=== PATIENT | male | born 1955 | race Caucasian/White ===

== ENCOUNTER 2018-03-06 12:41 | Emergency (ER) | payer BC ==
[2018-03-06 14:19] LABS: Hematocrit 36 % (42-52); Hemoglobin 11.9 g/dl (14.0-18.0); Mean Corpuscular HGB Conc 34 g/dl (31-36); Mean Corpuscular Hemoglobin 29 pg (27-31); Mean Corpuscular Volume 87 fL (80-94); Mean Platelet Volume 7.4 um3 (7.4-10.4); Platelet Count 190 10^3/ul (150-450); Red Blood Count 4.07 10^6/ul (4.00-5.40); Red Cell Distribution Width 13 % (10.5-15); White Blood Count 7.1 10^3/ul (3.5-10.8)
[2018-03-06 14:40] LABS: EGFR Non-African American 88.9 (>60)
[2018-03-06 14:53] LABS: ABS Basophils 0.1 10^3/ul (0-0.2); ABS Eosinophils 0.1 10^3/ul (0-0.6); ABS Monocytes 0.3 10^3/ul (0-0.8); ABS Neutrophils 5.6 10^3/ul (1.5-7.7); ABS Nucleated RBC 0 10^3/ul; Nucleated Red Blood Cells % 0.2
[2018-03-06 14:56] LABS: Monocytes % 6 % (0-7)
[2018-03-06 16:38] VITALS: BP 133/83
--- NOTE | 2018-03-08 15:05 | ED ---
Josafat Silva Tiffany, scribed for Miquel Goldberg MD on 03/06/18 at 1302 . Complex/Multi-Sys Presentation - HPI Summary HPI Summary: 63 year old M presenting to [facility] complains of increasing weakness for the past 3 weeks. Symptoms aggravated by nothing. Symptoms alleviated by nothing. Patient c/o decreased appetite, recent weight loss, fatigue per . Additionally reports right him pain. Denies shortness of breath. states that [facility] and left-sided abd pain with dx abdominal aneurysm, masses on left axilla, nodules in lungs. Biopsy scheduled for March 27. - History Of Current Complaint Chief Complaint: EDWeakness Time Seen by Provider: 03/06/18 12:48 Hx Obtained From: Patient, Family/[employer] - Onset/Duration: Lasting Weeks - 3, Still Present Aggravating Factor(s): Nothing Alleviating Factor(s): Nothing Associated Signs And Symptoms: Positive: Other - decreased appetite, recent weight loss, fatigue, right him pain; NEGATIVE: shortness of breath. - Allergies/Home Medications Allergies/Adverse Reactions: Allergies Allergy/AdvReac Type Severity Reaction Status Date / Time amoxicillin AdvReac GI Upset Verified 03/06/18 12:45 Home Medications: Home Medications Atorvastatin* [Lipitor*] 40 mg PO DAILY 03/06/18 [History Confirmed 03/06/18] Diclofenac 1% GEL (NF) [Voltaren 1% GEL (NF)] 1 applic TOPICAL BID PRN 03/06/18 [History Confirmed 03/06/18] Gabapentin CAP(*) [Neurontin 100 mg CAP(*)] 100 mg PO TID 03/06/18 [History Confirmed 03/06/18] Methocarbamol TAB* [Robaxin 500 MG TAB*] 500 mg PO QID PRN 03/06/18 [History Confirmed 03/06/18] Metoprolol Succinate XL TAB* [Toprol XL TAB*] 25 mg PO DAILY 03/06/18 [History Confirmed 03/06/18] Multivit-Mins/Iron/Folic/Lycop [Centrum Ultra Mens] 1 tab PO DAILY 03/06/18 [ History Confirmed 03/06/18] [place]-3 Fatty Acids (Nf) [Fish Oil (NF)] 1,000 mg PO DAILY 03/06/18 [History Confirmed 03/06/18] Omeprazole CAP* [Prilosec CAP* 20 MG] 20 mg PO DAILY 03/06/18 [History Confirmed 03/06/18] traMADol TAB* [Ultram*] 50 mg PO TID PRN 03/06/18 [History Confirmed 03/06/18] PMH/Surg Hx/FS Hx/Imm Hx Previously Healthy: No Endocrine/Hematology History: Denies: Hx Diabetes Respiratory History: Denies: Hx Asthma, Hx Chronic Obstructive Pulmonary Disease (COPD) Sensory History: Denies: Hx Deafness, Hx Hearing Aid EENT History: Denies: Hx Deafness, Hx Hearing Aid - Surgical History Surgery Procedure, Year, and Place: none reported Infectious Disease History: No Infectious Disease History: Denies: Traveled Outside the [place] in Last 30 Days - Family History Known Family History: Positive: Other - cancer - Social History Lives: With Family Hx Substance Use: No Substance Use Type: Reports: None Review of Systems Positive: Fatigue, Other - recent weight loss Negative: Shortness Of Breath Positive: Other - decreased appetite Positive: Other - right hip pain Neurological: Other - weakness All Other Systems Reviewed And Are Negative: Yes Physical Exam - Summary Physical Exam Summary: Appearance: The patient is well-nourished in no acute distress and in no acute pain. Skin: The skin is warm and dry and skin color reflects adequate perfusion. There is a mass on the left axilla that is mildly erythematous. HEENT: The head is normocephalic and atraumatic. The pupils are equal and reactive. The conjunctivae are clear and without drainage. Nares are patent and without drainage. Mouth reveals moist mucous membranes and the throat is without erythema and exudate. The external ears are intact. The ear canals are patent and without drainage. The tympanic membranes are intact. Neck: The neck is supple with full range of motion and non-tender. There are no carotid bruits. There is no neck vein distension. Respiratory: Chest is non-tender. Lungs are clear to auscultation and breath sounds are symmetrical and equal. Cardiovascular: Heart is regular rate and rhythm. There is no murmur or rub auscultated. There is no peripheral edema and pulses are symmetrical and equal. Abdomen: The abdomen is soft and non-tender. There are normal bowel sounds heard in all four quadrants and there is no organomegaly palpated. Musculoskeletal: There is no back tenderness noted. Extremities are non-tender with full range of motion. There is good capillary refill. There is no peripheral edema or calf tenderness elicited. Neurological: Patient is alert and oriented to person, place and time. The patient has symmetrical motor strength in all four extremities. Cranial nerves are grossly intact. Deep tendon reflexes are symmetrical and equal in all four extremities. Psychiatric: The patient has an appropriate affect and does not exhibit any anxiety or depression. Triage Information Reviewed: Yes Vital Signs On Initial Exam: Initial Vitals Temp Pulse Resp BP Pulse Ox 97.7 F 94 16 123/69 99 03/06/18 12:41 03/06/18 12:41 03/06/18 12:41 03/06/18 12:41 03/06/18 12:41 Vital Signs Reviewed: Yes Diagnostics - Vital Signs Vital Signs Temp Pulse Resp BP Pulse Ox 03/06/18 12:41 97.7 F 94 16 123/69 99 - Laboratory Lab Results: Lab Results 03/06/18 03/06/18 Range/Units 14:05 14:05 WBC 7.1 (3.5-10.8) 10^3/ul RBC 4.07 (4.00-5.40) 10^6/ul Hgb 11.9 L (14.0-18.0) g/dl Hct 36 L (42-52) % MCV 87 (80-94) fL MCH 29 (27-31) pg MCHC 34 (31-36) g/dl RDW 13 (10.5-15) % Plt Count 190 (150-450) 10^3/ul MPV 7.4 (7.4-10.4) um3 Neut % (Auto) Not Reportable Lymph % (Auto) Not Reportable Bureau % (Auto) Not Reportable Eos % (Auto) Not Reportable Baso % (Auto) Not Reportable Absolute Neuts (auto) 5.6 (1.5-7.7) 10^3/ul Absolute Lymphs (auto) 1.0 (1.0-4.8) 10^3/ul Absolute Monos (auto) 0.3 (0-0.8) 10^3/ul Absolute Eos (auto) 0.1 (0-0.6) 10^3/ul Absolute Basos (auto) 0.1 (0-0.2) 10^3/ul Absolute Nucleated RBC 0 10^3/ul Immature Gran % 5 (0-9) % Neutrophils % 76 (38-83) % Band Neutrophils % 1 (0-8) % Lymphocytes % 12 L (25-47) % Monocytes % 6 (0-7) % Eosinophils % 0 (0-6) % Basophils % 1 (0-2) % Metamyelocytes % 1 (0-2) % Myelocytes % 3 H (0-1) % Nucleated RBC % 0.2 Abs Neuts (Manual) 5.4 (1.5-7.7) 10^3/ul Abs Lymphs (Manual) 0.9 L (1.0-4.8) 10^3/ul Abs Monocytes (Manual) 0.4 (0-0.8) 10^3/ul Absolute Eos (Manual) 0 (0-0.6) 10^3/ul Abs Basophils (Manual) 0.1 (0-0.2) 10^3/ul Normal RBC Morphology Normal (Normal) Sodium 132 L (135-145) mmol/L Potassium 4.3 (3.5-5.0) mmol/L Chloride 93 L (101-111) mmol/L Carbon Dioxide 30 (22-32) mmol/L Anion Gap 9 (2-11) mmol/L BUN 15 (6-24) mg/dL Creatinine 0.87 (0.67-1.17) mg/dL Est GFR ( Amer) 107.6 (>60) Est GFR (Non-Af Amer) 88.9 (>60) BUN/Creatinine Ratio 17.2 (8-20) Glucose 101 H (70-100) mg/dL Calcium 9.9 (8.6-10.3) mg/dL Total Bilirubin 0.60 (0.2-1.0) mg/dL AST 83 H (13-39) U/L ALT 33 (7-52) U/L Alkaline Phosphatase 84 (34-104) U/L Lactate Dehydrogenase 805 H (140-271) U/L C-Reactive Protein 174.91 H (<8.01) mg/L Total Protein 5.2 L (6.4-8.9) g/dL Albumin 2.7 L (3.2-5.2) g/dL Globulin 2.5 (2-4) g/dL Albumin/Globulin Ratio 1.1 (1-3) Result Diagrams: 03/06/18 14:05 03/06/18 14:05 Lab Statement: Any lab studies that have been ordered have been reviewed, and results considered in the medical decision making process. Re-Evaluation - Re-Evaluation First Eval Re-Evaluation Time: 16:02 Comment: patient is agreeable to discharge, will head straight to Dr. Panchal's office Complex Multi-Symp Course/Dx Course Of Treatment: Mr. Tarango presented to the emergency department with his with a concern for increasing weakness over the past several weeks. About a week ago they went to the [facility] after his weakness increased to the point where was interfering with a camping trip. He was found to have a mass in his left axilla and nodules on his long and scheduled for a biopsy in late March. His vitals were stable here and his labs within normal limits aside from an elevated LDH. Dr. Panchal was contacted and requested that we discharge the patient to go to Dr. Panchal's office for follow-up and to arrange further testing with greater exigency. - Diagnoses Provider Diagnoses: Weakness - Physician Notifications Discussed Care Of Patient With: Moy Panchal Time Discussed With Above Provider: 15:55 Instructed by Provider To: Other - Dr. Panchal, oncology, agrees to see patient in his office as soon as patient is discharged from ED. Discharge - Sign-Out/Discharge Documenting (check all that apply): Discharge/Admit/Transfer - Discharge - Discharge Plan Condition: Fair Disposition: HOME Patient Education Materials: Weakness (ED) Referrals: Maurice Sheth MD [Medical Doctor] - Moy Panchal MD [Medical Doctor] - 03/06/18 Additional Instructions: Head to Dr. Panchal's office now for follow-up appointment. Return to the Emergency Department for new or worsening symptoms. - Billing Disposition and Condition Condition: FAIR Disposition: Home The documentation as recorded by the Josafat montejo Tiffany accurately reflects the service I personally performed and the decisions made by me, Miquel Goldberg MD.
== END 2018-03-06 16:43 | disposition home or self-care (01) ==
LOC: ED 12:41
DX: R53.1 Weakness (principal); M54.2 Cervicalgia; F17.210 Nicotine dependence, cigarettes, uncomplicated
CPT/HCPCS: 36415; 80053; 83615; 85025; 86140; 99282

== ENCOUNTER 2018-03-15 10:50 | Inpatient (IN) | payer BC ==
[2018-03-15] MEDS ORDERED: HYDROmorphone INJ* 0.5 MG/0.5 ML SYRINGE IV SLOW PU PRN (11:58)
[2018-03-15] MEDS ORDERED: traMADol TAB* 50 MG PO PRN (11:58)
[2018-03-15] MEDS ORDERED: Zoledronic Acid* 4 MG in NS 0.9% 100 ML* 95 ML IVPB ONE (11:58)
[2018-03-15] MEDS: NS 0.9% 1000 ML* 1,000 ML IV SCH ×2 (12:45→22:24)
[2018-03-15] MEDS: traMADol TAB* 50 MG PO PRN (13:25)
[2018-03-15 13:56] LABS: INR 1.06 (0.77-1.02)
[2018-03-15 14:08] LABS: Urine Appearance Cloudy; Urine Blood 1+ (Negative); Urine Color Yellow; Urine Ketones Trace (Negative); Urine Protein Negative (Negative); Urine Red Blood Cell 2+(6-10/hpf) (Absent); Urine Specific Gravity 1.016 (1.010-1.030); Urine Urobilinogen Negative (Negative); Urine White Blood Cell 1+(6-10/hpf) (Absent)
[2018-03-15] MEDS ORDERED: Midazolam* 1 MG/ML 5 ML VIAL (5 MG) ONE (15:37)
[2018-03-15] MEDS ORDERED: Naloxone* 0.4 MG/ML 1 ML VIAL IV PRN (16:36)
[2018-03-15 16:51] LABS: Body Fluid Source Cerebral Spinal
[2018-03-15] MEDS: Metoprolol Succinate XL TAB* 25 MG PO SCH (22:20)
[2018-03-16] MEDS: NS 0.9% 1000 ML* 1,000 ML IV SCH ×3 (05:03→22:14)
[2018-03-16] MEDS: Omeprazole CAP* 20 MG PO SCH (05:55)
[2018-03-16 06:09] LABS: Hematocrit 34 % (42-52); Hemoglobin 11.3 g/dl (14.0-18.0); Mean Corpuscular HGB Conc 33 g/dl (31-36); Mean Corpuscular Hemoglobin 29 pg (27-31); Mean Corpuscular Volume 86 fL (80-94); Platelet Count 157 10^3/ul (150-450); Red Blood Count 3.95 10^6/ul (4.00-5.40); Red Cell Distribution Width 14 % (10.5-15); White Blood Count 8.3 10^3/ul (3.5-10.8)
[2018-03-16 06:25] LABS: EGFR Non-African American 103.9 (>60)
[2018-03-16 06:40] LABS: ABS Basophils 0 10^3/ul (0-0.2); ABS Neutrophils 6.5 10^3/ul (1.5-7.7); ABS Neutrophils 7.1 10^3/ul (1.5-7.7); Monocytes % 3 % (0-7)
[2018-03-16] MEDS ORDERED: Furosemide IV* 10 MG/ML VIAL (40 MG) IV ONE (07:34)
[2018-03-16] MEDS: traMADol TAB* 50 MG PO PRN ×3 (08:03→22:09)
[2018-03-16] MEDS: Allopurinol TAB* 300 MG PO SCH ×2 (08:04→21:55)
--- NOTE | 2018-03-16 08:24 | PN ---
Progress Note - Progress Note Date of Service: 03/16/18 SOAP: Subjective: feels miserable today. back and right hip pain significant. does not want to move to let me examen him fully. Objective: Vital Signs Temp Pulse Resp BP Pulse Ox 98.3 F 106 20 169/89 98 03/16/18 03:24 03/16/18 07:51 03/16/18 08:03 03/16/18 07:51 03/16/18 07:51 lying on side in distress from pain perr eomi op moist CTA bl s1 s2 nl soft nontender, could not camille HSM on sideways exam shotty MUKUND on limited exam A+O x 3, grossly nonfocal neurological exam Laboratory Results - last 24 hr 03/15/18 03/15/18 03/15/18 12:02 13:13 13:50 WBC RBC Hgb Hct MCV MCH MCHC RDW Plt Count MPV Neut % (Auto) Lymph % (Auto) [place] % (Auto) Eos % (Auto) Baso % (Auto) Absolute Neuts (auto) Absolute Lymphs (auto) Absolute Monos (auto) Absolute Eos (auto) Absolute Basos (auto) Absolute Nucleated RBC Immature Gran % Neutrophils % Band Neutrophils % Lymphocytes % Reactive Lymphs % Monocytes % Eosinophils % Basophils % Metamyelocytes % Myelocytes % Nucleated RBC % Abs Neuts (Manual) Abs Lymphs (Manual) Abs Monocytes (Manual) Absolute Eos (Manual) Abs Basophils (Manual) Nucleated RBCs/100 WBC Normal RBC Morphology Polychromasia INR (Anticoag Therapy) 1.06 H APTT 26.2 Sodium Potassium Chloride Carbon Dioxide Anion Gap BUN Creatinine Est GFR ( Amer) Est GFR (Non-Af Amer) BUN/Creatinine Ratio Glucose Calcium Total Bilirubin AST ALT Alkaline Phosphatase Total Protein Albumin Globulin Albumin/Globulin Ratio Urine Color Yellow Urine Appearance Cloudy Urine pH 5.0 Ur Specific [place] 1.016 Urine Protein Negative Urine Ketones Trace A Urine Blood 1+ A Urine Nitrate Negative Urine Bilirubin Negative Urine Urobilinogen Negative Ur Leukocyte Esterase Negative Urine WBC (Auto) 1+(6-10/hpf) A Urine RBC (Auto) 2+(6-10/hpf) A Urine Bacteria Absent Urine Glucose Negative Fluid Source Cerebral spinal Fluid Volume 4 Fluid Color Colorless Fluid Appearance Clear Fluid WBC 0 Fluid RBC 0 Fluid Tot Cell Count 0 Fluid Neutrophils Not Reportable CSF Cell Count Tube # 4 CSF Glucose CSF Total Protein 07/11/18 07/12/18 07/12/18 16:30 05:29 05:29 WBC 8.3 RBC 3.95 L Hgb 11.3 L Hct 34 L MCV 86 MCH 29 MCHC 33 RDW 14 Plt Count 157 MPV 8.0 Neut % (Auto) Not Reportable Lymph % (Auto) Not Reportable [place] % (Auto) Not Reportable Eos % (Auto) Not Reportable Baso % (Auto) Not Reportable Absolute Neuts (auto) 7.1 Absolute Lymphs (auto) Not Reportable Absolute Monos (auto) Not Reportable Absolute Eos (auto) Not Reportable Absolute Basos (auto) Not Reportable Absolute Nucleated RBC Not Reportable Immature Gran % 6 Neutrophils % 78 Band Neutrophils % 3 Lymphocytes % 12 L Reactive Lymphs % 1 Monocytes % 3 Eosinophils % 0 Basophils % 0 Metamyelocytes % 1 Myelocytes % 2 H Nucleated RBC % Not Reportable Abs Neuts (Manual) 6.5 Abs Lymphs (Manual) 1.0 Abs Monocytes (Manual) 0.2 Absolute Eos (Manual) 0 Abs Basophils (Manual) 0 Nucleated RBCs/100 WBC 0 Normal RBC Morphology Not Reportable Polychromasia 1+ INR (Anticoag Therapy) APTT Sodium 135 Potassium 3.7 Chloride 101 Carbon Dioxide 25 Anion Gap 9 BUN 22 Creatinine 0.76 Est GFR ( Amer) 125.8 Est GFR (Non-Af Amer) 103.9 BUN/Creatinine Ratio 28.9 H Glucose 103 H Calcium 11.7 H Total Bilirubin 0.70 AST 84 H ALT 27 Alkaline Phosphatase 94 Total Protein 4.3 L Albumin 2.3 L Globulin 2.0 Albumin/Globulin Ratio 1.2 Urine Color Urine Appearance Urine pH Ur Specific [place] Urine Protein Urine Ketones Urine Blood Urine Nitrate Urine Bilirubin Urine Urobilinogen Ur Leukocyte Esterase Urine WBC (Auto) Urine RBC (Auto) Urine Bacteria Urine Glucose Fluid Source Fluid Volume Fluid Color Fluid Appearance Fluid WBC Fluid RBC Fluid Tot Cell Count Fluid Neutrophils CSF Cell Count Tube # CSF Glucose 63 CSF Total Protein 26 Allopurinol (Zyloprim Tab*) 300 mg PO BID [facility]ADUMO Last Admin: 03/16/18 08:04 Dose: 300 mg Hydromorphone HCl (Dilaudid Inj*) 0.5 mg IV SLOW PU Q4H PRN PRN Reason: PAIN Sodium Chloride (Ns 0.9% 1000 Ml*) 1,000 mls @ 150 mls/hr IV PER RATE FADUMO Last Admin: 03/16/18 05:03 Dose: 150 mls/hr Dexamethasone Sodium Phosphate (40 mg/ Sodium Chloride) 60 mls @ 208 mls/hr IVPB Q24H [facility] Stop: 03/20/18 15:59 Melatonin (Melatonin) 6 mg PO BEDTIME PRN PRN Reason: SLEEP Metoprolol Succinate (Toprol Xl Tab*) 25 mg PO 1600 [facility] Last Admin: 03/15/18 22:20 Dose: 25 mg Omeprazole (Prilosec Cap*) 20 mg PO DAILY@0600 [facility] Last Admin: 03/16/18 05:55 Dose: 20 mg Tramadol HCl (Ultram*) 50 mg PO QID PRN PRN Reason: PAIN Last Admin: 03/16/18 08:03 Dose: 50 mg Assessment: 63 yo M w newly diagnosed DLBCL, at least stage 3, though likely IV, admitted with failure to thrive, hypercalcemia and intractable pain. He will require inpatient chemotherapy. We are still awaiting FISH to clarify if double hit/ triple hit to identify appropriate therapy (R-CHOP vs. Cari-EPOCH). Plan: Hypercalcemia: had zometa yesterday, may take another 24 hrs to see improvement -add lasix IV to fluids today DLBCL: start allopurinol for tumor lysis prophylaxis -staging CTs today -port at 9 am -will start high dose dex this afternoon x 4 doses -plan to start chemotherapy on Tuesday -cont dilaudid and tramadol for pain control -start lovenox dvt prophylaxis after port placement (this evening) full code
[2018-03-16] MEDS ORDERED: ceFAZolin 1 GM in Dextrose (*) 1 GM/50 ML BAG IVPB ONE (09:00)
[2018-03-16] MEDS ORDERED: fentaNYL* 50 MCG/ML 5 ML VIAL (250 MCG VIAL) ONE (09:44)
[2018-03-16] MEDS ORDERED: Midazolam* 1 MG/ML 2 ML VIAL (2 MG) ONE (09:44)
[2018-03-16] MEDS ORDERED: Iohexol 300* (CONTRAST) 10 ML SDV IV ONE ×2 (12:39→13:13)
--- NOTE | 2018-03-16 14:23 | RAD ---
INDICATION: New diagnosis of lymphoma. COMPARISON: No relevant prior exams available on the [facility] PACS for comparison. TECHNIQUE: Multidetector CT images were obtained from the lung apices to the ischial tuberosities with alternate milliliters Omnipaque 300 IV contrast. Oral contrast administered. CHEST REPORT: Small bilateral dependent pleural effusions with associated compressive atelectasis. Multiple bilateral focal pulmonary lesions. Dominant 2.6 cm subpleural lesion at the RIGHT lower lobe posterior basal segment. Dominant lesion at the LEFT lung measures 1.0 cm maximum dimension at the anteromedial basal segment of the LEFT lower lobe. Incompletely visualized LEFT supraclavicular lymphadenopathy with dominant 1.3 cm short axis node. Bilateral axillary lymphadenopathy with coalescent ness mass at the LEFT axilla measuring up to 9.6 cm AP by 0.5 cm transverse. Upper normal 0.9 cm short axis subcarinal lymph node. Negative for lymphadenopathy or pericardial effusion. Mild atherosclerotic plaque at the thoracic aorta. Subtle lytic lesion at the anterolateral aspect of the RIGHT first rib with associated surrounding soft tissue mass measuring up to 2.8 cm transverse by 7.8 cm AP. No additional focal osseous lesions of the thorax visualized. CHEST IMPRESSION: #. Bilateral pleural effusions. #. Multiple bilateral intraparenchymal lesions. #. Thoracic lymphadenopathy with dominant coalescent ness mass at the LEFT axilla. #. Lytic lesion with associated soft tissue mass at the RIGHT first rib. ABDOMEN PELVIS REPORT: Unremarkable liver and gallbladder. Negative for biliary dilatation. Fullness and blunting at the uncinate process of the pancreas with suggestion of a 1.8 x 2.1 x 2.2 cm mass. Negative for pancreatic duct dilatation. Mildly enlarged 14.7 cm cephalocaudal liver with innumerable focal hypodense lesions. No CT abnormality of the upper GI, small bowel, appendix, or colon. Negative for significant ascites. Negative for free air or hernias. Normal adrenal glands. Symmetric nephrograms and pyelograms. Negative for suspicious focal renal cortical lesions. Thickening of the LEFT renal pelvis and proximal ureter suspicious for taking with lymphoma tumor. Negative for resulting hydronephrosis. Negative for ureteral dilatation. Unremarkable urinary bladder. Symmetric seminal vesicles. Unremarkable CT appearance of the prostate. Bilateral external iliac and inguinal lymphadenopathy. Dominant RIGHT external iliac lymph node measures 1.9 cm short axis. Dominant RIGHT common femoral artery lymph node measures 2.1 cm short axis. Negative for suspicious osseous lesions of the lumbar sacral spine, pelvis, or visualized proximal femurs. ABDOMEN PELVIS IMPRESSION: #. Probable 2.2 cm maximum dimension mass at the uncinate process of the pancreas. The differential includes involvement by lymphoma versus a primary pancreatic neoplasm. Negative for associated pancreatic duct dilatation. #. Splenomegaly and innumerable focal splenic lesions. #. Suggestion of tumor caking around the LEFT renal pelvis and proximal ureter without resulting hydronephrosis. #. Bilateral external iliac and inguinal lymphadenopathy.
[2018-03-16] MEDS: Metoprolol Succinate XL TAB* 25 MG PO SCH (16:18)
[2018-03-16] MEDS: Dexamethasone IV* 40 MG in NS 0.9% 50 ML* 50 ML IVPB SCH (16:19)
--- NOTE | 2018-03-16 18:18 | RAD ---
CPT II Codes: G9500 Procedure performed: Mediport placement with sonographic and fluoroscopic guidance. Date of service: March 16, 2018 Indication for procedure: Lymphoma Comparison: None Contrast: None Fluoroscopy Time: 28 seconds Anesthesia: Conscious sedation with IV Fentanyl and Versed as well as local 1% lidocaine injected locally overlying the venotomy site, periclavicular area and upper chest. Conscious sedation time: Timeout: 1040 hours Case end: 1110 hours Total conscious sedation time: 30 minutes Additional medications: Ancef 1 gram IV. Procedure Narration and Imaging Findings: The risks and benefit of the procedure were discussed with the patient and informed consent was obtained. The patient received Ancef 1 g immediately before the procedure for antibiotic prophylaxis. The patient was placed in the supine position in the fluoroscopy suite and the neck and upper chest was prepped and draped according to standard sterile protocol. A formal time out was performed by Dr. Murray in the presence of the IR staff and all agreed on the patient, procedure and laterality. The skin overlying the right jugular vein and upper chest was anesthetized with 1% lidocaine. Real time ultrasound imaging shows the internal jugular vein is patent and determined to be adequate for catheter placement. Utilizing real time ultrasound visualization the internal jugular vein was accessed with an 18 gauge needle. An image was recorded and saved confirming appropriate intraluminal position of the needle tip. Blood return further confirmed position. Through the needle and under fluoroscopic control a 0.035" guidewire was advanced down the IVC confirming appropriate venous access. An image of the wire in the IVC was recorded. Over the wire a peel away sheath was gently advanced into the IVC under fluoroscopic guidance. Attention was now directed to creation of the subcutaneous mediport pocket. An incision below the clavicle was made and using blunt instrument dissection, a subcutaneous port was created. From the superior edge of the incision a tunneling device was used to advance the catheter from the pocket to the venotomy. The port end of the catheter was clamped to prevent air aspiration into the catheter. The catheter was pulled through and advanced into the peel away sheath under fluoroscopic guidance. The sheath was peeled away and the catheter tip was pulled back so that it terminated at the cavoatrial junction. The catheter was cut to a length of 24 cm, attached to the mediport and secured with the pericatheter cuff. The port was accessed with a Dunn needle and blood was aspirated from the port and then flushed with sterile saline with minimal effort. The port was then flushed with approximately 3mL of 100 units/mL of heparin. The pocket was flushed with sterile saline prior to inserting the mediport into the pocket. A fluoroscopic image was saved demonstrating appropriate position of all parts of the mediport before closure of the incision. The pocket was closed with interrupted absorbable suture then dressed with Steri strips and sterile gauze. The venotomy site was dressed with Steri strips, sterile gauze and Tegaderm. The patient tolerated the procedure well and left the angiography suite in stable condition. SUMMARY OF PROCEDURE, IMAGING FINDINGS AND INTERVENTIONS PERFORMED: 1. Diagnostic studies performed: * Visualization of the upper central venous system during catheter and wire advancement. 2. Interpretation of diagnostic studies performed: * Sonographic imaging of the jugular vein showed the vein to be adequately patent, compressible and with normal venous color flow signal. * Venotomy was accessed with live sonographic guidance. An image of the needle tip in the lumen of the vein was recorded. 3. Surgical interventions performed: * Placement of a right internal jugular vein 8 [place] Bard Clear JULIO PowerPort with ultrasound and fluoroscopic guidance. 4. Interpretation of interventions performed: * Final fluoroscopic image demonstrates the Mediport to be appropriately positioned below the clavicle with the catheter tip terminating at the cavoatrial junction. PLAN: 1. External bandages can be removed 24 hours from the time of port insertion. 2. The overlying Steri strips should be allowed to slough off over the course of 1 week. 3. Port can be accessed immediately. 4. Please submit request for mediport removal to Interventional Radiology when the mediport is no longer necessary.
[2018-03-16] MEDS: Enoxaparin(*) 40 MG/0.4 ML SYR SUBCUT SCH ×2 (21:55→21:58)
[2018-03-17] MEDS: NS 0.9% 1000 ML* 1,000 ML IV SCH ×2 (04:48→19:25)
[2018-03-17 06:02] LABS: Hematocrit 33 % (42-52); Hemoglobin 11.5 g/dl (14.0-18.0); Mean Corpuscular HGB Conc 35 g/dl (31-36); Mean Corpuscular Hemoglobin 30 pg (27-31); Mean Corpuscular Volume 86 fL (80-94); Mean Platelet Volume 8.1 um3 (7.4-10.4); Platelet Count 140 10^3/ul (150-450); Red Blood Count 3.86 10^6/ul (4.00-5.40); Red Cell Distribution Width 15 % (10.5-15); White Blood Count 8.6 10^3/ul (3.5-10.8)
[2018-03-17 06:18] LABS: EGFR Non-African American 110.6 (>60)
[2018-03-17 06:22] LABS: ABS Basophils 0 10^3/ul (0-0.2); ABS Eosinophils 0 10^3/ul (0-0.6); ABS Lymphocytes 0.5 10^3/ul (1.0-4.8); ABS Monocytes 0.2 10^3/ul (0-0.8); ABS Neutrophils 7.9 10^3/ul (1.5-7.7); ABS Nucleated RBC 0 10^3/ul
[2018-03-17 06:25] LABS: ABS Basophils 0 10^3/ul (0-0.2); ABS Neutrophils 6.5 10^3/ul (1.5-7.7); Monocytes % 0 % (0-7)
[2018-03-17] MEDS: Omeprazole CAP* 20 MG PO SCH (06:31)
[2018-03-17] MEDS: traMADol TAB* 50 MG PO PRN ×3 (06:35→20:53)
[2018-03-17] MEDS: Allopurinol TAB* 300 MG PO SCH ×2 (10:13→20:53)
[2018-03-17] MEDS: Enoxaparin(*) 40 MG/0.4 ML SYR SUBCUT SCH (10:13)
[2018-03-17] MEDS ORDERED: Lidocaine 2.5%/Prilocain 2.5%* 5 GM TUBE TOPICAL ONE (12:52)
[2018-03-17] MEDS: Dexamethasone IV* 40 MG in NS 0.9% 50 ML* 50 ML IVPB SCH (16:53)
[2018-03-17] MEDS: Metoprolol Succinate XL TAB* 25 MG PO SCH (16:54)
[2018-03-17] MEDS: Melatonin 3 MG TAB PO PRN (20:53)
--- NOTE | 2018-03-17 22:01 | PN ---
Progress Note - Progress Note Date of Service: 03/17/18 SOAP: Subjective: [Patient reports improved pain and appetite is starting to return. His energy is slightly better and he would like to start walking. Denies n/v/d. Reviewed staging scans, CSF cytology and bone marrow results with patient and his .] Objective: [ Laboratory Results - last 24 hr 03/17/18 03/17/18 05:22 05:22 WBC 8.6 RBC 3.86 L Hgb 11.5 L Hct 33 L MCV 86 MCH 30 MCHC 35 RDW 15 Plt Count 140 L MPV 8.1 Neut % (Auto) Not Reportable Lymph % (Auto) Not Reportable [place] % (Auto) Not Reportable Eos % (Auto) Not Reportable Baso % (Auto) Not Reportable Absolute Neuts (auto) 7.9 H Absolute Lymphs (auto) 0.5 L Absolute Monos (auto) 0.2 Absolute Eos (auto) 0 Absolute Basos (auto) 0 Absolute Nucleated RBC 0 Immature Gran % 16 H Neutrophils % 75 Band Neutrophils % 12 H Lymphocytes % 9 L Monocytes % 0 Eosinophils % 0 Basophils % 0 Metamyelocytes % 2 Myelocytes % 2 H Nucleated RBC % Not Reportable Abs Neuts (Manual) 6.5 Abs Lymphs (Manual) 0.8 L Abs Monocytes (Manual) 0 Absolute Eos (Manual) 0 Abs Basophils (Manual) 0 Normal RBC Morphology Normal Sodium 139 Potassium 3.8 Chloride 104 Carbon Dioxide 27 Anion Gap 8 BUN 27 H Creatinine 0.72 Est GFR ( Amer) 133.8 Est GFR (Non-Af Amer) 110.6 BUN/Creatinine Ratio 37.5 H Glucose 140 H Calcium 10.3 Total Bilirubin 0.60 AST 97 H ALT 29 Alkaline Phosphatase 103 Total Protein 4.4 L Albumin 2.3 L Globulin 2.1 Albumin/Globulin Ratio 1.1 Allopurinol (Zyloprim Tab*) 300 mg PO BID [facility] Last Admin: 03/17/18 20:53 Dose: 300 mg Enoxaparin Sodium (Lovenox(*)) 40 mg SUBCUT 0900 [facility] Last Admin: 03/17/18 10:13 Dose: 40 mg Heparin Sodium (Porcine) (Heparin Flush Port (Ivad)) 5 ml FLUSH DAILY [facility]; Protocol Hydromorphone HCl (Dilaudid Inj*) 0.5 mg IV SLOW PU Q4H PRN PRN Reason: PAIN Sodium Chloride (Ns 0.9% 1000 Ml*) 1,000 mls @ 150 mls/hr IV PER RATE [facility] Last Admin: 03/17/18 19:25 Dose: 150 mls/hr Dexamethasone Sodium Phosphate (40 mg/ Sodium Chloride) 60 mls @ 208 mls/hr IVPB Q24H [facility] Stop: 03/20/18 15:59 Last Admin: 03/17/18 16:53 Dose: 208 mls/hr Melatonin (Melatonin) 6 mg PO BEDTIME PRN PRN Reason: SLEEP Last Admin: 03/17/18 20:53 Dose: 6 mg Metoprolol Succinate (Toprol Xl Tab*) 25 mg PO 1600 [facility] Last Admin: 03/17/18 16:54 Dose: 25 mg Omeprazole (Prilosec Cap*) 20 mg PO DAILY@0600 [facility] Last Admin: 03/17/18 06:31 Dose: 20 mg Tramadol HCl (Ultram*) 50 mg PO QID PRN PRN Reason: PAIN Last Admin: 03/17/18 20:53 Dose: 50 mg Vital Signs: Temp Pulse Resp BP Pulse Ox 98.1 F 102 18 140/76 96 03/17/18 19:24 03/17/18 19:24 03/17/18 20:53 03/17/18 19:24 03/17/18 19:24 Exam: Gen: Fatigued, accompanied by his HEENT: MMM CV: RRR, no m/r/g Resp: lungs CTA, no w/c/r Abd: soft, nonTTP Ext: no edema Assessment: 63 yo M w newly diagnosed DLBCL, stage IV with bone marrow involvement, admitted with failure to thrive, hypercalcemia and intractable pain. He will require inpatient chemotherapy, plan to start daEPOCH-R on Tuesday. 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 Difficult to assess whether this a second malignancy or manifestation of his lymphoma. Plan: 1. DLBCL: - cont allopurinol for tumor lysis prophylaxis - diffuse LAD with bone marrow infiltration - CSF cytology neg for malignancy - port placed - cont dose dexamethasone x 4 doses -plan to start EPOCH-R on Tuesday -cont dilaudid and tramadol for pain control, although pain has improved since starting dexamethasone 2. Pancreatic mass - plan to check CA 19-9 - do not want to delay initiating tx for his DLBCL due to significant symptoms - assuming CA 19-9 is negative will plan to follow mass once lymphoma treatment has been initiated 3. Hypercalcemia: - improved - cont IV fluids at this time - no associated renal insufficiency Lovenox 40 mg SQ full code
[2018-03-18] MEDS: NS 0.9% 1000 ML* 1,000 ML IV SCH ×5 (01:49→22:54)
[2018-03-18] MEDS: traMADol TAB* 50 MG PO PRN ×3 (03:44→19:54)
[2018-03-18] MEDS: Omeprazole CAP* 20 MG PO SCH (06:20)
[2018-03-18] MEDS: Allopurinol TAB* 300 MG PO SCH ×2 (08:08→19:54)
[2018-03-18] MEDS: Enoxaparin(*) 40 MG/0.4 ML SYR SUBCUT SCH (08:10)
[2018-03-18] MEDS ORDERED: Lidocaine 2.5%/Prilocain 2.5%* 5 GM TUBE TOPICAL ONE (12:35)
[2018-03-18] MEDS: Metoprolol Succinate XL TAB* 25 MG PO SCH (15:54)
[2018-03-18] MEDS: Dexamethasone IV* 40 MG in NS 0.9% 50 ML* 50 ML IVPB SCH (15:54)
[2018-03-18] MEDS: Al Hydrox/Mg Hydrox/Simet LIQ* 30 ML UDC PO PRN (16:42)
[2018-03-18] MEDS: Melatonin 3 MG TAB PO PRN (19:54)
[2018-03-19] MEDS: traMADol TAB* 50 MG PO PRN ×3 (04:07→16:25)
[2018-03-19] MEDS: Enoxaparin(*) 40 MG/0.4 ML SYR SUBCUT SCH (08:42)
[2018-03-19] MEDS: Allopurinol TAB* 300 MG PO SCH ×2 (08:42→20:12)
[2018-03-19] MEDS: Al Hydrox/Mg Hydrox/Simet LIQ* 30 ML UDC PO PRN ×3 (09:31→18:04)
[2018-03-19] MEDS: NS 0.9% 1000 ML* 1,000 ML IV SCH (12:41)
[2018-03-19 12:42] LABS: Hematocrit 32 % (42-52); Hemoglobin 10.7 g/dl (14.0-18.0); Mean Corpuscular HGB Conc 33 g/dl (31-36); Mean Corpuscular Hemoglobin 29 pg (27-31); Mean Corpuscular Volume 86 fL (80-94); Mean Platelet Volume 7.9 um3 (7.4-10.4); Platelet Count 155 10^3/ul (150-450); Red Blood Count 3.73 10^6/ul (4.00-5.40); Red Cell Distribution Width 14 % (10.5-15); White Blood Count 9.4 10^3/ul (3.5-10.8)
[2018-03-19 13:00] LABS: Uric Acid 2.2 mg/dL (4.4-7.6)
[2018-03-19 13:34] LABS: ABS Basophils 0 10^3/ul (0-0.2); ABS Eosinophils 0 10^3/ul (0-0.6); ABS Lymphocytes 0.7 10^3/ul (1.0-4.8); ABS Monocytes 0.3 10^3/ul (0-0.8); ABS Neutrophils 8.4 10^3/ul (1.5-7.7); ABS Nucleated RBC 0.1 10^3/ul; Eosinophil % 0 % (0-6); Lymphocyte % 7.4 % (25-47); Nucleated Red Blood Cells % 0.7
[2018-03-19] MEDS: Metoprolol Succinate XL TAB* 25 MG PO SCH (16:25)
[2018-03-19] MEDS: Dexamethasone IV* 40 MG in NS 0.9% 50 ML* 50 ML IVPB SCH (16:27)
[2018-03-19] MEDS: Melatonin 3 MG TAB PO PRN (20:13)
[2018-03-20] MEDS: traMADol TAB* 50 MG PO PRN ×3 (04:26→20:33)
[2018-03-20] MEDS: Al Hydrox/Mg Hydrox/Simet LIQ* 30 ML UDC PO PRN (08:28)
[2018-03-20] MEDS: Allopurinol TAB* 300 MG PO SCH ×2 (08:29→20:14)
[2018-03-20] MEDS: Enoxaparin(*) 40 MG/0.4 ML SYR SUBCUT SCH (08:29)
[2018-03-20] MEDS ORDERED: Pantoprazole IV* 40 MG IV SCH (09:00)
[2018-03-20] MEDS ORDERED: PROCHLORPERAZINE INJ 5 MG/ML 2 ML VIAL IV PRN (09:35)
[2018-03-20] MEDS ORDERED: Acetaminophen TAB* 325 MG PO ONE (10:00)
[2018-03-20] MEDS ORDERED: diPHENhydraMINE IV* 50 MG/ML 1 ml VIAL (BENADRYL) SLOW PUSH ONE (10:00)
[2018-03-20] MEDS ORDERED: Omeprazole CAP* 20 MG PO SCH (10:00)
[2018-03-20] MEDS ORDERED: Palonosetron* 0.25 MG in PREMIX* 0 ML IVPB ONE ×2 (10:15→15:45)
[2018-03-20] MEDS ORDERED: Fosaprepitant IV* 150 MG in NS 0.9% 250 ML* 145 ML IVPB ONE ×2 (10:30→15:30)
[2018-03-20] MEDS: predniSONE TAB* 50 MG PO SCH ×2 (10:54→20:14)
[2018-03-20] MEDS: predniSONE TAB* 20 MG PO SCH ×2 (10:54→20:14)
[2018-03-20] MEDS ORDERED: Polyethylene Glycol 3350* 17 GM PACKET PO PRN (10:54)
--- NOTE | 2018-03-20 10:54 | PN ---
Progress Note - Progress Note Date of Service: 03/20/18 SOAP: Subjective: []Feeling well overall. Has had some fluid retention and wt. up to 190lbs since admission. 2 BMs today. Still has a lot of reflux discomfort and PO omeprazole hasn't helped much. , Faith, at bedside and involved in teaching and plan of care. Medications: Al Hydrox/Mg Hydrox/Simethicone (Maalox Plus*) 30 ml PO Q6H PRN PRN Reason: INDIGESTION Last Admin: 03/20/18 08:28 Dose: 30 ml Allopurinol (Zyloprim Tab*) 300 mg PO BID [facility] Last Admin: 03/20/18 08:29 Dose: 300 mg Enoxaparin Sodium (Lovenox(*)) 40 mg SUBCUT 0900 [facility] Last Admin: 03/20/18 08:29 Dose: 40 mg Heparin Sodium (Porcine) (Heparin Flush Port (Ivad)) 5 ml FLUSH DAILY [facility]; Protocol Last Admin: 03/20/18 09:09 Dose: 5 ml Hydromorphone HCl (Dilaudid Inj*) 0.5 mg IV SLOW PU Q4H PRN PRN Reason: PAIN Fosaprepitant 150 mg/ Sodium (Chloride) 150 mls @ 300 mls/hr IVPB ONCE ONE Stop: 03/20/18 10:59 Rituximab 500 mg/ Rituximab (250 mg/ Sodium Chloride) 375 mls @ 0 mls/hr IVPB ONCE ONE Stop: 03/20/18 11:01 Melatonin (Melatonin) 6 mg PO BEDTIME PRN PRN Reason: SLEEP Last Admin: 03/19/18 20:13 Dose: 6 mg Metoprolol Succinate (Toprol Xl Tab*) 25 mg PO 1600 [facility] Last Admin: 03/19/18 16:25 Dose: 25 mg Omeprazole (Prilosec Cap*) 20 mg PO 0600 [facility] Prednisone (Deltasone Tab*) 20 mg PO BID [facility] Stop: 03/24/18 21:01 Prednisone (Deltasone Tab*) 100 mg PO BID [facility] Stop: 03/24/18 21:01 Prochlorperazine Edisylate (Compazine Inj*) 10 mg IV Q6H PRN PRN Reason: NAUSEA/VOMITING Tramadol HCl (Ultram*) 50 mg PO QID PRN PRN Reason: PAIN Last Admin: 03/20/18 04:26 Dose: 50 mg Objective: [] Vital Signs Temp Pulse Resp BP Pulse Ox 97.5 F 100 17 124/72 98 03/20/18 07:40 03/20/18 07:40 03/20/18 07:40 03/20/18 07:40 03/20/18 07:40 A&Ox3, EOMI, PERRLA HRR, S1S2 LS clear bilat. +BS, abd. soft and non-tender +1 peripheral edema Laboratory Results - last 24 hr 03/19/18 03/19/18 12:30 12:30 WBC 9.4 RBC 3.73 L Hgb 10.7 L Hct 32 L MCV 86 MCH 29 MCHC 33 RDW 14 Plt Count 155 MPV 7.9 Neut % (Auto) 88.9 H Lymph % (Auto) 7.4 L [place] % (Auto) 3.5 Eos % (Auto) 0 Baso % (Auto) 0.2 Absolute Neuts (auto) 8.4 H Absolute Lymphs (auto) 0.7 L Absolute Monos (auto) 0.3 Absolute Eos (auto) 0 Absolute Basos (auto) 0 Absolute Nucleated RBC 0.1 Nucleated RBC % 0.7 Sodium 140 Potassium 3.4 L Chloride 109 Carbon Dioxide 20 L Anion Gap 11 BUN 28 H Creatinine 0.63 L Est GFR ( Amer) 156.1 Est GFR (Non-Af Amer) 129.0 BUN/Creatinine Ratio 44.4 H Glucose 106 H Uric Acid 2.2 L Calcium 8.7 Total Bilirubin 0.60 AST 68 H ALT 29 Alkaline Phosphatase 69 Total Protein 4.1 L Albumin 2.3 L Globulin 1.8 L Albumin/Globulin Ratio 1.3 Assessment: []63 yo male with aggressive, high risk, diffuse large b-cell lymphoma starting therapy with Dose Adjusted R-EPOCH today. Plan: []1. Cycle 1 Day 1 today: daEPOCH-R - Rituximab 375 mg/m2 IV D1, Etoposide 50 mg/m2/day IV D1-4, Doxorubicin 10 mg m2day IV D1-4, Vincristine 0.4 mg/m2/day IV D1-4, Cyclophosphamide 750 mg/m2 IV D5, Prednisone 60mg/m2 PO BID D1-5 - expected side effects and risks reviewed at length, pt. and agreeable to plan of care - Neupogen 300 mcg subq D6-15 2. CBC, CMP daily 3. Add IV PPI during therapy d/t significant GERD, high dose steroids, and minimal effect from PO most recently
[2018-03-20] MEDS ORDERED: NS 0.9% IVPB ONE (11:00)
[2018-03-20] MEDS ORDERED: RITUXIMAB IVPB ONE (11:00)
[2018-03-20] MEDS ORDERED: Meperidine Carpuject* 75 MG/ML CARPUJECT SYRINGE IV PRN (12:48)
[2018-03-20 14:17] LABS: Hematocrit 25 % (42-52); Hemoglobin 8.4 g/dl (14.0-18.0); Mean Corpuscular HGB Conc 34 g/dl (31-36); Mean Corpuscular Hemoglobin 29 pg (27-31); Mean Corpuscular Volume 86 fL (80-94); Mean Platelet Volume 8.3 um3 (7.4-10.4); Platelet Count 127 10^3/ul (150-450); Red Blood Count 2.93 10^6/ul (4.00-5.40); Red Cell Distribution Width 15 % (10.5-15); White Blood Count 9.4 10^3/ul (3.5-10.8)
[2018-03-20 14:38] LABS: EGFR Non-African American 136.5 (>60)
[2018-03-20 15:47] LABS: ABS Basophils 0 10^3/ul (0-0.2); ABS Eosinophils 0 10^3/ul (0-0.6); ABS Lymphocytes 0.7 10^3/ul (1.0-4.8); ABS Monocytes 0.2 10^3/ul (0-0.8); ABS Neutrophils 8.5 10^3/ul (1.5-7.7); ABS Nucleated RBC 0.2 10^3/ul; Eosinophil % 0 % (0-6); Lymphocyte % 7.1 % (25-47); Nucleated Red Blood Cells % 1.6
[2018-03-20] MEDS: Metoprolol Succinate XL TAB* 25 MG PO SCH (17:20)
[2018-03-20] MEDS: VINCRISTINE IVPB SCH (17:49)
[2018-03-20] MEDS: ETOPOSIDE IVPB SCH (17:49)
[2018-03-20] MEDS: NS 0.9% IVPB SCH (17:49)
[2018-03-20] MEDS: DOXORUBICIN IVPB SCH (17:49)
[2018-03-20] MEDS: Melatonin 3 MG TAB PO PRN (20:33)
[2018-03-21] MEDS: Enoxaparin(*) 40 MG/0.4 ML SYR SUBCUT SCH (08:28)
[2018-03-21] MEDS: Pantoprazole IV* 40 MG IV SCH (08:29)
[2018-03-21] MEDS: traMADol TAB* 50 MG PO PRN ×2 (08:30→17:05)
[2018-03-21] MEDS: predniSONE TAB* 20 MG PO SCH ×2 (08:33→20:54)
[2018-03-21] MEDS: predniSONE TAB* 50 MG PO SCH ×2 (08:33→20:55)
[2018-03-21] MEDS: Allopurinol TAB* 300 MG PO SCH ×2 (08:33→20:54)
--- NOTE | 2018-03-21 11:29 | PN ---
Progress Note - Progress Note Date of Service: 03/21/18 SOAP: Subjective: []Feeling well overall. Tired, but was able to walk around unit with PT and did stairs. Denies overt SOB. No nausea. Eating well. Somethings taste weird. No irritation to mouth however. No BM today, but had loose stool yesterday Medications: Al Hydrox/Mg Hydrox/Simethicone (Maalox Plus*) 30 ml PO Q6H PRN PRN Reason: INDIGESTION Last Admin: 03/20/18 08:28 Dose: 30 ml Allopurinol (Zyloprim Tab*) 300 mg PO BID [facility] Last Admin: 03/21/18 08:33 Dose: 300 mg Enoxaparin Sodium (Lovenox(*)) 40 mg SUBCUT 0900 [facility] Last Admin: 03/21/18 08:28 Dose: 40 mg Heparin Sodium (Porcine) (Heparin Flush Port (Ivad)) 5 ml FLUSH DAILY [facility]; Protocol Last Admin: 03/21/18 08:59 Dose: Not Given Hydromorphone HCl (Dilaudid Inj*) 0.5 mg IV SLOW PU Q4H PRN PRN Reason: PAIN Doxorubicin HCl 20 mg/Etoposide 100 mg/ Vincristine Sulfate 0.8 mg/ Sodium Chloride 515.8 mls @ 21.492 mls/hr IVPB DAILY@1630 [facility] Stop: 03/24/18 16:29 Last Admin: 03/20/18 17:49 Dose: 21.492 mls/hr Cyclophosphamide 1,000 mg/Cyclophosphamide 500 mg/Sodium Chloride 575 mls @ 575 mls/hr IVPB ONCE ONE Stop: 03/24/18 16:59 Palonosetron 0.25 mg/ IV (Solution) 5 mls @ 150 mls/hr IVPB ONCE ONE Stop: 03/23/18 15:01 Melatonin (Melatonin) 6 mg PO BEDTIME PRN PRN Reason: SLEEP Last Admin: 03/20/18 20:33 Dose: 6 mg Meperidine HCl (Demerol Carpuject*) 25 mg IV ONCE PRN PRN Reason: rigors Stop: 03/21/18 12:47 Metoprolol Succinate (Toprol Xl Tab*) 25 mg PO 1600 [facility] Last Admin: 03/20/18 17:20 Dose: 25 mg Pantoprazole Sodium (Protonix Iv*) 40 mg IV DAILY [facility] Last Admin: 03/21/18 08:29 Dose: 40 mg Polyethylene Glycol/Electrolytes (Miralax*) 17 gm PO DAILY PRN PRN Reason: CONSTIPATION Prednisone (Deltasone Tab*) 20 mg PO BID [facility] Stop: 03/24/18 21:01 Last Admin: 03/21/18 08:33 Dose: 20 mg Prednisone (Deltasone Tab*) 100 mg PO BID [facility] Stop: 03/24/18 21:01 Last Admin: 03/21/18 08:33 Dose: 100 mg Prochlorperazine Edisylate (Compazine Inj*) 10 mg IV Q6H PRN PRN Reason: NAUSEA/VOMITING Tramadol HCl (Ultram*) 50 mg PO QID PRN PRN Reason: PAIN Last Admin: 03/21/18 08:30 Dose: 50 mg Objective: [] Vital Signs Temp Pulse Resp BP Pulse Ox 98.0 F 72 18 128/65 95 03/21/18 07:19 03/21/18 07:19 03/21/18 08:30 03/21/18 07:19 03/21/18 08:00 A&Ox3, EOMI, neuro grossly non-focal HRR, S1S2 LS clear bilat., resp. even and non-labored +BS, abd. soft and non-tender Laboratory Results - last 24 hr 03/20/18 03/20/18 03/20/18 09:45 14:00 14:00 WBC 9.4 RBC 2.93 L Hgb 8.4 L Hct 25 L MCV 86 MCH 29 MCHC 34 RDW 15 Plt Count 127 L MPV 8.3 Neut % (Auto) 90.5 H Lymph % (Auto) 7.1 L [place] % (Auto) 2.2 Eos % (Auto) 0 Baso % (Auto) 0.2 Absolute Neuts (auto) 8.5 H Absolute Lymphs (auto) 0.7 L Absolute Monos (auto) 0.2 Absolute Eos (auto) 0 Absolute Basos (auto) 0 Absolute Nucleated RBC 0.2 Nucleated RBC % 1.6 Sodium 139 Potassium 4.0 Chloride 108 Carbon Dioxide 22 Anion Gap 9 BUN 31 H Creatinine 0.60 L Est GFR ( Amer) 165.2 Est GFR (Non-Af Amer) 136.5 BUN/Creatinine Ratio 51.7 H Glucose 93 Calcium 8.2 L Total Bilirubin 0.50 AST 93 H ALT 49 Alkaline Phosphatase 69 Total Protein 3.9 L Albumin 2.2 L Globulin 1.7 L Albumin/Globulin Ratio 1.3 Hepatitis A IgM Ab Nonreactive Hep Bs Antigen Nonreactive Hep B Core IgM Ab Nonreactive Hepatitis C Antibody Nonreactive Assessment: []63 yo male with aggressive, high risk, diffuse large b-cell lymphoma being treated with Dose Adjusted R-EPOCH Cycle 1, day 2 today appearing to tolerate well thus far. Plan: []Continue chemo as planned [facility] Eating Hints Before, During, and After Cancer Treatment provided to pt. and
[2018-03-21 12:26] LABS: Hematocrit 25 % (42-52); Hemoglobin 8.5 g/dl (14.0-18.0); Mean Corpuscular HGB Conc 34 g/dl (31-36); Mean Corpuscular Hemoglobin 29 pg (27-31); Mean Corpuscular Volume 86 fL (80-94); Mean Platelet Volume 8.9 um3 (7.4-10.4); Platelet Count 137 10^3/ul (150-450); Red Blood Count 2.92 10^6/ul (4.00-5.40); Red Cell Distribution Width 14 % (10.5-15); White Blood Count 8.8 10^3/ul (3.5-10.8)
[2018-03-21 12:46] LABS: EGFR Non-African American 133.9 (>60)
[2018-03-21 13:27] LABS: ABS Basophils 0 10^3/ul (0-0.2); ABS Eosinophils 0 10^3/ul (0-0.6); ABS Lymphocytes 0.6 10^3/ul (1.0-4.8); ABS Monocytes 0.1 10^3/ul (0-0.8); ABS Neutrophils 8.1 10^3/ul (1.5-7.7); ABS Nucleated RBC 0.1 10^3/ul; Eosinophil % 0 % (0-6); Lymphocyte % 6.7 % (25-47); Nucleated Red Blood Cells % 0.8
[2018-03-21 13:30] LABS: ABS Basophils 0 10^3/ul (0-0.2); ABS Neutrophils 7.7 10^3/ul (1.5-7.7); Monocytes % 1 % (0-7)
[2018-03-21] MEDS: Metoprolol Succinate XL TAB* 25 MG PO SCH (16:58)
[2018-03-21] MEDS: VINCRISTINE IVPB SCH (16:59)
[2018-03-21] MEDS: ETOPOSIDE IVPB SCH (16:59)
[2018-03-21] MEDS: DOXORUBICIN IVPB SCH (16:59)
[2018-03-21] MEDS: NS 0.9% IVPB SCH (16:59)
[2018-03-21] MEDS ORDERED: Senna TAB PO PRN (18:14)
[2018-03-21] MEDS: Melatonin 3 MG TAB PO PRN (20:55)
[2018-03-22 05:56] LABS: Hematocrit 21 % (42-52); Hemoglobin 7.4 g/dl (14.0-18.0); Mean Corpuscular HGB Conc 35 g/dl (31-36); Mean Corpuscular Hemoglobin 30 pg (27-31); Mean Corpuscular Volume 87 fL (80-94); Mean Platelet Volume 8.4 um3 (7.4-10.4); Platelet Count 129 10^3/ul (150-450); Red Blood Count 2.47 10^6/ul (4.00-5.40); Red Cell Distribution Width 15 % (10.5-15); White Blood Count 6.9 10^3/ul (3.5-10.8)
[2018-03-22 06:19] LABS: EGFR Non-African American 144.8 (>60)
[2018-03-22 06:27] LABS: ABS Basophils 0 10^3/ul (0-0.2); ABS Eosinophils 0 10^3/ul (0-0.6); ABS Lymphocytes 0.4 10^3/ul (1.0-4.8); ABS Monocytes 0.1 10^3/ul (0-0.8); ABS Neutrophils 6.3 10^3/ul (1.5-7.7); ABS Nucleated RBC 0 10^3/ul; Eosinophil % 0 % (0-6); Lymphocyte % 6.1 % (25-47); Nucleated Red Blood Cells % 0.5
[2018-03-22] MEDS: Enoxaparin(*) 40 MG/0.4 ML SYR SUBCUT SCH (08:57)
[2018-03-22] MEDS: predniSONE TAB* 50 MG PO SCH ×2 (08:58→20:53)
[2018-03-22] MEDS: predniSONE TAB* 20 MG PO SCH ×2 (08:59→20:53)
[2018-03-22] MEDS: Allopurinol TAB* 300 MG PO SCH ×2 (09:02→20:53)
[2018-03-22] MEDS: Pantoprazole IV* 40 MG IV SCH (09:25)
--- NOTE | 2018-03-22 09:57 | PN ---
Progress Note - Progress Note Date of Service: 03/22/18 SOAP: Subjective: []Feeling OK. Weak and wonders how much weaker he will feel. Finds it hard to be sitting around. No nausea, eating OK. Still weird flavors to foods and drinks. Up ambulating with PT. No concerns from nursing noted on AM rounds. Medications: Al Hydrox/Mg Hydrox/Simethicone (Maalox Plus*) 30 ml PO Q6H PRN PRN Reason: INDIGESTION Last Admin: 03/20/18 08:28 Dose: 30 ml Allopurinol (Zyloprim Tab*) 300 mg PO BID [facility] Last Admin: 03/22/18 09:02 Dose: 300 mg Enoxaparin Sodium (Lovenox(*)) 40 mg SUBCUT 0900 [facility] Last Admin: 03/22/18 08:57 Dose: 40 mg Heparin Sodium (Porcine) (Heparin Flush Port (Ivad)) 5 ml FLUSH DAILY [facility]; Protocol Last Admin: 03/22/18 09:12 Dose: Not Given Hydromorphone HCl (Dilaudid Inj*) 0.5 mg IV SLOW PU Q4H PRN PRN Reason: PAIN Doxorubicin HCl 20 mg/Etoposide 100 mg/ Vincristine Sulfate 0.8 mg/ Sodium Chloride 515.8 mls @ 21.492 mls/hr IVPB DAILY@1630 [facility] Stop: 03/24/18 16:29 Last Admin: 03/21/18 16:59 Dose: 28 mls/hr Cyclophosphamide 1,000 mg/Cyclophosphamide 500 mg/Sodium Chloride 575 mls @ 575 mls/hr IVPB ONCE ONE Stop: 03/24/18 16:59 Palonosetron 0.25 mg/ IV (Solution) 5 mls @ 150 mls/hr IVPB ONCE ONE Stop: 03/23/18 15:01 Melatonin (Melatonin) 6 mg PO BEDTIME PRN PRN Reason: SLEEP Last Admin: 03/21/18 20:55 Dose: 6 mg Metoprolol Succinate (Toprol Xl Tab*) 25 mg PO 1600 [facility] Last Admin: 03/21/18 16:58 Dose: 25 mg Pantoprazole Sodium (Protonix Iv*) 40 mg IV DAILY [facility] Last Admin: 03/22/18 09:25 Dose: 40 mg Prednisone (Deltasone Tab*) 20 mg PO BID [facility] Stop: 03/24/18 21:01 Last Admin: 03/22/18 08:59 Dose: 20 mg Prednisone (Deltasone Tab*) 100 mg PO BID [facility] Stop: 03/24/18 21:01 Last Admin: 03/22/18 08:58 Dose: 100 mg Prochlorperazine Edisylate (Compazine Inj*) 10 mg IV Q6H PRN PRN Reason: NAUSEA/VOMITING Senna (Senokot Tab*) 2 tab PO DAILY PRN PRN Reason: CONSTIPATION Last Admin: 03/21/18 20:55 Dose: 2 tab Tramadol HCl (Ultram*) 50 mg PO QID PRN PRN Reason: PAIN Last Admin: 03/21/18 17:05 Dose: 50 mg Objective: [] Vital Signs Temp Pulse Resp BP Pulse Ox 97.7 F 81 16 124/71 97 03/22/18 07:30 03/22/18 07:30 03/22/18 07:30 03/22/18 07:30 03/22/18 07:30 A&Ox3, EOMI, PERRLA, neuro grossly non-focal Oral mucosa moist without ulcerations or thrush HRR, S1S2 LS clear bilat. with even and on-labored resp. +BS, abd. soft and slightly tender to RUQ +PP=bilat., +2 edema Laboratory Results - last 24 hr 03/21/18 03/21/18 03/22/18 12:10 12:10 05:35 WBC 8.8 6.9 RBC 2.92 L 2.47 L Hgb 8.5 L 7.4 L Hct 25 L 21 L MCV 86 87 MCH 29 30 MCHC 34 35 RDW 14 15 Plt Count 137 L 129 L MPV 8.9 8.4 Neut % (Auto) 91.5 H 92.1 H Lymph % (Auto) 6.7 L 6.1 L [place] % (Auto) 1.6 1.6 Eos % (Auto) 0 0 Baso % (Auto) 0.2 0.2 Absolute Neuts (auto) 8.1 H 6.3 Absolute Lymphs (auto) 0.6 L 0.4 L Absolute Monos (auto) 0.1 0.1 Absolute Eos (auto) 0 0 Absolute Basos (auto) 0 0 Absolute Nucleated RBC 0.1 0 Immature Gran % 8 Neutrophils % 87 H Band Neutrophils % 7 Lymphocytes % 4 L Monocytes % 1 Eosinophils % 0 Basophils % 0 Myelocytes % 1 Nucleated RBC % 0.8 0.5 Abs Neuts (Manual) 7.7 Abs Lymphs (Manual) 0.4 L Abs Monocytes (Manual) 0.1 Absolute Eos (Manual) 0 Abs Basophils (Manual) 0 Normal RBC Morphology Normal Sodium 139 Potassium 3.8 Chloride 106 Carbon Dioxide 22 Anion Gap 11 BUN 30 H Creatinine 0.61 L Est GFR ( Amer) 162.1 Est GFR (Non-Af Amer) 133.9 BUN/Creatinine Ratio 49.2 H Glucose 129 H Calcium 8.3 L Total Bilirubin 0.50 AST 77 H ALT 42 Alkaline Phosphatase 59 Total Protein 4.1 L Albumin 2.4 L Globulin 1.7 L Albumin/Globulin Ratio 1.4 03/22/18 05:35 WBC RBC Hgb Hct MCV MCH MCHC RDW Plt Count MPV Neut % (Auto) Lymph % (Auto) [place] % (Auto) Eos % (Auto) Baso % (Auto) Absolute Neuts (auto) Absolute Lymphs (auto) Absolute Monos (auto) Absolute Eos (auto) Absolute Basos (auto) Absolute Nucleated RBC Immature Gran % Neutrophils % Band Neutrophils % Lymphocytes % Monocytes % Eosinophils % Basophils % Myelocytes % Nucleated RBC % Abs Neuts (Manual) Abs Lymphs (Manual) Abs Monocytes (Manual) Absolute Eos (Manual) Abs Basophils (Manual) Normal RBC Morphology Sodium 138 Potassium 3.9 Chloride 108 Carbon Dioxide 24 Anion Gap 6 BUN 29 H Creatinine 0.57 L Est GFR ( Amer) 175.3 Est GFR (Non-Af Amer) 144.8 BUN/Creatinine Ratio 50.9 H Glucose 112 H Calcium 7.8 L Total Bilirubin 0.40 AST 58 H ALT 37 Alkaline Phosphatase 65 Total Protein 3.7 L Albumin 2.1 L Globulin 1.6 L Albumin/Globulin Ratio 1.3 Assessment: []63 yo male with aggressive, high risk, diffuse large b-cell lymphoma on Cycle 1 Dose Adjusted R-EPOCH, day 3. He is more anemic, however I would like to delay transfusion until discharge if possible in order to provide the most benefit once home. Plan: []- Continue chemo, no change today - check stool occult blood x3 - cont. daily labs - cont. low impact excercise, ie: walking
[2018-03-22] MEDS: ETOPOSIDE IVPB SCH (15:41)
[2018-03-22] MEDS: VINCRISTINE IVPB SCH (15:41)
[2018-03-22] MEDS: DOXORUBICIN IVPB SCH (15:41)
[2018-03-22] MEDS: NS 0.9% IVPB SCH (15:41)
[2018-03-22] MEDS: Metoprolol Succinate XL TAB* 25 MG PO SCH (16:52)
[2018-03-22] MEDS ORDERED: Zolpidem TAB* 10 MG PO SCH (21:00)
[2018-03-23 06:00] LABS: ABS Basophils 0 10^3/ul (0-0.2); ABS Eosinophils 0 10^3/ul (0-0.6); ABS Lymphocytes 0.3 10^3/ul (1.0-4.8); ABS Monocytes 0.1 10^3/ul (0-0.8); ABS Neutrophils 5.4 10^3/ul (1.5-7.7); ABS Nucleated RBC 0 10^3/ul; Eosinophil % 0 % (0-6); Hematocrit 22 % (42-52); Hemoglobin 7.1 g/dl (14.0-18.0); Lymphocyte % 4.9 % (25-47); Mean Corpuscular HGB Conc 33 g/dl (31-36); Mean Corpuscular Hemoglobin 29 pg (27-31); Mean Corpuscular Volume 86 fL (80-94); Mean Platelet Volume 8.1 um3 (7.4-10.4); Nucleated Red Blood Cells % 0.1; Platelet Count 152 10^3/ul (150-450); Red Blood Count 2.49 10^6/ul (4.00-5.40); Red Cell Distribution Width 14 % (10.5-15); White Blood Count 5.7 10^3/ul (3.5-10.8)
[2018-03-23 06:13] LABS: EGFR Non-African American 157.5 (>60)
[2018-03-23] MEDS: Al Hydrox/Mg Hydrox/Simet LIQ* 30 ML UDC PO PRN ×3 (07:31→20:14)
[2018-03-23] MEDS: Pantoprazole IV* 40 MG IV SCH ×2 (09:09→20:49)
[2018-03-23] MEDS: predniSONE TAB* 20 MG PO SCH ×2 (10:07→20:49)
[2018-03-23] MEDS: Allopurinol TAB* 300 MG PO SCH ×2 (10:07→20:49)
[2018-03-23] MEDS: predniSONE TAB* 50 MG PO SCH ×2 (10:07→20:49)
[2018-03-23] MEDS: Enoxaparin(*) 40 MG/0.4 ML SYR SUBCUT SCH (10:09)
--- NOTE | 2018-03-23 10:22 | PN ---
Progress Note - Progress Note Date of Service: 03/23/18 SOAP: Subjective: [63 yo male with new diagnosis of DLBCL admitted for supportive care and started first cycle of R-EPOCH. He reports feeling quite weak and he is having multiple "foggy" moments this am. He received ambien last night for insomnia. He has been having a burning sensation in his stomach with any oral intake. Started on IV protonix and reports that is feeling better with breakfast this am. No vomiting or diarrhea. 2 soft stools yesterday. He is quite fatigued and feels mildly light headed with ambulation this am.] Objective: [ Vital Signs Temp Pulse Resp BP Pulse Ox 97.9 F 74 16 151/77 96 03/23/18 07:26 03/23/18 07:26 03/23/18 08:00 03/23/18 07:26 03/23/18 07:26 Al Hydrox/Mg Hydrox/Simethicone (Maalox Plus*) 30 ml PO Q6H PRN PRN Reason: INDIGESTION Last Admin: 03/23/18 07:31 Dose: 30 ml Allopurinol (Zyloprim Tab*) 300 mg PO BID [facility] Last Admin: 03/23/18 10:07 Dose: 300 mg Enoxaparin Sodium (Lovenox(*)) 40 mg SUBCUT 0900 [facility] Last Admin: 03/23/18 10:09 Dose: 40 mg Heparin Sodium (Porcine) (Heparin Flush Port (Ivad)) 5 ml FLUSH DAILY [facility]; Protocol Last Admin: 03/23/18 07:11 Dose: Not Given Doxorubicin HCl 20 mg/Etoposide 100 mg/ Vincristine Sulfate 0.8 mg/ Sodium Chloride 515.8 mls @ 21.492 mls/hr IVPB DAILY@1630 [facility] Stop: 03/24/18 16:29 Last Admin: 03/22/18 15:41 Dose: 21.492 mls/hr Cyclophosphamide 1,000 mg/Cyclophosphamide 500 mg/Sodium Chloride 575 mls @ 575 mls/hr IVPB ONCE ONE Stop: 03/24/18 16:59 Palonosetron 0.25 mg/ IV (Solution) 5 mls @ 150 mls/hr IVPB ONCE ONE Stop: 03/23/18 15:01 Melatonin (Melatonin) 6 mg PO BEDTIME PRN PRN Reason: SLEEP Last Admin: 03/21/18 20:55 Dose: 6 mg Metoprolol Succinate (Toprol Xl Tab*) 25 mg PO 1600 [facility] Last Admin: 03/22/18 16:52 Dose: 25 mg Pantoprazole Sodium (Protonix Iv*) 40 mg IV DAILY [facility] Last Admin: 03/23/18 09:09 Dose: 40 mg Prednisone (Deltasone Tab*) 20 mg PO BID [facility] Stop: 03/24/18 21:01 Last Admin: 03/23/18 10:07 Dose: 20 mg Prednisone (Deltasone Tab*) 100 mg PO BID [facility] Stop: 03/24/18 21:01 Last Admin: 03/23/18 10:07 Dose: 100 mg Prochlorperazine Edisylate (Compazine Inj*) 10 mg IV Q6H PRN PRN Reason: NAUSEA/VOMITING Senna (Senokot Tab*) 2 tab PO DAILY PRN PRN Reason: CONSTIPATION Last Admin: 03/21/18 20:55 Dose: 2 tab Zolpidem Tartrate (Ambien Tab*) 5 mg PO BEDTIME [facility] Laboratory Results - last 24 hr 03/23/18 03/23/18 05:30 05:30 WBC 5.7 RBC 2.49 L Hgb 7.1 L Hct 22 L MCV 86 MCH 29 MCHC 33 RDW 14 Plt Count 152 MPV 8.1 Neut % (Auto) 93.6 H Lymph % (Auto) 4.9 L [place] % (Auto) 1.3 Eos % (Auto) 0 Baso % (Auto) 0.2 Absolute Neuts (auto) 5.4 Absolute Lymphs (auto) 0.3 L Absolute Monos (auto) 0.1 Absolute Eos (auto) 0 Absolute Basos (auto) 0 Absolute Nucleated RBC 0 Nucleated RBC % 0.1 Sodium 138 Potassium 3.7 Chloride 107 Carbon Dioxide 24 Anion Gap 7 BUN 26 H Creatinine 0.53 L Est GFR ( Amer) 190.6 Est GFR (Non-Af Amer) 157.5 BUN/Creatinine Ratio 49.1 H Glucose 108 H Calcium 8.1 L Total Bilirubin 0.60 AST 60 H ALT 45 Alkaline Phosphatase 67 Total Protein 3.9 L Albumin 2.1 L Globulin 1.8 L Albumin/Globulin Ratio 1.2 Gen: 63 yo male who appears fatigued HEENT: MMM Resp: CTA, no w/c/r CV: RRR, no m/r/g Abd: soft, nonTTP Heme: large, firm LN under L axilla, ~5cm Ext: trace peripheral edema Skin: pale, no rashes Psych: alert and oriented, appears slow neurologically] Assessment: [63 yo male with new dx aggressive DLBCL with bone marrow and likely pancreatic involvement now receiving C1 R-EPOCH. Seems very slow neurologically today, may be due Ambien last night and/or related to anemia.] Plan: [1. DLBCL - C1D4 R-EPOCH - complete infusion tomorrow - neupogen starting D6, received injection training 2. Anemia - likely due to treatment/marrow involvement of lymphoma - stool testing for occult blood pending - appears quite symptomatic this am - transfuse 1U PRBCs today, may need an additional unit tomorrow 3. Gastritis - cont IV PPI, transition back to po at dc - can add carafate if still symptomatic 4. Hypercalcemia - resolved 5. DVT prophylaxis - Lovenox SQ 6. Code - FULL Dispo: dc home tomorrow afternoon after finishing chemo infusion, start Neupogen Tuesday]
[2018-03-23] MEDS ORDERED: Palonosetron* 0.25 MG in PREMIX* 0 ML IVPB ONE (15:00)
[2018-03-23] MEDS: NS 0.9% IVPB SCH (15:43)
[2018-03-23] MEDS: ETOPOSIDE IVPB SCH (15:43)
[2018-03-23] MEDS: DOXORUBICIN IVPB SCH (15:43)
[2018-03-23] MEDS: VINCRISTINE IVPB SCH (15:43)
[2018-03-23] MEDS: Metoprolol Succinate XL TAB* 25 MG PO SCH (16:36)
[2018-03-23] MEDS ORDERED: Al Hydrox/Mg Hydrox/Simet LIQ* 30 ML UDC PO ONE (19:50)
[2018-03-23] MEDS: Zolpidem TAB* 5 MG PO SCH (20:49)
[2018-03-24 05:51] LABS: ABS Basophils 0 10^3/ul (0-0.2); ABS Eosinophils 0 10^3/ul (0-0.6); ABS Lymphocytes 0.3 10^3/ul (1.0-4.8); ABS Monocytes 0.1 10^3/ul (0-0.8); ABS Nucleated RBC 0 10^3/ul; Eosinophil % 0 % (0-6); Hematocrit 24 % (42-52); Hemoglobin 8.1 g/dl (14.0-18.0); Lymphocyte % 5.7 % (25-47); Mean Corpuscular HGB Conc 34 g/dl (31-36); Mean Corpuscular Hemoglobin 29 pg (27-31); Mean Corpuscular Volume 86 fL (80-94); Mean Platelet Volume 7.7 um3 (7.4-10.4); Nucleated Red Blood Cells % 0; Platelet Count 146 10^3/ul (150-450); Red Blood Count 2.79 10^6/ul (4.00-5.40); Red Cell Distribution Width 15 % (10.5-15); White Blood Count 5.4 10^3/ul (3.5-10.8)
[2018-03-24] MEDS: Al Hydrox/Mg Hydrox/Simet LIQ* 30 ML UDC PO PRN (07:22)
[2018-03-24] MEDS: Pantoprazole IV* 40 MG IV SCH (08:58)
[2018-03-24] MEDS: Allopurinol TAB* 300 MG PO SCH (09:04)
[2018-03-24] MEDS: predniSONE TAB* 20 MG PO SCH (09:39)
[2018-03-24] MEDS: predniSONE TAB* 50 MG PO SCH (09:39)
--- NOTE | 2018-03-24 10:14 | PN ---
Progress Note - Progress Note Date of Service: 03/24/18 SOAP: Subjective: []Overall doing well. Much better after transfusion. Able to walk around, breathing better. He is eating well. Has stomach pain, pain after eating. Has been chronic but worse since on steroids. Has been having BM, wattery, dark. No nausea. Bone pain has resolved. Urination is fine. Acetaminophen (Tylenol Tab*) 650 mg PO Q4H PRN PRN Reason: FEVER/PAIN Al Hydrox/Mg Hydrox/Simethicone (Maalox Plus*) 30 ml PO Q6H PRN PRN Reason: INDIGESTION Last Admin: 03/24/18 07:22 Dose: 30 ml Enoxaparin Sodium (Lovenox(*)) 40 mg SUBCUT 0900 [facility] Last Admin: 03/23/18 10:09 Dose: 40 mg Heparin Sodium (Porcine) (Heparin Flush Port (Ivad)) 5 ml FLUSH DAILY [facility]; Protocol Last Admin: 03/24/18 07:16 Dose: Not Given Doxorubicin HCl 20 mg/Etoposide 100 mg/ Vincristine Sulfate 0.8 mg/ Sodium Chloride 515.8 mls @ 21.492 mls/hr IVPB DAILY@1630 [facility] Stop: 03/24/18 16:29 Last Admin: 03/23/18 15:43 Dose: 21.492 mls/hr Cyclophosphamide 1,000 mg/Cyclophosphamide 500 mg/Sodium Chloride 575 mls @ 575 mls/hr IVPB ONCE ONE Stop: 03/24/18 16:59 Melatonin (Melatonin) 6 mg PO BEDTIME PRN PRN Reason: SLEEP Last Admin: 03/21/18 20:55 Dose: 6 mg Metoprolol Succinate (Toprol Xl Tab*) 25 mg PO 1600 [facility] Last Admin: 03/23/18 16:36 Dose: 25 mg Pantoprazole Sodium (Protonix Iv*) 40 mg IV BID [facility] Last Admin: 03/24/18 08:58 Dose: 40 mg Prochlorperazine Edisylate (Compazine Inj*) 10 mg IV Q6H PRN PRN Reason: NAUSEA/VOMITING Zolpidem Tartrate (Ambien Tab*) 5 mg PO BEDTIME [facility] Last Admin: 03/23/18 20:49 Dose: 5 mg Objective: [] Vital Signs Temp Pulse Resp BP Pulse Ox 98.1 F 67 16 141/76 98 03/24/18 07:22 03/24/18 07:22 03/24/18 08:00 03/24/18 07:22 03/24/18 07:22 Gen: well appearing HEENT: MMM Resp: CTA, no w/c/r CV: RRR, no m/r/g Abd: soft, nonTTP [place] axilla is improved. Ext: trace peripheral edema, improved. Psych: alert and oriented, appears slow neurologically] Assessment: [63 yo male with new dx aggressive DLBCL with bone marrow and likely pancreatic involvement now receiving C1 R-EPOCH. Doing well and at baseline mental status. Plan: [1. DLBCL - C1D4\5 R-EPOCH - complete infusion today - neupogen starting D6, received injection training 2. Anemia/GIB - Hold prednisone today, can give rest of regimen. - Case discussed with GI, EGD today. - transfuse 1U PRBCs today - Hold until Sat am and check CBC before discharge - cont IV PPI, transition back to po at dc - can add carafate if still symptomatic 4. Hypercalcemia - resolved 5. DVT prophylaxis - Lovenox SQ 6. Code - FULL 7. Could not sleep, will increase Ambien to 10 mg Dispo: dc home tomorrow am and Neupogen
[2018-03-24] MEDS: Enoxaparin(*) 40 MG/0.4 ML SYR SUBCUT SCH (10:46)
[2018-03-24] MEDS ORDERED: CYCLOPHOSPHAMIDE IVPB ONE (16:00)
[2018-03-24] MEDS ORDERED: NS 0.9% IVPB ONE (16:00)
[2018-03-24] MEDS ORDERED: fentaNYL* 50 MCG/ML 2 ML VIAL (100 MCG VIAL) ONE (16:45)
[2018-03-24] MEDS ORDERED: Midazolam* 1 MG/ML 10 ML VIAL (10 MG) ONE (16:45)
[2018-03-24] MEDS: Metoprolol Succinate XL TAB* 25 MG PO SCH (17:57)
[2018-03-24] MEDS ORDERED: Pantoprazole IV* 40 MG IV ONE (19:00)
[2018-03-24] MEDS: Pantoprazole IV* 80 MG in NS 0.9% 250 ML* 250 ML IVPB SCH (19:40)
[2018-03-24] MEDS: Zolpidem TAB* 5 MG PO SCH (19:44)
[2018-03-25] MEDS: Pantoprazole IV* 80 MG in NS 0.9% 250 ML* 250 ML IVPB SCH ×2 (05:44→16:57)
[2018-03-25 07:02] LABS: ABS Basophils 0 10^3/ul (0-0.2); ABS Eosinophils 0.1 10^3/ul (0-0.6); ABS Monocytes 0 10^3/ul (0-0.8); ABS Neutrophils 3.5 10^3/ul (1.5-7.7); ABS Nucleated RBC 0 10^3/ul; Eosinophil % 2.3 % (0-6); Hematocrit 23 % (42-52); Hemoglobin 8.2 g/dl (14.0-18.0); Lymphocyte % 21.1 % (25-47); Mean Corpuscular HGB Conc 35 g/dl (31-36); Mean Corpuscular Hemoglobin 29 pg (27-31); Mean Corpuscular Volume 83 fL (80-94); Mean Platelet Volume 7.8 um3 (7.4-10.4); Nucleated Red Blood Cells % 0; Platelet Count 114 10^3/ul (150-450); Red Blood Count 2.79 10^6/ul (4.00-5.40); Red Cell Distribution Width 15 % (10.5-15); White Blood Count 4.6 10^3/ul (3.5-10.8)
[2018-03-25 07:10] LABS: EGFR Non-African American 154.2 (>60)
[2018-03-25] MEDS: Al Hydrox/Mg Hydrox/Simet LIQ* 30 ML UDC PO PRN (07:26)
--- NOTE | 2018-03-25 07:55 | PN ---
Progress Note - Progress Note Date of Service: 03/25/18 SOAP: Subjective: []Did fine overnight. Had trouble sleeping. No pain. Otherwise ok. Was able to sit up and not dizzy. No pain. Breathing is fine. No Fevers. Objective: [] Vital Signs Temp Pulse Resp BP Pulse Ox 98.4 F 80 16 127/64 100 03/25/18 03:55 03/25/18 06:44 03/25/18 06:44 03/25/18 06:44 03/25/18 06:44 Gen: well appearing HEENT: MMM Resp: CTA, no w/c/r CV: RRR, no m/r/g Abd: soft, nonTTP Leeft axilla is improved. Ext: trace peripheral edema, improved. Psych: alert and oriented, appears slow neurologically] EGD. Discussed with Dr. Senior. He has diffuse ulceration of gastric mucosa, 30 + ulcers, oozing but not clear active bleed. 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 Complicated by GIB and EGD with diffuse gastric ulcers. 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 Plan: [1. DLBCL - C1D6 R-EPOCH - neupogen starting today, will take own. 2. Anemia/GIB - Tx Hgb <8.0. - Clear liquids - PPI drip 4. Poor nutrition. Will start TPN today and run until eating well. Clear liquid diet through weekend, advance on Tuesday if improved. Will follow lytes and glucose level. 5. DVT prophylaxis - Lovenox SQ 6. Code - FULL 7. Could not sleep, will increase Ambien to 10 mg
[2018-03-25] MEDS: Enoxaparin(*) 40 MG/0.4 ML SYR SUBCUT SCH (09:35)
--- NOTE | 2018-03-25 10:20 | PN ---
Progress Note - Progress Note Date of Service: 03/25/18 - Gastroenterology Note: Patient seen and examined. No new overnight issues. Complaining of abdominal pain. On clear liquids and tolerating without emesis. Vital Signs: Temp Pulse Resp BP Pulse Ox 98.4 F 80 16 127/64 100 03/25/18 03:55 03/25/18 06:44 03/25/18 08:00 03/25/18 06:44 03/25/18 08:00 Physical examination: General: NAD. AAOx3. Abdomen: Soft, non-tender, non-distended. Laboratory Last Values WBC 4.6 10^3/ul (3.5-10.8) 03/25/18 06:00 RBC 2.79 10^6/ul (4.00-5.40) L 03/25/18 06:00 Hgb 8.2 g/dl (14.0-18.0) L 03/25/18 06:00 Hct 23 % (42-52) L 03/25/18 06:00 MCV 83 fL (80-94) 03/25/18 06:00 MCH 29 pg (27-31) 03/25/18 06:00 MCHC 35 g/dl (31-36) 03/25/18 06:00 RDW 15 % (10.5-15) 03/25/18 06:00 Plt Count 114 10^3/ul (150-450) L 03/25/18 06:00 MPV 7.8 um3 (7.4-10.4) 03/25/18 06:00 Neut % (Auto) 76.1 % (38-83) 03/25/18 06:00 Lymph % (Auto) 21.1 % (25-47) L 03/25/18 06:00 [place] % (Auto) 0.4 % (0-7) 03/25/18 06:00 Eos % (Auto) 2.3 % (0-6) 03/25/18 06:00 Baso % (Auto) 0.1 % (0-2) 03/25/18 06:00 Absolute Neuts (auto) 3.5 10^3/ul (1.5-7.7) 03/25/18 06:00 Absolute Lymphs (auto) 1.0 10^3/ul (1.0-4.8) 03/25/18 06:00 Absolute Monos (auto) 0 10^3/ul (0-0.8) 03/25/18 06:00 Absolute Eos (auto) 0.1 10^3/ul (0-0.6) 03/25/18 06:00 Absolute Basos (auto) 0 10^3/ul (0-0.2) 03/25/18 06:00 Absolute Nucleated RBC 0 10^3/ul 03/25/18 06:00 Immature Gran % 8 % (0-9) 03/21/18 12:10 Neutrophils % 87 % (38-83) H 03/21/18 12:10 Band Neutrophils % 7 % (0-8) 03/21/18 12:10 Lymphocytes % 4 % (25-47) L 03/21/18 12:10 Reactive Lymphs % 1 % (0-6) 03/16/18 05:29 Monocytes % 1 % (0-7) 03/21/18 12:10 Eosinophils % 0 % (0-6) 03/21/18 12:10 Basophils % 0 % (0-2) 03/21/18 12:10 Metamyelocytes % 2 % (0-2) 03/17/18 05:22 Myelocytes % 1 % (0-1) 03/21/18 12:10 Nucleated RBC % 0 03/25/18 06:00 Abs Neuts (Manual) 7.7 10^3/ul (1.5-7.7) 03/21/18 12:10 Abs Lymphs (Manual) 0.4 10^3/ul (1.0-4.8) L 03/21/18 12:10 Abs Monocytes (Manual) 0.1 10^3/ul (0-0.8) 03/21/18 12:10 Absolute Eos (Manual) 0 10^3/ul (0-0.6) 03/21/18 12:10 Abs Basophils (Manual) 0 10^3/ul (0-0.2) 03/21/18 12:10 Nucleated RBCs/100 WBC 0 (0-0) 03/16/18 05:29 Normal RBC Morphology Normal (Normal) 03/21/18 12:10 Polychromasia 1+ 03/16/18 05:29 INR (Anticoag Therapy) 1.06 (0.77-1.02) H 03/15/18 13:13 APTT 26.2 seconds (26.0-36.3) 03/15/18 13:13 Sodium 138 mmol/L (135-145) 03/25/18 06:00 Potassium 3.5 mmol/L (3.5-5.0) 03/25/18 06:00 Chloride 107 mmol/L (101-111) 03/25/18 06:00 Carbon Dioxide 27 mmol/L (22-32) 03/25/18 06:00 Anion Gap 4 mmol/L (2-11) 03/25/18 06:00 BUN 23 mg/dL (6-24) 03/25/18 06:00 Creatinine 0.54 mg/dL (0.67-1.17) L 03/25/18 06:00 Est GFR ( Amer) 186.5 (>60) 03/25/18 06:00 Est GFR (Non-Af Amer) 154.2 (>60) 03/25/18 06:00 BUN/Creatinine Ratio 42.6 (8-20) H 03/25/18 06:00 Glucose 88 mg/dL (70-100) 03/25/18 06:00 Uric Acid 2.2 mg/dL (4.4-7.6) L 03/19/18 12:30 Calcium 7.3 mg/dL (8.6-10.3) L 03/25/18 06:00 Total Bilirubin 0.70 mg/dL (0.2-1.0) 03/25/18 06:00 AST 43 U/L (13-39) H 03/25/18 06:00 ALT 51 U/L (7-52) 03/25/18 06:00 Alkaline Phosphatase 71 U/L (34-104) 03/25/18 06:00 Total Protein 3.4 g/dL (6.4-8.9) L 03/25/18 06:00 Albumin 2.0 g/dL (3.2-5.2) L 03/25/18 06:00 Globulin 1.4 g/dL (2-4) L 03/25/18 06:00 Albumin/Globulin Ratio 1.4 (1-3) 03/25/18 06:00 CA 19-9 Antigen 6 U/mL (<35) 03/17/18 05:22 Urine Color Yellow 03/15/18 13:50 Urine Appearance Cloudy 03/15/18 13:50 Urine pH 5.0 (5-9) 03/15/18 13:50 Ur Specific [place] 1.016 (1.010-1.030) 03/15/18 13:50 Urine Protein Negative (Negative) 03/15/18 13:50 Urine Ketones Trace (Negative) A 03/15/18 13:50 Urine Blood 1+ (Negative) A 03/15/18 13:50 Urine Nitrate Negative (Negative) 03/15/18 13:50 Urine Bilirubin Negative (Negative) 03/15/18 13:50 Urine Urobilinogen Negative (Negative) 03/15/18 13:50 Ur Leukocyte Esterase Negative (Negative) 03/15/18 13:50 Urine WBC (Auto) 1+(6-10/hpf) (Absent) A 03/15/18 13:50 Urine RBC (Auto) 2+(6-10/hpf) (Absent) A 03/15/18 13:50 Urine Bacteria Absent (Absent) 03/15/18 13:50 Urine Glucose Negative (Negative) 03/15/18 13:50 Fluid Source Cerebral spinal 03/15/18 12:02 Fluid Volume 4 mL 03/15/18 12:02 Fluid Color Colorless 03/15/18 12:02 Fluid Appearance Clear 03/15/18 12:02 Fluid WBC 0 /mcL 03/15/18 12:02 Fluid RBC 0 /mcL 03/15/18 12:02 Fluid Tot Cell Count 0 03/15/18 12:02 Fluid Neutrophils Not Reportable 03/15/18 12:02 Fluid Cell Count Rvw By 03/15/18 12:02 CSF Cell Count Tube # 4 03/15/18 12:02 CSF Glucose 63 mg/dL (40-70) 03/15/18 16:30 CSF Total Protein 26 mg/dL (15-45) 03/15/18 16:30 Hepatitis A IgM Ab Nonreactive (Nonreactive) 03/20/18 09:45 Hep Bs Antigen Nonreactive (Nonreactive) 03/20/18 09:45 Hep B Core IgM Ab Nonreactive (Nonreactive) 03/20/18 09:45 Hepatitis C Antibody Nonreactive (Nonreactive) 07/16/18 09:45 Blood Type O Positive 03/23/18 10:27 Antibody Screen Negative 03/23/18 10:27 Crossmatch See Detail 03/23/18 10:27 A/P 63 yo male with aggressive DCBCL with bone marrow and now possible pancreatic involvement p/w anemia and epigastric pain. EGD yesterday showed diffuse gastric ulcers. 1. Anemia ~s/p prbcs. ~stable hgb at 8.2. ~EGD yesterday with diffuse gastric ulcers secondary to lymphoma and/or chemotherapy. ~Heme/Onc following. ~Currently on pantoprazole gtt due to severity of ulcers. ~Upon discharge patient should go home on PPI BID. Carafate BID can be initiated if abdominal pain persists. Please call with any further issues or concerns. Farrah Zepeda D.O.
--- NOTE | 2018-03-25 12:46 | PRO ---
DATE: 03/24/18 - ROOM #401 REFERRING PHYSICIANS: Maurice Sheth, Moy Panchal.* PROCEDURE: Upper gastrointestinal endoscopy through distal duodenum INDICATION: This 63-year-old man undergoing chemotherapy for large cell lymphoma was noted to have a fall in hemoglobin and a rise of BUN. He has a long history of dyspeptic pain, but has had very little evaluation for that. He was admitted to the hospital 9 days ago and has a port. He was transfused 1 unit of blood today and feels stronger. ENDOSCOPIST: Dr. Senior. MEDICATIONS: Midazolam 7.5, fentanyl 50. FINDINGS: He is a slightly pale, tired-appearing, middle-aged man, in no overt distress. He is positioned on his side. He appeared quite calm. EGD: Larynx - symmetric, limited views. Esophagus - easily entered, the mucosa is normal in the upper, mid, and lower esophagus with superficial, but slightly scarred chronic-appearing erosion at 2 o'clock orientation. There was Moulton's change. Stomach - moderately full of old blood and clots and lots of bloody secretions. These are attached to multiple ulcers, which ranged in size from 4 to 5 cm down to 4 to 5 mm. There are probably 3 dozen such lesions scattered around the stomach, especially in the fundus and high body, but also involving the cardia and low body. There is no acute or arterial hemorrhage. There are a number of areas that appeared to have oozed recently as there is some fresh blood in the stomach, but no active bleeding is seen. The appearance is quite remarkable with probably 30% of the surface area of the fundus and body ulcerated. The gastric antrum has a couple of small ulcers distally appearing fairly typical for a chronic peptic patient. Pylorus appears normal. Duodenum - the bulb and second through fourth portions appear entirely normal. There appeared to be no area that would benefit from biopsy and not be high risk and no target for acute bleeding and the procedure was terminated. IMPRESSION: 1. Minimal EG junction esophagitis at 40 cm. 2. Multiple gastric ulcers - includes 4 to 5 wide cm deep lesions with adherent clots and all sizes down to 4 mm. The extent of ulceration suggests that there was lymphoma in the wall that has melted away leaving deficits. A Protonix drip is written for and TPN would appear to be appropriate. [id number]/[facility] #: [id number] [facility]
[2018-03-25] MEDS: FILGRASTIM 300 MCG/0.5 ML SUBCUT SCH (15:38)
[2018-03-25] MEDS: Metoprolol Succinate XL TAB* 25 MG PO SCH (16:29)
[2018-03-25] MEDS ORDERED: TPN* 24 HR with Dextrose 50% Water* 500 ML, Amino Acid Infusion 10%* 850 ML, Sterile Wa... CENTR SCH ×23 (17:00)
[2018-03-25] MEDS: Zolpidem TAB* 5 MG PO SCH (21:11)
[2018-03-25] MEDS: Senna TAB PO PRN (22:59)
[2018-03-26] MEDS: Pantoprazole IV* 80 MG in NS 0.9% 250 ML* 250 ML IVPB SCH ×3 (02:26→23:43)
[2018-03-26 07:40] LABS: Hematocrit 22 % (42-52); Hemoglobin 7.7 g/dl (14.0-18.0); Mean Corpuscular HGB Conc 34 g/dl (31-36); Mean Corpuscular Hemoglobin 29 pg (27-31); Mean Corpuscular Volume 84 fL (80-94); Red Blood Count 2.66 10^6/ul (4.00-5.40); Red Cell Distribution Width 15 % (10.5-15); White Blood Count 5.7 10^3/ul (3.5-10.8)
[2018-03-26 08:00] LABS: EGFR Non-African American 172.5 (>60)
[2018-03-26] MEDS: Enoxaparin(*) 40 MG/0.4 ML SYR SUBCUT SCH (08:17)
[2018-03-26] MEDS: Al Hydrox/Mg Hydrox/Simet LIQ* 30 ML UDC PO PRN (08:17)
[2018-03-26 08:18] LABS: ABS Basophils 0 10^3/ul (0-0.2); ABS Eosinophils 0 10^3/ul (0-0.6); ABS Lymphocytes 0.7 10^3/ul (1.0-4.8); ABS Monocytes 0 10^3/ul (0-0.8); ABS Neutrophils 4.9 10^3/ul (1.5-7.7); ABS Nucleated RBC 0 10^3/ul; Eosinophil % 0.7 % (0-6); Lymphocyte % 12.3 % (25-47); Mean Platelet Volume 7.5 um3 (7.4-10.4); Nucleated Red Blood Cells % 0; Platelet Count 78 10^3/ul (150-450)
[2018-03-26] MEDS: FILGRASTIM 300 MCG/0.5 ML SUBCUT SCH ×2 (11:38→16:13)
[2018-03-26] MEDS: Metoprolol Succinate XL TAB* 25 MG PO SCH (16:13)
[2018-03-26] MEDS ORDERED: TPN* 24 HR with Dextrose 50% Water* 500 ML, Amino Acid Infusion 10%* 850 ML, Sterile Wa... CENTR SCH ×11 (17:00)
--- NOTE | 2018-03-26 19:15 | PN ---
Subjective Date of Service: 03/26/18 Interval History: Feels stronger, was able to walk around the unit. Phos low to 1.5, increased TPN Hgb to 7.7. Per heme onc request to keep above 8, 1 u prbc ordered. can't describe his BM from last night. no abdominal pain. PKT to 78, annoyed by the q4 hour glucose checks overnight. Objective Active Medications: Acetaminophen (Tylenol Tab*) 650 mg PO Q4H PRN PRN Reason: FEVER/PAIN Al Hydrox/Mg Hydrox/Simethicone (Maalox Plus*) 30 ml PO Q6H PRN PRN Reason: INDIGESTION Last Admin: 03/26/18 08:17 Dose: 30 ml Enoxaparin Sodium (Lovenox(*)) 40 mg SUBCUT 0900 FADUMO Last Admin: 03/26/18 08:17 Dose: 40 mg Filgrastim (Neupogen (Nf)) 0 mcg SUBCUT 1600 FADUMO Stop: 04/03/18 16:01 Last Admin: 03/26/18 16:13 Dose: 300 mcg Heparin Sodium (Porcine) (Heparin Flush Port (Ivad)) 5 ml FLUSH DAILY [facility]; Protocol Last Admin: 03/26/18 07:16 Dose: Not Given Pantoprazole Sodium 80 mg/ (Sodium Chloride) 250 mls @ 25 mls/hr IVPB Q10H FADUMO ; Protocol Last Admin: 03/26/18 12:43 Dose: 25 mls/hr Dextrose 500 ml/ Amino Acids 850 ml/ Sterile Water 150 ml/Fat Emulsion Intravenous 250 ml/ Sodium Chloride 100 meq/Potassium Chloride 50 meq/Potassium Phosphate 25 mmole/Magnesium Sulfate 10 meq/Multivitamins 10 ml/ Trace Metals 1 ml/ Nutrition ( Parenteral) 1,821.7963 mls @ 75.769 mls/hr CENTR 1700 FADUMO Melatonin (Melatonin) 6 mg PO BEDTIME PRN PRN Reason: SLEEP Last Admin: 03/21/18 20:55 Dose: 6 mg Metoprolol Succinate (Toprol Xl Tab*) 25 mg PO 1600 FADUMO Last Admin: 03/26/18 16:13 Dose: 25 mg Prochlorperazine Edisylate (Compazine Inj*) 10 mg IV Q6H PRN PRN Reason: NAUSEA/VOMITING Senna (Senokot Tab*) 2 tab PO ONCE PRN PRN Reason: CONSTIPATION Last Admin: 03/25/18 22:59 Dose: 2 tab Zolpidem Tartrate (Ambien Tab*) 5 mg PO BEDTIME FADUMO Last Admin: 03/25/18 21:11 Dose: 5 mg Vital Signs - 8 hr 03/26/18 03/26/18 03/26/18 11:41 15:38 16:00 Temperature 98.1 F 98.0 F Pulse Rate 80 74 Respiratory 16 20 Rate Blood Pressure 128/66 133/69 (mmHg) O2 Sat by Pulse 98 100 100 Oximetry 03/26/18 03/26/18 16:42 17:06 Temperature 98.4 F 98.7 F Pulse Rate 67 65 Respiratory 18 17 Rate Blood Pressure 125/63 126/69 (mmHg) O2 Sat by Pulse 99 100 Oximetry Oxygen Devices in Use Now: None Appearance: NAD Eyes: No Scleral Icterus, PERRLA Ears/Nose/Mouth/Throat: NL Teeth, Lips, Gums, Mucous Membranes Moist Neck: NL Appearance and Movements; NL JVP Respiratory: Symmetrical Chest Expansion and Respiratory Effort, Clear to Auscultation Cardiovascular: NL Sounds; No Murmurs; No JVD Abdominal: NL Sounds; No Tenderness; No Distention, No Hepatosplenomegaly Extremities: No Edema, No Clubbing, Cyanosis Skin: No Rash or Ulcers, No Nodules or Sclerosis Neurological: Alert and Oriented x 3, NL Sensation, NL Muscle Strength and Tone Nutrition: Taking PO's Result Diagrams: 03/26/18 07:25 03/26/18 07:25 Additional Lab and Data: Laboratory Results - last 24 hr 03/25/18 03/26/18 03/26/18 23:01 04:06 07:25 WBC 5.7 RBC 2.66 L Hgb 7.7 L Hct 22 L MCV 84 MCH 29 MCHC 34 RDW 15 Plt Count 78 L MPV 7.5 Neut % (Auto) 86.6 H Lymph % (Auto) 12.3 L Walker % (Auto) 0.2 Eos % (Auto) 0.7 Baso % (Auto) 0.2 Absolute Neuts (auto) 4.9 Absolute Lymphs (auto) 0.7 L Absolute Monos (auto) 0 Absolute Eos (auto) 0 Absolute Basos (auto) 0 Absolute Nucleated RBC 0 Nucleated RBC % 0 Sodium Potassium Chloride Carbon Dioxide Anion Gap BUN Creatinine Est GFR ( Amer) Est GFR (Non-Af Amer) BUN/Creatinine Ratio Glucose POC Glucose (mg/dL) 137 H 140 H Calcium Phosphorus Magnesium Total Bilirubin AST ALT Alkaline Phosphatase Total Protein Albumin Globulin Albumin/Globulin Ratio Blood Type Antibody Screen Crossmatch 03/26/18 03/26/18 03/26/18 07:25 07:25 08:18 WBC RBC Hgb Hct MCV MCH MCHC RDW Plt Count MPV Neut % (Auto) Lymph % (Auto) Walker % (Auto) Eos % (Auto) Baso % (Auto) Absolute Neuts (auto) Absolute Lymphs (auto) Absolute Monos (auto) Absolute Eos (auto) Absolute Basos (auto) Absolute Nucleated RBC Nucleated RBC % Sodium 137 Potassium 3.5 Chloride 107 Carbon Dioxide 25 Anion Gap 5 BUN 19 Creatinine 0.49 L Est GFR ( Amer) 208.7 Est GFR (Non-Af Amer) 172.5 BUN/Creatinine Ratio 38.8 H Glucose 103 H POC Glucose (mg/dL) 141 H Calcium 7.0 L Phosphorus 1.5 L Magnesium 2.0 Total Bilirubin 0.50 AST 31 ALT 41 Alkaline Phosphatase 78 Total Protein 3.4 L Albumin 2.0 L Globulin 1.4 L Albumin/Globulin Ratio 1.4 Blood Type O Positive Antibody Screen Negative Crossmatch See Detail 03/26/18 03/26/18 12:09 18:40 WBC RBC Hgb Hct MCV MCH MCHC RDW Plt Count MPV Neut % (Auto) Lymph % (Auto) Walker % (Auto) Eos % (Auto) Baso % (Auto) Absolute Neuts (auto) Absolute Lymphs (auto) Absolute Monos (auto) Absolute Eos (auto) Absolute Basos (auto) Absolute Nucleated RBC Nucleated RBC % Sodium Potassium Chloride Carbon Dioxide Anion Gap BUN Creatinine Est GFR ( Amer) Est GFR (Non-Af Amer) BUN/Creatinine Ratio Glucose POC Glucose (mg/dL) 135 H 115 H Calcium Phosphorus Magnesium Total Bilirubin AST ALT Alkaline Phosphatase Total Protein Albumin Globulin Albumin/Globulin Ratio Blood Type Antibody Screen Crossmatch Microbiology and Other Data: Microbiology 03/23/18 20:34 Stool Stool Occult Blood (JUAQUIN) - Final 03/15/18 13:50 Urine Urine Culture - Final No Growth (<1,000 CFU/mL) Assess/Plan/Problems-Billing Assessment: 63 yo male with new DLBCL on C1 R-EPOCH p/w FTT, anemia found severe gastritis #FTT TPN reodered. increased Phos blood glucose has been stable, lengthened POC testing to q6 and not in middle of night. #DLBCL - on neupogen now. - pancreatic envolvment suspected now. #severe gastritis on EGD in setting of - continue protonix gtt. eventually BID dosing CLD, ADAT #thrombocytopenia - monitor CBC daily. on lovenox for DVT ppx. #anemia transfused for goal Hgb >8 per oncology service stool guiac service: oncology CODE: FUll
[2018-03-26] MEDS: Zolpidem TAB* 5 MG PO SCH (23:20)
--- NOTE | 2018-03-27 03:50 | CONS ---
GASTROENTEROLOGY CONSULT: DATE: 03/24/18 CONSULTING PHYSICIANS: Maurice Soto REASON FOR CONSULTATION: Abdominal aching and a fall in hemoglobin over 6 days from 11.5 to 7.1 with a slight rise in BUN from the low 20s to the high 20s. HISTORY OF PRESENT ILLNESS: This 63-year-old man a few months ago began having weakness. He eventually presented and was found to be hypercalcemic, anemic, and an elevated LDH, and a CT scan showing a lots of bulky disease. A biopsy showed lymphoma and he has had a port placed and four days ago began having chemotherapy, which involved high-dose corticosteroids, doxorubicin, etoposide, vincristine, and subsequent plan for cyclophosphamide, which is still undecided regarding giving. He has received rituximab. He has been eating small amounts mostly cereal. He notes that when pills are ingested, he has a lot of abdominal aching. He says these feelings are similar to what he has had over the years attributed to a sensitive stomach, which he traces back to being told he had H. pylori 20 or 25 years ago. He has not had any vomiting or overt melena though stool occult blood yesterday was positive. His hemoglobin went down to 7.1 and he was transfused and we were contacted. PAST MEDICAL HISTORY: 1. Chronic peptic disease - he says he was told he had H. pylori, maybe 25 years ago by a doctor in [place]. This was before he had met his current . He says that was treated, but all he will say as he was given a single pill to take for couple of weeks. Ever since then, he has had a sensitive stomach having trouble with spicy foods and being unable to take NSAIDs. He has never had an upper endoscopy. He has never had any prescription stomach medicines and denies taking antacids or any OTC agents. 2. Infrarenal abdominal aneurysm - 4 cm discovered with this admission. 3. Large cell lymphoma. 4. Chronic GERD. 5. Hypertension. OUTPATIENT MEDICATIONS: Omeprazole 20 mg; metoprolol 25; diclofenac gel; tramadol p.r.n. FAMILY HISTORY: He is unaware the cause of the of his parents. SOCIAL HISTORY: He drives for [employer], [employer]. He has had a very little medical care over the years getting DOT related physicals and often times just leaving his medical evaluation based on that. He has not seen his primary doctor he believes in three years. Quit smoking in 2002 after 30 years. He has not had any alcohol since 1992. REVIEW OF SYSTEMS: No history of seizures, migraines, syncope, palpitations, TN , hemoptysis, TB, hepatitis, liver problems or abdominal surgery. PHYSICAL EXAM: He is a quiet man, appearing somewhat pale in no overt distress , afebrile. Pulse 70 and regular. Blood pressure 145/80. HEENT exam shows no icterus. His lungs are clear. His heart sounds are regular. His abdomen is rounded, full, and tender to deep palpation diffusely. There is no overt palpable mass. Rectal is deferred. Extremities show 1+ edema and they are somewhat glassy. DIAGNOSTIC STUDIES/LAB DATA: Today, hemoglobin 8.1, MCV 86, platelets 146, white count 5.4. Sodium 137, potassium 3.7, BUN 24, creatinine 0.52, albumin 2.1, ALT 62, alkaline phosphatase 60. Prior labs included LDH 805, ferritin 3472, iron saturation 21%, and hepatitis surface antigen and hepatitis C antibody negative. IMPRESSION: This 63-year-old man with many years of what sounds like gastroesophageal reflux disease and possibly ulcer disease / chronic gastritis including carriage of Helicobacter, has been having increasing pain. He has a large cell lymphoma that is widely disseminated. Just in last week, he has received high dose corticosteroids and chemo. Exacerbation of his underlying condition is anticipated. There is a possibility of an opportunistic infection or lymphoma involving the wall of the gut. Now before his counts to become precipitously low, it would be a good time to find out the condition of his mucosa. Upper endoscopy is planned. [id number]/[facility] #: [id number] [facility]
[2018-03-27 07:49] LABS: Hematocrit 24 % (42-52); Hemoglobin 8.4 g/dl (14.0-18.0); Mean Corpuscular HGB Conc 35 g/dl (31-36); Mean Corpuscular Hemoglobin 29 pg (27-31); Mean Corpuscular Volume 84 fL (80-94); Mean Platelet Volume 7.9 um3 (7.4-10.4); Platelet Count 41 10^3/ul (150-450); Red Cell Distribution Width 15 % (10.5-15); White Blood Count 1.5 10^3/ul (3.5-10.8)
[2018-03-27 08:11] LABS: ABS Basophils 0 10^3/ul (0-0.2); ABS Eosinophils 0 10^3/ul (0-0.6); ABS Lymphocytes 0.5 10^3/ul (1.0-4.8); ABS Monocytes 0 10^3/ul (0-0.8); ABS Nucleated RBC 0 10^3/ul; Eosinophil % 0.9 % (0-6); Nucleated Red Blood Cells % 0.1
--- NOTE | 2018-03-27 09:30 | PN ---
Progress Note - Progress Note Date of Service: 03/27/18 SOAP: Subjective: []Overall doing ok. Still pain with clear liquids but better. Difficulty sleeping. Mattress is not comfortable. No fevers. Pain controlled. He feels he is depressed and agrees. Acetaminophen (Tylenol Tab*) 650 mg PO Q4H PRN PRN Reason: FEVER/PAIN Al Hydrox/Mg Hydrox/Simethicone (Maalox Plus*) 30 ml PO Q6H PRN PRN Reason: INDIGESTION Last Admin: 03/26/18 08:17 Dose: 30 ml Filgrastim (Neupogen (Nf)) 0 mcg SUBCUT 1600 FADUMO Stop: 04/03/18 16:01 Last Admin: 03/26/18 16:13 Dose: 300 mcg Heparin Sodium (Porcine) (Heparin Flush Port (Ivad)) 5 ml FLUSH DAILY [facility]; Protocol Last Admin: 03/26/18 07:16 Dose: Not Given Pantoprazole Sodium 80 mg/ (Sodium Chloride) 250 mls @ 25 mls/hr IVPB Q10H [facility] ; Protocol Last Admin: 03/26/18 23:43 Dose: 25 mls/hr Dextrose 500 ml/ Amino Acids 850 ml/ Sterile Water 150 ml/Fat Emulsion Intravenous 250 ml/ Sodium Chloride 100 meq/Potassium Chloride 50 meq/Potassium Phosphate 25 mmole/Magnesium Sulfate 10 meq/Multivitamins 10 ml/ Trace Metals 1 ml/ Nutrition ( Parenteral) 1,821.7963 mls @ 75.769 mls/hr CENTR 1700 [facility] Last Admin: 03/26/18 20:19 Dose: 75.769 mls/hr Metoprolol Succinate (Toprol Xl Tab*) 25 mg PO 1600 FADUMO Last Admin: 03/26/18 16:13 Dose: 25 mg Potassium Phos/Sodium Phos (Neutra Phos 250 Mg Wilber*) 250 mg PO QID [facility] Prochlorperazine Edisylate (Compazine Inj*) 10 mg IV Q6H PRN PRN Reason: NAUSEA/VOMITING Senna (Senokot Tab*) 2 tab PO ONCE PRN PRN Reason: CONSTIPATION Last Admin: 03/25/18 22:59 Dose: 2 tab Zolpidem Tartrate (Ambien Tab*) 10 mg PO BEDTIME [facility] Objective: [] Vital Signs Temp Pulse Resp BP Pulse Ox 98.5 F 69 16 135/77 100 03/27/18 07:17 03/27/18 07:17 03/27/18 07:17 03/27/18 07:17 03/27/18 07:17 Gen: well appearing HEENT: MMM Resp: CTA, no w/c/r CV: RRR, no m/r/g Abd: soft, distended, +BS NT Leeft axilla is improved from exam on Tuesday. 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 Complicated by GIB and EGD with diffuse gastric ulcers. 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 He is now on TPN but and with dropping blood counts from chemotherapy, Hgb decreased as well from continued bleeding. Plan: [1. DLBCL - C1D8 R-EPOCH - neupogen - Tx Plts < 20,000 given continued bleeding. 2. Anemia/GIB - Tx Hgb <8.0. - Clear liquids - PPI drip 4. Poor nutrition/FEN - Increase TPN to Base B - Neutrophos 250 qid - Full labs tomorrow 5. DVT prophylaxis - Lovenox SQ held for Pltx < 50,000 6. Code - FULL 7. Could not sleep, will increase Ambien to 10 mg and stop melantonin 8. Depression. Discussed SSRI with patient and . Will start Celexa 20 mg po daily 9. Discussed terminal superintendent plan for chemotherapy and need to stay in hospital for time being, likely another 7 days. time with patient and chart 50 min
[2018-03-27] MEDS: Enoxaparin(*) 40 MG/0.4 ML SYR SUBCUT SCH (10:16)
[2018-03-27] MEDS: Pantoprazole IV* 80 MG in NS 0.9% 250 ML* 250 ML IVPB SCH ×2 (10:46→21:10)
[2018-03-27] MEDS: Potassium & Sodium Phos 250MG* = 1 PACKET PO SCH ×3 (12:12→23:35)
[2018-03-27] MEDS: Citalopram TAB* 20 MG PO SCH (12:12)
[2018-03-27] MEDS: Al Hydrox/Mg Hydrox/Simet LIQ* 30 ML UDC PO PRN (12:30)
[2018-03-27] MEDS ORDERED: Potassium & Sodium Phos 250MG* = 1 PACKET PO SCH (14:00)
[2018-03-27] MEDS: Metoprolol Succinate XL TAB* 25 MG PO SCH (16:37)
[2018-03-27] MEDS: FILGRASTIM 300 MCG/0.5 ML SUBCUT SCH (16:37)
[2018-03-27] MEDS ORDERED: TPN* 24 HR with Sodium Chloride Conc 23.4%* 100 MEQ, Potassium Chloride TPN 50 MEQ, Pot... CENT\\PICC SCH ×11 (17:00)
[2018-03-27] MEDS ORDERED: HYDROmorphone INJ* 0.5 MG/0.5 ML SYRINGE IV SLOW PU PRN (17:10)
[2018-03-27] MEDS: Sucralfate TAB* 1 GM PO SCH ×2 (17:48→20:08)
[2018-03-27] MEDS: traMADol TAB* 50 MG PO PRN (18:35)
[2018-03-27] MEDS: Zolpidem TAB* 10 MG PO SCH (23:35)
[2018-03-28 07:19] LABS: Hematocrit 23 % (42-52); Hemoglobin 7.9 g/dl (14.0-18.0); Mean Corpuscular HGB Conc 34 g/dl (31-36); Mean Corpuscular Hemoglobin 29 pg (27-31); Mean Corpuscular Volume 84 fL (80-94); Mean Platelet Volume 7.7 um3 (7.4-10.4); Platelet Count 28 10^3/ul (150-450); Red Blood Count 2.75 10^6/ul (4.00-5.40); Red Cell Distribution Width 15 % (10.5-15); White Blood Count 0.4 10^3/ul (3.5-10.8)
[2018-03-28 07:49] LABS: EGFR Non-African American 231.3 (>60)
[2018-03-28] MEDS: Pantoprazole IV* 80 MG in NS 0.9% 250 ML* 250 ML IVPB SCH ×2 (08:20→22:38)
[2018-03-28] MEDS: Citalopram TAB* 20 MG PO SCH (08:20)
[2018-03-28] MEDS: Potassium & Sodium Phos 250MG* = 1 PACKET PO SCH ×4 (08:20→21:24)
[2018-03-28] MEDS: traMADol TAB* 50 MG PO PRN ×3 (08:25→21:25)
[2018-03-28] MEDS: Sucralfate TAB* 1 GM PO SCH (08:41)
[2018-03-28] MEDS: Sucralfate SUSP 1 GM/10 ml 10 ML UDC PO SCH ×3 (09:28→21:23)
[2018-03-28] MEDS: Acetaminophen TAB* 325 MG PO PRN (13:01)
[2018-03-28] MEDS ORDERED: Sucralfate TAB* 1 GM PO SCH (16:30)
[2018-03-28] MEDS ORDERED: TPN* 24 HR with Sodium Chloride Conc 23.4%* 100 MEQ, Potassium Chloride TPN 50 MEQ, Pot... CENT\\PICC SCH ×11 (17:00)
[2018-03-28] MEDS: Metoprolol Succinate XL TAB* 25 MG PO SCH (17:15)
[2018-03-28] MEDS: FILGRASTIM 300 MCG/0.5 ML SUBCUT SCH (17:39)
[2018-03-28] MEDS: Al Hydrox/Mg Hydrox/Simet LIQ* 30 ML UDC PO PRN (21:23)
[2018-03-28] MEDS: Zolpidem TAB* 10 MG PO SCH (22:41)
[2018-03-29] MEDS: Sucralfate SUSP 1 GM/10 ml 10 ML UDC PO SCH ×4 (06:30→20:51)
[2018-03-29 07:07] LABS: EGFR Non-African American 238.5 (>60)
[2018-03-29 07:09] LABS: Hematocrit 23 % (42-52); Hemoglobin 7.9 g/dl (14.0-18.0); Mean Corpuscular HGB Conc 34 g/dl (31-36); Mean Corpuscular Hemoglobin 29 pg (27-31); Mean Corpuscular Volume 84 fL (80-94); Mean Platelet Volume 8.3 um3 (7.4-10.4); Platelet Count 16 10^3/ul (150-450); Red Blood Count 2.74 10^6/ul (4.00-5.40); Red Cell Distribution Width 15 % (10.5-15); White Blood Count 0.3 10^3/ul (3.5-10.8)
[2018-03-29 08:13] LABS: ABS Basophils 0 10^3/ul (0-0.2); ABS Neutrophils 0 10^3/ul (1.5-7.7); Monocytes % 2 % (0-7)
--- NOTE | 2018-03-29 08:41 | PN ---
Progress Note - Progress Note Date of Service: 03/29/18 SOAP: Subjective: erroneous temp of 103.3 this am. axillary temp but patient felt cool so oral temp taken and normal. currently feels "terrible" when prompted to expand states "it just hurts to swallow". no nausea, no vomiting, relatively mild hip pain at bone marrow bx site, no other pain. no dysuria. no cough. Objective: Vital Signs Temp Pulse Resp BP Pulse Ox 99.1 F 86 18 138/73 100 03/29/18 06:00 03/29/18 05:53 03/29/18 05:53 03/29/18 05:53 03/29/18 05:53 perr eomi op moist post OP erythematous without ulceration CTA bl s1 s2 nl soft nt +bs 1+ LE edema nonfocal neurological exam Laboratory Results - last 24 hr 03/26/18 03/27/18 03/28/18 07:25 07:30 12:27 WBC RBC Hgb Hct MCV MCH MCHC RDW Plt Count MPV Neut % (Auto) Lymph % (Auto) [place] % (Auto) Eos % (Auto) Baso % (Auto) Absolute Neuts (auto) Absolute Lymphs (auto) Absolute Monos (auto) Absolute Eos (auto) Absolute Basos (auto) Absolute Nucleated RBC Neutrophils % Lymphocytes % Monocytes % Eosinophils % Basophils % Nucleated RBC % Abs Neuts (Manual) Abs Lymphs (Manual) Abs Monocytes (Manual) Absolute Eos (Manual) Abs Basophils (Manual) Normal RBC Morphology Hypochromasia Hem Pathologist Commnt Sodium Potassium Chloride Carbon Dioxide Anion Gap BUN Creatinine Est GFR ( Amer) Est GFR (Non-Af Amer) BUN/Creatinine Ratio Glucose POC Glucose (mg/dL) 147 H Calcium Phosphorus Magnesium Total Bilirubin AST ALT Alkaline Phosphatase Total Protein Albumin Globulin Albumin/Globulin Ratio 03/28/18 03/29/18 03/29/18 18:50 00:58 06:35 WBC 0.3 L RBC 2.74 L Hgb 7.9 L Hct 23 L MCV 84 MCH 29 MCHC 34 RDW 15 Plt Count 16 L MPV 8.3 Neut % (Auto) Not Reportable Lymph % (Auto) Not Reportable [place] % (Auto) Not Reportable Eos % (Auto) Not Reportable Baso % (Auto) Not Reportable Absolute Neuts (auto) 0 L Absolute Lymphs (auto) Not Reportable Absolute Monos (auto) Not Reportable Absolute Eos (auto) Not Reportable Absolute Basos (auto) Not Reportable Absolute Nucleated RBC Not Reportable Neutrophils % 3 L Lymphocytes % 94 H Monocytes % 2 Eosinophils % 1 Basophils % 0 Nucleated RBC % Not Reportable Abs Neuts (Manual) 0 L Abs Lymphs (Manual) 0.3 L Abs Monocytes (Manual) 0 Absolute Eos (Manual) 0 Abs Basophils (Manual) 0 Normal RBC Morphology Not Reportable Hypochromasia 1+ Hem Pathologist Commnt Sodium Potassium Chloride Carbon Dioxide Anion Gap BUN Creatinine Est GFR ( Amer) Est GFR (Non-Af Amer) BUN/Creatinine Ratio Glucose POC Glucose (mg/dL) 102 H 123 H Calcium Phosphorus Magnesium Total Bilirubin AST ALT Alkaline Phosphatase Total Protein Albumin Globulin Albumin/Globulin Ratio 03/29/18 03/29/18 06:35 07:01 WBC RBC Hgb Hct MCV MCH MCHC RDW Plt Count MPV Neut % (Auto) Lymph % (Auto) [place] % (Auto) Eos % (Auto) Baso % (Auto) Absolute Neuts (auto) Absolute Lymphs (auto) Absolute Monos (auto) Absolute Eos (auto) Absolute Basos (auto) Absolute Nucleated RBC Neutrophils % Lymphocytes % Monocytes % Eosinophils % Basophils % Nucleated RBC % Abs Neuts (Manual) Abs Lymphs (Manual) Abs Monocytes (Manual) Absolute Eos (Manual) Abs Basophils (Manual) Normal RBC Morphology Hypochromasia Hem Pathologist Commnt Sodium 131 L Potassium 4.3 Chloride 105 Carbon Dioxide 24 Anion Gap 2 BUN 14 Creatinine 0.37 L Est GFR ( Amer) 288.6 Est GFR (Non-Af Amer) 238.5 BUN/Creatinine Ratio 37.8 H Glucose 94 POC Glucose (mg/dL) 134 H Calcium 6.9 L Phosphorus 1.5 L Magnesium 1.9 Total Bilirubin 1.10 H AST 52 H ALT 93 H Alkaline Phosphatase 102 Total Protein 3.6 L Albumin 2.1 L Globulin 1.5 L Albumin/Globulin Ratio 1.4 Acetaminophen (Tylenol Tab*) 650 mg PO Q4H PRN PRN Reason: FEVER/PAIN Last Admin: 03/28/18 13:01 Dose: 650 mg Al Hydrox/Mg Hydrox/Simethicone (Maalox Plus*) 30 ml PO Q6H PRN PRN Reason: INDIGESTION Last Admin: 03/28/18 21:23 Dose: 30 ml Citalopram Hydrobromide (Celexa Tab*) 20 mg PO DAILY [facility] Last Admin: 03/28/18 08:20 Dose: 20 mg Filgrastim (Neupogen (Nf)) 0 mcg SUBCUT 1600 [facility] Stop: 04/03/18 16:01 Last Admin: 03/28/18 17:39 Dose: 300 mcg Heparin Sodium (Porcine) (Heparin Flush Port ([place])) 5 ml FLUSH DAILY [facility]; Protocol Last Admin: 03/28/18 08:41 Dose: Not Given Hydromorphone HCl (Dilaudid Inj*) 0.5 mg IV SLOW PU Q4H PRN PRN Reason: PAIN Pantoprazole Sodium 80 mg/ (Sodium Chloride) 250 mls @ 25 mls/hr IVPB Q10H [facility] ; Protocol Last Admin: 03/28/18 22:38 Dose: 25 mls/hr Sodium Chloride 100 meq/Potassium Chloride 50 meq/Potassium Phosphate 25 mmole/ Magnesium Sulfate 10 meq/Multivitamins 10 ml/ Trace Metals 1 ml/ Dextrose 1,000 ml / Amino Acids 850 ml/ Sterile Water 150 ml/ Fat Emulsion Intravenous 250 ml/ Nutrition (Parenteral) 2,321.7963 mls @ 96.742 mls/hr CENT\\PICC 1700 [facility]; Protocol Last Admin: 03/28/18 17:50 Dose: 96.742 mls/hr Metoprolol Succinate (Toprol Xl Tab*) 25 mg PO 1600 [facility] Last Admin: 03/28/18 17:15 Dose: 25 mg Potassium Phos/Sodium Phos (Neutra Phos 250 Mg Wilber*) 250 mg PO QID [facility] Last Admin: 03/28/18 21:24 Dose: 250 mg Prochlorperazine Edisylate (Compazine Inj*) 10 mg IV Q6H PRN PRN Reason: NAUSEA/VOMITING Senna (Senokot Tab*) 2 tab PO ONCE PRN PRN Reason: CONSTIPATION Last Admin: 03/25/18 22:59 Dose: 2 tab Sucralfate (Sucralfate Susp) 1 gm PO 0600,1000,1400,2000 [facility] Last Admin: 03/29/18 06:30 Dose: 1 gm Tramadol HCl (Ultram*) 50 mg PO Q6H PRN PRN Reason: PAIN Last Admin: 03/28/18 21:25 Dose: 50 mg Zolpidem Tartrate (Ambien Tab*) 10 mg PO BEDTIME [facility] Last Admin: 03/28/18 22:41 Dose: 10 mg Assessment: 63 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 Plan: Severe protein calorie malnutrition: from cancer and GI bleed/poor PO intake -cont TPN -d/w pharmacy increasing phos neutropenia: increase neupogen to 480 mcg daily anemia: stable, no evidence of ongoing bleed GIB: cont PPI drip will d/w GI when to change to BID IV cont TPN full code no DVT prophylaxis with recent GIB
[2018-03-29] MEDS: Potassium & Sodium Phos 250MG* = 1 PACKET PO SCH ×4 (08:58→20:51)
[2018-03-29] MEDS: traMADol TAB* 50 MG PO PRN ×2 (08:58→18:25)
[2018-03-29] MEDS: Citalopram TAB* 20 MG PO SCH (08:58)
[2018-03-29] MEDS: Pantoprazole IV* 80 MG in NS 0.9% 250 ML* 250 ML IVPB SCH ×2 (09:10→18:34)
[2018-03-29] MEDS: FILGRASTIM-SNDZ* 480 MCG/0.8 ML SYRINGE SUBCUT SCH (10:27)
[2018-03-29] MEDS ORDERED: Cefepime 2 GM in Dextrose(*) 2 GM/50 ML BAG IV SCH (14:00)
[2018-03-29] MEDS ORDERED: TPN CENT\\PICC SCH ×11 (17:00)
[2018-03-29] MEDS ORDERED: POTASSIUM CHLORIDE TPN CENT\\PICC SCH ×11 (17:00)
[2018-03-29] MEDS ORDERED: SODIUM CHLORIDE CENT\\PICC SCH ×11 (17:00)
[2018-03-29] MEDS ORDERED: [UNRECOGNIZED DRUG - OTHER] CENT\\PICC SCH ×11 (17:00)
[2018-03-29] MEDS: Metoprolol Succinate XL TAB* 25 MG PO SCH (18:17)
[2018-03-29] MEDS: Magic M W2 Ben/Maal/Nyst/Lido* 240 ML MOUTHWASH (alt formulation) SWISH SWAL SCH ×2 (18:34→20:52)
[2018-03-29] MEDS: Acetaminophen TAB* 325 MG PO PRN (20:50)
[2018-03-29] MEDS: Zolpidem TAB* 10 MG PO SCH (20:51)
[2018-03-29 23:12] LABS: Mean Platelet Volume 7.4 um3 (7.4-10.4); Platelet Count 31 10^3/ul (150-450)
[2018-03-30] MEDS: Pantoprazole IV* 80 MG in NS 0.9% 250 ML* 250 ML IVPB SCH ×3 (06:02→20:57)
[2018-03-30] MEDS: Sucralfate SUSP 1 GM/10 ml 10 ML UDC PO SCH ×4 (06:19→20:57)
[2018-03-30] MEDS: traMADol TAB* 50 MG PO PRN (06:25)
[2018-03-30 06:40] LABS: Hematocrit 19 % (42-52); Hemoglobin 6.5 g/dl (14.0-18.0); Mean Corpuscular HGB Conc 35 g/dl (31-36); Mean Corpuscular Hemoglobin 29 pg (27-31); Mean Corpuscular Volume 84 fL (80-94); Mean Platelet Volume 7.7 um3 (7.4-10.4); Platelet Count 25 10^3/ul (150-450); Red Blood Count 2.26 10^6/ul (4.00-5.40); Red Cell Distribution Width 15 % (10.5-15); White Blood Count 0.4 10^3/ul (3.5-10.8)
[2018-03-30 07:43] LABS: EGFR Non-African American 238.5 (>60)
[2018-03-30 08:17] LABS: ABS Basophils 0 10^3/ul (0-0.2); ABS Eosinophils 0 10^3/ul (0-0.6); ABS Lymphocytes 0.3 10^3/ul (1.0-4.8); ABS Monocytes 0 10^3/ul (0-0.8); ABS Neutrophils 0 10^3/ul (1.5-7.7); ABS Nucleated RBC 0 10^3/ul; Eosinophil % 0.9 % (0-6); Lymphocyte % 89.3 % (25-47); Nucleated Red Blood Cells % 1.2
[2018-03-30 09:24] LABS: Hematocrit 19 % (42-52); Hemoglobin 6.4 g/dl (14.0-18.0)
--- NOTE | 2018-03-30 09:42 | PN ---
Progress Note - Progress Note Date of Service: 03/30/18 SOAP: Subjective: feels terrible this am. throat very sore. dilaudid helps but hesitant to use it and get "hooked". one black stool last night. Hb lower today on repeat. very fatigued. Objective: Vital Signs Temp Pulse Resp BP Pulse Ox 99.4 F 88 16 144/67 98 03/30/18 07:52 03/30/18 07:52 03/30/18 07:52 03/30/18 07:52 03/30/18 07:52 perr eomi op dense mucositis on posterior OP CTA bl s1 s2 nl soft nt +bs 1+LE edema A+O x 3, nonfocal neurological exam Laboratory Results - last 24 hr 03/29/18 03/29/18 03/29/18 12:30 13:40 18:28 WBC RBC Hgb Hct MCV MCH MCHC RDW Plt Count MPV Neut % (Auto) Lymph % (Auto) [place] % (Auto) Eos % (Auto) Baso % (Auto) Absolute Neuts (auto) Absolute Lymphs (auto) Absolute Monos (auto) Absolute Eos (auto) Absolute Basos (auto) Absolute Nucleated RBC Nucleated RBC % Sodium Potassium Chloride Carbon Dioxide Anion Gap BUN Creatinine Est GFR ( Amer) Est GFR (Non-Af Amer) BUN/Creatinine Ratio Glucose POC Glucose (mg/dL) 137 H 125 H Calcium Phosphorus Magnesium Total Bilirubin AST ALT Alkaline Phosphatase Total Protein Albumin Globulin Albumin/Globulin Ratio Prealbumin Triglycerides Cholesterol Crossmatch See Detail 03/29/18 03/30/18 03/30/18 22:50 00:23 06:13 WBC RBC Hgb Hct MCV MCH MCHC RDW Plt Count 31 L D MPV 7.4 Neut % (Auto) Lymph % (Auto) [place] % (Auto) Eos % (Auto) Baso % (Auto) Absolute Neuts (auto) Absolute Lymphs (auto) Absolute Monos (auto) Absolute Eos (auto) Absolute Basos (auto) Absolute Nucleated RBC Nucleated RBC % Sodium Potassium Chloride Carbon Dioxide Anion Gap BUN Creatinine Est GFR ( Amer) Est GFR (Non-Af Amer) BUN/Creatinine Ratio Glucose POC Glucose (mg/dL) 124 H 124 H Calcium Phosphorus Magnesium Total Bilirubin AST ALT Alkaline Phosphatase Total Protein Albumin Globulin Albumin/Globulin Ratio Prealbumin Triglycerides Cholesterol Crossmatch 03/30/18 03/30/18 03/30/18 06:15 06:15 09:00 WBC 0.4 L RBC 2.26 L Hgb 6.5 L 6.4 L* Hct 19 L 19 L MCV 84 MCH 29 MCHC 35 RDW 15 Plt Count 25 L MPV 7.7 Neut % (Auto) 4.0 L Lymph % (Auto) 89.3 H [place] % (Auto) 5.8 Eos % (Auto) 0.9 Baso % (Auto) 0 Absolute Neuts (auto) 0 L Absolute Lymphs (auto) 0.3 L Absolute Monos (auto) 0 Absolute Eos (auto) 0 Absolute Basos (auto) 0 Absolute Nucleated RBC 0 Nucleated RBC % 1.2 Sodium 130 L Potassium 4.1 Chloride 103 Carbon Dioxide 25 Anion Gap 2 BUN 13 Creatinine 0.37 L Est GFR ( Amer) 288.6 Est GFR (Non-Af Amer) 238.5 BUN/Creatinine Ratio 35.1 H Glucose 103 H POC Glucose (mg/dL) Calcium 6.6 L Phosphorus 1.7 L Magnesium 1.8 L Total Bilirubin 1.50 H AST 39 ALT 90 H Alkaline Phosphatase 112 H Total Protein 3.4 L Albumin 2.1 L Globulin 1.3 L Albumin/Globulin Ratio 1.6 Prealbumin 16 L Triglycerides 80 Cholesterol 111 Crossmatch Assessment: 63 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 He appears to be actively bleeding again. I did discuss with Dr. Batista and there is no additional intervention possible at this time. We will need to manage symptomatically. Plan: Severe protein calorie malnutrition: from cancer and GI bleed/poor PO intake -cont TPN -stop oral k phos (too painful), added to TPN neutropenia: neupogen 480 mcg daily hyperbilirubinemia: discussed with GI, likely from TPN will monitor for now GIB: cont PPI drip transfuse today and repeat hemoglobin after q4 hr hb after transfusion if more rapid bleeding or vital sign instability will transfer to ICU mucositis: cont magic mouthwash and IV dilaudid no oral dex given ulcers full code no DVT prophylaxis with recent GIB
[2018-03-30] MEDS: Magic M W2 Ben/Maal/Nyst/Lido* 240 ML MOUTHWASH (alt formulation) SWISH SWAL SCH ×4 (09:56→20:57)
[2018-03-30] MEDS: HYDROmorphone INJ* 0.5 MG/0.5 ML SYRINGE IV SLOW PU PRN ×4 (10:09→20:58)
[2018-03-30] MEDS: FILGRASTIM-SNDZ* 480 MCG/0.8 ML SYRINGE SUBCUT SCH (10:16)
[2018-03-30] MEDS: Citalopram TAB* 20 MG PO SCH (10:21)
[2018-03-30] MEDS: Potassium & Sodium Phos 250MG* = 1 PACKET PO SCH (11:42)
[2018-03-30] MEDS: Metoprolol Succinate XL TAB* 25 MG PO SCH (16:16)
[2018-03-30] MEDS ORDERED: TPN CENT\\PICC SCH ×11 (17:00)
[2018-03-30] MEDS ORDERED: POTASSIUM CHLORIDE TPN CENT\\PICC SCH ×11 (17:00)
[2018-03-30] MEDS ORDERED: SODIUM CHLORIDE CENT\\PICC SCH ×11 (17:00)
[2018-03-30] MEDS ORDERED: [UNRECOGNIZED DRUG - OTHER] CENT\\PICC SCH ×11 (17:00)
[2018-03-30] MEDS: Zolpidem TAB* 10 MG PO SCH (20:57)
[2018-03-31] MEDS: HYDROmorphone INJ* 0.5 MG/0.5 ML SYRINGE IV SLOW PU PRN ×5 (02:52→19:06)
[2018-03-31] MEDS: Sucralfate SUSP 1 GM/10 ml 10 ML UDC PO SCH ×4 (06:19→20:58)
[2018-03-31] MEDS: Magic M W2 Ben/Maal/Nyst/Lido* 240 ML MOUTHWASH (alt formulation) SWISH SWAL SCH ×5 (06:20→20:58)
[2018-03-31] MEDS: Pantoprazole IV* 80 MG in NS 0.9% 250 ML* 250 ML IVPB SCH ×2 (06:30→17:28)
[2018-03-31 06:36] LABS: ABS Neutrophils 0.2 10^3/ul (1.5-7.7); Hematocrit 21 % (42-52); Hemoglobin 7.2 g/dl (14.0-18.0); Mean Corpuscular HGB Conc 35 g/dl (31-36); Mean Corpuscular Hemoglobin 29 pg (27-31); Mean Corpuscular Volume 84 fL (80-94); Mean Platelet Volume 9.3 um3 (7.4-10.4); Platelet Count 22 10^3/ul (150-450); Red Blood Count 2.44 10^6/ul (4.00-5.40); Red Cell Distribution Width 15 % (10.5-15); White Blood Count 0.6 10^3/ul (3.5-10.8)
[2018-03-31 06:53] LABS: EGFR Non-African American 224.4 (>60)
[2018-03-31 07:10] LABS: ABS Basophils 0 10^3/ul (0-0.2); ABS Neutrophils 0 10^3/ul (1.5-7.7); Monocytes % 10 % (0-7)
--- NOTE | 2018-03-31 09:56 | PN ---
Progress Note - Progress Note Date of Service: 03/31/18 SOAP: Subjective: []feels better today. mouth is a little better but still no eating. is using Dilaudid and it helps. has not been getting up, no PT yet. No fevers. No BM today or yesterday. Acetaminophen (Tylenol Tab*) 650 mg PO Q4H PRN PRN Reason: FEVER/PAIN Last Admin: 03/29/18 20:50 Dose: 650 mg Al Hydrox/Mg Hydrox/Simethicone (Maalox Plus*) 30 ml PO Q6H PRN PRN Reason: INDIGESTION Last Admin: 03/28/18 21:23 Dose: 30 ml Citalopram Hydrobromide (Celexa Tab*) 20 mg PO DAILY [facility] Last Admin: 03/30/18 10:21 Dose: 20 mg Filgrastim-Sndz (Zarxio*) 480 mcg SUBCUT DAILY [facility] Last Admin: 03/30/18 10:16 Dose: 480 mcg Hydromorphone HCl (Dilaudid Inj*) 0.5 mg IV SLOW PU Q2H PRN PRN Reason: PAIN Last Admin: 03/31/18 06:20 Dose: 0.5 mg Pantoprazole Sodium 80 mg/ (Sodium Chloride) 250 mls @ 25 mls/hr IVPB Q10H [facility] ; Protocol Last Admin: 03/31/18 06:30 Dose: 25 mls/hr Sodium Chloride 125 meq/Potassium Chloride 25 meq/Potassium Phosphate 50 mmole/ Magnesium Sulfate 10 meq/Multivitamins 10 ml/ Trace Metals 1 ml/ Dextrose 1,000 ml / Amino Acids 850 ml/ Sterile Water 150 ml/ Fat Emulsion Intravenous 250 ml/ Nutrition (Parenteral) 2,323.8797 mls @ 96.828 mls/hr CENT\PICC 1700 [facility]; Protocol Stop: 03/31/18 16:59 Last Admin: 03/30/18 16:15 Dose: 96.828 mls/hr Metoprolol Succinate (Toprol Xl Tab*) 25 mg PO 1600 [facility] Last Admin: 03/30/18 16:16 Dose: 25 mg Multi-Ingredient Mouthwash/Gargle (Magic M W2 Todd/Maal/Nyst/Lido*) 5 ml SWISH SWAL [id number] AWAKE [facility] Last Admin: 03/31/18 06:20 Dose: 5 ml Prochlorperazine Edisylate (Compazine Inj*) 10 mg IV Q6H PRN PRN Reason: NAUSEA/VOMITING Senna (Senokot Tab*) 2 tab PO ONCE PRN PRN Reason: CONSTIPATION Last Admin: 03/25/18 22:59 Dose: 2 tab Sucralfate (Sucralfate Susp) 1 gm PO 0600,1000,1400,2000 [facility] Last Admin: 03/31/18 06:19 Dose: 1 gm Tramadol HCl (Ultram*) 50 mg PO Q6H PRN PRN Reason: PAIN Last Admin: 03/30/18 06:25 Dose: 50 mg Zolpidem Tartrate (Ambien Tab*) 10 mg PO BEDTIME [facility] Last Admin: 03/30/18 20:57 Dose: 10 mg Objective: [] Vital Signs Temp Pulse Resp BP Pulse Ox 97.8 F 76 16 134/63 97 03/31/18 03:44 03/31/18 03:44 03/31/18 06:20 03/31/18 03:44 03/31/18 03:44 Gen: well appearing HEENT: erythema and ulceration posterior oral pharynx Resp: CTA, no w/c/r CV: RRR, no m/r/g Abd: soft, distended, +BS NT Leeft axilla is improved Ext: trace peripheral edema, symetric Psych: alert and oriented] Assessment: [63 yo male with 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 Complicated by GIB and EGD with diffuse gastric ulcers. 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 He is now on TPN but and with pancytopenia and mouth soars. Blood counts trending up today. Plan: [1. DLBCL, c-myc negative - C1D11 R-EPOCH - neupogen - Tx Plts < 20,000 given continued bleeding. - Future cycles will be R-CHOP with IT MTX 2. Anemia/GIB - Tx Hgb <8.0. 1 U PRBC today - Clear liquids - PPI drip 4. Poor nutrition/FEN - TPN Base B - k-phos 50 to 60 mmol - Na to 150 from 125 - Ca low but cannot give in bag with Phos, check Kilo 5. DVT prophylaxis -- on hold until plts up . 6. Code - FULL 7. Mouth soars improving, agreed to use Dilaudid 8. Depression. On Celexa 20 mg po daily. Hold tomorrow if Na does not improve 9. PT today.
[2018-03-31] MEDS: Citalopram TAB* 20 MG PO SCH (10:27)
[2018-03-31] MEDS: FILGRASTIM-SNDZ* 480 MCG/0.8 ML SYRINGE SUBCUT SCH (10:30)
[2018-03-31] MEDS: Metoprolol Succinate XL TAB* 25 MG PO SCH (17:32)
[2018-03-31] MEDS: [UNRECOGNIZED DRUG - OTHER] CENT\\PICC SCH ×11 (17:41)
[2018-03-31] MEDS: SODIUM CHLORIDE CENT\\PICC SCH ×11 (17:41)
[2018-03-31] MEDS: TPN CENT\\PICC SCH ×11 (17:41)
[2018-03-31] MEDS: POTASSIUM CHLORIDE TPN CENT\\PICC SCH ×11 (17:41)
[2018-03-31] MEDS: traMADol TAB* 50 MG PO PRN (17:43)
[2018-03-31] MEDS: Zolpidem TAB* 10 MG PO SCH (20:58)
[2018-04-01] MEDS: Pantoprazole IV* 80 MG in NS 0.9% 250 ML* 250 ML IVPB SCH ×3 (03:33→14:31)
[2018-04-01] MEDS: HYDROmorphone INJ* 0.5 MG/0.5 ML SYRINGE IV SLOW PU PRN (03:57)
[2018-04-01] MEDS: Magic M W2 Ben/Maal/Nyst/Lido* 240 ML MOUTHWASH (alt formulation) SWISH SWAL SCH ×5 (04:01→21:08)
[2018-04-01] MEDS: Sucralfate SUSP 1 GM/10 ml 10 ML UDC PO SCH ×4 (05:42→19:58)
[2018-04-01 05:53] LABS: Hematocrit 23 % (42-52); Hemoglobin 7.8 g/dl (14.0-18.0); Mean Corpuscular HGB Conc 34 g/dl (31-36); Mean Corpuscular Hemoglobin 30 pg (27-31); Mean Corpuscular Volume 86 fL (80-94); Mean Platelet Volume 8.2 um3 (7.4-10.4); Platelet Count 22 10^3/ul (150-450); Red Blood Count 2.63 10^6/ul (4.00-5.40); Red Cell Distribution Width 15 % (10.5-15); White Blood Count 1.4 10^3/ul (3.5-10.8)
[2018-04-01 05:54] LABS: ABS Basophils 0 10^3/ul (0-0.2); ABS Eosinophils 0 10^3/ul (0-0.6); ABS Lymphocytes 0.3 10^3/ul (1.0-4.8); ABS Monocytes 0.1 10^3/ul (0-0.8); ABS Nucleated RBC 0 10^3/ul
[2018-04-01 06:07] LABS: EGFR Non-African American 224.4 (>60)
[2018-04-01 06:34] LABS: ABS Basophils 0 10^3/ul (0-0.2); ABS Neutrophils 0.4 10^3/ul (1.5-7.7); Monocytes % 5 % (0-7)
[2018-04-01 07:19] LABS: EGFR Non-African American 211.9 (>60)
[2018-04-01] MEDS: Citalopram TAB* 20 MG PO SCH (07:56)
[2018-04-01] MEDS: FILGRASTIM-SNDZ* 480 MCG/0.8 ML SYRINGE SUBCUT SCH (08:00)
--- NOTE | 2018-04-01 08:56 | PN ---
Progress Note - Progress Note Date of Service: 04/01/18 SOAP: Subjective: actually smiling at me today! looks better than he has since admission, and feeling better too. becoming easier to swallow. Objective: Vital Signs Temp Pulse Resp BP Pulse Ox 98.5 F 65 16 114/46 94 04/01/18 07:22 04/01/18 07:22 04/01/18 07:22 04/01/18 07:22 04/01/18 07:22 perr eomi op--clearly less mucositis, still erythematous CTA bl s1 s2 nl soft nt +bs 1+ LE edema nonfocal neurological exam clear port Laboratory Results - last 24 hr 03/30/18 03/31/18 03/31/18 09:00 10:24 12:16 WBC RBC Hgb Hct MCV MCH MCHC RDW Plt Count MPV Neut % (Auto) Lymph % (Auto) [place] % (Auto) Eos % (Auto) Baso % (Auto) Absolute Neuts (auto) Absolute Lymphs (auto) Absolute Monos (auto) Absolute Eos (auto) Absolute Basos (auto) Absolute Nucleated RBC Immature Gran % Neutrophils % Band Neutrophils % Lymphocytes % Reactive Lymphs % Monocytes % Eosinophils % Basophils % Metamyelocytes % Promyelocytes % Nucleated RBC % Abs Neuts (Manual) Abs Lymphs (Manual) Abs Monocytes (Manual) Absolute Eos (Manual) Abs Basophils (Manual) Nucleated RBCs/100 WBC Normal RBC Morphology Polychromasia Sodium Potassium Chloride Carbon Dioxide Anion Gap BUN Creatinine Est GFR ( Amer) Est GFR (Non-Af Amer) BUN/Creatinine Ratio Glucose POC Glucose (mg/dL) 98 Calcium Ionized Calcium 4.16 L Phosphorus Magnesium Total Bilirubin AST ALT Alkaline Phosphatase Total Protein Albumin Globulin Albumin/Globulin Ratio Prealbumin Triglycerides Cholesterol Blood Type O Positive Antibody Screen Negative Crossmatch See Detail 04/01/18 04/01/18 04/01/18 05:45 05:45 06:24 WBC 1.4 L RBC 2.63 L Hgb 7.8 L Hct 23 L MCV 86 MCH 30 MCHC 34 RDW 15 Plt Count 22 L MPV 8.2 Neut % (Auto) Not Reportable Lymph % (Auto) Not Reportable [place] % (Auto) Not Reportable Eos % (Auto) Not Reportable Baso % (Auto) Not Reportable Absolute Neuts (auto) 1.0 L Absolute Lymphs (auto) 0.3 L Absolute Monos (auto) 0.1 Absolute Eos (auto) 0 Absolute Basos (auto) 0 Absolute Nucleated RBC 0 Immature Gran % 12 H Neutrophils % 28 L Band Neutrophils % 9 H Lymphocytes % 45 Reactive Lymphs % 5 Monocytes % 5 Eosinophils % 5 Basophils % 0 Metamyelocytes % 1 Promyelocytes % 2 Nucleated RBC % Not Reportable Abs Neuts (Manual) 0.4 L Abs Lymphs (Manual) 0.6 L Abs Monocytes (Manual) 0.1 Absolute Eos (Manual) 0.1 Abs Basophils (Manual) 0 Nucleated RBCs/100 WBC 7 H Normal RBC Morphology Not Reportable Polychromasia 1+ Sodium 129 L Potassium 4.3 Chloride 101 Carbon Dioxide 24 Anion Gap 4 BUN 11 Creatinine 0.39 L Est GFR ( Amer) 271.6 Est GFR (Non-Af Amer) 224.4 BUN/Creatinine Ratio 28.2 H Glucose 103 H POC Glucose (mg/dL) 124 H Calcium 6.9 L Ionized Calcium Phosphorus 1.9 L Magnesium 1.9 Total Bilirubin 1.90 H AST 16 ALT 46 Alkaline Phosphatase 111 H Total Protein 3.8 L Albumin 2.1 L Globulin 1.7 L Albumin/Globulin Ratio 1.2 Prealbumin Triglycerides Cholesterol Blood Type Antibody Screen Crossmatch 04/01/18 06:52 WBC RBC Hgb Hct MCV MCH MCHC RDW Plt Count MPV Neut % (Auto) Lymph % (Auto) [place] % (Auto) Eos % (Auto) Baso % (Auto) Absolute Neuts (auto) Absolute Lymphs (auto) Absolute Monos (auto) Absolute Eos (auto) Absolute Basos (auto) Absolute Nucleated RBC Immature Gran % Neutrophils % Band Neutrophils % Lymphocytes % Reactive Lymphs % Monocytes % Eosinophils % Basophils % Metamyelocytes % Promyelocytes % Nucleated RBC % Abs Neuts (Manual) Abs Lymphs (Manual) Abs Monocytes (Manual) Absolute Eos (Manual) Abs Basophils (Manual) Nucleated RBCs/100 WBC Normal RBC Morphology Polychromasia Sodium 129 L Potassium 4.2 Chloride 102 Carbon Dioxide 24 Anion Gap 3 BUN 11 Creatinine 0.41 L Est GFR ( Amer) 256.3 Est GFR (Non-Af Amer) 211.9 BUN/Creatinine Ratio 26.8 H Glucose 102 H POC Glucose (mg/dL) Calcium 6.9 L Ionized Calcium Phosphorus 1.8 L Magnesium 1.9 Total Bilirubin 1.90 H AST 16 ALT 46 Alkaline Phosphatase 115 H Total Protein 3.8 L Albumin 2.1 L Globulin 1.7 L Albumin/Globulin Ratio 1.2 Prealbumin 11 L Triglycerides 91 Cholesterol 111 Blood Type Antibody Screen Crossmatch Acetaminophen (Tylenol Tab*) 650 mg PO Q4H PRN PRN Reason: FEVER/PAIN Last Admin: 03/29/18 20:50 Dose: 650 mg Al Hydrox/Mg Hydrox/Simethicone (Maalox Plus*) 30 ml PO Q6H PRN PRN Reason: INDIGESTION Last Admin: 03/28/18 21:23 Dose: 30 ml Calcium Carbonate (Tums*) 500 mg PO TID [facility] Citalopram Hydrobromide (Celexa Tab*) 20 mg PO DAILY [facility] Last Admin: 04/01/18 07:56 Dose: 20 mg Filgrastim-Sndz (Zarxio*) 480 mcg SUBCUT DAILY [facility] Last Admin: 04/01/18 08:00 Dose: 480 mcg Hydromorphone HCl (Dilaudid Inj*) 0.5 mg IV SLOW PU Q2H PRN PRN Reason: PAIN Last Admin: 04/01/18 03:57 Dose: 0.5 mg Sodium Chloride 150 meq/Potassium Chloride 25 meq/Potassium Phosphate 60 mmole/ Magnesium Sulfate 10 meq/Multivitamins 10 ml/ Trace Metals 1 ml/ Dextrose 1,000 ml / Amino Acids 850 ml/ Sterile Water 150 ml/ Fat Emulsion Intravenous 250 ml/ Nutrition (Parenteral) 2,333.463 mls @ 97.2 mls/hr CENT\PICC 1700 [facility]; Protocol Stop: 04/04/18 16:59 Last Admin: 03/31/18 17:41 Dose: 97.2 mls/hr Pantoprazole Sodium 80 mg/ (Sodium Chloride) 250 mls @ 25 mls/hr IVPB Q10H [facility] ; Protocol Last Admin: 04/01/18 03:58 Dose: 25 mls/hr Metoprolol Succinate (Toprol Xl Tab*) 25 mg PO 1600 [facility] Last Admin: 03/31/18 17:32 Dose: 25 mg Multi-Ingredient Mouthwash/Gargle (Magic M W2 Todd/Maal/Nyst/Lido*) 5 ml SWISH SWAL [id number] AWAKE [facility] Last Admin: 04/01/18 08:02 Dose: 5 ml Prochlorperazine Edisylate (Compazine Inj*) 10 mg IV Q6H PRN PRN Reason: NAUSEA/VOMITING Senna (Senokot Tab*) 2 tab PO ONCE PRN PRN Reason: CONSTIPATION Last Admin: 03/25/18 22:59 Dose: 2 tab Sucralfate (Sucralfate Susp) 1 gm PO 0600,1000,1400,2000 [facility] Last Admin: 04/01/18 05:42 Dose: 1 gm Tramadol HCl (Ultram*) 50 mg PO Q6H PRN PRN Reason: PAIN Last Admin: 03/31/18 17:43 Dose: 50 mg Zolpidem Tartrate (Ambien Tab*) 10 mg PO BEDTIME [facility] Last Admin: 03/31/18 20:58 Dose: 10 mg Assessment: 63 yo M w DLBCL sp inpatient da R-EPOCH day 12 with expected pancytopenia, 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 He is finally clinically improving with improved cell counts and improving mucositis! Hopefully his stomach will heal along with this and we can advance his diet with goal of home next week Plan: Severe protein calorie malnutrition: from cancer and GI bleed/poor PO intake -cont TPN Hyponatremia: improving with addition of more Na in TPN hold off on stopping celexa today continue to monitor Hypocalcemia: mild, corrects to 8.4, will see if he can chew/swallow tums neutropenia: neupogen 480 mcg daily until ANC >3000 hyperbilirubinemia: discussed with GI, likely from TPN and improving GIB: cont PPI drip transfuse Hb <8 (today) mucositis: cont magic mouthwash and IV dilaudid no oral dex given ulcers full code no DVT prophylaxis with recent GIB
[2018-04-01] MEDS: Calcium Carbonate CHEW TAB* 500 MG (TUMS) PO SCH ×3 (10:29→19:55)
[2018-04-01] MEDS: traMADol TAB* 50 MG PO PRN (10:36)
[2018-04-01] MEDS: Metoprolol Succinate XL TAB* 25 MG PO SCH (16:32)
[2018-04-01] MEDS: TPN CENT\\PICC SCH ×11 (16:46)
[2018-04-01] MEDS: SODIUM CHLORIDE CENT\\PICC SCH ×11 (16:46)
[2018-04-01] MEDS: [UNRECOGNIZED DRUG - OTHER] CENT\\PICC SCH ×11 (16:46)
[2018-04-01] MEDS: POTASSIUM CHLORIDE TPN CENT\\PICC SCH ×11 (16:46)
[2018-04-01] MEDS: Zolpidem TAB* 10 MG PO SCH (19:58)
[2018-04-02] MEDS: traMADol TAB* 50 MG PO PRN ×2 (00:16→09:09)
[2018-04-02] MEDS: Pantoprazole IV* 80 MG in NS 0.9% 250 ML* 250 ML IVPB SCH ×3 (00:17→23:05)
[2018-04-02] MEDS: Magic M W2 Ben/Maal/Nyst/Lido* 240 ML MOUTHWASH (alt formulation) SWISH SWAL SCH ×5 (05:55→23:13)
[2018-04-02] MEDS: Sucralfate SUSP 1 GM/10 ml 10 ML UDC PO SCH ×4 (05:55→20:22)
[2018-04-02 07:26] LABS: Hematocrit 26 % (42-52); Hemoglobin 9.1 g/dl (14.0-18.0); Mean Corpuscular HGB Conc 35 g/dl (31-36); Mean Corpuscular Hemoglobin 30 pg (27-31); Mean Corpuscular Volume 86 fL (80-94); Mean Platelet Volume 9.5 um3 (7.4-10.4); Platelet Count 34 10^3/ul (150-450); Red Blood Count 3.04 10^6/ul (4.00-5.40); Red Cell Distribution Width 16 % (10.5-15); White Blood Count 6.4 10^3/ul (3.5-10.8)
[2018-04-02 07:38] LABS: EGFR Non-African American 164.7 (>60)
[2018-04-02 08:09] LABS: ABS Basophils 0 10^3/ul (0-0.2); ABS Neutrophils 4.2 10^3/ul (1.5-7.7); ABS Neutrophils 5.8 10^3/ul (1.5-7.7); Monocytes % 6 % (0-7)
--- NOTE | 2018-04-02 08:11 | PN ---
Progress Note - Progress Note Date of Service: 04/02/18 SOAP: Subjective: Feeling better every day. one BM yesterday light brown. swallowing getting easier, really wants to try to eat something. did not sleep well Objective: Vital Signs Temp Pulse Resp BP Pulse Ox 98.9 F 74 16 141/67 97 04/02/18 02:41 04/02/18 02:41 04/02/18 06:07 04/02/18 02:41 04/02/18 02:41 perr eomi op less mucositis, less erythematous cta bl s1 s2 nl soft nt +Bs trace LE edema left axillary adenopathy less matted, smaller A+O x3, nonfocal neurological exam Laboratory Results - last 24 hr 03/30/18 04/01/18 04/01/18 09:00 12:43 18:23 WBC RBC Hgb Hct MCV MCH MCHC RDW Plt Count MPV Neut % (Auto) Lymph % (Auto) [place] % (Auto) Eos % (Auto) Baso % (Auto) Absolute Neuts (auto) Absolute Lymphs (auto) Absolute Monos (auto) Absolute Eos (auto) Absolute Basos (auto) Absolute Nucleated RBC Immature Gran % Neutrophils % Band Neutrophils % Lymphocytes % Reactive Lymphs % Monocytes % Eosinophils % Basophils % Metamyelocytes % Myelocytes % Nucleated RBC % Abs Neuts (Manual) Abs Lymphs (Manual) Abs Monocytes (Manual) Absolute Eos (Manual) Abs Basophils (Manual) Nucleated RBCs/100 WBC Normal RBC Morphology Polychromasia Hypochromasia Anisocytosis Sodium Potassium Chloride Carbon Dioxide Anion Gap BUN Creatinine Est GFR ( Amer) Est GFR (Non-Af Amer) BUN/Creatinine Ratio Glucose POC Glucose (mg/dL) 102 H 89 Calcium Phosphorus Magnesium Total Bilirubin AST ALT Alkaline Phosphatase Total Protein Albumin Globulin Albumin/Globulin Ratio Blood Type O Positive Antibody Screen Negative Crossmatch See Detail 04/02/18 04/02/18 04/02/18 05:47 07:10 07:10 WBC 6.4 RBC 3.04 L Hgb 9.1 L Hct 26 L MCV 86 MCH 30 MCHC 35 RDW 16 H Plt Count 34 L D MPV 9.5 Neut % (Auto) Not Reportable Lymph % (Auto) Not Reportable [place] % (Auto) Not Reportable Eos % (Auto) Not Reportable Baso % (Auto) Not Reportable Absolute Neuts (auto) 5.8 Absolute Lymphs (auto) Not Reportable Absolute Monos (auto) Not Reportable Absolute Eos (auto) Not Reportable Absolute Basos (auto) Not Reportable Absolute Nucleated RBC Not Reportable Immature Gran % 14 H Neutrophils % 65 Band Neutrophils % 8 Lymphocytes % 12 L Reactive Lymphs % 3 Monocytes % 6 Eosinophils % 0 Basophils % 0 Metamyelocytes % 2 Myelocytes % 4 H Nucleated RBC % Not Reportable Abs Neuts (Manual) 4.2 Abs Lymphs (Manual) 0.8 L Abs Monocytes (Manual) 0.4 Absolute Eos (Manual) 0 Abs Basophils (Manual) 0 Nucleated RBCs/100 WBC 8 H Normal RBC Morphology Not Reportable Polychromasia 1+ Hypochromasia 1+ Anisocytosis 1+ Sodium 134 L Potassium 4.3 Chloride 105 Carbon Dioxide 24 Anion Gap 5 BUN 10 Creatinine 0.51 L Est GFR ( Amer) 199.3 Est GFR (Non-Af Amer) 164.7 BUN/Creatinine Ratio 19.6 Glucose 129 H POC Glucose (mg/dL) 99 Calcium 7.5 L Phosphorus 2.9 Magnesium 1.9 Total Bilirubin 1.60 H AST 21 ALT 47 Alkaline Phosphatase 167 H Total Protein 4.2 L Albumin 2.4 L Globulin 1.8 L Albumin/Globulin Ratio 1.3 Blood Type Antibody Screen Crossmatch Acetaminophen (Tylenol Tab*) 650 mg PO Q4H PRN PRN Reason: FEVER/PAIN Last Admin: 03/29/18 20:50 Dose: 650 mg Al Hydrox/Mg Hydrox/Simethicone (Maalox Plus*) 30 ml PO Q6H PRN PRN Reason: INDIGESTION Last Admin: 03/28/18 21:23 Dose: 30 ml Calcium Carbonate (Tums*) 500 mg PO TID [facility] Last Admin: 04/01/18 19:55 Dose: 500 mg Citalopram Hydrobromide (Celexa Tab*) 20 mg PO DAILY [facility] Last Admin: 04/01/18 07:56 Dose: 20 mg Filgrastim-Sndz (Zarxio*) 480 mcg SUBCUT DAILY [facility] Last Admin: 04/01/18 08:00 Dose: 480 mcg Hydromorphone HCl (Dilaudid Inj*) 0.5 mg IV SLOW PU Q2H PRN PRN Reason: PAIN Last Admin: 04/01/18 03:57 Dose: 0.5 mg Sodium Chloride 150 meq/Potassium Chloride 25 meq/Potassium Phosphate 60 mmole/ Magnesium Sulfate 10 meq/Multivitamins 10 ml/ Trace Metals 1 ml/ Dextrose 1,000 ml / Amino Acids 850 ml/ Sterile Water 150 ml/ Fat Emulsion Intravenous 250 ml/ Nutrition (Parenteral) 2,333.463 mls @ 97.2 mls/hr CENT\PICC 1700 FADUMO; Protocol Stop: 04/04/18 16:59 Last Admin: 04/01/18 16:46 Dose: 97.2 mls/hr Pantoprazole Sodium 80 mg/ (Sodium Chloride) 250 mls @ 25 mls/hr IVPB Q10H [facility] ; Protocol Last Admin: 04/02/18 00:17 Dose: 25 mls/hr Lorazepam (Ativan Tab(*)) 0.5 mg PO BEDTIME FADUMO Metoprolol Succinate (Toprol Xl Tab*) 25 mg PO 1600 [facility] Last Admin: 04/01/18 16:32 Dose: 25 mg Multi-Ingredient Mouthwash/Gargle (Magic M W2 Todd/Maal/Nyst/Lido*) 5 ml SWISH SWAL [id number] AWAKE [facility] Last Admin: 04/02/18 05:55 Dose: 5 ml Prochlorperazine Edisylate (Compazine Inj*) 10 mg IV Q6H PRN PRN Reason: NAUSEA/VOMITING Senna (Senokot Tab*) 2 tab PO ONCE PRN PRN Reason: CONSTIPATION Last Admin: 03/25/18 22:59 Dose: 2 tab Sucralfate (Sucralfate Susp) 1 gm PO 0600,1000,1400,2000 [facility] Last Admin: 04/02/18 05:55 Dose: 1 gm Tramadol HCl (Ultram*) 50 mg PO Q6H PRN PRN Reason: PAIN Last Admin: 04/02/18 00:16 Dose: 50 mg Zolpidem Tartrate (Ambien Tab*) 10 mg PO BEDTIME [facility] Last Admin: 04/01/18 19:58 Dose: 10 mg Assessment: 63 yo M w DLBCL sp inpatient da R-EPOCH day 12 with expected pancytopenia, 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 He is clinically markedly better, with light brown stools, stable hb, improving mucositis, and resolved neutropenia. We will try to advance his diet today and if he tolerates it stop his TPN tomorrow with goal of home in the next couple of days. Plan: Severe protein calorie malnutrition: from cancer and GI bleed/poor PO intake -cont TPN Hyponatremia: improving with addition of more Na in TPN Hypocalcemia: corrected with addition of tums, which we can likely stop on discharge neutropenia: resolved, if ANC >3 today will stop GIB: cont PPI drip if stable tomorrow will change to BID PPI mucositis: cont magic mouthwash and IV dilaudid no oral dex given ulcers full code no DVT prophylaxis with recent GIB
[2018-04-02] MEDS: Citalopram TAB* 20 MG PO SCH (09:08)
[2018-04-02] MEDS: Calcium Carbonate CHEW TAB* 500 MG (TUMS) PO SCH ×3 (09:08→20:22)
[2018-04-02] MEDS: POTASSIUM CHLORIDE TPN CENT\\PICC SCH ×11 (17:24)
[2018-04-02] MEDS: TPN CENT\\PICC SCH ×11 (17:24)
[2018-04-02] MEDS: SODIUM CHLORIDE CENT\\PICC SCH ×11 (17:24)
[2018-04-02] MEDS: [UNRECOGNIZED DRUG - OTHER] CENT\\PICC SCH ×11 (17:24)
[2018-04-02] MEDS: Metoprolol Succinate XL TAB* 25 MG PO SCH (18:26)
[2018-04-02] MEDS: Senna TAB PO PRN (18:27)
[2018-04-02] MEDS ORDERED: LORazepam TAB(*) 0.5 MG PO SCH (20:00)
[2018-04-02] MEDS: Zolpidem TAB* 10 MG PO SCH (20:23)
[2018-04-03] MEDS: Sucralfate SUSP 1 GM/10 ml 10 ML UDC PO SCH ×2 (05:51→08:58)
[2018-04-03] MEDS: Magic M W2 Ben/Maal/Nyst/Lido* 240 ML MOUTHWASH (alt formulation) SWISH SWAL SCH ×2 (05:52→08:58)
[2018-04-03] MEDS: Calcium Carbonate CHEW TAB* 500 MG (TUMS) PO SCH (07:53)
[2018-04-03] MEDS: Citalopram TAB* 20 MG PO SCH (07:53)
[2018-04-03] MEDS: Pantoprazole IV* 80 MG in NS 0.9% 250 ML* 250 ML IVPB SCH (09:13)
[2018-04-03 09:43] LABS: EGFR Non-African American 176.6 (>60)
[2018-04-03 10:13] LABS: Hematocrit 25 % (42-52); Hemoglobin 8.6 g/dl (14.0-18.0); Mean Corpuscular HGB Conc 34 g/dl (31-36); Mean Corpuscular Hemoglobin 30 pg (27-31); Mean Corpuscular Volume 88 fL (80-94); Mean Platelet Volume 8.7 um3 (7.4-10.4); Platelet Count 46 10^3/ul (150-450); Red Blood Count 2.88 10^6/ul (4.00-5.40); Red Cell Distribution Width 16 % (10.5-15); White Blood Count 8.5 10^3/ul (3.5-10.8)
[2018-04-03 10:50] LABS: Monocytes % 4 % (0-7)
[2018-04-03 10:53] LABS: ABS Basophils 0 10^3/ul (0-0.2); ABS Neutrophils 7.9 10^3/ul (1.5-7.7)
[2018-04-03 12:15] VITALS: BP 145/73
--- NOTE | 2018-04-04 00:31 | DS ---
CC: Dr. Sheth; Dr. Senior; Dr. Zepeda * DISCHARGE SUMMARY: DATE OF ADMISSION: 03/15/18 DATE OF DISCHARGE: 04/03/18 PRIMARY CARE PROVIDER: Maurice Sheth MD. PRIMARY ONCOLOGIST AND ATTENDING PHYSICIAN: Moy Panchal MD.* (DICTATED BY VALERIY CARRION) CONSULTING SENIOR TAX SPECIALIST: Jan Senior MD. DISCHARGING PROVIDER: VALERIY Carrion. PRIMARY DISCHARGE DIAGNOSES: 1. 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 2. Hypercalcemia - resolved. 3. GI bleed secondary to multiple gastric ulcers likely due to leukemic infiltration. 4. Severe protein-calorie malnutrition requiring TPN due to inability to tolerate oral intake due to GI bleed and multiple gastric ulcers. 5. Neutropenia - resolved secondary to R-EPOCH chemotherapy. 6. Mucositis - improving. DISCHARGE MEDICATIONS: 1. Melatonin 5 mg p.o. at bedtime. 2. Metoprolol succinate 25 mg p.o. daily. 3. Citalopram 20 mg p.o. daily. 4. Magic mouthwash 5 mL swish and swallow prior to meals as needed for mouth pain. 5. Protonix 40 mg p.o. twice daily. 6. Sucralfate 1 g p.o. with meals and before bedtime. 7. Tramadol 50 mg p.o. q. 6 hours as needed for pain. 8. Ambien 5 to 10 mg p.o. at bedtime as needed for insomnia. MEDICATION CHANGES: 1. Start Celexa. 2. Start Magic mouthwash. 3. Start Protonix to replace omeprazole. 4. Start sucralfate. 5. Increase tramadol. 6. Start Ambien. HOSPITAL IMAGIN. CT chest, abdomen, and pelvis. On chest shows bilateral pleural effusions with multiple bilateral intraparenchymal lesions with thoracic lymphadenopathy and dominant coalescent ness mass in the left axilla also lytic lesions associated with the soft tissue mass of the right first rib. Abdomen and pelvis shows the probable 2.2 cm mass at the pancreas as well as splenomegaly and multiple focal splenic lesions suggestion of tumor caking around the left renal pelvis and proximal ureter without resulting hydronephrosis as well as bilateral external iliac and inguinal lymphadenopathy. 2. Pathology - CSF was negative for malignant cells. HOSPITAL COURSE: This is a 63-year-old gentleman with recent diagnosis of diffuse large B-cell lymphoma with relative rapid clinical deterioration requiring hospitalization. The patient had some mild progressive altered mental status with associated hypercalcemia with progressive inability to tolerate anything by mouth. He was subsequently hospitalized for supportive care and initiation of chemotherapy. The patient was initially hydrated and received Zometa for treatment of his hypercalcemia, which improved. He was then started on high dose steroid with improvement in his diffuse pain. FISH studies from initial excisional biopsy was pending at the time of admission and his mutation status was unknown, but certainly appear to be an aggressive type disease based on his clinical presentation. He did have a bone marrow biopsy prior to admission, which demonstrated bone marrow involvement and staging scans demonstrated lymphadenopathy diffusely with lytic lesion of the rib, large ness involvement in the left axilla as well as inguinal and external iliac lymphadenopathy and extensive caking around the left renal pelvis and proximal ureter without evidence of hydronephrosis. Also noted on imaging with a 2.2 cm pancreatic mass initially unsure if this represented additional primary malignancy versus pancreatic involvement of the lymphoma. CA 19- 9 was negative and assumed to be sales promotion representative of his lymphoma. The patient was in empirically started on R- EPOCH therapy while FISH studies were pending. The patient became extremely weak and progressively anemic following treatment. Stool was positive for occult blood. He required a total of 6 units of packed red blood cells and underwent upper endoscopy with Dr. Senior. Upper endoscopy revealed multiple wide-based ulcerations of the stomach without active bleeding at the time of endoscopy and the patient was subsequently started on Protonix drip and TPN. The patient became neutropenic following EPOCH therapy, no evidence of subsequent infection and was supported with Neupogen that was discontinued on when his ANC was 4200. The patient required 1 unit of platelet on when his platelet reached 16,000 with evidence of continued bleeding of the GI source. The patient was continued on TPN for several days eventually advanced to liquid diet and tolerating some soft food at the time of discharge. Still has some minimal abdominal discomfort with oral intake, but significant improvement over prior and no evidence of additional bleeding. Hemoglobin was 8.6 g/dL at the time of discharge. DISPOSITION AND FOLLOWUP PLAN: The patient is being discharged to home, working with his . Additional growth factor support is not necessary at the time of discharge. He will continue on oral twice daily PPI therapy and will require repeat endoscopy prior to additional chemotherapy. This has been scheduled with Dr. Farrah Zepeda for 04/13/18 with a 9 o'clock check-in at the hospital. The patient will follow up with Dr. Panchal on 04/06/18 at 10:40 a.m. The patient in addition to b.i.d. PPI therapy, will continue on Carafate and remain on soft foods. Further cycles of treatment will be with R-CHOP therapy, timing of next cycle of chemotherapy will depend on his clinical course following this hospitalization. VALERIY CARRION [id number]/[facility] #: [id number] [facility]
== END 2018-04-03 12:25 | disposition home or self-care (01) | DRG 691 ==
LOC: MED 12:33 → UNDODISIN 04-02 11:05
PROVIDERS: ADMIT Internal Medicine Hematology & Oncology; ATTEND Internal Medicine Hematology & Oncology
PROC: 30233N1 Transfusion of Nonautologous Red Blood Cells into Peripheral Vein, Percutaneous Approach (ICD-10-PCS; principal; 2018-03-16)
PROC: 30233R1 Transfusion of Nonautologous Platelets into Peripheral Vein, Percutaneous Approach (ICD-10-PCS; 2018-03-16)
PROC: 0JH60WZ Insertion of Totally Implantable Vascular Access Device into Chest Subcutaneous Tissue and Fascia, Open Approach (ICD-10-PCS; 2018-03-16)
PROC: 02HV33Z Insertion of Infusion Device into Superior Vena Cava, Percutaneous Approach (ICD-10-PCS; 2018-03-16)
PROC: B548ZZA Ultrasonography of Superior Vena Cava, Guidance (ICD-10-PCS; 2018-03-16)
PROC: B518ZZA Fluoroscopy of Superior Vena Cava, Guidance (ICD-10-PCS; 2018-03-16)
PROC: 3E0336Z Introduction of Nutritional Substance into Peripheral Vein, Percutaneous Approach (ICD-10-PCS; 2018-03-20)
PROC: 3E04305 Introduction of Other Antineoplastic into Central Vein, Percutaneous Approach (ICD-10-PCS; 2018-03-20)
PROC: 3E0430M Introduction of Antineoplastic, Monoclonal Antibody, into Central Vein, Percutaneous Approach (ICD-10-PCS; 2018-03-20)
PROC: 0DJ08ZZ Inspection of Upper Intestinal Tract, Via Natural or Artificial Opening Endoscopic (ICD-10-PCS; 2018-03-24)
DX: C83.33 Diffuse large B-cell lymphoma, intra-abdominal lymph nodes (principal); K25.4 Chronic or unspecified gastric ulcer with hemorrhage; E43 Unspecified severe protein-calorie malnutrition; J90 Pleural effusion, not elsewhere classified; E87.1 Hypo-osmolality and hyponatremia; D61.818 Other pancytopenia; E83.52 Hypercalcemia; I10 Essential (primary) hypertension; K21.9 Gastro-esophageal reflux disease without esophagitis; I71.4 Abdominal aortic aneurysm, without rupture; E78.5 Hyperlipidemia, unspecified; K20.9 Esophagitis, unspecified; K12.30 Oral mucositis (ulcerative), unspecified; R16.1 Splenomegaly, not elsewhere classified; F32.9 Major depressive disorder, single episode, unspecified; G47.00 Insomnia, unspecified; E80.6 Other disorders of bilirubin metabolism; E83.51 Hypocalcemia; D64.81 Anemia due to antineoplastic chemotherapy; Z88.1 Allergy status to other antibiotic agents; Z68.26 Body mass index [BMI] 26.0-26.9, adult; Z87.891 Personal history of nicotine dependence; Z72.89 Other problems related to lifestyle; Z92.21 Personal history of antineoplastic chemotherapy; Z88.0 Allergy status to penicillin; R62.7 Adult failure to thrive; R91.8 Other nonspecific abnormal finding of lung field; R42 Dizziness and giddiness; J02.9 Acute pharyngitis, unspecified
CPT/HCPCS: 0521F; 1036F; 1125F; 36415; 36561; 38221; 62270; 71260; 74177; 76937; 77001; 80048; 80053; 80074; 80076; 81003; 81015; 82272; 82330; 82465; 82945; 83735; 84100; 84134; 84157; 84478; 84550; 85014; 85018; 85025; 85027; 85049; 85060; 85097; 85610; 85730; 86301; 86850; 86900; 86901; 86922; 87086; 88112; 88305; 88311; 88341; 88342; 89051; 93306; 99156; 99157; 99215; 99222; 99231; 99232; 99233; 99239; A9270-GY; C1788; C8929; G8427; J0690; J1100; J1170; J1200; J1453; J1642; J1650; J1940; J2250; J2469; J3010; J3480; J3489; J7512; J9000; J9070; J9181; J9310; J9370; P9035; P9040; Q5101; Q9967

== ENCOUNTER 2018-04-11 16:27 | Observation (INO) | payer BC ==
[2018-04-11 17:34] LABS: Hematocrit 20 % (42-52); Hemoglobin 6.8 g/dl (14.0-18.0); Mean Corpuscular HGB Conc 34 g/dl (31-36); Mean Corpuscular Hemoglobin 29 pg (27-31); Mean Corpuscular Volume 86 fL (80-94); Mean Platelet Volume 6.7 um3 (7.4-10.4); Platelet Count 328 10^3/ul (150-450); Red Blood Count 2.34 10^6/ul (4.00-5.40); Red Cell Distribution Width 17 % (10.5-15); White Blood Count 6.3 10^3/ul (3.5-10.8)
[2018-04-11 17:42] LABS: INR 1.18 (0.77-1.02)
[2018-04-11 17:57] LABS: ABS Basophils 0 10^3/ul (0-0.2); ABS Eosinophils 0.3 10^3/ul (0-0.6); ABS Lymphocytes 0.3 10^3/ul (1.0-4.8); ABS Monocytes 0.5 10^3/ul (0-0.8); ABS Neutrophils 5.3 10^3/ul (1.5-7.7)
[2018-04-11 18:00] LABS: ABS Basophils 0.1 10^3/ul (0-0.2); ABS Neutrophils 4.7 10^3/ul (1.5-7.7); Monocytes % 4 % (0-7)
--- NOTE | 2018-04-11 18:12 | RAD ---
INDICATION: Lymphoma. Shortness of breath. COMPARISON: March 16, 2018 CT. TECHNIQUE: Dual energy PA and routine lateral views of the chest were obtained. REPORT: Tip of RIGHT chest port at level of RIGHT atrium. Small LEFT dependent pleural effusion. Coarse interstitial markings. Based on correlation with the recent CT exam subtle pulmonary parenchymal nodules are noted at the lung bases without significant interval change. Negative for pneumothorax. Negative for cardiomegaly. Unremarkable central pulmonary vasculature and mediastinal contours.. IMPRESSION: #. Small dependent LEFT pleural effusion without significant interval change. Resolution of previous small RIGHT pleural effusion. #. Based on correlation with the recent CT exam subtle pulmonary parenchymal nodules are noted at the lung bases without significant interval change.
--- NOTE | 2018-04-11 18:22 | ED ---
Shortness of Breath - HPI Summary HPI Summary: Patient with history of lymphoma receiving chemotherapy treatment complains of SOB and epigastric pressure 10 days. Sent by oncology to the ED for further evaluation. History of ulcers with transfusions. Patient to make admission for ulcers and chemotherapy treatment. Denies fever, cough, sore throat, N/V/D , change in urinary BM. Denies prior cardiac or pulmonary pulmonary history. Medical history is non-Hodgkin's lymphoma, ulcers, pneumonia, AAA. No anti-coag , denies immobility, recent surgery, hemoptysis, unilateral leg pain. 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 Onset/Duration: Gradual Onset Timing: Constant Current Severity: Moderate Dyspnea At: Rest Alleviating Factors: Nothing Associated Signs & Symptoms: Negative - Risk Factors Pulmonary Embolism: Malignancy Cardiac: Negative - Allergy/Home Medications Allergies/Adverse Reactions: Allergies Allergy/AdvReac Type Severity Reaction Status Date / Time amoxicillin AdvReac GI Upset Verified 03/15/18 10:03 PMH/Surg Hx/FS Hx/Imm Hx Endocrine/Hematology History: Denies: Hx Anticoagulant Therapy, Hx Diabetes Cardiovascular History: Reports: Hx Hypertension Denies: Hx Cardiac Arrest Respiratory History: Reports: Hx Pneumonia GI History: Reports: Hx Gastroesophageal Reflux Disease History: Denies: Hx Dialysis, Hx Renal Disease Sensory History: Reports: Hx Contacts or Glasses Denies: Hx Hearing Aid Opthamlomology History: Reports: Hx Contacts or Glasses Neurological History: Reports: Hx Headaches Psychiatric History: Reports: Hx Depression - recently ill - Cancer History Cancer Type, Location and Year: lymphoma, diagnosed 3 days ago - Surgical History Surgery Procedure, Year, and Place: [facility] Infectious Disease History: No Infectious Disease History: Denies: Traveled Outside the [place] in Last 30 Days - Social History Alcohol Use: None Substance Use Type: Reports: None Smoking Status (MU): Former Smoker Type: Cigarettes Review of Systems Constitutional: Negative Eyes: Negative ENT: Negative Positive: Chest Pain Positive: Shortness Of Breath Positive: Abdominal Pain Genitourinary: Negative Musculoskeletal: Negative Skin: Negative Neurological: Negative Psychological: Normal All Other Systems Reviewed And Are Negative: Yes Physical Exam - Summary Physical Exam Summary: Patient appears very pale. No work of breathing. No abdominal pain with palpation. Chest nontender to palpation. Triage Information Reviewed: Yes Vital Signs On Initial Exam: Initial Vitals Temp Pulse Resp BP Pulse Ox 98.6 F 101 18 101/58 98 04/11/18 16:32 04/11/18 16:32 04/11/18 16:32 04/11/18 16:32 04/11/18 16:32 Vital Signs Reviewed: Yes Appearance: Positive: Well-Appearing Skin: Positive: Warm, Pale Head/Face: Positive: Normal Head/Face Inspection Eyes: Positive: Normal ENT: Positive: Normal ENT inspection Neck: Positive: Supple Respiratory/Lung Sounds: Positive: Clear to Auscultation Cardiovascular: Positive: Normal Abdomen Description: Positive: Nontender Musculoskeletal: Positive: Normal Neurological: Positive: Normal Psychiatric: Positive: Normal AVPU Assessment: Alert - [place] Coma Scale Best Eye Response: 4 - Spontaneous Best Motor Response: 6 - Obeys Commands Best Verbal Response: 5 - Oriented Coma Scale Total: 15 Diagnostics - Vital Signs Vital Signs Temp Pulse Resp BP Pulse Ox 04/11/18 16:32 98.6 F 101 18 101/58 98 - Laboratory Lab Results: Lab Results 04/11/18 04/11/18 04/11/18 Range/Units 17:25 17:25 17:25 WBC 6.3 (3.5-10.8) 10^3/ul RBC 2.34 L (4.00-5.40) 10^6/ul Hgb 6.8 L (14.0-18.0) g/dl Hct 20 L (42-52) % MCV 86 (80-94) fL MCH 29 (27-31) pg MCHC 34 (31-36) g/dl RDW 17 H (10.5-15) % Plt Count 328 (150-450) 10^3/ul MPV 6.7 L (7.4-10.4) um3 Neut % (Auto) Not Reportable Lymph % (Auto) Not Reportable [place] % (Auto) Not Reportable Eos % (Auto) Not Reportable Baso % (Auto) Not Reportable Absolute Neuts (auto) 5.3 (1.5-7.7) 10^3/ul Absolute Lymphs (auto) 0.3 L (1.0-4.8) 10^3/ul Absolute Monos (auto) 0.5 (0-0.8) 10^3/ul Absolute Eos (auto) 0.3 (0-0.6) 10^3/ul Absolute Basos (auto) 0 (0-0.2) 10^3/ul Absolute Nucleated RBC Not Reportable Immature Gran % 4 (0-9) % Neutrophils % 75 (38-83) % Band Neutrophils % 3 (0-8) % Lymphocytes % 9 L (25-47) % Monocytes % 4 (0-7) % Eosinophils % 7 H (0-6) % Basophils % 1 (0-2) % Metamyelocytes % 1 (0-2) % Nucleated RBC % Not Reportable Abs Neuts (Manual) 4.7 (1.5-7.7) 10^3/ul Abs Lymphs (Manual) 0.6 L (1.0-4.8) 10^3/ul Abs Monocytes (Manual) 0.3 (0-0.8) 10^3/ul Absolute Eos (Manual) 0.4 (0-0.6) 10^3/ul Abs Basophils (Manual) 0.1 (0-0.2) 10^3/ul Nucleated RBCs/100 WBC 0 (0-0) Normal RBC Morphology Not Reportable Hypochromasia 3+ INR (Anticoag Therapy) 1.18 H (0.77-1.02) D-Dimer, Quantitative > 1050 H (Less Than 230) ng/mL Sodium 135 (135-145) mmol/L Potassium 3.3 L (3.5-5.0) mmol/L Chloride 103 (101-111) mmol/L Carbon Dioxide 24 (22-32) mmol/L Anion Gap 8 (2-11) mmol/L BUN 11 (6-24) mg/dL Creatinine 0.63 L (0.67-1.17) mg/dL Est GFR ( Amer) 156.1 (>60) Est GFR (Non-Af Amer) 129.0 (>60) BUN/Creatinine Ratio 17.5 (8-20) Glucose 104 H (70-100) mg/dL Lactic Acid (0.5-2.0) mmol/L Calcium 8.1 L (8.6-10.3) mg/dL Total Bilirubin 0.80 (0.2-1.0) mg/dL AST 94 H (13-39) U/L ALT 108 H (7-52) U/L Alkaline Phosphatase 594 H (34-104) U/L Troponin I 0.03 (<0.04) ng/mL C-Reactive Protein 116.74 H (<8.01) mg/L Total Protein 4.8 L (6.4-8.9) g/dL Albumin 2.5 L (3.2-5.2) g/dL Globulin 2.3 (2-4) g/dL Albumin/Globulin Ratio 1.1 (1-3) 04/11/18 Range/Units 17:25 WBC (3.5-10.8) 10^3/ul RBC (4.00-5.40) 10^6/ul Hgb (14.0-18.0) g/dl Hct (42-52) % MCV (80-94) fL MCH (27-31) pg MCHC (31-36) g/dl RDW (10.5-15) % Plt Count (150-450) 10^3/ul MPV (7.4-10.4) um3 Neut % (Auto) Lymph % (Auto) [place] % (Auto) Eos % (Auto) Baso % (Auto) Absolute Neuts (auto) (1.5-7.7) 10^3/ul Absolute Lymphs (auto) (1.0-4.8) 10^3/ul Absolute Monos (auto) (0-0.8) 10^3/ul Absolute Eos (auto) (0-0.6) 10^3/ul Absolute Basos (auto) (0-0.2) 10^3/ul Absolute Nucleated RBC Immature Gran % (0-9) % Neutrophils % (38-83) % Band Neutrophils % (0-8) % Lymphocytes % (25-47) % Monocytes % (0-7) % Eosinophils % (0-6) % Basophils % (0-2) % Metamyelocytes % (0-2) % Nucleated RBC % Abs Neuts (Manual) (1.5-7.7) 10^3/ul Abs Lymphs (Manual) (1.0-4.8) 10^3/ul Abs Monocytes (Manual) (0-0.8) 10^3/ul Absolute Eos (Manual) (0-0.6) 10^3/ul Abs Basophils (Manual) (0-0.2) 10^3/ul Nucleated RBCs/100 WBC (0-0) Normal RBC Morphology Hypochromasia INR (Anticoag Therapy) (0.77-1.02) D-Dimer, Quantitative (Less Than 230) ng/mL Sodium (135-145) mmol/L Potassium (3.5-5.0) mmol/L Chloride (101-111) mmol/L Carbon Dioxide (22-32) mmol/L Anion Gap (2-11) mmol/L BUN (6-24) mg/dL Creatinine (0.67-1.17) mg/dL Est GFR ( Amer) (>60) Est GFR (Non-Af Amer) (>60) BUN/Creatinine Ratio (8-20) Glucose (70-100) mg/dL Lactic Acid 1.0 (0.5-2.0) mmol/L Calcium (8.6-10.3) mg/dL Total Bilirubin (0.2-1.0) mg/dL AST (13-39) U/L ALT (7-52) U/L Alkaline Phosphatase (34-104) U/L Troponin I (<0.04) ng/mL C-Reactive Protein (<8.01) mg/L Total Protein (6.4-8.9) g/dL Albumin (3.2-5.2) g/dL Globulin (2-4) g/dL Albumin/Globulin Ratio (1-3) Result Diagrams: 04/11/18 17:25 04/11/18 19:50 Lab Statement: Any lab studies that have been ordered have been reviewed, and results considered in the medical decision making process. - Radiology cxr Xray Interpretation: No Acute Changes Radiology Interpretation Completed By: Radiologist - EKG 1 Cardiac Rate: NL EKG Rhythm: Sinus Rhythm ST Segment: Non-Specific Ectopy: None EKG Interpretation: nml Course/Dx - Course Course Of Treatment: Patient with history of lymphoma receiving chemotherapy treatment complains of SOB and epigastric pressure 10 days. Sent by oncology to the ED for further evaluation. History of ulcers with transfusions. Patient to make admission for ulcers and chemotherapy treatment. Denies fever, cough, sore throat, N/V/D, change in urinary BM. Denies prior cardiac or pulmonary pulmonary history. Medical history is non-Hodgkin's lymphoma, ulcers , pneumonia, AAA. No anti-coag, denies immobility, recent surgery, hemoptysis, unilateral leg pain. Physical exam:Patient appears very pale. No work of breathing. No abdominal pain with palpation. Chest nontender to palpation. D- dimer 1050. Lymphoma being treated with chemotherapy. Per well's criteria patient is score of 1.0, low risk. No prior history of PE or DVT, hemoptysis, immobilization or surgery. Anemia is most likely diagnosis for shortness of breath with hemoglobin of 6.8. No unilateral leg pain. Vital signs within normal limits other than one reading of heart rate of 101. 2 units red blood cells ordered for transfusion. Admitted per Dr Panchal ONC - Diagnoses Provider Diagnoses: Anemia requiring transfusions Discharge - Sign-Out/Discharge Documenting (check all that apply): Patient Departure - Discharge Plan Condition: Fair Disposition: ADMITTED TO [facility] - Billing Disposition and Condition Condition: FAIR Disposition: Admitted to [facility]
[2018-04-11 18:50] LABS: Corrected Retic Count 1.3 % (0.5-1.5); Hematocrit for Retic CNT 20 % (42-52); Immature Retic Fraction 0.53; RBC Retic Count 2.31 10^6/ul (4.6-6.2)
[2018-04-11] MEDS ORDERED: Ondansetron INJ* 2 MG/ML VIAL IV PRN (19:32)
[2018-04-11] MEDS ORDERED: Acetaminophen TAB* 325 MG PO PRN (19:32)
[2018-04-11] MEDS ORDERED: oxyCODONE/Acetamin 5/325 MG* TAB PO PRN (19:32)
[2018-04-11] MEDS ORDERED: Magic M W2 Ben/Maal/Nyst/Lido* 240 ML MOUTHWASH (alt formulation) SWISH SWAL PRN (19:38)
[2018-04-11] MEDS ORDERED: NS 0.9% 1000 ML* 1,000 ML IV SCH (19:45)
[2018-04-11] MEDS ORDERED: Enoxaparin(*) 40 MG/0.4 ML SYR SUBCUT SCH (20:00)
[2018-04-11 20:45] LABS: EGFR Non-African American 157.5 (>60)
--- NOTE | 2018-04-11 20:53 | HP ---
HISTORY AND PHYSICAL: DATE OF ADMISSION: 04/11/18 IDENTIFICATION: A 63-year-old male with diffuse large B-cell lymphoma, status post cycle 1 of chemotherapy with dose-escalated EPOCH. Extensive marrow infiltration of lymphoma. HISTORY OF PRESENT ILLNESS: He was discharged from the hospital approximately 2 weeks ago after cycle 1 of chemotherapy. He is due for cycle 2 starting next week. Last seen in clinic approximately 4 to 5 days ago and he had been doing well. Continued to be anemic, which we think is from iron deficiency and a GI bleed as well as bone marrow recovery after tumor infiltration. Yesterday, he was talking a lot and started to develop a cough. Today, the talk continued and he started to get more short of breath. He felt he was anemic. He has had some palpitations, no dizziness. He has been eating reasonably well. Bowel movements have been regular except today with some diarrhea. He has had no black stools. No hematemesis. When he coughed up, there was just clear foam. No fevers or chills. Came to the emergency room and was found to have a hemoglobin of 6.8 down from 8.5 on 04/06/18, platelets 328, white count 6.3, and absolute neutrophils 5300. He has a retic count of 2.9, but adjusted 1.3. Iron studies show saturation of 8% and the ferritin is pending. He did have a D -dimer that was elevated, but not unexpected given his malignancy. PAST MEDICAL HISTORY: 1. Diffuse large B-cell lymphoma, diagnosed March 2018. Status post cycle 1 of chemotherapy and cycle 2 pending next week. He is BCL-2 positive, but c-MYC negative. The cycle 1 was done with dose-escalated EPOCH. Cycle 2 can be done with R-CHOP. 2. GI bleed. He had diffuse tumor infiltration of gastric mucosa. GI bleed during last admission. Improved after chemotherapy and on Protonix. Continues on daily Protonix. 3. Abdominal aortic aneurysm. 4. Chronic back pain. 5. GERD. 6. Hypertension. PAST SURGICAL HISTORY: He has a port placement. FAMILY HISTORY: No significant family history of malignancy. SOCIAL HISTORY: Lives with his in [place], who is his primary support. No smoking, no drinking. REVIEW OF SYSTEMS: As discussed in HPI. Otherwise, a 14-point review is negative. PHYSICAL EXAMINATION VITAL SIGNS: Temperature 98.6, BP 101/58, heart rate 101, respiratory rate is 18, oxygen saturation 98%. HEENT: Conjunctivae pale. Mucosa moist. No lesions. NECK: No cervical or supraclavicular lymphadenopathy. LUNGS: Clear to auscultation. HEART: He is slightly tachycardic, but regular rhythm. S1, S2. No murmurs, rubs, or gallops. ABDOMEN: Nontender, nondistended. No epigastric tenderness. No hepatosplenomegaly. NODES: No peripheral lymphadenopathy. EXTREMITIES: Warm to the touch, trace edema, and pale. NEUROLOGIC: Alert and oriented x3 and grossly nonfocal. Full exam otherwise deferred. LABORATORY DATA: As noted in HPI. In addition, he has a potassium of 3.3, sodium of 135, creatinine 0.63, and magnesium is pending. He has an alkaline phosphatase still elevated at 594; AST 94; ALT 108, total bilirubin 0.8. Albumin 2.5, which is improved. B12 over 1450. ASSESSMENT AND PLAN: A 63-year-old male after chemotherapy with advanced diffuse large B-cell lymphoma and diffuse marrow infiltration. I suspect anemia is secondary to chemotherapy effect, marrow infiltration of tumor leading to slow recovery, iron-deficiency anemia from gastrointestinal bleed. 1. We will transfuse 2 units of packed red blood cells overnight. 2. Check in the morning and if stable can be discharged home. 3. We will continue all of his home medications except the tramadol will be held and I gave him oxycodone p.r.n. for pain. 4. DVT prophylaxis with Lovenox 40 subcu daily, no evidence of active bleeding. 5. We will treat with IV iron as an outpatient with his next chemotherapy. 6. He is scheduled for an EGD on . We will plan on discharging him tomorrow and having the test done as an outpatient to confirm healing of his known gastric ulcers. [id number]/[facility] #: [id number] [facility]
[2018-04-11] MEDS ORDERED: Zolpidem TAB* 5 MG PO SCH (21:00)
[2018-04-11] MEDS: Omeprazole CAP* 20 MG PO SCH (23:39)
[2018-04-11] MEDS: Sucralfate SUSP 1 GM/10 ml 10 ML UDC PO SCH (23:41)
[2018-04-12 06:40] LABS: Hematocrit 24 % (42-52); Hemoglobin 8.6 g/dl (14.0-18.0); Mean Corpuscular HGB Conc 36 g/dl (31-36); Mean Corpuscular Hemoglobin 30 pg (27-31); Mean Corpuscular Volume 85 fL (80-94); Mean Platelet Volume 6.8 um3 (7.4-10.4); Platelet Count 306 10^3/ul (150-450); Red Blood Count 2.85 10^6/ul (4.00-5.40); Red Cell Distribution Width 16 % (10.5-15); White Blood Count 6.9 10^3/ul (3.5-10.8)
[2018-04-12 07:20] LABS: ABS Basophils 0.1 10^3/ul (0-0.2); ABS Eosinophils 0.2 10^3/ul (0-0.6); ABS Lymphocytes 0.3 10^3/ul (1.0-4.8); ABS Monocytes 0.5 10^3/ul (0-0.8); ABS Neutrophils 5.8 10^3/ul (1.5-7.7)
[2018-04-12] MEDS: Sucralfate SUSP 1 GM/10 ml 10 ML UDC PO SCH ×2 (08:30→11:47)
[2018-04-12] MEDS: Metoprolol Succinate XL TAB* 25 MG PO SCH ×2 (08:30→08:32)
[2018-04-12] MEDS: Omeprazole CAP* 20 MG PO SCH (08:30)
[2018-04-12] MEDS ORDERED: Citalopram TAB* 20 MG PO SCH (09:00)
[2018-04-12] MEDS ORDERED: Magnesium Sulfate IV* 3 GM in NS 0.9% 100 ML* 100 ML IVPB ONE (10:00)
[2018-04-12 11:44] VITALS: BP 136/70
--- NOTE | 2018-04-12 22:51 | DS ---
DISCHARGE SUMMARY: DATE OF ADMISSION: 04/11/18 DATE OF DISCHARGE: 04/12/18 PRIMARY ONCOLOGIST/ATTENDING PHYSICIAN: Dr. Moy Panchal.* (DICTATED BY VALERIY CARRION) DISCHARGING PROVIDER: VALERIY Carrion. PRIMARY DISCHARGE DIAGNOSES: 1. Anemia - likely multifactorial due to bone marrow suppression related to chemotherapy and recent GI bleed with slow recovery, status post transfusion of 2 units of packed red blood cells with hemoglobin of 8.6 at the time of discharge. 2. Diffuse large B cell lymphoma - extensive stage, status post cycle 1 of dose escalated EPOCH with plans for subsequent cycles of R-CHOP with intrathecal methotrexate. 3. Recent GI bleed with plans for repeat upper endoscopy, 04/13/18, as an outpatient. DISCHARGE MEDICATIONS: 1. Melatonin 5 mg p.o. at bedtime. 2. Metoprolol succinate 25 mg p.o. daily. 3. Celexa 20 mg p.o. daily. 4. Magic Mouthwash 5 mL swish and spit 3 times daily as needed. 5. Protonix 40 mg p.o. twice daily. 6. Sucralfate 1 g p.o. a.c. and h.s. 7. Tramadol 50 mg p.o. q.6 hours as needed for pain. 8. Ambien 5 to 10 mg p.o. at bedtime as needed for insomnia. Medications changes: None. HOSPITAL IMAGING: Chest x-ray shows a small dependent left pleural effusion present previously with some improvement in small right-sided pleural effusion, stable pulmonary nodules without significant change, no acute findings. HOSPITAL COURSE: This is a 63-year-old gentleman with advanced diffuse large B - cell lymphoma, who received his first cycle of chemotherapy as an inpatient shortly after diagnosis with dose escalated EPOCH complicated by GI bleed with multiple gastric ulcers noted on upper endoscopy. He presented to the emergency department yesterday with complaints of increasing weakness and shortness of breath. Hemoglobin was 6.8, and in the emergency department, measured at 8.5 on 04/06/18. The patient was subsequently admitted and then transfused 2 units of packed red blood cells with appropriate improvements of hemoglobin to 8.6 at the day of discharge and near resolution of his initial symptoms. Also of note, the patient has developed recent sore throat and a mild cough. Chest x-ray showed no acute infiltrate. He is not neutropenic or have a leukocytosis. He did have fever with a maximum temperature of 100.2 degrees Fahrenheit. Posterior pharynx appeared benign. The lung exam otherwise benign. The symptoms likely due to an acute viral illness and antibiotics were not empirically started. As mentioned above, the patient's first cycle of chemotherapy was complicated by GI bleed with multiple erosions noted on upper endoscopy in the stomach. This was likely related to leukemic invasion and complicated by high dose steroids. He has an outpatient upper endoscopy scheduled for tomorrow, which he is encouraged to keep to ensure appropriate healing of these ulcerations prior to cycle 2, which is scheduled for 04/17/18. At the time of discharge, as mentioned above, his hemoglobin has improved to 8.6 g/dL. His complaints of weakness and shortness of breath have resolved. He has a mild sore throat, but this appears to be benign. No empiric antibiotics started. DISPOSITION AND FOLLOWUP PLAN: The patient is being discharged to home with plans for outpatient endoscopy tomorrow. He will then follow up in oncology clinic on 04/14/18 for lab work with anticipated cycle-2 of chemotherapy, , which will be R-CHOP with intrathecal methotrexate. VALERIY CARRION [id number]/[facility] #: [id number] MTDD
== END 2018-04-12 13:00 | disposition home or self-care (01) ==
LOC: ED 16:27 → MED 20:19
PROVIDERS: ADMIT Internal Medicine Hematology & Oncology; ATTEND Internal Medicine Hematology & Oncology
DX: D64.9 Anemia, unspecified (principal); C83.30 Diffuse large B-cell lymphoma, unspecified site; K92.2 Gastrointestinal hemorrhage, unspecified
CPT/HCPCS: 36415; 36430; 71046; 80048; 80053; 82270; 82728; 83540; 83550; 83605; 83735; 83880; 84484; 85025; 85045; 85379; 85610; 86140; 86850; 86900; 86901; 86922; 87040; 93005; 96374; 99217; 99220; 99285; A9270-GY; G0378; J1642; J1650; J3475; P9040

== ENCOUNTER 2018-04-13 16:25 | Inpatient (IN) | payer BC ==
[2018-04-13] MEDS ORDERED: oxyCODONE/Acetamin 5/325 MG* TAB PO PRN (16:56)
[2018-04-13] MEDS ORDERED: Magic M W2 Ben/Maal/Nyst/Lido* 240 ML MOUTHWASH (alt formulation) SWISH SWAL PRN (17:04)
[2018-04-13] MEDS: Enoxaparin(*) 40 MG/0.4 ML SYR SUBCUT SCH (19:36)
[2018-04-13] MEDS: Omeprazole CAP* 20 MG PO SCH (20:22)
[2018-04-13] MEDS: Zolpidem TAB* 10 MG PO PRN (20:22)
[2018-04-13] MEDS: Sucralfate SUSP 1 GM/10 ml 10 ML UDC PO SCH (20:22)
[2018-04-13] MEDS: Acetaminophen TAB* 325 MG PO PRN (23:40)
[2018-04-14] MEDS ORDERED: Zosyn 3.375 gm X 1 dose, then dose per Pharmacy IVPB ONE ×2 (00:30)
[2018-04-14] MEDS ORDERED: Zosyn per Pharmacy* NOTE FOLLOW UP PRN (01:41)
[2018-04-14] MEDS: ZOSYN 3.375 GM Q8H per EXTENDED INFUSION IVPB SCH ×6 (05:28→23:40)
[2018-04-14 05:55] LABS: Hematocrit 23 % (42-52); Hemoglobin 7.9 g/dl (14.0-18.0); Mean Corpuscular HGB Conc 34 g/dl (31-36); Mean Corpuscular Hemoglobin 30 pg (27-31); Mean Corpuscular Volume 86 fL (80-94); Mean Platelet Volume 6.7 um3 (7.4-10.4); Platelet Count 337 10^3/ul (150-450); Red Blood Count 2.67 10^6/ul (4.00-5.40); Red Cell Distribution Width 16 % (10.5-15); White Blood Count 6.3 10^3/ul (3.5-10.8)
[2018-04-14 06:11] LABS: EGFR Non-African American 168.5 (>60)
[2018-04-14 06:34] LABS: ABS Basophils 0.1 10^3/ul (0-0.2); ABS Eosinophils 0.2 10^3/ul (0-0.6); ABS Lymphocytes 0.3 10^3/ul (1.0-4.8); ABS Monocytes 0.5 10^3/ul (0-0.8); ABS Neutrophils 5.3 10^3/ul (1.5-7.7); ABS Nucleated RBC 0 10^3/ul; Eosinophil % 3.4 % (0-6); Lymphocyte % 4.6 % (25-47); Nucleated Red Blood Cells % 0.1
[2018-04-14] MEDS: Citalopram TAB* 20 MG PO SCH (07:17)
[2018-04-14] MEDS: Sucralfate SUSP 1 GM/10 ml 10 ML UDC PO SCH ×5 (07:17→20:59)
[2018-04-14] MEDS: Omeprazole CAP* 20 MG PO SCH ×2 (07:17→20:59)
[2018-04-14] MEDS: Acetaminophen TAB* 325 MG PO PRN (07:21)
--- NOTE | 2018-04-14 09:43 | PN ---
Progress Note - Progress Note Date of Service: 04/14/18 SOAP: Subjective: [Febrile overnight and this am with Tmax 103F, new blood cultures drawn and Zosyn started. This am, he reports feeling fatigued but his cough has improved. He is now able to have a conversation without a coughing fit. No dyspnea at rest.] Objective: [ Laboratory Results - last 24 hr 04/14/18 04/14/18 05:30 05:30 WBC 6.3 RBC 2.67 L Hgb 7.9 L Hct 23 L MCV 86 MCH 30 MCHC 34 RDW 16 H Plt Count 337 MPV 6.7 L Neut % (Auto) 83.1 H Lymph % (Auto) 4.6 L Defiance % (Auto) 7.7 H Eos % (Auto) 3.4 Baso % (Auto) 1.2 Absolute Neuts (auto) 5.3 Absolute Lymphs (auto) 0.3 L Absolute Monos (auto) 0.5 Absolute Eos (auto) 0.2 Absolute Basos (auto) 0.1 Absolute Nucleated RBC 0 Nucleated RBC % 0.1 Sodium 136 Potassium 3.3 L Chloride 105 Carbon Dioxide 25 Anion Gap 6 BUN 10 Creatinine 0.50 L Est GFR ( Amer) 203.9 Est GFR (Non-Af Amer) 168.5 BUN/Creatinine Ratio 20.0 Glucose 103 H Calcium 7.7 L Total Bilirubin 0.90 AST 27 ALT 50 Alkaline Phosphatase 318 H Total Protein 4.4 L Albumin 2.3 L Globulin 2.1 Albumin/Globulin Ratio 1.1 Vital Signs Temp Pulse Resp BP Pulse Ox 101.0 F 108 18 147/81 92 04/14/18 07:30 04/14/18 07:14 04/14/18 07:26 04/14/18 07:14 04/14/18 07:14 Acetaminophen (Tylenol Tab*) 650 mg PO Q4H PRN PRN Reason: FEVER/PAIN Last Admin: 04/14/18 07:21 Dose: 650 mg Citalopram Hydrobromide (Celexa Tab*) 20 mg PO DAILY [facility] Last Admin: 04/14/18 07:17 Dose: 20 mg Enoxaparin Sodium (Lovenox(*)) 40 mg SUBCUT Q24H [facility] Last Admin: 04/13/18 19:36 Dose: 40 mg Heparin Sodium (Porcine) (Heparin Flush Port (Ivad)) 5 ml FLUSH DAILY [facility]; Protocol Last Admin: 04/14/18 09:25 Dose: 5 ml Piperacillin Sod/Tazobactam (Sod 3.375 gm/ Sodium Chloride) 100 mls @ 25 mls/ hr IVPB Q8H [facility] Last Admin: 04/14/18 05:28 Dose: 25 mls/hr Multi-Ingredient Mouthwash/Gargle (Magic M W2 Todd/Maal/Nyst/Lido*) 5 ml SWISH SWAL [id number] AWAKE PRN PRN Reason: mouth pain/mucositis Last Admin: 04/13/18 19:37 Dose: 5 ml Omeprazole (Prilosec Cap*) 20 mg PO BID [facility] Last Admin: 04/14/18 07:17 Dose: 20 mg Oxycodone/Acetaminophen (Percocet 5/325 Tab*) 1 tab PO Q4H PRN PRN Reason: Pain Pharmacy Consult (Zosyn Per Pharmacy*) 1 note FOLLOW UP . PRN PRN Reason: PER PROTOCOL Sucralfate (Sucralfate Susp) 1 gm PO ACHS [facility] Last Admin: 04/14/18 07:17 Dose: 1 gm Zolpidem Tartrate (Ambien Tab*) 10 mg PO BEDTIME PRN PRN Reason: INSOMNIA Last Admin: 04/13/18 20:22 Dose: 10 mg Exam: Gen: Fatigued appearing 63 yo male in NAD HEENT: MMM CV: RRR Resp: very faint crackles in L posterior lung delacruz Abd: soft, nonTTP Ext: no edema] Assessment: [63 yo male with recent diagnosis of DLBCL with bone marrow and gastric infiltration s/p C1 R-EPOCH complicated by GI bleed who was readmitted earlier this week with symptomatic anemia and now again with intractable cough and hypoxia with an extensive infiltrative process noted on CT.] Plan: [1. PNA - quick onset with diffuse infiltrates on CT, concerning for PCP given his lymphoma and recent treatment with high dose steroids - requested consultation from ID and pulmonology - he would likely benefit from bronchoscopy for diagnostic BAL - empirically started on Zosyn after he developed fever overnight with blood and sputum cultures pending - PCP PCR on sputum, low sensitivity and would still benefit from BAL if negative - no empiric steroids started due to recent GI bleed and extensive gastric ulcerations 2. Recent GI bleed - repeat upper endoscopy completed yesterday - gastric ulcers are healing, no evidence of recent bleeding 3. DLBCL - s/p C1 of R-EPOCH with initial plans for R-CHOP 04/17 - holding therapy at this time 4. Hypokalemia - check Mg - replete Dispo: continues to require inpatient care, timing of dc is not clear at this time
--- NOTE | 2018-04-14 12:46 | PN ---
Progress Note - Progress Note Date of Service: 04/14/18 - Pulmonary note Note: Pt seen and examined at bedside this am at request of oncology Please refer to detailed consultation report that was dictated earlier today. Briefly, pt was recently dx with DLBCL, admitted for evaluation of hypoxia, coughing spells after EGD which was scheduled for f/u of recently dx bleeding peptic ulcers Pt became hypoxic and was admitted for further evaluation CTA was negative for PE however was suggestive of diffuse alveolar opacities predominantly on right side which were not seen on prior CT chest from month ago Differentials being considered included infectious versus neoplastic Pt scheduled for bronchoscopy and transbronchial biopsy today Procedure was discussed in detail with pt Associated risks including risk of pneumothorax was thoroughly explained Pt agreeable to procedure c/w O2 supplementation and antibiotics
--- NOTE | 2018-04-14 13:02 | CONS ---
PULMONARY CONSULTATION REPORT: DATE OF CONSULT: 04/14/18 CONSULTATION REQUESTED BY: Dr. Panchal/Karan Sue NP. REASON FOR CONSULT: Evaluation of hypoxemia, abnormal CT chest. HISTORY OF PRESENT ILLNESS: The patient is a 63-year-old male with history of diffuse large B-cell lymphoma, recently diagnosed, has been aggressive also with GI bleed secondary to diffuse lymphocytic infiltration into the gastric mucosa resulting in ulceration, has been on chemotherapy, admitted 03/15/18 for hypercalcemia, readmitted for 03/20/18 for GI bleed. The patient had followup endoscopy scheduled yesterday, was noted to have persistent hypoxemia post upper endoscopy. The patient has been having cough and sore throat recently, which he admitted to be a viral process. Chest x-ray did not reveal any acute infiltrate at that time. He was hospitalized earlier this week for mild cough, fatigue, weakness, was noted to have hemoglobin of 6.5, received 2 units PRBC with significant improvement in symptoms. He also had that sore throat and scratchiness in the throat at that time. Following the endoscopy yesterday, he had multiple coughing fits and subsequently became hypoxemic. He received nebulizer treatment, oxygen was weaned off to 2 L, however, remained hypoxemic into high 80s while transitioning to room air. The patient was subsequently admitted for evaluation of hypoxemia. The patient underwent CTA for evaluation of possible pulmonary embolism. I have personally reviewed CTA and prior CT chest from recent admission. The patient noted to have diffuse airspace opacities predominantly in the right upper lobe, which was definitely much more extensive compared to prior infiltrates. The patient had moderate-sized effusions on prior CT, which have decreased now with small pleural effusions. The patient also with right lower lobe airspace opacities. The patient with lytic abnormality in the right first rib. The patient also with left supraclavicular adenopathy and left axillary mass. No evidence of pulmonary embolism was seen. The patient also with evidence of splenic lesions. The patient had fever spikes last night with T-max of 101.7. The patient received Tylenol with low-grade fevers this morning. He did not have elevated white count. He does still have anemia with hemoglobin at 7.9. His platelet count is normal. His potassium is slightly on the lower end. Calcium is slightly decreased. His alkaline phosphatase was increased. The patient was admitted for management of possible pneumonia. He was initiated on broad spectrum antibiotics. He is currently on Zosyn and has received vancomycin. He is on GERD therapy. He is currently stable on 2 L O2 supplementation. He is on anticoagulation with Lovenox for DVT prophylaxis. The patient reports shortness of breath and coughing spells. He is able to talk full sentences without much cough in between. Denies chest pain, palpitation, dizziness. PAST MEDICAL HISTORY: 1. Diffuse large B-cell lymphoma, stage IV. Initially presented with fatigue in early 2018, was diagnosed after FNA biopsy on 03/09/18. Bone marrow biopsy showed diffuse involvement by lymphoma, had an admission for hypercalcemia on , was started on chemotherapy on 03/20/18, complicated by GI bleed, underwent an upper endoscopy, found to have diffuse lymphocytic infiltration and ulceration. 2. AAA. 3. Back pain. 4. GERD. 5. Hypertension. PAST SURGICAL HISTORY: Unremarkable. MEDICATIONS: 1. Ambien 10 mg at bedtime. 2. Carafate 1 g t.i.d. 3. Celexa 20 mg daily. 4. Magic mouthwash. 5. Neupogen 350 injection daily. 6. Protonix 40 mg b.i.d. 7. Senna 1 tablet p.r.n. 8. Tramadol 50 mg 4 times a day p.r.n. ALLERGIES: AMOXICILLIN. FAMILY HISTORY: No cancers in the family. SOCIAL HISTORY: , lives with at home. He works in [employer]. No alcohol abuse. Quit smoking in 2002 after 30-pack year smoking history. No drug abuse. REVIEW OF SYSTEMS: Positive for fatigue and generalized weakness. Denies blurry vision, diplopia. Report sore throat and scratchiness in the throat. Presented with cough, shortness of breath. Gastric ulcers recently diagnosed. No hematuria or other urinary complaints, has chronic back pain, stable. Has history of insomnia, on Ambien. PHYSICAL EXAM: The patient is in bed, in no apparent distress. Vital Signs: Temperature 99, pulse 108 beats per minute, respiratory rate 18 per minute, O2 sat 92-94% on 2 L, blood pressure 147/81. HEENT: Pupils equal and reactive to light. Mucous membranes moist. Lungs: Good air entry bilaterally. Crackles at right base. Abdomen: Soft, nontender, nondistended. Bowel sounds present. Extremities: No edema. Skin: No rash. DIAGNOSTIC STUDIES/LAB DATA: WBC 6.3, hemoglobin 7.9, hematocrit 23, platelet count 337. Sodium 136, potassium 3.3, chloride 105, bicarb 25, BUN 10, creatinine 0.5, glucose 103, calcium 7.7. LFTs within normal limits, alk phos 318. LDH 219. Negative Legionella, Strep pneumo antigens, sputum cultures negative to date. CT of the chest as described above in HPI. IMPRESSION AND RECOMMENDATION: 63-year-old male with aggressive form of diffuse large B-cell lymphoma with GI involvement and bone marrow involvement, admitted after upper endoscopy with hypoxemia and coughing spells. CT chest showing diffuse interstitial and alveolar infiltration. Differentials include community-acquired pneumonia given immunosuppressive status and recent healthcare exposure, healthcare-associated pneumonia also possibility, given aggressive form of lymphoma, also suspect lymphangitic spread in lungs. Given normal LDH, PCP is less likely and he has not been on chemotherapy for long enough to have PCP pneumonia develop. The patient is stable on 2 L O2 supplementation. Will schedule the patient for bronchoscopy and transbronchial biopsy for further evaluation. Will also obtain BAL. Procedure was discussed in detail with the patient. Associated risks and benefits were thoroughly explained. Risk of pneumothorax was explained in detail. The patient agreeable to undergoing the procedure. He had breakfast this morning, will be n.p.o., will ensure 6 hours of NPO status prior to procedure. Thank you for allowing me to participate in the care of your patient. Will follow up with you. Above recommendations were discussed in detail with Dr. Panchal and Karan Sue , EVELINE. [id number]/[facility] #: [id number] HILARY
[2018-04-14] MEDS ORDERED: Dexamethasone IV* 4 MG/ML 1 ML (4 MG) IV SLOW PU ONE (14:41)
[2018-04-14] MEDS ORDERED: Buffered Lidocaine 0.9% SYRIN* 5 ML/SYR SYRINGE INTRADERM ONE (14:41)
[2018-04-14] MEDS ORDERED: Ondansetron INJ* 2 MG/ML VIAL ONE (14:41)
[2018-04-14] MEDS ORDERED: Azithromycin IV(*) 500 MG in NS 0.9% 250 ML* 250 ML IVPB SCH (15:00)
[2018-04-14] MEDS: Enoxaparin(*) 40 MG/0.4 ML SYR SUBCUT SCH (17:19)
--- NOTE | 2018-04-14 17:48 | CONS ---
CONSULTATION REPORT: DATE OF CONSULT: 04/14/2018. REQUESTING PROVIDER: VALERIY Mixon CONSULTING SERVICE: Infectious Disease. REASON FOR CONSULTATION: Acute hypoxemic respiratory failure and diffuse bilateral infiltrates on chest CT. IMPRESSION: 1. Diffuse bilateral pulmonary infiltrates in the setting of Rituxan and chemotherapy for large cell lymphoma. He has cough productive of clear sputum, no hemoptysis. Infectious differential is broad and include viral organisms like human metapneumovirus, less likely adenovirus without the conjunctivitis, herpes viruses such as CMV are stronger consideration with Rituxan therapy; fungal organisms like Pneumocystis, less likely Cryptococcus given the radiographic pattern and doubt he has invasive pulmonary aspergillosis; bacterial infections such as atypical organisms are strong consideration as well. Mycobacterial organisms seem unlikely. 2. Diffuse large B-cell lymphoma treated with chemotherapy, which has included Rituxan. 3. Gastric ulcers and a recent GI bleed. 4. Aortic abdominal aneurysm. RECOMMENDATIONS: 1. We will continue the Zosyn that would cover aspiration as well as pneumococcus and Haemophilus, the usual bacteria causes community-acquired pneumonia. I will add a human metapneumovirus nasal swab, CMV, PCR in the blood. He is going to have a bronchoscopy today. We will add azithromycin 500 mg IV daily for atypical coverage. 2. If he does have positive Pneumocystis, then treat with course of Bactrim and prednisone. HISTORY OF PRESENT ILLNESS: This is a 63-year-old male with lymphoma undergoing chemotherapy, which has included Rituxan. He has had 3 to 4 days of coughing fits with clear sputum, no vomiting, a little bit of chest tightness. He has had some shortness of breath and required supplemental oxygen here. He had an upper endoscopy yesterday and was found to be persistently hypoxemic, so he is admitted by Oncology Service. He had a fever of 39.5 degrees overnight. He does not know if he is having fevers at home, but was not having chills, sweats, or feeling overly warm. His noticed it started probably yesterday. She thinks he coughs and chokes a little when he eats; he says he does not. When he came to the hospital yesterday, his white count was 6, ALT was 50, and LDH was sent and pending. I added on a CRP and procalcitonin, which are pending. Has not had sick contacts, has not had recent respiratory illness or been around people who have had it that he knows of. PAST MEDICAL HISTORY: 1. Diffuse large B-cell lymphoma treated with chemotherapy. 2. Depression. 3. Gastric ulceration with upper GI bleed. 4. Aortic abdominal aneurysm. 5. Back pain. 6. Gastroesophageal reflux disease. 7. Hypertension. MEDICATIONS: 1. Tylenol. 2. Celexa. 3. Enoxaparin. 4. Omeprazole. 5. Oxycodone as needed. 6. Zosyn 3.375 g every 8 hours. 7. Sucralfate. 8. Ambien. SOCIAL HISTORY: He lives in [place] with his . No sick contacts. He has a indoor cat at home. He does not involve with the rosalina litter. No injection drugs. No travel. FAMILY HISTORY: No recurrent infections or tuberculosis. REVIEW OF SYSTEMS: All negative except as noted above in the history of present illness to the 14-point review. PHYSICAL EXAMINATION: Vital Signs: Temperature 37, heart rate 90, respiratory rate 19, blood pressure 119/69, oxygen saturation 94% on 2 L. In general, he is awake, not in distress. He is dyspneic. HEENT: There is no thrush. Oropharynx is without lesions. There is no conjunctival hemorrhage. Neck: Neck is supple without mass. Heart: Regular rate and rhythm without murmurs, rubs, or gallops. Lungs: Coarse breath sounds bilaterally without wheeze or rale. Abdomen: Soft, nontender, nondistended. There are bowel sounds present. Skin: There is no rash or splinter hemorrhage. Musculoskeletal: No spine tenderness to palpation. LABORATORY DATA: Creatinine 0.5, alk phos 318. White blood cell count 6, hemoglobin 8, platelets 337. Please see impressions and recommendations as outlined above. Thanks for asking to me see Mr. Tarango in consultation. I will be away next week, but will return on 04/24/18. [id number]/[facility] #: [id number] HILARY
--- NOTE | 2018-04-14 19:05 | PN ---
Progress Note - Progress Note Date of Service: 04/14/18 - Post procedure note Note: Pt had bronchoscopy at 5:30 pm for evaluation of alveolar opacities seen on CT chest, fever, and hypoxic resp failure Pt had procedure under GA. Pt was on 2L O2 prior to procedure with O2 sat around 92-94% Pt had BAL from RUL, transbronchial biopsy from RUL. Pt noted to have copious amounts of thick, leathery, sticky secretions which were suctioned out Pt was extubated, has been requiring high FiO2. He was initiated on high flow at 100%, 40L with saturations around 95% Patient alert, awake, oriented, not in any distress Worsening hypoxia sec to V/Q mismatch, anesthetic agent, BAL administration Post procedure CXR was performed, which didnot show obvious pneumothorax, increased air space opacities noted likely sec to BAL fluid Pt had minimal bleeding post biopsies Will monitor pt closely in ICU tonight Will titrate FiO2 as tolerated c/w antibiotics Will restart soft diet D/w Dr Sorensen
--- NOTE | 2018-04-14 19:29 | RAD ---
Indication: Post transbronchial biopsy. Assess for RIGHT pneumothorax. Comparison: April 13, 2018 CT. Technique: Upright AP 1850 hours Report: Negative for pneumothorax. RIGHT greater than LEFT alveolar consolidation increased over the April 11, 2018 chest radiograph. Small LEFT unilateral pleural effusion. Tip of RIGHT chest port at level of superior vena cava RIGHT atrial junction. Negative for cardiomegaly. Unremarkable central pulmonary vasculature and mediastinal contours. IMPRESSION: #. Negative for RIGHT pneumothorax. #. Worsening of RIGHT greater than LEFT airspace consolidation. #. Persistent small LEFT pleural effusion.
[2018-04-14] MEDS: Benzocaine/Menthol LOZ* 1 LOZENGE MT PRN (21:00)
[2018-04-14] MEDS: Azithromycin IV(*) 500 MG in NS 0.9% 250 ML* 250 ML IVPB SCH (21:00)
[2018-04-14] MEDS: Zolpidem TAB* 10 MG PO PRN (21:36)
--- NOTE | 2018-04-15 04:25 | PRO ---
BRONCHOSCOPY REPORT: DATE OF PROCEDURE: 04/14/18 PROCEDURE PERFORMED: Bronchoscopy with bronchoalveolar lavage and transbronchial biopsy from right upper lobe. 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 POSTPROCEDURAL DIAGNOSIS: Lung infiltrates. ANESTHESIA: General anesthesia. ANESTHESIOLOGIST: Dr. Rees PROCEDURE: Informed consent was obtained from patient after risks and benefits of procedure were thoroughly explained. Patient noted to have significant alveolar opacities on right side. Time out was performed and agreed by attending staff. Patient was intubated with size 8 ETT to facilitate GA. Flexible Olympus bronchoscope was inserted through ETT. ETT positioning was conformed to be 3 cm above level of anish. Thick white secretions were noted in trachea and were suctioned out. No evidence of aspiration was seen. Bronchoscope was then inserted to left bronchial tree which was inspected. Thick , white secretions were noted and were suctioned out. No endobronchial lesions were noted. Bronchoscope was inserted to right bronchial tree. Thick, white, leathery secretions were noted and were suctioned out. No mucus plugs were noted. No endobronchial lesions were noted. BAL was obtained from RLL. Bronchoscope was then withdrawn to RUL and transbronchial biopsies with 6 passes was obtained. Specimen was placed in formalin. Minimal bleeding post biopsies. Bronchoscope was then withdrawn. Patient was extubated. No complications occurred during the procedure. Specimens were sent to lab for microbiological, cytological and pathological testing. Patient has required high flow O2 post procedure and will be monitored in ICU closely. Post procedure chest-x-ray showed increased alveolar opacities in right lung and also in left lung. Patient is on broad spectrum antibiotics. [id number]/[facility] #: [id number] [place]ITALObed
[2018-04-15] MEDS: ZOSYN 3.375 GM Q8H per EXTENDED INFUSION IVPB SCH ×6 (06:06→21:38)
[2018-04-15] MEDS: Citalopram TAB* 20 MG PO SCH (08:22)
[2018-04-15] MEDS: Omeprazole CAP* 20 MG PO SCH ×2 (08:23→20:34)
[2018-04-15] MEDS: Sucralfate SUSP 1 GM/10 ml 10 ML UDC PO SCH ×4 (08:23→21:39)
--- NOTE | 2018-04-15 09:05 | PN ---
Progress Note - Progress Note Date of Service: 04/15/18 SOAP: Subjective: still significant O2 dependence. coughing worsened. back hurts from sitting in bed Objective: Vital Signs Temp Pulse Resp BP Pulse Ox 99.9 F 107 29 142/81 95 04/15/18 08:00 04/15/18 08:00 04/15/18 08:00 04/15/18 08:00 04/15/18 08:00 sitting up in nad perr eomi bronchial breath sounds L>R tachycardic soft nt +bs no le edema A+O x 3, nonfocal neurological exam Laboratory Results - last 24 hr 04/13/18 04/14/18 16:59 05:30 Sodium 136 Potassium 3.3 L Chloride 105 Carbon Dioxide 25 Anion Gap 6 BUN 10 Creatinine 0.50 L Est GFR ( Amer) 203.9 Est GFR (Non-Af Amer) 168.5 BUN/Creatinine Ratio 20.0 Glucose 103 H Calcium 7.7 L Total Bilirubin 0.90 AST 27 ALT 50 Alkaline Phosphatase 318 H C-Reactive Protein 174.55 H Total Protein 4.4 L Albumin 2.3 L Globulin 2.1 Albumin/Globulin Ratio 1.1 Procalcitonin 0.2 Acetaminophen (Tylenol Tab*) 650 mg PO Q4H PRN PRN Reason: FEVER/PAIN Last Admin: 04/14/18 07:21 Dose: 650 mg Citalopram Hydrobromide (Celexa Tab*) 20 mg PO DAILY [facility] Last Admin: 04/15/18 08:22 Dose: 20 mg Enoxaparin Sodium (Lovenox(*)) 40 mg SUBCUT Q24H [facility] Last Admin: 04/14/18 17:19 Dose: Not Given Heparin Sodium (Porcine) (Heparin Flush Port (Ivad)) 5 ml FLUSH DAILY [facility]; Protocol Last Admin: 04/14/18 09:25 Dose: 5 ml Piperacillin Sod/Tazobactam (Sod 3.375 gm/ Sodium Chloride) 100 mls @ 25 mls/ hr IVPB Q8H [facility] Last Admin: 04/15/18 06:06 Dose: 25 mls/hr Azithromycin 500 mg/ Sodium (Chloride) 250 mls @ 250 mls/hr IVPB 1800 [facility] Last Admin: 04/14/18 21:00 Dose: 250 mls/hr Levalbuterol HCl (Xopenex 0.63mg/3ml Neb*) 0.63 mg INH [id number] AWAKE [facility] Multi-Ingredient Mouthwash/Gargle (Magic M W2 Todd/Maal/Nyst/Lido*) 5 ml SWISH SWAL [id number] AWAKE PRN PRN Reason: mouth pain/mucositis Last Admin: 04/13/18 19:37 Dose: 5 ml Omeprazole (Prilosec Cap*) 20 mg PO BID [facility] Last Admin: 04/15/18 08:23 Dose: 20 mg Oxycodone/Acetaminophen (Percocet 5/325 Tab*) 1 tab PO Q4H PRN PRN Reason: Pain Pharmacy Consult (Zosyn Per Pharmacy*) 1 note FOLLOW UP . PRN PRN Reason: PER PROTOCOL Sucralfate (Sucralfate Susp) 1 gm PO ACHS [facility] Last Admin: 04/15/18 08:23 Dose: 1 gm Throat Lozenges (Chloraseptic Ursula*) 1 ursula MT Q6H PRN PRN Reason: SORE THROAT Last Admin: 04/14/18 21:00 Dose: 1 ursula Zolpidem Tartrate (Ambien Tab*) 10 mg PO BEDTIME PRN PRN Reason: INSOMNIA Last Admin: 04/14/18 21:36 Dose: 10 mg Assessment: 63 yo M w DLBCL sp cycle 1 of Cari-EPOCH admitted with respiratory failure and bilateral infiltrates of unclear etiology. sp bronch yesterday to help delineate. DDx includes infectious vs. etoposide-induced pneumonitis (rare case reports found in literature). I have discussed this with Dr. Gore at length. Obviously with his gastric ulcers we would prefer to avoid steroids, however if his respiratory status declines at all I do think it is reasonable and I would put him back on PPI drip if needed. PCP seems less likely given normal LDH however may be reasonable to add bactrim until it is more clear. Plan: -management per critical care -cont abx as above -consider adding bactrim full code
--- NOTE | 2018-04-15 09:32 | RAD ---
INDICATION: Bronchoscopy. Technique: 78.2 seconds of?fluoroscopy?was provided?for the physician proceduralist. REPORT: Spot images document bronchoscopy with the bronchoscope in the RIGHT mainstem bronchus based on correlation with the chest radiograph of the same date. RIGHT chest port noted. IMPRESSION: Procedural control films. CPT II Codes: G9500
[2018-04-15 09:53] LABS: Hematocrit 24 % (42-52); Hemoglobin 8.3 g/dl (14.0-18.0); Mean Corpuscular HGB Conc 34 g/dl (31-36); Mean Corpuscular Hemoglobin 29 pg (27-31); Mean Corpuscular Volume 86 fL (80-94); Mean Platelet Volume 6.9 um3 (7.4-10.4); Platelet Count 413 10^3/ul (150-450); Red Blood Count 2.83 10^6/ul (4.00-5.40); Red Cell Distribution Width 16 % (10.5-15); White Blood Count 9.5 10^3/ul (3.5-10.8)
[2018-04-15] MEDS: Acetaminophen TAB* 325 MG PO PRN ×2 (10:05→20:23)
[2018-04-15 10:12] LABS: EGFR Non-African American 185.5 (>60)
[2018-04-15] MEDS ORDERED: Magnesium Sulfate 2 GM IV* 2 GM/50 ML BAG IV ONE (10:14)
[2018-04-15] MEDS: Levalbuterol 0.63MG/3ML NEB* UNIT OF USE INH SCH ×4 (10:30→19:44)
[2018-04-15 10:35] LABS: ABS Basophils 0 10^3/ul (0-0.2); ABS Eosinophils 0 10^3/ul (0-0.6); ABS Lymphocytes 0.1 10^3/ul (1.0-4.8); ABS Monocytes 0.5 10^3/ul (0-0.8); ABS Neutrophils 8.8 10^3/ul (1.5-7.7); ABS Nucleated RBC 0 10^3/ul; Eosinophil % 0.5 % (0-6); Lymphocyte % 0.9 % (25-47); Nucleated Red Blood Cells % 0.1
--- NOTE | 2018-04-15 10:45 | PN ---
Progress Note - Progress Note Date of Service: 04/15/18 - Pulm f/u note Note: Pt seen and examined at bedside. Pt continues to require high FiO2 post bronchoscopy yesterday. Cough+, coughed streaks of blood. Denies chest pain, palpitations, dizziness. Denies urinary complaints. No rash, blurry vision. Appetite-poor Active Medications Generic Name Dose Route Start Last Admin Trade Name Freq PRN Reason Stop Dose Admin Acetaminophen 650 mg 04/13/18 16:56 04/15/18 10:05 Tylenol Tab* PO 650 mg Q4H PRN Administration FEVER/PAIN Citalopram Hydrobromide 20 mg 04/14/18 09:00 04/15/18 08:22 Celexa Tab* PO 20 mg DAILY [facility] Administration Enoxaparin Sodium 40 mg 04/13/18 17:00 04/14/18 17:19 Lovenox(*) SUBCUT Not Given Q24H [facility] Heparin Sodium (Porcine) 5 ml 04/14/18 09:00 04/14/18 09:25 Heparin Flush Port (Ivad) FLUSH 5 ml DAILY [facility] Administration Protocol Piperacillin Sod/Tazobactam 100 mls @ 25 mls/hr 04/14/18 05:30 04/15/18 06:06 Sod 3.375 gm/ Sodium Chloride IVPB 25 mls/hr Q8H [facility] Administration Azithromycin 500 mg/ Sodium 250 mls @ 250 mls/hr 04/14/18 18:00 04/14/18 21: 00 Chloride IVPB 250 mls/hr 1800 [facility] Administration Levalbuterol HCl 0.63 mg 04/15/18 09:00 Xopenex 0.63mg/3ml Neb* INH [id number] AWAKE [facility] Multi-Ingredient Mouthwash/Gargle 5 ml 04/13/18 17:04 04/13/18 19:37 Magic M W2 Todd/Maal/Nyst/Lido* SWISH SWAL 5 ml [id number] AWAKE PRN Administration mouth pain/mucositis Omeprazole 20 mg 04/13/18 21:00 04/15/18 08:23 Prilosec Cap* PO 20 mg BID [facility] Administration Oxycodone/Acetaminophen 1 tab 04/13/18 16:56 Percocet 5/325 Tab* PO Q4H PRN Pain Pharmacy Consult 1 note 08/10/18 01:41 Zosyn Per Pharmacy* FOLLOW UP . PRN PER PROTOCOL Sucralfate 1 gm 04/13/18 21:00 04/15/18 08:23 Sucralfate Susp PO 1 gm ACHS [facility] Administration Throat Lozenges 1 ursula 04/14/18 20:15 04/14/18 21:00 Chloraseptic Ursula* MT 1 ursula Q6H PRN Administration SORE THROAT Zolpidem Tartrate 10 mg 04/13/18 17:04 04/14/18 21:36 Ambien Tab* PO 10 mg BEDTIME PRN Administration INSOMNIA Vital Signs Temp Pulse Resp BP Pulse Ox 99.9 F 107 29 142/81 95 04/15/18 08:00 04/15/18 08:00 04/15/18 08:00 04/15/18 08:00 04/15/18 08:00 O/E: Pt in NAD, not using accessory muscles of respiration HEENT: PERRLA, No JVD, conjunctival pallor present, no icterus Lungs: Rhonchi +, L>R CVS: S1, S2+, regular, tachycardic Abd: Soft, BS+ Ext: Normal ROM Neuro: Alert, awake, no focal deficits Skin: No rash Laboratory Results - last 24 hr 04/13/18 04/14/18 04/15/18 16:59 05:30 09:45 WBC RBC Hgb Hct MCV MCH MCHC RDW Plt Count MPV Sodium 136 135 Potassium 3.3 L 3.1 L Chloride 105 103 Carbon Dioxide 25 24 Anion Gap 6 8 BUN 10 9 Creatinine 0.50 L 0.46 L Est GFR ( Amer) 203.9 224.5 Est GFR (Non-Af Amer) 168.5 185.5 BUN/Creatinine Ratio 20.0 19.6 Glucose 103 H 115 H Calcium 7.7 L 7.7 L Magnesium 1.7 L Total Bilirubin 0.90 AST 27 ALT 50 Alkaline Phosphatase 318 H C-Reactive Protein 174.55 H Total Protein 4.4 L Albumin 2.3 L Globulin 2.1 Albumin/Globulin Ratio 1.1 Procalcitonin 0.2 04/15/18 09:45 WBC 9.5 RBC 2.83 L Hgb 8.3 L Hct 24 L MCV 86 MCH 29 MCHC 34 RDW 16 H Plt Count 413 MPV 6.9 L Sodium Potassium Chloride Carbon Dioxide Anion Gap BUN Creatinine Est GFR ( Amer) Est GFR (Non-Af Amer) BUN/Creatinine Ratio Glucose Calcium Magnesium Total Bilirubin AST ALT Alkaline Phosphatase C-Reactive Protein Total Protein Albumin Globulin Albumin/Globulin Ratio Procalcitonin CXR 04/14/18: Patchy alveolar opacities b/l, progressed on right side and new on left side, small left effusion I/R: 63 y o m with DLBCL with gastric and bone marrow involvement s/p cycle 1 of Cari-EPOCH a/w hypoxia and cough after outpt EGD for f/u recently dx peptic ulcers, found to have large ulcers with craters with no active bleeding. Pt also noted to have new air space opacities in right lung, had fever spikes, differentials- infectious versus inflammatory(drug induced) versus lymphangetic spread/lymphoma involvement in lungs Infectious differential is also broad- bacterial(community acquired versus health care associated) , viral , fungal (PCP, less likely given short duration of immunosupression and normal LDH, though not completely r/o) Patient underwent bronchoscopy for further evaluation of pulmonary infiltrates, had BAL and TBBX performed He was high risk for procedure however benefit out weighed the risk and bronchoscopy was performed after thorough discussion with pt and family Pt had worsening oxygenation status post procedure with post procedure CXR showing progression of infiltrates and new infiltrates on left side Unclear underlying process He is not receiving chemo currently Discussed with Dr Sorensen, etoposide induced ILD is possibility Hesitant to start steroids at this time given underlying PUD with multiple ulcers and significant GI bleed recently Plan is to watch closely and start steroids along with IV PPI if no clinical improvement Will also add Bactrim at that time while waiting BAL results Pt also with rhonchi suggesting possibility of component of bronchospasm/ reactive airways component, will order bronchodilators Pt with electrolyte abnormalities, repleted potassium and magnesium Calcium low, likely sec to hypoalbuminemia, corrected clacium normal Anemia sec to recent blood loss, stable IV access: Peripheral and port Prognosis guarded Pt and updated at bedside D/w Dr Sorensen
[2018-04-15] MEDS: KCL 20 MEQ/100 ML IVPREMIX* 20 MEQ/100 ML BAG IV SCH ×2 (11:23→13:37)
[2018-04-15] MEDS: Benzocaine/Menthol LOZ* 1 LOZENGE MT PRN (17:36)
[2018-04-15] MEDS: Enoxaparin(*) 40 MG/0.4 ML SYR SUBCUT SCH (17:45)
[2018-04-15] MEDS: Azithromycin IV(*) 500 MG in NS 0.9% 250 ML* 250 ML IVPB SCH (17:45)
[2018-04-15] MEDS: Zolpidem TAB* 10 MG PO PRN (20:34)
[2018-04-15] MEDS: Codeine TAB* 15 MG PO PRN (20:34)
[2018-04-15] MEDS: Budesonide NEB* 0.5 MG/2 ML NEB.SOLN INH SCH (21:13)
[2018-04-16] MEDS: Levalbuterol 1.25MG/0.5ML NEB INH SCH ×5 (01:21→20:10)
[2018-04-16] MEDS: Codeine TAB* 15 MG PO PRN (04:28)
[2018-04-16 04:45] LABS: Hematocrit 24 % (42-52); Hemoglobin 8.3 g/dl (14.0-18.0); Mean Corpuscular HGB Conc 34 g/dl (31-36); Mean Corpuscular Hemoglobin 29 pg (27-31); Mean Corpuscular Volume 86 fL (80-94); Mean Platelet Volume 7.1 um3 (7.4-10.4); Platelet Count 458 10^3/ul (150-450); Red Blood Count 2.84 10^6/ul (4.00-5.40); Red Cell Distribution Width 17 % (10.5-15); White Blood Count 10.6 10^3/ul (3.5-10.8)
[2018-04-16] MEDS ORDERED: Succinylcholine* 20 MG/ML 10 ML VIAL ONE (04:58)
[2018-04-16 05:00] LABS: EGFR Non-African American 185.5 (>60)
[2018-04-16] MEDS ORDERED: Etomidate* 2 MG/ML 20 ML VIAL (40 MG) ONE (05:00)
[2018-04-16] MEDS ORDERED: Propofol* 100 ML ONE (05:10)
--- NOTE | 2018-04-16 05:23 | PN ---
Progress Note - Progress Note Date of Service: 04/16/18 Note: Patient with lymphoma, recent bronchoscopy, and likely pneumonia, experiencing severe coughing, and hypoxia to 66-70% o2 saturations while on Vapotherm. Patient consents verbally to intubation, after some hesitation. aware of situation. Induced w/ 20 etomodate and 100 succinylcholine. Placed 8.0 ET tube with glidescope. RT standing by, will start to ventilate with AC 500 ml, 5 PEEP, RR 14. Sedated w/ propofol. Repeat CXR pending to assess placement.
[2018-04-16] MEDS ORDERED: Midazolam* 1 MG/ML 10 ML VIAL (10 MG) ONE (05:27)
[2018-04-16] MEDS ORDERED: Midazolam* 1 MG/ML 5 ML VIAL (5 MG) SLOW PUSH ONE (05:28)
[2018-04-16] MEDS ORDERED: Pantoprazole IV* 40 MG IV SCH (06:00)
[2018-04-16] MEDS ORDERED: Acetaminophen ADULT LIQ* 650 MG/20.3 ML UDC NG TUBE PRN (06:15)
[2018-04-16] MEDS ORDERED: Acetaminophen ADULT LIQ* 650 MG/20.3 ML UDC ONE (06:32)
[2018-04-16] MEDS: ZOSYN 3.375 GM Q8H per EXTENDED INFUSION IVPB SCH ×6 (06:36→21:07)
[2018-04-16] MEDS: methylPREDNISolone SOD 40 MG* 1 ML VIAL IV SCH ×3 (06:36→21:51)
[2018-04-16] MEDS ORDERED: Norepinephrine 16MCG/ML IVPRE* 4,000 MCG/250 ML BAG IV ONE (06:37)
[2018-04-16] MEDS: NS 0.9% 1000 ML* 2,000 ML IV ONE (06:58)
--- NOTE | 2018-04-16 06:58 | PN ---
Hospitalist Progress Note Date of Service: 04/16/18 HOSPITALIST ADDENDUM Called by RN because patient is hypotensive 70/40s with scant urine output ( 40ml last night). He's a 63yo M with lymphoma, severe sepsis secondary to pneumonia. Will give NS 2 liter bolus and start low dose Levophed in hopes we can stop it soon after fluid resuscitated. Check LA. Dr. Gore to assume care.
[2018-04-16] MEDS ORDERED: Norepinephrine 16MCG/ML IVPRE* 4,000 MCG/250 ML BAG IV SCH (07:00)
[2018-04-16] MEDS ORDERED: fentaNYL* 50 MCG/ML 2 ML VIAL (100 MCG VIAL) ONE (07:05)
--- NOTE | 2018-04-16 07:21 | PN ---
Progress Note - Progress Note Date of Service: 04/16/18 SOAP: Subjective: intubated earlier this am for respiratory distress. currently sedated on the vent on low dose levophed. Objective: Vital Signs Temp Pulse Resp BP Pulse Ox 101.8 F 111 28 77/49 100 04/16/18 06:06 04/16/18 06:06 04/16/18 07:06 04/16/18 06:06 04/16/18 06:06 intubated sedated ET tube in place, white secretions diffuse rhonchi tachy soft +Bs no le edema port clean Laboratory Results - last 24 hr 04/15/18 04/15/18 04/15/18 09:45 09:45 09:45 WBC 9.5 RBC 2.83 L Hgb 8.3 L Hct 24 L MCV 86 MCH 29 MCHC 34 RDW 16 H Plt Count 413 MPV 6.9 L Neut % (Auto) 93.3 H Lymph % (Auto) 0.9 L [place] % (Auto) 5.1 Eos % (Auto) 0.5 Baso % (Auto) 0.2 Absolute Neuts (auto) 8.8 H Absolute Lymphs (auto) 0.1 L Absolute Monos (auto) 0.5 Absolute Eos (auto) 0 Absolute Basos (auto) 0 Absolute Nucleated RBC 0 Nucleated RBC % 0.1 Patient Temperature ABG pH ABG pH (Temp Correct) ABG pCO2 ABG pCO2 (Temp Corrct ABG pO2 ABG pO2 (Temp Correct ABG HCO3 ABG O2 Saturation ABG Base Excess Respiration Rate O2 Delivery Device Ventilator Type Vent Mode FiO2 Inspiratory Time PEEP Pressure Support Pressure Control EPAP IPAP BiPAP Sodium 135 Potassium 3.1 L Chloride 103 Carbon Dioxide 24 Anion Gap 8 BUN 9 Creatinine 0.46 L Est GFR ( Amer) 224.5 Est GFR (Non-Af Amer) 185.5 BUN/Creatinine Ratio 19.6 Glucose 115 H Calcium 7.7 L Magnesium 1.7 L C-Reactive Protein 270.03 H C-React Prot High Sens Not Reportable Procalcitonin 0.8 H 04/16/18 04/16/18 04/16/18 04:33 04:33 06:20 WBC 10.6 RBC 2.84 L Hgb 8.3 L Hct 24 L MCV 86 MCH 29 MCHC 34 RDW 17 H Plt Count 458 H MPV 7.1 L Neut % (Auto) Lymph % (Auto) [place] % (Auto) Eos % (Auto) Baso % (Auto) Absolute Neuts (auto) Absolute Lymphs (auto) Absolute Monos (auto) Absolute Eos (auto) Absolute Basos (auto) Absolute Nucleated RBC Nucleated RBC % Patient Temperature Not Reportable ABG pH 7.40 ABG pH (Temp Correct) Not Reportable ABG pCO2 42 ABG pCO2 (Temp Corrct Not Reportable ABG pO2 109 H ABG pO2 (Temp Correct Not Reportable ABG HCO3 25.8 ABG O2 Saturation 98.8 H ABG Base Excess 1.1 Respiration Rate 14 O2 Delivery Device ventilator Ventilator Type 500 Vent Mode cmv FiO2 100 Inspiratory Time 1.0 PEEP 5 Pressure Support Not Reportable Pressure Control Not Reportable EPAP Not Reportable IPAP Not Reportable BiPAP Not Reportable Sodium 135 Potassium 3.7 Chloride 104 Carbon Dioxide 25 Anion Gap 6 BUN 11 Creatinine 0.46 L Est GFR ( Amer) 224.5 Est GFR (Non-Af Amer) 185.5 BUN/Creatinine Ratio 23.9 H Glucose 119 H Calcium 7.6 L Magnesium 2.1 C-Reactive Protein C-React Prot High Sens Procalcitonin CXR: personally reviewed, bilateral fluffy infiltrates consistent with ARDS, ET tube in place Acetaminophen (Tylenol Adult Liq*) 650 mg NG TUBE Q4H PRN PRN Reason: FEVER/HEADACHE Last Admin: 04/16/18 06:36 Dose: 650 mg Budesonide (Pulmicort Neb*) 0.5 mg INH RT.BID [facility] Last Admin: 04/15/18 21:13 Dose: 0.5 mg Citalopram Hydrobromide (Celexa Tab*) 20 mg PO DAILY [facility] Last Admin: 04/15/18 08:22 Dose: 20 mg Enoxaparin Sodium (Lovenox(*)) 40 mg SUBCUT Q24H [facility] Last Admin: 04/15/18 17:45 Dose: 40 mg Fentanyl Citrate (Fentanyl*) 25 mcg IV SLOW PU Q4H PRN PRN Reason: DISCOMFORT Heparin Sodium (Porcine) (Heparin Flush Port (Ivad)) 5 ml FLUSH DAILY [facility]; Protocol Last Admin: 04/15/18 16:39 Dose: Not Given Piperacillin Sod/Tazobactam (Sod 3.375 gm/ Sodium Chloride) 100 mls @ 25 mls/ hr IVPB Q8H [facility] Last Admin: 04/16/18 06:36 Dose: 25 mls/hr Azithromycin 500 mg/ Sodium (Chloride) 250 mls @ 250 mls/hr IVPB 1800 [facility] Last Admin: 04/15/18 17:45 Dose: 250 mls/hr Propofol (Diprivan*) 100 mls @ 4.596 mls/hr IV .(Initial Rate) [facility]; Protocol Norepinephrine Bitartrate (Levophed 16 Mcg/Ml Premix Bag*) 4,000 mcg in 250 mls @ 18.75 mls/hr IV .INITIAL RATE [facility]; Protocol Last Admin: 04/16/18 06:59 Dose: 18.75 mls/hr Sodium Chloride (Ns 0.9% 1000 Ml*) 2,000 mls @ 1,000 mls/hr IV .PER RATE ONE Stop: 04/16/18 08:50 Last Admin: 04/16/18 06:58 Dose: 1,000 mls/hr Fluconazole/Sodium Chloride (Diflucan 200 Mg Ivpremix(*)) 200 mg in 100 mls @ 100 mls/hr IVPB Q24H [facility] Trimethoprim/Sulfamethoxazole (1 mg/ Dextrose) 500.0625 mls @ 250.031 mls/hr IVPB .enter frequency [facility] Levalbuterol HCl (Xopenex 1.25 Mg/0.5 Ml Neb.Julissa*) 1.25 mg INH [id number] AWAKE [facility] Last Admin: 04/16/18 04:45 Dose: 1.25 mg Methylprednisolone Sodium Succinate (Solu-Medrol 40 Mg) 40 mg IV Q8H [facility] Last Admin: 04/16/18 06:36 Dose: 40 mg Multi-Ingredient Mouthwash/Gargle (Magic M W2 Todd/Maal/Nyst/Lido*) 5 ml SWISH SWAL [id number] AWAKE PRN PRN Reason: mouth pain/mucositis Last Admin: 04/13/18 19:37 Dose: 5 ml Oxycodone/Acetaminophen (Percocet 5/325 Tab*) 1 tab PO Q4H PRN PRN Reason: Pain Pantoprazole Sodium (Protonix Iv*) 40 mg IV BID [facility] Pharmacy Consult (Zosyn Per Pharmacy*) 1 note FOLLOW UP . PRN PRN Reason: PER PROTOCOL Sucralfate (Sucralfate Susp) 1 gm PO ACHS [facility] Last Admin: 04/15/18 21:39 Dose: Not Given Throat Lozenges (Chloraseptic Ursula*) 1 ursula MT Q6H PRN PRN Reason: SORE THROAT Last Admin: 04/15/18 17:36 Dose: 1 ursula Zolpidem Tartrate (Ambien Tab*) 10 mg PO BEDTIME PRN PRN Reason: INSOMNIA Last Admin: 04/15/18 20:34 Dose: 10 mg Assessment: 63 yo M w DLBCL sp cycle 1 of Cari-EPOCH admitted with respiratory failure and bilateral infiltrates of unclear etiology. He continues to deteriorate and now appears to have ARDS. DDx continues to be broad including infectious and inflammatory etiologies (drug induced pneumonitis?). At this point we will broaden his antibiotics to include antifungals and PCP coverage. Plan: -management per critical care -buckley culture (to date negative, respiratory Bx/Cx pending) -zosyn, azithro, bactrim, fluconazole -solumedrol IV q8 hr -IV PPI -low dose levophed as needed
[2018-04-16] MEDS: Propofol* 100 ML IV SCH ×3 (07:42→20:56)
[2018-04-16] MEDS: Budesonide NEB* 0.5 MG/2 ML NEB.SOLN INH SCH ×2 (08:02→20:10)
[2018-04-16] MEDS: Sucralfate SUSP 1 GM/10 ml 10 ML UDC PO SCH ×4 (08:22→21:47)
--- NOTE | 2018-04-16 08:23 | RAD ---
INDICATION: Hypoxia. COMPARISON: Comparison is made with a prior chest x-ray study from April 14, 2018. TECHNIQUE: A portable view of the chest was obtained. FINDINGS: The heart is within normal limits in size. There is a central venous catheter entering on the right side. The catheter tip projects over the right atrium. There is a relatively dense infiltrate present throughout the right lung and an infiltrate present in the left perihilar region and left upper lobe which have progressed from the prior exam. There appear to be trace bilateral pleural effusions. IMPRESSION: BILATERAL INFILTRATES DEMONSTRATING INTERVAL PROGRESSION.
--- NOTE | 2018-04-16 08:26 | RAD ---
INDICATION: Endotracheal tube placement. COMPARISON: Comparison is made with the prior study from approximately 30 minutes earlier. TECHNIQUE: A portable view of the chest was obtained. FINDINGS: The patient is status post intubation. There is an endotracheal tube which projects over the midline. The catheter tip is approximately at the level of the clavicular heads. There is a nasogastric tube which demonstrates normal course. The distal portion of the catheter projects in the left upper quadrant. The catheter tip projects off the film. There is a central venous catheter present on the right side. The catheter tip projects over the right atrium. The heart appears within normal limits in size. There are dense bilateral infiltrates and trace bilateral pleural effusions which appear unchanged. IMPRESSION: 1. STATUS POST INTUBATION AND NASOGASTRIC TUBE PLACEMENT. 2. DENSE BILATERAL INFILTRATES AND TRACE PLEURAL EFFUSIONS, UNCHANGED.
[2018-04-16] MEDS: Fluconazole 200 MG IVPREMIX(*) 200 MG/100 ML BAG IVPB SCH (09:03)
[2018-04-16] MEDS: Citalopram TAB* 20 MG PO SCH (09:14)
[2018-04-16 09:23] LABS: Urine Appearance Cloudy; Urine Blood Negative (Negative); Urine Color Amber; Urine Ketones Trace (Negative); Urine Protein 2+(100 mg/dL) (Negative); Urine Red Blood Cell 2+(6-10/hpf) (Absent); Urine Specific Gravity 1.023 (1.010-1.030); Urine Urobilinogen Negative (Negative); Urine White Blood Cell 2+(11-20/hpf) (Absent)
--- NOTE | 2018-04-16 09:55 | PN ---
Date of Service: 04/16/18 - [facility] note Critical Care Services: Pt seen and examined at bedside. Overnight events noted. Pt was intubated early this am for worsening hypoxic resp failure. He was hypotensive post intubation and is requiring low dose Levophed. Had fever spikes late last night and this am. He also had bouts of cough prior to developing resp distress Meds, labs, vitals reviewed Vital Signs: Temp Pulse Resp BP SpO2 FiO2 99.1 F 99 22 111/64 95 90 04/16/18 09:15 04/16/18 09:15 04/16/18 09:00 04/16/18 09:15 04/16/18 09:15 04/16 08:04 Physical Exam: O/E: Pt is sedated on vent HEENT: PERRLA, no JVD, ETT+ Lungs: Rhonchi + CVS: S1, S2+, regular, slightly tachycardic Abd: Soft, BS+ Ext: No edema, withdraws to pain Neuro: Sedated Skin: No rash Fluid Balance (Past 24 Hours): I= 1331 O= 690 Net 641 Intake & Output 04/14/18 04/15/18 04/16/18 04/17/18 06:59 06:59 06:59 06:59 Intake Total 100 2358 1331 Output Total 0 690 690 350 Balance 100 1668 641 -350 Weight 165 lb 174 lb 9.698 oz 168 lb 13.985 oz Intake: IV Fluids 1878 60 LR 1500 kvo 378 60 IVPB 435 kvo 435 Medicated IV 296 CC - Propofol/Diprivan 40 Mg 50 Potassium 206 Oral 100 480 540 Output: Urine 0 690 650 Weinstein 40 350 Other: Estimated Void Large Medium # Bowel Movements 0 1 Estimated Stool Amount Large # Voids 1 1 Labs: Laboratory Results - last 24 hr 04/15/18 04/15/18 04/15/18 09:45 09:45 09:45 WBC 9.5 RBC 2.83 L Hgb 8.3 L Hct 24 L MCV 86 MCH 29 MCHC 34 RDW 16 H Plt Count 413 MPV 6.9 L Neut % (Auto) 93.3 H Lymph % (Auto) 0.9 L Bulloch % (Auto) 5.1 Eos % (Auto) 0.5 Baso % (Auto) 0.2 Absolute Neuts (auto) 8.8 H Absolute Lymphs (auto) 0.1 L Absolute Monos (auto) 0.5 Absolute Eos (auto) 0 Absolute Basos (auto) 0 Absolute Nucleated RBC 0 Nucleated RBC % 0.1 Patient Temperature ABG pH ABG pH (Temp Correct) ABG pCO2 ABG pCO2 (Temp Corrct ABG pO2 ABG pO2 (Temp Correct ABG HCO3 ABG O2 Saturation ABG Base Excess Respiration Rate O2 Delivery Device Ventilator Type Vent Mode FiO2 Inspiratory Time PEEP Pressure Support Pressure Control EPAP IPAP BiPAP Sodium 135 Potassium 3.1 L Chloride 103 Carbon Dioxide 24 Anion Gap 8 BUN 9 Creatinine 0.46 L Est GFR ( Amer) 224.5 Est GFR (Non-Af Amer) 185.5 BUN/Creatinine Ratio 19.6 Glucose 115 H Lactic Acid Calcium 7.7 L Magnesium 1.7 L C-Reactive Protein 270.03 H C-React Prot High Sens Not Reportable Procalcitonin 0.8 H Urine Color Urine Appearance Urine pH Ur Specific Wilsall Urine Protein Urine Ketones Urine Blood Urine Nitrate Urine Bilirubin Urine Urobilinogen Ur Leukocyte Esterase Urine WBC (Auto) Urine RBC (Auto) Ur Squamous Epith Cells Urine Bacteria Urine Glucose 04/16/18 04/16/18 04/16/18 04:33 04:33 06:20 WBC 10.6 RBC 2.84 L Hgb 8.3 L Hct 24 L MCV 86 MCH 29 MCHC 34 RDW 17 H Plt Count 458 H MPV 7.1 L Neut % (Auto) Lymph % (Auto) Bulloch % (Auto) Eos % (Auto) Baso % (Auto) Absolute Neuts (auto) Absolute Lymphs (auto) Absolute Monos (auto) Absolute Eos (auto) Absolute Basos (auto) Absolute Nucleated RBC Nucleated RBC % Patient Temperature Not Reportable ABG pH 7.40 ABG pH (Temp Correct) Not Reportable ABG pCO2 42 ABG pCO2 (Temp Corrct Not Reportable ABG pO2 109 H ABG pO2 (Temp Correct Not Reportable ABG HCO3 25.8 ABG O2 Saturation 98.8 H ABG Base Excess 1.1 Respiration Rate 14 O2 Delivery Device ventilator Ventilator Type 500 Vent Mode cmv FiO2 100 Inspiratory Time 1.0 PEEP 5 Pressure Support Not Reportable Pressure Control Not Reportable EPAP Not Reportable IPAP Not Reportable BiPAP Not Reportable Sodium 135 Potassium 3.7 Chloride 104 Carbon Dioxide 25 Anion Gap 6 BUN 11 Creatinine 0.46 L Est GFR ( Amer) 224.5 Est GFR (Non-Af Amer) 185.5 BUN/Creatinine Ratio 23.9 H Glucose 119 H Lactic Acid Calcium 7.6 L Magnesium 2.1 C-Reactive Protein C-React Prot High Sens Procalcitonin Urine Color Urine Appearance Urine pH Ur Specific Wils[place] Urine Protein Urine Ketones Urine Blood Urine Nitrate Urine Bilirubin Urine Urobilinogen Ur Leukocyte Esterase Urine WBC (Auto) Urine RBC (Auto) Ur Squamous Epith Cells Urine Bacteria Urine Glucose 04/16/18 04/16/18 07:50 08:28 WBC RBC Hgb Hct MCV MCH MCHC RDW Plt Count MPV Neut % (Auto) Lymph % (Auto) Bulloch % (Auto) Eos % (Auto) Baso % (Auto) Absolute Neuts (auto) Absolute Lymphs (auto) Absolute Monos (auto) Absolute Eos (auto) Absolute Basos (auto) Absolute Nucleated RBC Nucleated RBC % Patient Temperature ABG pH ABG pH (Temp Correct) ABG pCO2 ABG pCO2 (Temp Corrct ABG pO2 ABG pO2 (Temp Correct ABG HCO3 ABG O2 Saturation ABG Base Excess Respiration Rate O2 Delivery Device Ventilator Type Vent Mode FiO2 Inspiratory Time PEEP Pressure Support Pressure Control EPAP IPAP BiPAP Sodium Potassium Chloride Carbon Dioxide Anion Gap BUN Creatinine Est GFR ( Amer) Est GFR (Non-Af Amer) BUN/Creatinine Ratio Glucose Lactic Acid 1.2 Calcium Magnesium C-Reactive Protein C-React Prot High Sens Procalcitonin Urine Color Dina Urine Appearance Cloudy Urine pH 5.0 Ur Specific Wilsall 1.023 Urine Protein 2+(100 mg/dl) A Urine Ketones Trace A Urine Blood Negative Urine Nitrate Negative Urine Bilirubin Negative Urine Urobilinogen Negative Ur Leukocyte Esterase Negative Urine WBC (Auto) 2+(11-20/hpf) A Urine RBC (Auto) 2+(6-10/hpf) A Ur Squamous Epith Cells Present A Urine Bacteria Absent Urine Glucose Negative Studies: CXR: was personally reviewed: ETT, OGT in place. 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 Pt also noted to have new air space opacities in right lung, had fever spikes with differentials- infectious versus inflammatory(drug induced) versus lymphangetic spread/lymphoma involvement in lungs Infectious differential is also broad- bacterial(community acquired versus health care associated) , viral , fungal (PCP, less likely given short duration of immunosupression and normal LDH, though not completely r/o) Patient underwent bronchoscopy for further evaluation of pulmonary infiltrates, had BAL and TBBX performed He was high risk for procedure however benefit out weighed the risk and bronchoscopy was performed after thorough discussion with pt and family Pt had worsening oxygenation status post procedure with post procedure CXR showing progression of infiltrates and new infiltrates on left side. He was slightly improving however deteriorated again and was intubated this am. He had bouts of dry cough and worsening hypoxia. Rpt CXR showed progression of alveolar opacities, now diffuse with ARDS picture Vent settings adjusted as per ARDS protocol Antibiotic coverage was broadened to include fungal and PCP etiologies Review of literature- Case reports showing involvement of lungs and subsequent progression with DLBCL when clinical response seen in other areas to chemo and still with progression in lungs and presentation similar to seen in his case with high grade fever, dry cough, malaise and alveolar opacities that progress rapidly He was also started on steroids after thorough weighing in on risks and benefits. He is on adequate GI prophylaxis with IV PPI with no active bleeding No evidence of alveolar hemorrhage during bronch after BAL was administered. He didnot have hemoptysis Acute hypoxic resp failure Hypotension Fever ARDS Plan: c/w Bactrim, Zosyn, Vanco, Azithromycin, diflucan at that time while waiting BAL results Sputum cx only positive for H.influenza for now for which he is covered Will limit bronchodilators given ARDS pattern, beta agonists are better avoided Pt with resolution of electrolyte abnormalities Anemia sec to recent blood loss, stable Hypotension post intubation, likely sec to sedation and PEEP, on low dose levophed, lactate within normal limits UO picked up after fluid bolus c/w maintenance fluids On DVT, GI Px Weinstein cathter for monitoring of fluid status and prevent skin break down given bed ridden status IV access: Peripheral and port Prognosis guarded Pt`s and family updated at bedside D/w Dr Sorensen Critical Care Time: 50 min
[2018-04-16] MEDS: Pantoprazole IV* 40 MG IV SCH ×2 (10:17→21:07)
[2018-04-16] MEDS: TRIMETH IVPB SCH ×3 (10:37→21:46)
[2018-04-16] MEDS: D5W IVPB SCH ×3 (10:37→21:46)
[2018-04-16] MEDS: SULFAMETHOXAZOLE IVPB SCH ×3 (10:37→21:46)
[2018-04-16] MEDS: Chlorhexidine MOUTHWASH 0.12%* 15 ML UDC TOPICAL SCH ×3 (13:11→20:38)
[2018-04-16] MEDS: Azithromycin IV(*) 500 MG in NS 0.9% 250 ML* 250 ML IVPB SCH (17:13)
[2018-04-16] MEDS: Enoxaparin(*) 40 MG/0.4 ML SYR SUBCUT SCH (17:14)
[2018-04-17] MEDS: NS 0.9% 1000 ML* 2,000 ML IV ONE (00:22)
[2018-04-17] MEDS: Propofol* 100 ML IV SCH ×5 (00:53→21:06)
[2018-04-17] MEDS: Chlorhexidine MOUTHWASH 0.12%* 15 ML UDC TOPICAL SCH ×6 (01:31→20:34)
[2018-04-17] MEDS: TRIMETH IVPB SCH ×4 (04:10→23:11)
[2018-04-17] MEDS: D5W IVPB SCH ×4 (04:10→23:11)
[2018-04-17] MEDS: SULFAMETHOXAZOLE IVPB SCH ×4 (04:10→23:11)
[2018-04-17] MEDS: ZOSYN 3.375 GM Q8H per EXTENDED INFUSION IVPB SCH ×6 (05:37→20:35)
[2018-04-17] MEDS: methylPREDNISolone SOD 40 MG* 1 ML VIAL IV SCH ×3 (05:39→20:35)
[2018-04-17] MEDS: Levalbuterol 1.25MG/0.5ML NEB INH SCH ×4 (06:27→19:20)
[2018-04-17] MEDS: Budesonide NEB* 0.5 MG/2 ML NEB.SOLN INH SCH ×2 (07:14→19:20)
[2018-04-17] MEDS: Fluconazole 200 MG IVPREMIX(*) 200 MG/100 ML BAG IVPB SCH (08:10)
[2018-04-17] MEDS: Pantoprazole IV* 40 MG IV SCH ×2 (08:24→20:34)
[2018-04-17] MEDS: Sucralfate SUSP 1 GM/10 ml 10 ML UDC PO SCH ×4 (08:57→20:34)
[2018-04-17] MEDS: fentaNYL* 50 MCG/ML 2 ML VIAL (100 MCG VIAL) IV SLOW PU PRN ×2 (08:57→15:53)
[2018-04-17] MEDS: Citalopram TAB* 20 MG PO SCH (09:40)
--- NOTE | 2018-04-17 10:40 | PN ---
Progress Note - Progress Note Date of Service: 04/24/18 SOAP: Subjective: []Events: Vent overnight FiO2 to 40%, ABG with pO2 73 Alert, responsive Objective: [] Vital Signs Temp Pulse Resp BP Pulse Ox 97.9 F 113 23 91/58 95 04/17/18 09:15 04/17/18 09:15 04/17/18 10:00 04/17/18 09:15 04/17/18 09:15 HEENT - ET tube, pale good air movement, course sounds RRR S1S2 +BS, NT ND Ext Tr edema Neuro - responsive and following commands Laboratory Results - last 24 hr 04/17/18 10:10 Patient Temperature Not Reportable ABG pH 7.32 L ABG pH (Temp Correct) Not Reportable ABG pCO2 45 ABG pCO2 (Temp Corrct Not Reportable ABG pO2 73 L ABG pO2 (Temp Correct Not Reportable ABG HCO3 22.7 ABG O2 Saturation 96.6 ABG Base Excess -2.8 L Respiration Rate Not Reportable Ventilator Type Not Reportable Vent Mode aprv FiO2 40 Inspiratory Time Not Reportable PEEP Not Reportable Pressure Support Not Reportable Pressure Control Not Reportable EPAP Not Reportable IPAP Not Reportable BiPAP Not Reportable Assessment: 63 yo M w DLBCL sp cycle 1 of Cari-EPOCH admitted with respiratory failure and bilateral infiltrates of unclear etiology. Intubated an suspected ARDS. DDx continues to be broad including infectious and inflammatory etiologies (drug induced pneumonitis?). Symptoms started am after transfusion and I also suspect TRALI. At this point we will broaden his antibiotics to include antifungals, PCP coverage, steroids. Plan: 1. Resp. Improved today and will start vent trials. Solumedrol IV q8 hr 2. ID. - Richards culture + H. Flu, nothing more at this time. - Respiratory Bx/Cx pending - Continue zosyn, azithro, bactrim, fluconazole 3. GIB. IV PPI and follow H/H. 4. ANGEL. Will give IV iron in attempt to avoid future blood transfusions. 5. Discussed with that next 48 hrs will be telling if he can survive this event.
[2018-04-17] MEDS ORDERED: Ferric Gluconate IV* 25 MG in NS 0.9% 50 ML* 50 ML IVPB ONE (11:00)
[2018-04-17 11:09] LABS: Hematocrit 23 % (42-52); Hemoglobin 7.9 g/dl (14.0-18.0); Mean Corpuscular HGB Conc 34 g/dl (31-36); Mean Corpuscular Hemoglobin 29 pg (27-31); Mean Corpuscular Volume 86 fL (80-94); Mean Platelet Volume 7.3 um3 (7.4-10.4); Platelet Count 418 10^3/ul (150-450); Red Blood Count 2.71 10^6/ul (4.00-5.40); Red Cell Distribution Width 17 % (10.5-15); White Blood Count 10.5 10^3/ul (3.5-10.8)
[2018-04-17] MEDS ORDERED: NS 0.9% 50 ML* 50 ML ONE (11:23)
--- NOTE | 2018-04-17 11:47 | PN ---
Progress Note - Progress Note Date of Service: 04/17/18 Note: Progress Note Critical Care 24 hour events/significant events: -intubated the day before. remains on vent. off pressors. -on sedation with propofol but easily awakens -on APRV on vent -making urine - at bedside, discussed Tele: sinus tachy Vitals: Vital Signs Temp 98.1 F 04/17/18 13:00 Pulse 108 04/17/18 13:00 Resp 14 04/17/18 13:00 BP 103/65 04/17/18 13:00 Pulse Ox 96 04/17/18 13:00 Intake & Output 04/16/18 04/17/18 04/17/18 18:59 06:59 18:59 Intake Total 3265 3761 401 Output Total 1635 1260 715 Balance 1630 2501 -314 Weight 75.1 kg Intake: IV Fluids 21 kvo 21 Medicated IV 3265 3740 Azithromycin 260 Bactrim 550 1610 CC - Propofol/Diprivan 196 295 Fluconazole 106 Levophed 88 116 NS 2201 1244 Zosyn 124 215 Tube Feeding 401 Tube Feeding Flush Amount 0 Output: Ureña 1635 1260 715 O2/Vent: APRV 40%, Thigh 4.5, tlow0.5, phigh 20, plow 5; changed to CMV 20/550/+ 12/40% Infusions: propofol Medications: Acetaminophen (Tylenol Adult Liq*) 650 mg NG TUBE Q4H PRN PRN Reason: FEVER/HEADACHE Last Admin: 04/16/18 06:36 Dose: 650 mg Budesonide (Pulmicort Neb*) 0.5 mg INH RT.BID [facility] Last Admin: 04/17/18 07:14 Dose: 0.5 mg Chlorhexidine Gluconate (Peridex Mouth Wash 0.12%*) 15 ml TOPICAL Q4H [facility] Last Admin: 04/17/18 12:59 Dose: 15 ml Citalopram Hydrobromide (Celexa Tab*) 20 mg PO DAILY [facility] Last Admin: 04/17/18 09:40 Dose: 20 mg Enoxaparin Sodium (Lovenox(*)) 40 mg SUBCUT Q24H [facility] Last Admin: 04/16/18 17:14 Dose: 40 mg Fentanyl Citrate (Fentanyl*) 25 mcg IV SLOW PU Q4H PRN PRN Reason: DISCOMFORT Last Admin: 04/17/18 08:57 Dose: 25 mcg Heparin Sodium (Porcine) (Heparin Flush Port (Ivad)) 5 ml FLUSH DAILY [facility]; Protocol Last Admin: 04/17/18 08:24 Dose: Not Given Piperacillin Sod/Tazobactam (Sod 3.375 gm/ Sodium Chloride) 100 mls @ 25 mls/ hr IVPB Q8H [facility] Last Admin: 04/17/18 12:59 Dose: 25 mls/hr Azithromycin 500 mg/ Sodium (Chloride) 250 mls @ 250 mls/hr IVPB 1800 [facility] Last Admin: 04/16/18 17:13 Dose: 250 mls/hr Propofol (Diprivan*) 100 mls @ 4.596 mls/hr IV .(Initial Rate) [facility]; Protocol Last Admin: 04/17/18 12:59 Dose: 22.8 mls/hr Norepinephrine Bitartrate (Levophed 16 Mcg/Ml Premix Bag*) 4,000 mcg in 250 mls @ 18.75 mls/hr IV .INITIAL RATE [facility]; Protocol Last Admin: 04/16/18 06:59 Dose: 18.75 mls/hr Fluconazole/Sodium Chloride (Diflucan 200 Mg Ivpremix(*)) 200 mg in 100 mls @ 100 mls/hr IVPB Q24H [facility] Last Admin: 04/17/18 08:10 Dose: 100 mls/hr Trimethoprim/Sulfamethoxazole (287.5 mg/ Dextrose) 517.9688 mls @ 258.984 mls/ hr IVPB Q6H [facility] Last Admin: 04/17/18 09:56 Dose: 258.984 mls/hr Ferric Sodium Gluconate Complex 100 mg/ Sodium Chloride 108 mls @ 108 mls/hr IVPB ONCE ONE Stop: 04/17/18 13:59 Ferric Sodium Gluconate Complex 125 mg/ Sodium Chloride 110 mls @ 110 mls/hr IVPB DAILY [facility] Stop: 04/23/18 11:42 Levalbuterol HCl (Xopenex 1.25 Mg/0.5 Ml Neb.Julissa*) 1.25 mg INH [id number] AWAKE [facility] Last Admin: 04/17/18 07:14 Dose: 1.25 mg Methylprednisolone Sodium Succinate (Solu-Medrol 40 Mg) 40 mg IV Q8H [facility] Last Admin: 04/17/18 05:39 Dose: 40 mg Multi-Ingredient Mouthwash/Gargle (Magic M W2 Todd/Maal/Nyst/Lido*) 5 ml SWISH SWAL [id number] AWAKE PRN PRN Reason: mouth pain/mucositis Last Admin: 04/13/18 19:37 Dose: 5 ml Pantoprazole Sodium (Protonix Iv*) 40 mg IV BID [facility] Last Admin: 04/17/18 08:24 Dose: 40 mg Pharmacy Consult (Carasyn Per Pharmacy*) 1 note FOLLOW UP . PRN PRN Reason: PER PROTOCOL Sucralfate (Sucralfate Susp) 1 gm PO ACHS [facility] Last Admin: 04/17/18 13:01 Dose: 1 gm Throat Lozenges (Chloraseptic Ursula*) 1 ursula MT Q6H PRN PRN Reason: SORE THROAT Last Admin: 04/15/18 17:36 Dose: 1 ursula Physical Exam: General: intubated, sedated but easiliy arousable, no distress, no diaphoresis Head: normocephalic, atraumatic HEENT: no pallor, no icterus, moist mucous membranes Neck: soft, supple CVS: tachy, regular, no murmur Resp: bilateral air entry, some rhales scattered, no wheeze/rhonchi, no acc muscle use Abdomen: soft, nontender, nondistended, bowel sounds present Ext: pulses+, warm, no edema Skin: intact, no breakdown, no dryness Neuro: intubated, sedated, awakens, follows some commands Labs: Laboratory Results - last 24 hr 04/17/18 04/17/18 04/17/18 10:10 10:35 10:35 WBC 10.5 RBC 2.71 L Hgb 7.9 L Hct 23 L MCV 86 MCH 29 MCHC 34 RDW 17 H Plt Count 418 MPV 7.3 L Patient Temperature Not Reportable ABG pH 7.32 L ABG pH (Temp Correct) Not Reportable ABG pCO2 45 ABG pCO2 (Temp Corrct Not Reportable ABG pO2 73 L ABG pO2 (Temp Correct Not Reportable ABG HCO3 22.7 ABG O2 Saturation 96.6 ABG Base Excess -2.8 L Respiration Rate Not Reportable Ventilator Type Not Reportable Vent Mode aprv FiO2 40 Inspiratory Time Not Reportable PEEP Not Reportable Pressure Support Not Reportable Pressure Control Not Reportable EPAP Not Reportable IPAP Not Reportable BiPAP Not Reportable Sodium 139 Potassium 3.1 L Chloride 108 Carbon Dioxide 25 Anion Gap 6 BUN 13 Creatinine 0.52 L Est GFR ( Amer) 194.9 Est GFR (Non-Af Amer) 161.0 BUN/Creatinine Ratio 25.0 H Glucose 174 H Calcium 7.4 L Imaging: Assessment: 63y M pmhx of 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 Patient comes in for endoscopy for further eval for GIB source, develops respiratory distress after, eventually intubated 04/16. -Shock, unspecified; resolved -acute hypoxic respiratory failure/ARDS -Pneumonia vs pulm involvement of lymphoma -hemophilus parainfluenza+, pneumonia?? -DLBCL, stage IV, diffuse involvement; s/p chemo x1 -Anemia -PUD Plan: Neuro- maintain propofol, RAAS -2 to -3. asp prec. neurochecks. sedation vacation as tolerated. CVS- off pressors. BP stable. mild tachycardia. making good urine, was on NS infusion overnight, d/c IVF. mild edema noted. K 3.1. replete IV K. will dose lasix 20mg IV later after K supplemented. IV abx. noted hg 7.9, check hg later today. no clear bleeding. Iron IV by heme. hold transfusion. Resp- CXR 04/17 improved infiltrates. on 40% fio2. changed APRV to CMV, more comfortable. Seems hypoxia is not too bad. WIll maintain today. Will check tomorrow AM ABG and can then wean sedation and trial vent weaning. cont IV abx for now. cont solumedrol 40mg iv q8h. Bronchodilators prn. Some mild secretions being suctioned from ETT. IV abx. Sputum+ for hemophilus parainf. ID- afebrile now. wbc 10.5. Sputum / hemophilus parainfluenza. Resent sputum culture 04/16. will cont zosyn/azithro (day #4), diflucan (day#2), bactrim (day#2 ) GI- cotn PPI/SUcralfate for PUD. on Glucerna 1.2 @ 60 vi NGT, tolerating. lavage of stomach revealed no new blood. asp prec. Renal- Cr okay. Replete K IV and PO for 3.1. making urine. d/c IVF for now. ureña+ Heme- hg 7.9; IV Iron by heme ordered. check h/h tonight. hold transfusion unless needed. plt okay. dvt chemical proph. Endo- fingersticks as needed Musculsk- pressure ulcer prophylaxis. Bedrest. Wounds- none Nutrition- ngt feeds, glucerna 1.2 DVT prophylaxis: heparin sq GI prophylaxis: ppi/sucralfate Central Line: no Arterial Line: no Ureña Cathetor: yes Disposition: ICU Code Status: full code Total Critical Care time is 50 minutes, excluding procedures/teaching Samy Montemayor MD Computing Machine Operator (Electronically Signed)
--- NOTE | 2018-04-17 12:07 | RAD ---
INDICATION: Pneumonia COMPARISON: April 16, 2016 TECHNIQUE: An AP portable view obtained at 1022 hours is submitted. FINDINGS: Bones/Soft Tissues: There are no acute bony findings. There is an endotracheal tube 5 cm above the anish. A nasogastric tube passes normally through the mediastinum. There is a right IJ catheter in the superior vena cava Cardiomediastinal: The cardiomediastinal silhouette is normal. Lungs: There is interstitial infiltrative change. The alveolar changes are improved. Pleura: There are no pleural effusions. Other: None IMPRESSION: Diffuse interstitial infiltrates. The alveolar component has largely resolved.
[2018-04-17] MEDS ORDERED: Ferric Gluconate IV* 100 MG in NS 100 ML - AFTER TEST DOSE IVPB ONE (13:00)
[2018-04-17] MEDS ORDERED: NS 0.9% 100 ML* 100 ML ONE (13:28)
[2018-04-17] MEDS: KCL 20 MEQ/100 ML IVPREMIX* 20 MEQ/100 ML BAG IV SCH ×3 (15:52→20:34)
[2018-04-17] MEDS: Enoxaparin(*) 40 MG/0.4 ML SYR SUBCUT SCH (16:43)
[2018-04-17] MEDS: Azithromycin IV(*) 500 MG in NS 0.9% 250 ML* 250 ML IVPB SCH (18:51)
[2018-04-17 20:41] LABS: Hematocrit 23 % (42-52); Hemoglobin 7.7 g/dl (14.0-18.0)
[2018-04-18] MEDS: Chlorhexidine MOUTHWASH 0.12%* 15 ML UDC TOPICAL SCH ×6 (00:49→21:36)
[2018-04-18] MEDS: fentaNYL* 50 MCG/ML 2 ML VIAL (100 MCG VIAL) IV SLOW PU PRN (00:50)
[2018-04-18] MEDS: Levalbuterol 1.25MG/0.5ML NEB INH SCH ×4 (01:14→19:37)
[2018-04-18] MEDS: Propofol* 100 ML IV SCH ×7 (02:10→22:09)
[2018-04-18] MEDS: TRIMETH IVPB SCH ×3 (05:25→19:47)
[2018-04-18] MEDS: D5W IVPB SCH ×3 (05:25→19:47)
[2018-04-18] MEDS: SULFAMETHOXAZOLE IVPB SCH ×3 (05:25→19:47)
[2018-04-18] MEDS: ZOSYN 3.375 GM Q8H per EXTENDED INFUSION IVPB SCH ×6 (05:27→21:36)
[2018-04-18 06:08] LABS: Hematocrit 24 % (42-52); Hemoglobin 8.3 g/dl (14.0-18.0); Mean Corpuscular HGB Conc 35 g/dl (31-36); Mean Corpuscular Hemoglobin 30 pg (27-31); Mean Corpuscular Volume 86 fL (80-94); Mean Platelet Volume 7.3 um3 (7.4-10.4); Platelet Count 455 10^3/ul (150-450); Red Blood Count 2.79 10^6/ul (4.00-5.40); Red Cell Distribution Width 17 % (10.5-15); White Blood Count 12.1 10^3/ul (3.5-10.8)
[2018-04-18 06:27] LABS: EGFR Non-African American 144.8 (>60)
[2018-04-18] MEDS: Budesonide NEB* 0.5 MG/2 ML NEB.SOLN INH SCH ×2 (07:24→19:37)
[2018-04-18] MEDS: Fluconazole 200 MG IVPREMIX(*) 200 MG/100 ML BAG IVPB SCH (08:11)
[2018-04-18] MEDS: methylPREDNISolone SOD 40 MG* 1 ML VIAL IV SCH ×3 (08:49→18:56)
[2018-04-18] MEDS: Sucralfate SUSP 1 GM/10 ml 10 ML UDC PO SCH ×4 (08:49→21:38)
[2018-04-18] MEDS: Pantoprazole IV* 40 MG IV SCH ×2 (09:05→21:36)
[2018-04-18] MEDS: Citalopram TAB* 20 MG PO SCH (09:05)
[2018-04-18] MEDS ORDERED: Furosemide IV* 10 MG/ML 2 ML VIAL (20 MG) IV SLOW PU ONE (10:38)
--- NOTE | 2018-04-18 10:45 | PN ---
Progress Note - Progress Note Date of Service: 04/18/18 Note: Progress Note Critical Care 24 hour events/significant events: -remains intubated; overnight vent alarm and changed to APRV -now on CMV 40%; sats 97% -BP stable -PICC being placed now -no hypotension overnight Tele: sinus tachy Vitals: Vital Signs Temp 98.4 F 04/18/18 09:45 Pulse 103 04/18/18 09:45 Resp 17 04/18/18 09:00 BP 118/67 04/18/18 09:45 Pulse Ox 97 04/18/18 09:45 Intake & Output 04/17/18 04/18/18 04/18/18 18:59 06:59 18:59 Intake Total 1656.4 3666 Output Total 1240 1385 150 Balance 416.4 2281 -150 Intake: IV Fluids 184 kvo 184 Medicated IV 1255.4 1941 Bactrim 550 1167 CC - Propofol/Diprivan 163 445 Fluconazole 96.2 NS 374 Potassium 220 Zosyn 22.2 109 ferric gluconate 50 Tube Feeding 401 1341 Tube Feeding Flush Amount 0 200 Output: [place] 1240 1385 150 O2/Vent: AC 12/550/+12/40% Infusions: propofol Medications: Acetaminophen (Tylenol Adult Liq*) 650 mg NG TUBE Q4H PRN PRN Reason: FEVER/HEADACHE Last Admin: 04/16/18 06:36 Dose: 650 mg Budesonide (Pulmicort Neb*) 0.5 mg INH RT.BID [facility] Last Admin: 04/18/18 07:24 Dose: 0.5 mg Chlorhexidine Gluconate (Peridex Mouth Wash 0.12%*) 15 ml TOPICAL Q4H [facility] Last Admin: 04/18/18 08:06 Dose: 15 ml Citalopram Hydrobromide (Celexa Tab*) 20 mg PO DAILY [facility] Last Admin: 04/18/18 09:05 Dose: 20 mg Enoxaparin Sodium (Lovenox(*)) 40 mg SUBCUT Q24H [facility] Last Admin: 04/17/18 16:43 Dose: 40 mg Fentanyl Citrate (Fentanyl*) 25 mcg IV SLOW PU Q4H PRN PRN Reason: DISCOMFORT Last Admin: 04/18/18 00:50 Dose: 25 mcg Furosemide (Lasix Iv*) 20 mg IV SLOW PU ONCE ONE Stop: 04/18/18 10:39 Heparin Sodium (Porcine) (Heparin Flush Port (Ivad)) 5 ml FLUSH DAILY [facility]; Protocol Last Admin: 04/17/18 08:24 Dose: Not Given Piperacillin Sod/Tazobactam (Sod 3.375 gm/ Sodium Chloride) 100 mls @ 25 mls/ hr IVPB Q8H [facility] Last Admin: 04/18/18 05:27 Dose: 25 mls/hr Azithromycin 500 mg/ Sodium (Chloride) 250 mls @ 250 mls/hr IVPB 1800 [facility] Last Admin: 04/17/18 18:51 Dose: 250 mls/hr Propofol (Diprivan*) 100 mls @ 4.596 mls/hr IV .(Initial Rate) [facility]; Protocol Last Admin: 04/18/18 08:49 Dose: 27.4 mls/hr Norepinephrine Bitartrate (Levophed 16 Mcg/Ml Premix Bag*) 4,000 mcg in 250 mls @ 18.75 mls/hr IV .INITIAL RATE [facility]; Protocol Last Admin: 04/16/18 06:59 Dose: 18.75 mls/hr Fluconazole/Sodium Chloride (Diflucan 200 Mg Ivpremix(*)) 200 mg in 100 mls @ 100 mls/hr IVPB Q24H [facility] Last Admin: 04/18/18 08:11 Dose: 100 mls/hr Ferric Sodium Gluconate Complex 125 mg/ Sodium Chloride 110 mls @ 110 mls/hr IVPB DAILY [facility] Stop: 04/23/18 11:42 Trimethoprim/Sulfamethoxazole (287.5 mg/ Dextrose) 517.9688 mls @ 258.984 mls/ hr IVPB Q6H [facility] Last Admin: 04/18/18 05:25 Dose: 258.984 mls/hr Levalbuterol HCl (Xopenex 1.25 Mg/0.5 Ml Neb.Julissa*) 1.25 mg INH [id number] AWAKE [facility] Last Admin: 04/18/18 07:23 Dose: 1.25 mg Methylprednisolone Sodium Succinate (Solu-Medrol 40 Mg) 40 mg IV Q8H [facility] Last Admin: 04/18/18 09:05 Dose: 40 mg Multi-Ingredient Mouthwash/Gargle (Magic M W2 Todd/Maal/Nyst/Lido*) 5 ml SWISH SWAL [id number] AWAKE PRN PRN Reason: mouth pain/mucositis Last Admin: 04/13/18 19:37 Dose: 5 ml Pantoprazole Sodium (Protonix Iv*) 40 mg IV BID [facility] Last Admin: 04/18/18 09:05 Dose: 40 mg Pharmacy Consult (Zosyn Per Pharmacy*) 1 note FOLLOW UP . PRN PRN Reason: PER PROTOCOL Potassium Chloride (Klor-Con Liquid*) 20 meq PO ONCE ONE Stop: 04/18/18 13:38 Sucralfate (Sucralfate Susp) 1 gm PO ACHS [facility] Last Admin: 04/18/18 08:49 Dose: 1 gm Throat Lozenges (Chloraseptic Ursula*) 1 ursula MT Q6H PRN PRN Reason: SORE THROAT Last Admin: 04/15/18 17:36 Dose: 1 ursula Physical Exam: General: intubated, sedated but easiliy arousable, no distress, no diaphoresis Head: normocephalic, atraumatic HEENT: no pallor, no icterus, moist mucous membranes Neck: soft, supple CVS: tachy, regular, no murmur Resp: bilateral air entry, some rhales scattered, no wheeze/rhonchi, no acc muscle use Abdomen: soft, nontender, nondistended, bowel sounds present Ext: pulses+, warm, no edema Skin: intact, no breakdown, no dryness Neuro: intubated, sedated, awakens, follows some commands Labs: Laboratory Results - last 24 hr 04/14/18 04/14/18 04/17/18 05:30 17:58 10:35 WBC RBC Hgb Hct MCV MCH MCHC RDW Plt Count MPV Sodium 139 Potassium 3.1 L Chloride 108 Carbon Dioxide 25 Anion Gap 6 BUN 13 Creatinine 0.52 L Est GFR ( Amer) 194.9 Est GFR (Non-Af Amer) 161.0 BUN/Creatinine Ratio 25.0 H Glucose 174 H Calcium 7.4 L CMV DNA Detection Undetected Pneumocystis Source Bronchial washing Pneumocystis DNA (PCR) Positive A* 04/17/18 04/17/18 04/18/18 10:35 20:32 05:58 WBC 10.5 RBC 2.71 L Hgb 7.9 L 7.7 L Hct 23 L 23 L MCV 86 MCH 29 MCHC 34 RDW 17 H Plt Count 418 MPV 7.3 L Sodium 140 Potassium 4.0 Chloride 109 Carbon Dioxide 26 Anion Gap 5 BUN 16 Creatinine 0.57 L Est GFR ( Amer) 175.3 Est GFR (Non-Af Amer) 144.8 BUN/Creatinine Ratio 28.1 H Glucose 176 H Calcium 8.0 L CMV DNA Detection Pneumocystis Source Pneumocystis DNA (PCR) 04/18/18 05:58 WBC 12.1 H RBC 2.79 L Hgb 8.3 L Hct 24 L MCV 86 MCH 30 MCHC 35 RDW 17 H Plt Count 455 H MPV 7.3 L Sodium Potassium Chloride Carbon Dioxide Anion Gap BUN Creatinine Est GFR ( Amer) Est GFR (Non-Af Amer) BUN/Creatinine Ratio Glucose Calcium CMV DNA Detection Pneumocystis Source Pneumocystis DNA (PCR) Imaging: cxr 04/17 - improving bilateral infitlrates, still present+ Assessment: 63y M pmhx of 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 Patient comes in for endoscopy for further eval for GIB source, develops respiratory distress after, eventually intubated 04/16. -Shock, unspecified; resolved -acute hypoxic respiratory failure/ARDS -Pneumonia vs pulm involvement of lymphoma -hemophilus parainfluenza+, pneumonia?? -DLBCL, stage IV, diffuse involvement; s/p chemo x1 -Anemia -PUD Plan: Neuro- maintain propofol, RAAS -2 to -3. asp prec. neurochecks. sedation vacation as tolerated. CVS- no pressors. BP stable. mild tachycardia. making good urine, off IVF, positive balance. Lasix 20mg iv x1 today. K okay. IV abx. hg 8.3, stable, no transfusion. Resp- CXR 04/17 improved infiltrates. on 40% fio2. Maintain AC mode, dec peep to 10 today. CXR and ABG tomorrow. minimal secretions being suctioned. cont IV abx for now. dec solumedrol 40mg iv q12. Bronchodilators prn. Sputum+ for hemophilus parainf. no plan for weaning trials today ID- afebrile now. wbc 12. Sputum 04/14 hemophilus parainfluenza. Resent sputum culture 04/16. will cont zosyn (day #5), d/c azithro (5 days completed) , d/c diflucan, cont bactrim (day#3) GI- cotn PPI/SUcralfate for PUD. on Glucerna 1.2 @ 60 vi NGT, tolerating. asp prec. dulcolax/colace for constipation. Renal- Cr okay. K 4.0 making urine. ureña+ Heme- hg 8.3; IV Iron given 04/17. plt okay. dvt chemical proph. Endo- fingersticks as needed Musculsk- pressure ulcer prophylaxis. Bedrest. Wounds- none Nutrition- ngt feeds, glucerna 1.2 DVT prophylaxis: heparin sq GI prophylaxis: ppi/sucralfate Central Line: PICC 04/18 Arterial Line: no [place] Cathetor: yes Disposition: ICU Code Status: full code Total Critical Care time is 40 minutes, excluding procedures/teaching Samy Montemayor MD [employer]draulic Billet Maker (Electronically Signed)
[2018-04-18] MEDS ORDERED: Bisacodyl SUPP* 10 MG SUPP PR PRN (10:48)
[2018-04-18] MEDS ORDERED: Docusate LIQ* 100 MG/10 ML UDC PO PRN (10:48)
[2018-04-18] MEDS: Ferric Gluconate IV* 125 MG in NS 0.9% 100 ML* 100 ML IVPB SCH (10:54)
[2018-04-18] MEDS ORDERED: Potassium Chloride LIQUID* 20 MEQ PACKET PO ONE (13:37)
--- NOTE | 2018-04-18 17:02 | PN ---
Progress Note - Progress Note Date of Service: 04/18/18 SOAP: Subjective: [Ventilated, sedated. present.] Objective: [ Laboratory Results - last 24 hr 04/14/18 04/17/18 04/18/18 17:58 20:32 05:58 WBC RBC Hgb 7.7 L Hct 23 L MCV MCH MCHC RDW Plt Count MPV Sodium 140 Potassium 4.0 Chloride 109 Carbon Dioxide 26 Anion Gap 5 BUN 16 Creatinine 0.57 L Est GFR ( Amer) 175.3 Est GFR (Non-Af Amer) 144.8 BUN/Creatinine Ratio 28.1 H Glucose 176 H Calcium 8.0 L Pneumocystis Source Bronchial washing Pneumocystis DNA (PCR) Positive A* 04/18/18 05:58 WBC 12.1 H RBC 2.79 L Hgb 8.3 L Hct 24 L MCV 86 MCH 30 MCHC 35 RDW 17 H Plt Count 455 H MPV 7.3 L Sodium Potassium Chloride Carbon Dioxide Anion Gap BUN Creatinine Est GFR ( Amer) Est GFR (Non-Af Amer) BUN/Creatinine Ratio Glucose Calcium Pneumocystis Source Pneumocystis DNA (PCR) Vital Signs Temp Pulse Resp BP Pulse Ox 98.4 F 109 18 118/63 94 04/18/18 14:15 04/18/18 14:15 04/18/18 14:00 04/18/18 14:15 04/18/18 14:15 Acetaminophen (Tylenol Adult Liq*) 650 mg NG TUBE Q4H PRN PRN Reason: FEVER/HEADACHE Last Admin: 04/16/18 06:36 Dose: 650 mg Bisacodyl (Dulcolax Supp*) 10 mg NE DAILY PRN PRN Reason: CONSTIPATION Last Admin: 04/18/18 11:48 Dose: 10 mg Budesonide (Pulmicort Neb*) 0.5 mg INH RT.BID [facility] Last Admin: 04/18/18 07:24 Dose: 0.5 mg Chlorhexidine Gluconate (Peridex Mouth Wash 0.12%*) 15 ml TOPICAL Q4H [facility] Last Admin: 04/18/18 13:26 Dose: 15 ml Citalopram Hydrobromide (Celexa Tab*) 20 mg PO DAILY [facility] Last Admin: 04/18/18 09:05 Dose: 20 mg Docusate Sodium (Colace Liq*) 100 mg PO BID PRN PRN Reason: CONSTIPATION Last Admin: 04/18/18 11:48 Dose: 100 mg Enoxaparin Sodium (Lovenox(*)) 40 mg SUBCUT Q24H [facility] Last Admin: 04/17/18 16:43 Dose: 40 mg Fentanyl Citrate (Fentanyl*) 25 mcg IV SLOW PU Q4H PRN PRN Reason: DISCOMFORT Last Admin: 04/18/18 00:50 Dose: 25 mcg Heparin Sodium (Porcine) (Heparin Flush Port (Ivad)) 5 ml FLUSH DAILY [facility]; Protocol Last Admin: 04/18/18 10:54 Dose: 5 ml Heparin Sodium (Porcine) (Heparin Flush Picc/Ml/Cvc(*)) 1 - 3 ml FLUSH 0600, 1800 [facility]; Protocol Piperacillin Sod/Tazobactam (Sod 3.375 gm/ Sodium Chloride) 100 mls @ 25 mls/ hr IVPB Q8H [facility] Last Admin: 04/18/18 13:26 Dose: 25 mls/hr Azithromycin 500 mg/ Sodium (Chloride) 250 mls @ 250 mls/hr IVPB 1800 [facility] Stop: 04/18/18 23:00 Last Admin: 04/17/18 18:51 Dose: 250 mls/hr Propofol (Diprivan*) 100 mls @ 4.596 mls/hr IV .(Initial Rate) [facility]; Protocol Last Admin: 04/18/18 15:07 Dose: 25.1 mls/hr Norepinephrine Bitartrate (Levophed 16 Mcg/Ml Premix Bag*) 4,000 mcg in 250 mls @ 18.75 mls/hr IV .INITIAL RATE [facility]; Protocol Last Admin: 04/16/18 06:59 Dose: 18.75 mls/hr Ferric Sodium Gluconate Complex 125 mg/ Sodium Chloride 110 mls @ 110 mls/hr IVPB DAILY [facility] Stop: 04/23/18 11:42 Last Admin: 04/18/18 10:54 Dose: 110 mls/hr Trimethoprim/Sulfamethoxazole (300 mg/ Dextrose) 518.75 mls @ 259.375 mls/hr IVPB Q6H [facility] Last Admin: 04/18/18 11:56 Dose: 259.375 mls/hr Levalbuterol HCl (Xopenex 1.25 Mg/0.5 Ml Neb.Julissa*) 1.25 mg INH [id number] AWAKE [facility] Last Admin: 04/18/18 13:11 Dose: 1.25 mg Methylprednisolone Sodium Succinate (Solu-Medrol 40 Mg) 40 mg IV Q12H [facility] Multi-Ingredient Mouthwash/Gargle (Magic M W2 Todd/Maal/Nyst/Lido*) 5 ml SWISH SWAL [id number] AWAKE PRN PRN Reason: mouth pain/mucositis Last Admin: 04/13/18 19:37 Dose: 5 ml Pantoprazole Sodium (Protonix Iv*) 40 mg IV BID [facility] Last Admin: 04/18/18 09:05 Dose: 40 mg Pharmacy Consult (Zosyn Per Pharmacy*) 1 note FOLLOW UP . PRN PRN Reason: PER PROTOCOL Sucralfate (Sucralfate Susp) 1 gm PO ACHS [facility] Last Admin: 04/18/18 08:49 Dose: 1 gm Throat Lozenges (Chloraseptic Ursula*) 1 ursula MT Q6H PRN PRN Reason: SORE THROAT Last Admin: 04/15/18 17:36 Dose: 1 ursula Exam: Gen: Ventilated, sedated Resp: few course lung sound CV: RRR Ext: trace LE edema Skin: No concerning rashes or lesions] Assessment: [63 yo male with DLBCL s/p C1 EPOCH complicated by GI bleed due to multiple stomach ulcerations likely due to leukemic infiltration who was readmitted with worsening cough and hypoxia with bilateral infiltrates on CT, who developed acute respiratory failure, now ventilated. Bronchoscopy completed 04/14 with nl path and PCP PCR +, reported today.] Plan: [1. Pneumocystitis PNA - BAL + PCP on PCR today - cont IV Bactrim and corticosteroids - can start to narrow abx 2. Acute respiratory failure - ventilation management per car trimmer - continue weaning efforts 3. H/o GI bleed - cont IV PPI - Hgb remains stable at this time 4. DLBCL - therapy held at this time ]
[2018-04-18] MEDS: Enoxaparin(*) 40 MG/0.4 ML SYR SUBCUT SCH (17:09)
[2018-04-18] MEDS: Azithromycin IV(*) 500 MG in NS 0.9% 250 ML* 250 ML IVPB SCH (18:40)
[2018-04-19] MEDS: Levalbuterol 1.25MG/0.5ML NEB INH SCH ×4 (00:38→20:21)
[2018-04-19] MEDS: D5W IVPB SCH ×5 (00:53→19:12)
[2018-04-19] MEDS: TRIMETH IVPB SCH ×5 (00:53→19:12)
[2018-04-19] MEDS: SULFAMETHOXAZOLE IVPB SCH ×5 (00:53→19:12)
[2018-04-19] MEDS: Chlorhexidine MOUTHWASH 0.12%* 15 ML UDC TOPICAL SCH ×4 (00:54→13:49)
[2018-04-19] MEDS: Propofol* 100 ML IV SCH ×3 (02:03→10:14)
[2018-04-19] MEDS: ZOSYN 3.375 GM Q8H per EXTENDED INFUSION IVPB SCH ×6 (05:03→21:45)
[2018-04-19 05:29] LABS: Hematocrit 19 % (42-52); Hemoglobin 6.2 g/dl (14.0-18.0); Mean Corpuscular HGB Conc 32 g/dl (31-36); Mean Corpuscular Hemoglobin 30 pg (27-31); Mean Corpuscular Volume 94 fL (80-94); Mean Platelet Volume 7.8 um3 (7.4-10.4); Platelet Count 293 10^3/ul (150-450); Red Blood Count 2.03 10^6/ul (4.00-5.40); Red Cell Distribution Width 18 % (10.5-15); White Blood Count 7.9 10^3/ul (3.5-10.8)
[2018-04-19] MEDS: methylPREDNISolone SOD 40 MG* 1 ML VIAL IV SCH ×2 (06:17→17:30)
--- NOTE | 2018-04-19 06:17 | PN ---
Progress Note - Progress Note Date of Service: 04/19/18 Note: Paged for drop in h/h - no active bleeding per staff. Will order 2 units of PRBCs, change to PPI drip. Hold lovenox and order SCDs
[2018-04-19 06:27] LABS: Hematocrit 25 % (42-52); Mean Corpuscular HGB Conc 32 g/dl (31-36); Mean Corpuscular Hemoglobin 29 pg (27-31); Mean Corpuscular Volume 91 fL (80-94); Mean Platelet Volume 7.4 um3 (7.4-10.4); Platelet Count 356 10^3/ul (150-450); Red Blood Count 2.79 10^6/ul (4.00-5.40); Red Cell Distribution Width 18 % (10.5-15); White Blood Count 11.1 10^3/ul (3.5-10.8)
[2018-04-19 06:41] LABS: EGFR Non-African American 157.5 (>60)
[2018-04-19] MEDS: Budesonide NEB* 0.5 MG/2 ML NEB.SOLN INH SCH ×2 (07:31→20:21)
--- NOTE | 2018-04-19 07:34 | RAD ---
HISTORY: respiratory failure COMPARISONS: April 17, 2018 VIEWS: 1: frontal portable view of the chest at 6:05 AM FINDINGS: LINES AND TUBES: An endotracheal tube is noted with the tip overlying the trachea between the clavicles and the anish. A gastric tube is noted, with the tip in the left upper quadrant in a prepyloric position.. A right-sided chest port is noted from a right internal jugular vein approach with the tip overlying the superior vena cava. A right-sided PICC line is noted with the tip overlying the superior vena cava. CARDIOMEDIASTINAL SILHOUETTE: The cardiomediastinal silhouette is normal for portable technique. PLEURA: The costophrenic angles are sharp. No pleural abnormalities are noted. LUNG PARENCHYMA: There is a diffuse coarse reticular pattern. This is similar to the previous examinations. ABDOMEN: The upper abdomen is clear. There is no subphrenic gas. BONES AND SOFT TISSUES: No bone or soft tissue abnormalities are noted. IMPRESSION: 1. LINES AND TUBES ABOVE. 2. STABLE INTERSTITIAL LUNG DISEASE.
[2018-04-19] MEDS ORDERED: Pantoprazole IV* 80 MG in NS 0.9% 250 ML* 250 ML IVPB SCH (08:00)
[2018-04-19] MEDS ORDERED: Furosemide IV* 10 MG/ML 2 ML VIAL (20 MG) IV SLOW PU ONE (08:57)
[2018-04-19] MEDS: Pantoprazole IV* 40 MG IV SCH ×2 (09:36→21:01)
[2018-04-19] MEDS: Citalopram TAB* 20 MG PO SCH (09:41)
--- NOTE | 2018-04-19 09:45 | PN ---
Progress Note - Progress Note Date of Service: 04/19/18 Note: Progress Note Critical Care 24 hour events/significant events: -remains intubated; no events overnight -afebrile -on propofol; but awake, follows commands -switched to CPAP this morning by me -AM BCC with drop in hg, but repeat was okay; transfusions cancelled Tele: sinus tachy Vitals: Vital Signs Temp 97.9 F 04/19/18 08:00 Pulse 107 04/19/18 08:00 Resp 22 04/19/18 07:44 BP 138/77 04/19/18 08:00 Pulse Ox 95 04/19/18 08:00 Intake & Output 04/18/18 04/19/18 04/19/18 18:59 06:59 18:59 Intake Total 1567 2937 Output Total 2395 1275 125 Balance -828 1662 -125 Weight 82.5 kg Intake: IVPB 19 kvo 19 Medicated IV 1189 1909 Bactrim 525 1339 CC - Propofol/Diprivan 251 360 Fluconazole 105 NS 50 17 Zosyn 148 193 ferric gluconate 110 Tube Feeding 203 1009 [place] Amount 175 Output: [place] 2395 1275 125 Other: Date of Last Bowel 04/19/18 Movement # Bowel Movements 1 Estimated Stool Amount Large O2/Vent: AC 12/550/+12/40% ->> cpcp 10/6 40% Infusions: propofol Medications: Acetaminophen (Tylenol Adult Liq*) 650 mg NG TUBE Q4H PRN PRN Reason: FEVER/HEADACHE Last Admin: 04/16/18 06:36 Dose: 650 mg Bisacodyl (Dulcolax Supp*) 10 mg VT DAILY PRN PRN Reason: CONSTIPATION Last Admin: 04/18/18 11:48 Dose: 10 mg Budesonide (Pulmicort Neb*) 0.5 mg INH RT.BID [facility] Last Admin: 04/19/18 07:31 Dose: 0.5 mg Chlorhexidine Gluconate (Peridex Mouth Wash 0.12%*) 15 ml TOPICAL Q4H [facility] Last Admin: 04/19/18 09:36 Dose: 15 ml Citalopram Hydrobromide (Celexa Tab*) 20 mg PO DAILY [facility] Last Admin: 04/18/18 09:05 Dose: 20 mg Docusate Sodium (Colace Liq*) 100 mg PO BID PRN PRN Reason: CONSTIPATION Last Admin: 04/18/18 11:48 Dose: 100 mg Enoxaparin Sodium (Lovenox(*)) 40 mg SUBCUT Q24H [facility] Fentanyl Citrate (Fentanyl*) 25 mcg IV SLOW PU Q4H PRN PRN Reason: DISCOMFORT Last Admin: 04/18/18 00:50 Dose: 25 mcg Heparin Sodium (Porcine) (Heparin Flush Port (Ivad)) 5 ml FLUSH DAILY [facility]; Protocol Last Admin: 04/19/18 09:38 Dose: Not Given Heparin Sodium (Porcine) (Heparin Flush Picc/Ml/Cvc(*)) 1 - 3 ml FLUSH 0600, 1800 [facility]; Protocol Last Admin: 04/19/18 06:17 Dose: Not Given Piperacillin Sod/Tazobactam (Sod 3.375 gm/ Sodium Chloride) 100 mls @ 25 mls/ hr IVPB Q8H [facility] Last Admin: 04/19/18 05:03 Dose: 25 mls/hr Propofol (Diprivan*) 100 mls @ 4.596 mls/hr IV .(Initial Rate) [facility]; Protocol Last Admin: 04/19/18 05:12 Dose: 20.5 mls/hr Norepinephrine Bitartrate (Levophed 16 Mcg/Ml Premix Bag*) 4,000 mcg in 250 mls @ 18.75 mls/hr IV .INITIAL RATE [facility]; Protocol Last Admin: 04/16/18 06:59 Dose: 18.75 mls/hr Ferric Sodium Gluconate Complex 125 mg/ Sodium Chloride 110 mls @ 110 mls/hr IVPB DAILY [facility] Stop: 04/23/18 11:42 Last Admin: 04/18/18 10:54 Dose: 110 mls/hr Trimethoprim/Sulfamethoxazole (300 mg/ Dextrose) 518.75 mls @ 259.375 mls/hr IVPB Q6H [facility] Last Admin: 04/19/18 06:17 Dose: 259.375 mls/hr Levalbuterol HCl (Xopenex 1.25 Mg/0.5 Ml Neb.Julissa*) 1.25 mg INH [id number] AWAKE [facility] Last Admin: 04/19/18 07:31 Dose: 1.25 mg Methylprednisolone Sodium Succinate (Solu-Medrol 40 Mg) 40 mg IV Q12H [facility] Last Admin: 04/19/18 06:17 Dose: 40 mg Multi-Ingredient Mouthwash/Gargle (Magic M W2 Todd/Maal/Nyst/Lido*) 5 ml SWISH SWAL [id number] AWAKE PRN PRN Reason: mouth pain/mucositis Last Admin: 04/13/18 19:37 Dose: 5 ml Pantoprazole Sodium (Protonix Iv*) 40 mg IV BID [facility] Last Admin: 04/19/18 09:36 Dose: 40 mg Pharmacy Consult (Zosyn Per Pharmacy*) 1 note FOLLOW UP . PRN PRN Reason: PER PROTOCOL Sucralfate (Sucralfate Susp) 1 gm PO ACHS [facility] Last Admin: 04/18/18 21:38 Dose: 1 gm Throat Lozenges (Chloraseptic Ursula*) 1 ursula MT Q6H PRN PRN Reason: SORE THROAT Last Admin: 04/15/18 17:36 Dose: 1 ursula Physical Exam: General: intubated, sedated but easiliy arousable/awake, no distress, no diaphoresis Head: normocephalic, atraumatic HEENT: no pallor, no icterus, moist mucous membranes Neck: soft, supple CVS: tachy, regular, no murmur Resp: bilateral air entry, minimal rhales, no wheeze/rhonchi, no acc muscle use Abdomen: soft, nontender, nondistended, bowel sounds present Ext: pulses+, warm, no edema Skin: intact, no breakdown, no dryness Neuro: intubated, sedated, awakens, follows some commands Labs: Laboratory Results - last 24 hr 04/18/18 04/19/18 04/19/18 05:58 05:15 05:15 WBC 7.9 RBC 2.03 L Hgb 6.2 L* Hct 19 L MCV 94 MCH 30 MCHC 32 RDW 18 H Plt Count 293 MPV 7.8 Patient Temperature ABG pH ABG pH (Temp Correct) ABG pCO2 ABG pCO2 (Temp Corrct ABG pO2 ABG pO2 (Temp Correct ABG HCO3 ABG O2 Saturation ABG Base Excess Respiration Rate Ventilator Type Vent Mode FiO2 Inspiratory Time PEEP Pressure Support Pressure Control EPAP IPAP BiPAP Sodium TNP Potassium 3.4 L Chloride 83 L Carbon Dioxide 22 Anion Gap TNP BUN 15 Creatinine 0.40 L Est GFR ( Amer) 263.7 Est GFR (Non-Af Amer) 218.0 BUN/Creatinine Ratio 37.5 H Glucose TNP Calcium TNP Blood Type Cancelled Antibody Screen Cancelled Crossmatch See Detail 04/19/18 04/19/18 04/19/18 05:45 06:15 06:15 WBC 11.1 H RBC 2.79 L Hgb 8.0 L Hct 25 L MCV 91 MCH 29 MCHC 32 RDW 18 H Plt Count 356 MPV 7.4 Patient Temperature Not Reportable ABG pH 7.41 ABG pH (Temp Correct) Not Reportable ABG pCO2 44 ABG pCO2 (Temp Corrct Not Reportable ABG pO2 72 L ABG pO2 (Temp Correct Not Reportable ABG HCO3 27.2 ABG O2 Saturation 97.7 ABG Base Excess 2.9 H Respiration Rate 20 Ventilator Type 550 Vent Mode Cmv FiO2 40 Inspiratory Time 1.0 PEEP 8 Pressure Support Not Reportable Pressure Control Not Reportable EPAP Not Reportable IPAP Not Reportable BiPAP Not Reportable Sodium 141 Potassium 5.0 D Chloride 110 Carbon Dioxide 23 Anion Gap 8 BUN 20 Creatinine 0.53 L Est GFR ( Amer) 190.6 Est GFR (Non-Af Amer) 157.5 BUN/Creatinine Ratio 37.7 H Glucose 127 H Calcium 7.9 L Blood Type Antibody Screen Crossmatch Imaging: cxr 04/17 - improving bilateral infitlrates, still present+ cxr 04/19 - ett above anish, mild scattered infiltrates+ Assessment: 63y M pmhx of 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 Patient comes in for endoscopy for further eval for GIB source, develops respiratory distress after, eventually intubated 04/16. -Shock, unspecified; resolved -acute hypoxic respiratory failure/ARDS -PCP pneumonia+, bilateral -hemophilus parainfluenza+ -DLBCL, stage IV, diffuse involvement; s/p chemo x1 -Anemia -PUD Plan: Neuro- maintain propofol, can wean down for vent weaning trial. follows commands. asp prec. neurochecks. sedation vacation as tolerated. CVS- no pressors. BP stable. mild tachycardia. making good urine, off IVF, positive balance. Lasix 20mg iv x1 today again. IV abx. hg 8s, stable, no transfusion. Resp- CXR 04/19 bilateral infiltrates+. on 40% fio2. Maintain AC mode, dec peep to 6 today. CPAP trial now 06/09. doing well so far. plan for extubation after rounds, rsbi 25 now, TV 900+ so far. will extubate to NC or hiflow. minimal secretions. Narrowing IV abx today for PCP coverage, completed 5 days bacterial coverage, no growth. cont solumedrol 40mg iv q12. Bronchodilators prn. Sputum+ for hemophilus parainf, BAL+ for PCP serology. ID- afebrile now. wbc 11. Sputum 04/14 hemophilus parainfluenza; BAL+ for PCP. D/ C zosyn today (6 days completed). Cont Bactrim IV (day#4) GI- cont PPI/SUcralfate for PUD. on Glucerna 1.2 @ 60 vi NGT, tolerating. asp prec. dulcolax/colace for constipation. Renal- Cr okay. K 5.0 making urine. ureña+. positive balance. repeat lasix 20mg iv x1 now, will help with volume removal and potassium removal. Heme- hg 8s. plt okay. dvt chemical proph. Endo- fingersticks as needed Musculsk- pressure ulcer prophylaxis. Bedrest. Wounds- none Nutrition- ngt feeds, glucerna 1.2 DVT prophylaxis: heparin sq GI prophylaxis: ppi/sucralfate Central Line: PICC 04/18 Arterial Line: no [place]re[place] Cathetor: yes Disposition: ICU Code Status: full code Total Critical Care time is 30 minutes, excluding procedures/teaching Samy Montemayor MD Parks Recreation Director (Electronically Signed)
[2018-04-19] MEDS: Sucralfate SUSP 1 GM/10 ml 10 ML UDC PO SCH ×4 (09:52→21:01)
[2018-04-19] MEDS: Ferric Gluconate IV* 125 MG in NS 0.9% 100 ML* 100 ML IVPB SCH (10:01)
--- NOTE | 2018-04-19 10:25 | PN ---
Progress Note - Progress Note Date of Service: 04/19/18 SOAP: Subjective: [Sedated and intubated, will respond to some verbal cues. Placed on spontaneous mode this am with plans for possible extubation later today. Errant labs noted this am, repeat were in line with expected values.] Objective: [ Vital Signs Temp Pulse Resp BP Pulse Ox 97.9 F 107 22 138/77 95 04/19/18 08:00 04/19/18 08:00 04/19/18 07:44 04/19/18 08:00 04/19/18 08:00 Acetaminophen (Tylenol Adult Liq*) 650 mg NG TUBE Q4H PRN PRN Reason: FEVER/HEADACHE Last Admin: 04/16/18 06:36 Dose: 650 mg Bisacodyl (Dulcolax Supp*) 10 mg [place] DAILY PRN PRN Reason: CONSTIPATION Last Admin: 04/18/18 11:48 Dose: 10 mg Budesonide (Pulmicort Neb*) 0.5 mg INH RT.BID [facility] Last Admin: 04/19/18 07:31 Dose: 0.5 mg Chlorhexidine Gluconate (Peridex Mouth Wash 0.12%*) 15 ml TOPICAL Q4H [facility] Last Admin: 04/19/18 09:36 Dose: 15 ml Citalopram Hydrobromide (Celexa Tab*) 20 mg PO DAILY [facility] Last Admin: 04/19/18 09:41 Dose: 20 mg Docusate Sodium (Colace Liq*) 100 mg PO BID PRN PRN Reason: CONSTIPATION Last Admin: 04/18/18 11:48 Dose: 100 mg Enoxaparin Sodium (Lovenox(*)) 40 mg SUBCUT Q24H [facility] Fentanyl Citrate (Fentanyl*) 25 mcg IV SLOW PU Q4H PRN PRN Reason: DISCOMFORT Last Admin: 04/18/18 00:50 Dose: 25 mcg Heparin Sodium (Porcine) (Heparin Flush Port (Ivad)) 5 ml FLUSH DAILY [facility]; Protocol Last Admin: 04/19/18 09:38 Dose: Not Given Heparin Sodium (Porcine) (Heparin Flush Picc/Ml/Cvc(*)) 1 - 3 ml FLUSH 0600, 1800 [facility]; Protocol Last Admin: 04/19/18 06:17 Dose: Not Given Piperacillin Sod/Tazobactam (Sod 3.375 gm/ Sodium Chloride) 100 mls @ 25 mls/ hr IVPB Q8H [facility] Last Admin: 04/19/18 05:03 Dose: 25 mls/hr Propofol (Diprivan*) 100 mls @ 4.596 mls/hr IV .(Initial Rate) [facility]; Protocol Last Admin: 04/19/18 10:14 Dose: 4.596 mls/hr Norepinephrine Bitartrate (Levophed 16 Mcg/Ml Premix Bag*) 4,000 mcg in 250 mls @ 18.75 mls/hr IV .INITIAL RATE [facility]; Protocol Last Admin: 04/16/18 06:59 Dose: 18.75 mls/hr Ferric Sodium Gluconate Complex 125 mg/ Sodium Chloride 110 mls @ 110 mls/hr IVPB DAILY [facility] Stop: 04/23/18 11:42 Last Admin: 04/19/18 10:01 Dose: 110 mls/hr Trimethoprim/Sulfamethoxazole (300 mg/ Dextrose) 518.75 mls @ 259.375 mls/hr IVPB Q6H [facility] Last Admin: 04/19/18 06:17 Dose: 259.375 mls/hr Levalbuterol HCl (Xopenex 1.25 Mg/0.5 Ml Neb.Julissa*) 1.25 mg INH [id number] AWAKE [facility] Last Admin: 04/19/18 07:31 Dose: 1.25 mg Methylprednisolone Sodium Succinate (Solu-Medrol 40 Mg) 40 mg IV Q12H [facility] Last Admin: 04/19/18 06:17 Dose: 40 mg Multi-Ingredient Mouthwash/Gargle (Magic M W2 Todd/Maal/Nyst/Lido*) 5 ml SWISH SWAL [id number] AWAKE PRN PRN Reason: mouth pain/mucositis Last Admin: 04/13/18 19:37 Dose: 5 ml Pantoprazole Sodium (Protonix Iv*) 40 mg IV BID [facility] Last Admin: 04/19/18 09:36 Dose: 40 mg Pharmacy Consult (Zosyn Per Pharmacy*) 1 note FOLLOW UP . PRN PRN Reason: PER PROTOCOL Sucralfate (Sucralfate Susp) 1 gm PO ACHS [facility] Last Admin: 04/19/18 09:52 Dose: 1 gm Throat Lozenges (Chloraseptic Ursula*) 1 ursula MT Q6H PRN PRN Reason: SORE THROAT Last Admin: 04/15/18 17:36 Dose: 1 ursula Laboratory Results - last 24 hr 04/18/18 04/19/18 04/19/18 05:58 05:15 05:15 WBC 7.9 RBC 2.03 L Hgb 6.2 L* Hct 19 L MCV 94 MCH 30 MCHC 32 RDW 18 H Plt Count 293 MPV 7.8 Patient Temperature ABG pH ABG pH (Temp Correct) ABG pCO2 ABG pCO2 (Temp Corrct ABG pO2 ABG pO2 (Temp Correct ABG HCO3 ABG O2 Saturation ABG Base Excess Respiration Rate Ventilator Type Vent Mode FiO2 Inspiratory Time PEEP Pressure Support Pressure Control EPAP IPAP BiPAP Sodium TNP Potassium 3.4 L Chloride 83 L Carbon Dioxide 22 Anion Gap TNP BUN 15 Creatinine 0.40 L Est GFR ( Amer) 263.7 Est GFR (Non-Af Amer) 218.0 BUN/Creatinine Ratio 37.5 H Glucose TNP Calcium TNP Blood Type Cancelled Antibody Screen Cancelled Crossmatch See Detail 04/19/18 04/19/18 04/19/18 05:45 06:15 06:15 WBC 11.1 H RBC 2.79 L Hgb 8.0 L Hct 25 L MCV 91 MCH 29 MCHC 32 RDW 18 H Plt Count 356 MPV 7.4 Patient Temperature Not Reportable ABG pH 7.41 ABG pH (Temp Correct) Not Reportable ABG pCO2 44 ABG pCO2 (Temp Corrct Not Reportable ABG pO2 72 L ABG pO2 (Temp Correct Not Reportable ABG HCO3 27.2 ABG O2 Saturation 97.7 ABG Base Excess 2.9 H Respiration Rate 20 Ventilator Type 550 Vent Mode Cmv FiO2 40 Inspiratory Time 1.0 PEEP 8 Pressure Support Not Reportable Pressure Control Not Reportable EPAP Not Reportable IPAP Not Reportable BiPAP Not Reportable Sodium 141 Potassium 5.0 D Chloride 110 Carbon Dioxide 23 Anion Gap 8 BUN 20 Creatinine 0.53 L Est GFR ( Amer) 190.6 Est GFR (Non-Af Amer) 157.5 BUN/Creatinine Ratio 37.7 H Glucose 127 H Calcium 7.9 L Blood Type Antibody Screen Crossmatch [Exam: Gen: Ventilated, sedated Resp: few course lung sounds CV: RRR Ext: trace LE edema Skin: No concerning rashes or lesions] Assessment: [63 yo male with DLBCL s/p C1 EPOCH complicated by GI bleed due to multiple stomach ulcerations likely due to leukemic infiltration who was readmitted with worsening cough and hypoxia with bilateral infiltrates on CT, who developed acute respiratory failure, now ventilated. Bronchoscopy completed 04/14 with nl path and PCP PCR +.] Plan: [1. Pneumocystitis PNA - BAL + PCP on PCR - cont IV Bactrim and corticosteroids - dc Zosyn and azithromycin - repeat CXR this am appears improved 2. Acute respiratory failure - ventilation management per import/export clerk - plan for possible extubation tomorrow 3. H/o GI bleed - cont IV PPI - Hgb remains stable at this time (noted errant labs this am) 4. DLBCL - therapy held at this time]
[2018-04-19] MEDS ORDERED: Enoxaparin(*) 40 MG/0.4 ML SYR SUBCUT SCH (15:00)
--- NOTE | 2018-04-19 15:03 | PN ---
Progress Note - Progress Note Date of Service: 04/19/18 Note: extubated successfully better oxygenation on hiflow; now on 70% 40lpm; current sats 92-94%, rr 20s, then upto 30s, fluctuates. some tachypnea but no sig acc muscle use cough+, able to bring up secretions which arent copious HR 90s, better than before will cont hiflow for now; can alternate with NIV PRN 10/5 as needed or even at night awake, alert, able to follow commands. weak voice for now. no stridor. Samy Montemayor Principal Statistical Scientist
[2018-04-19] MEDS: Enoxaparin(*) 40 MG/0.4 ML SYR SUBCUT SCH (17:30)
--- NOTE | 2018-04-19 18:04 | PN ---
Progress Note - Progress Note Date of Service: 04/19/18 - Pulm f/u note Note: Pt was seen and examined at bedside. Pt was extubated this am, still requiring high flow. Has intermittent coughing Active Medications Generic Name Dose Route Start Last Admin Trade Name Freq PRN Reason Stop Dose Admin Acetaminophen 650 mg 04/16/18 06:15 04/16/18 06:36 Tylenol Adult Liq* NG TUBE 650 mg Q4H PRN Administration FEVER/HEADACHE Bisacodyl 10 mg 04/18/18 10:48 04/18/18 11:48 Dulcolax Supp* [place] 10 mg DAILY PRN Administration CONSTIPATION Budesonide 0.5 mg 04/15/18 21:00 04/19/18 07:31 Pulmicort Neb* INH 0.5 mg RT.BID [facility] Administration Citalopram Hydrobromide 20 mg 04/14/18 09:00 04/19/18 09:41 Celexa Tab* PO 20 mg DAILY [facility] Administration Docusate Sodium 100 mg 04/18/18 10:48 04/18/18 11:48 Colace Liq* PO 100 mg BID PRN Administration CONSTIPATION Enoxaparin Sodium 40 mg 04/19/18 17:00 04/19/18 17:30 Lovenox(*) SUBCUT 40 mg Q24H [facility] Administration Heparin Sodium (Porcine) 5 ml 04/14/18 09:00 04/19/18 09:38 Heparin Flush Port (Ivad) FLUSH Not Given DAILY [facility] Protocol Heparin Sodium (Porcine) 1 - 3 ml 04/18/18 18:00 04/19/18 17:31 Heparin Flush Picc/Ml/Cvc(*) FLUSH 1 ml 0600,1800 [facility] Administration Protocol Piperacillin Sod/Tazobactam 100 mls @ 25 mls/hr 04/14/18 05:30 04/19/18 13:57 Sod 3.375 gm/ Sodium Chloride IVPB 04/19/18 23:59 25 mls/hr Q8H [facility] Administration Ferric Sodium Gluconate 110 mls @ 110 mls/hr 04/18/18 09:00 04/19/18 10:01 Complex 125 mg/ Sodium IVPB 04/23/18 11:42 110 mls/hr Chloride DAILY [facility] Administration Trimethoprim/Sulfamethoxazole 518.75 mls @ 259.375 mls/hr 04/18/18 12:00 14:38 300 mg/ Dextrose IVPB 259.375 mls/hr Q6H [facility] Administration Levalbuterol HCl 1.25 mg 04/16/18 01:00 04/19/18 13:15 Xopenex 1.25 Mg/0.5 Ml Neb.Julissa* INH 1.25 mg [id number] AWAKE [facility] Administration Methylprednisolone Sodium Succinate 40 mg 04/18/18 18:00 04/19/18 17:30 Solu-Medrol 40 Mg IV 40 mg Q12H [facility] Administration Multi-Ingredient Mouthwash/Gargle 5 ml 04/13/18 17:04 04/13/18 19:37 Magic M W2 Todd/Maal/Nyst/Lido* SWISH SWAL 5 ml [id number] AWAKE PRN Administration mouth pain/mucositis Pantoprazole Sodium 40 mg 04/19/18 09:00 04/19/18 09:36 Protonix Iv* IV 40 mg BID [facility] Administration Pharmacy Consult 1 note 04/14/18 01:41 Zosyn Per Pharmacy* FOLLOW UP 04/19/18 23:59 . PRN PER PROTOCOL Sucralfate 1 gm 04/13/18 21:00 04/19/18 17:30 Sucralfate Susp PO 1 gm ACHS [facility] Administration Throat Lozenges 1 rubén 04/14/18 20:15 04/15/18 17:36 Chloraseptic Rubén* MT 1 rubén Q6H PRN Administration SORE THROAT Vital Signs Temp Pulse Resp BP Pulse Ox 99.0 F 97 25 132/84 94 04/19/18 17:30 04/19/18 17:30 04/19/18 17:30 04/19/18 17:30 04/19/18 17:30 O/E: Pt in NAD HEENT: PERRLA, No JVD Lungs: Scaterred crackles + CVS: S1, S2+ Abd: Soft, BS+ Ext: Normal ROM Skin: No rash Neuro: No focal defecits Laboratory Results - last 24 hr 04/18/18 04/19/18 04/19/18 05:58 05:15 05:15 WBC 7.9 RBC 2.03 L Hgb 6.2 L* Hct 19 L MCV 94 MCH 30 MCHC 32 RDW 18 H Plt Count 293 MPV 7.8 Patient Temperature ABG pH ABG pH (Temp Correct) ABG pCO2 ABG pCO2 (Temp Corrct ABG pO2 ABG pO2 (Temp Correct ABG HCO3 ABG O2 Saturation ABG Base Excess Respiration Rate Ventilator Type Vent Mode FiO2 Inspiratory Time PEEP Pressure Support Pressure Control EPAP IPAP BiPAP Sodium TNP Potassium 3.4 L Chloride 83 L Carbon Dioxide 22 Anion Gap TNP BUN 15 Creatinine 0.40 L Est GFR ( Amer) 263.7 Est GFR (Non-Af Amer) 218.0 BUN/Creatinine Ratio 37.5 H Glucose TNP Calcium TNP Blood Type Cancelled Antibody Screen Cancelled Crossmatch See Detail 04/19/18 04/19/18 04/19/18 05:45 06:15 06:15 WBC 11.1 H RBC 2.79 L Hgb 8.0 L Hct 25 L MCV 91 MCH 29 MCHC 32 RDW 18 H Plt Count 356 MPV 7.4 Patient Temperature Not Reportable ABG pH 7.41 ABG pH (Temp Correct) Not Reportable ABG pCO2 44 ABG pCO2 (Temp Corrct Not Reportable ABG pO2 72 L ABG pO2 (Temp Correct Not Reportable ABG HCO3 27.2 ABG O2 Saturation 97.7 ABG Base Excess 2.9 H Respiration Rate 20 Ventilator Type 550 Vent Mode Cmv FiO2 40 Inspiratory Time 1.0 PEEP 8 Pressure Support Not Reportable Pressure Control Not Reportable EPAP Not Reportable IPAP Not Reportable BiPAP Not Reportable Sodium 141 Potassium 5.0 D Chloride 110 Carbon Dioxide 23 Anion Gap 8 BUN 20 Creatinine 0.53 L Est GFR ( Amer) 190.6 Est GFR (Non-Af Amer) 157.5 BUN/Creatinine Ratio 37.7 H Glucose 127 H Calcium 7.9 L Blood Type Antibody Screen Crossmatch I/R: 63 y o m with DLBCL s/p 1 course chemo, GI bleed, admitted with worsening SOB, hypoxia underwent bronchoscopy, worsening oxygenation status requiring intubation BAL positive for PCP, on Bactrim and steroids Has required 40% FiO2 when on Vent, currently requiring high flow and 70% FiO2 Overall imrpoving, CXR improving To complete 21 days of Bactrim c/w O2 taper as tolerated D/w Dr Montemayor, family at bedside
[2018-04-19] MEDS ORDERED: Norepinephrine 16MCG/ML IVPRE* 4,000 MCG/250 ML BAG IV SCH (23:00)
[2018-04-19] MEDS: Melatonin 3 MG TAB PO SCH (23:04)
[2018-04-20] MEDS: TRIMETH IVPB SCH ×4 (00:09→19:17)
[2018-04-20] MEDS: SULFAMETHOXAZOLE IVPB SCH ×4 (00:09→19:17)
[2018-04-20] MEDS: D5W IVPB SCH ×4 (00:09→19:17)
[2018-04-20] MEDS: Levalbuterol 1.25MG/0.5ML NEB INH SCH ×4 (00:47→19:47)
[2018-04-20] MEDS ORDERED: Furosemide IV* 10 MG/ML 2 ML VIAL (20 MG) ONE (05:24)
[2018-04-20] MEDS ORDERED: Furosemide IV* 10 MG/ML 2 ML VIAL (20 MG) IV ONE (05:34)
[2018-04-20 05:38] LABS: Hematocrit 24 % (42-52); Hemoglobin 7.9 g/dl (14.0-18.0); Mean Corpuscular HGB Conc 33 g/dl (31-36); Mean Corpuscular Hemoglobin 29 pg (27-31); Mean Corpuscular Volume 86 fL (80-94); Mean Platelet Volume 7.8 um3 (7.4-10.4); Platelet Count 387 10^3/ul (150-450); Red Blood Count 2.76 10^6/ul (4.00-5.40); Red Cell Distribution Width 17 % (10.5-15); White Blood Count 11.9 10^3/ul (3.5-10.8)
[2018-04-20 05:55] LABS: EGFR Non-African American 164.7 (>60)
[2018-04-20] MEDS: methylPREDNISolone SOD 40 MG* 1 ML VIAL IV SCH ×2 (06:26→17:15)
[2018-04-20] MEDS: Budesonide NEB* 0.5 MG/2 ML NEB.SOLN INH SCH ×2 (07:17→19:47)
--- NOTE | 2018-04-20 07:52 | PN ---
Progress Note - Progress Note Date of Service: 04/20/18 SOAP: Subjective: extubated yesterday. got lasix o/n for respiratory distress, peed >1L and feels better. reports that he still feels very weak. Objective: Vital Signs Temp Pulse Resp BP Pulse Ox 98.4 F 116 28 133/85 94 04/20/18 06:00 04/20/18 07:20 04/20/18 07:20 04/20/18 06:00 04/20/18 07:20 sitting up, tachypneic but calm perr eomi op moist much clearer, better air movement tachycardic soft nt +Bs trace-1+ le edema A+O x3 globally weak but grossly nonfocal 3 cm left axillary node clean port Laboratory Results - last 24 hr 04/20/18 04/20/18 05:15 05:15 WBC 11.9 H RBC 2.76 L Hgb 7.9 L Hct 24 L MCV 86 MCH 29 MCHC 33 RDW 17 H Plt Count 387 MPV 7.8 Sodium 139 Potassium 4.8 Chloride 103 Carbon Dioxide 30 Anion Gap 6 BUN 19 Creatinine 0.51 L Est GFR ( Amer) 199.3 Est GFR (Non-Af Amer) 164.7 BUN/Creatinine Ratio 37.3 H Glucose 91 Calcium 8.1 L Acetaminophen (Tylenol Adult Liq*) 650 mg NG TUBE Q4H PRN PRN Reason: FEVER/HEADACHE Last Admin: 04/16/18 06:36 Dose: 650 mg Bisacodyl (Dulcolax Supp*) 10 mg MS DAILY PRN PRN Reason: CONSTIPATION Last Admin: 04/18/18 11:48 Dose: 10 mg Budesonide (Pulmicort Neb*) 0.5 mg INH RT.BID [facility] Last Admin: 04/20/18 07:17 Dose: 0.5 mg Citalopram Hydrobromide (Celexa Tab*) 20 mg PO DAILY [facility] Last Admin: 04/19/18 09:41 Dose: 20 mg Docusate Sodium (Colace Liq*) 100 mg PO BID PRN PRN Reason: CONSTIPATION Last Admin: 04/18/18 11:48 Dose: 100 mg Enoxaparin Sodium (Lovenox(*)) 40 mg SUBCUT Q24H [facility] Last Admin: 04/19/18 17:30 Dose: 40 mg Heparin Sodium (Porcine) (Heparin Flush Port (Ivad)) 5 ml FLUSH DAILY [facility]; Protocol Last Admin: 04/19/18 09:38 Dose: Not Given Heparin Sodium (Porcine) (Heparin Flush Picc/Ml/Cvc(*)) 1 - 3 ml FLUSH 0600, 1800 [facility]; Protocol Last Admin: 04/20/18 04:23 Dose: Not Given Ferric Sodium Gluconate Complex 125 mg/ Sodium Chloride 110 mls @ 110 mls/hr IVPB DAILY [facility] Stop: 04/23/18 11:42 Last Admin: 04/19/18 10:01 Dose: 110 mls/hr Trimethoprim/Sulfamethoxazole (300 mg/ Dextrose) 518.75 mls @ 259.375 mls/hr IVPB Q6H [facility] Last Admin: 04/20/18 06:26 Dose: 259.375 mls/hr Levalbuterol HCl (Xopenex 1.25 Mg/0.5 Ml Neb.Julissa*) 1.25 mg INH [id number] AWAKE [facility] Last Admin: 04/20/18 07:17 Dose: 1.25 mg Melatonin (Melatonin) 3 mg PO BEDTIME [facility] Last Admin: 04/19/18 23:04 Dose: 3 mg Methylprednisolone Sodium Succinate (Solu-Medrol 40 Mg) 40 mg IV Q12H [facility] Last Admin: 04/20/18 06:26 Dose: 40 mg Multi-Ingredient Mouthwash/Gargle (Magic M W2 Todd/Maal/Nyst/Lido*) 5 ml SWISH SWAL [id number] AWAKE PRN PRN Reason: mouth pain/mucositis Last Admin: 04/13/18 19:37 Dose: 5 ml Pantoprazole Sodium (Protonix Iv*) 40 mg IV BID [facility] Last Admin: 04/19/18 21:01 Dose: 40 mg Sucralfate (Sucralfate Susp) 1 gm PO ACHS [facility] Last Admin: 04/19/18 21:01 Dose: 1 gm Throat Lozenges (Chloraseptic Ursula*) 1 ursula MT Q6H PRN PRN Reason: SORE THROAT Last Admin: 04/15/18 17:36 Dose: 1 ursula Assessment: 63 yo M w DLBCL sp da-REPOCH cycle 1 presenting with respiratory distress which ultimately proved to be PCP PNA. clinically markedly improved over this weekend when I saw him last. extubated and on appropriate coverage, has defervesced. Plan: -cont bactrim for 21 day course (01/23) -cont steroids -BID PPI IV while on this dose of steroids -ferlicit for ANGEL from GI bleed -cont ICU level care, appreciate CCM and pulm consultations full code
[2018-04-20] MEDS: Ferric Gluconate IV* 125 MG in NS 0.9% 100 ML* 100 ML IVPB SCH (08:48)
[2018-04-20] MEDS: Citalopram TAB* 20 MG PO SCH (08:52)
[2018-04-20] MEDS: Sucralfate SUSP 1 GM/10 ml 10 ML UDC PO SCH ×4 (08:53→20:49)
[2018-04-20] MEDS: Pantoprazole IV* 40 MG IV SCH ×2 (09:22→20:49)
--- NOTE | 2018-04-20 10:01 | RAD ---
Indication: Follow-up respiratory distress. Lung carcinoma. Comparison: April 19, 2018 Technique: Upright AP 0300 hours Report: The endotracheal tube has been removed. The nasogastric tube has been removed. Worsening of bilateral alveolar and interstitial opacities and small volume of fluid along the RIGHT minor fissure. Negative for pneumothorax. Tip of RIGHT chest port at level of superior vena cava RIGHT atrial junction. Negative for cardiomegaly. Unremarkable central pulmonary vasculature. IMPRESSION: #. Worsening of bilateral pulmonary infiltrates most suspicious for pneumonia.
--- NOTE | 2018-04-20 11:24 | PN ---
Progress Note - Progress Note Date of Service: 04/20/18 Note: Progress Note Critical Care 24 hour events/significant events: -extubated yesterday; did not tolerated NC, placed on hiflow -overnight was flat, went into resp distress, desat to 70s; placed on 100% hiflow, given lasix additional dose -this morning, awake, alert, on 90% 40lpm; now on 80%; sats 100%, rr 22; awake/ alert -cough+, sputum+ -tmax 99 Tele: sinus tachy Vitals: Vital Signs Temp 99.0 F 04/20/18 11:00 Pulse 99 04/20/18 11:00 Resp 33 04/20/18 11:00 BP 137/85 04/20/18 11:00 Pulse Ox 100 04/20/18 11:00 Intake & Output 04/19/18 04/20/18 04/20/18 18:59 06:59 18:59 Intake Total 1006 1772 120 Output Total 2345 3675 Balance -1339 -1903 120 Weight 82.7 kg Intake: IV Fluids 510 90 kvo 510 90 Medicated IV 496 1682 Bactrim 117 1469 CC - Propofol/Diprivan 85 NS 113 Zosyn 197 100 ferric gluconate 97 Oral 0 120 Output: Urine 1300 Ureña 2345 2375 Other: Date of Last Bowel 04/18/2018 Movement O2/Vent: hiflow NC 80% 40lpm Infusions: heplock Medications: Acetaminophen (Tylenol Adult Liq*) 650 mg NG TUBE Q4H PRN PRN Reason: FEVER/HEADACHE Last Admin: 04/16/18 06:36 Dose: 650 mg Bisacodyl (Dulcolax Supp*) 10 mg [place] DAILY PRN PRN Reason: CONSTIPATION Last Admin: 04/18/18 11:48 Dose: 10 mg Budesonide (Pulmicort Neb*) 0.5 mg INH RT.BID [facility] Last Admin: 04/20/18 07:17 Dose: 0.5 mg Citalopram Hydrobromide (Celexa Tab*) 20 mg PO DAILY [facility] Last Admin: 04/20/18 08:52 Dose: 20 mg Docusate Sodium (Colace Liq*) 100 mg PO BID PRN PRN Reason: CONSTIPATION Last Admin: 04/18/18 11:48 Dose: 100 mg Enoxaparin Sodium (Lovenox(*)) 40 mg SUBCUT Q24H [facility] Last Admin: 04/19/18 17:30 Dose: 40 mg Heparin Sodium (Porcine) (Heparin Flush Port (Ivad)) 5 ml FLUSH DAILY [facility]; Protocol Last Admin: 04/20/18 08:55 Dose: Not Given Heparin Sodium (Porcine) (Heparin Flush Picc/Ml/Cvc(*)) 1 - 3 ml FLUSH 0600, 1800 [facility]; Protocol Last Admin: 04/20/18 04:23 Dose: Not Given Ferric Sodium Gluconate Complex 125 mg/ Sodium Chloride 110 mls @ 110 mls/hr IVPB DAILY [facility] Stop: 04/23/18 11:42 Last Admin: 04/20/18 08:48 Dose: 110 mls/hr Trimethoprim/Sulfamethoxazole (300 mg/ Dextrose) 518.75 mls @ 259.375 mls/hr IVPB Q6H [facility] Last Admin: 04/20/18 06:26 Dose: 259.375 mls/hr Levalbuterol HCl (Xopenex 1.25 Mg/0.5 Ml Neb.Julissa*) 1.25 mg INH [id number] AWAKE [facility] Last Admin: 04/20/18 07:17 Dose: 1.25 mg Melatonin (Melatonin) 3 mg PO BEDTIME [facility] Last Admin: 04/19/18 23:04 Dose: 3 mg Methylprednisolone Sodium Succinate (Solu-Medrol 40 Mg) 40 mg IV Q12H [facility] Last Admin: 04/20/18 06:26 Dose: 40 mg Multi-Ingredient Mouthwash/Gargle (Magic M W2 Todd/Maal/Nyst/Lido*) 5 ml SWISH SWAL [id number] AWAKE PRN PRN Reason: mouth pain/mucositis Last Admin: 04/13/18 19:37 Dose: 5 ml Pantoprazole Sodium (Protonix Iv*) 40 mg IV BID [facility] Last Admin: 04/20/18 09:22 Dose: 40 mg Sucralfate (Sucralfate Susp) 1 gm PO ACHS [facility] Last Admin: 04/20/18 08:53 Dose: 1 gm Throat Lozenges (Chloraseptic Ursula*) 1 ursula MT Q6H PRN PRN Reason: SORE THROAT Last Admin: 04/15/18 17:36 Dose: 1 ursula Physical Exam: General: awake, alert, no distress Head: normocephalic, atraumatic HEENT: no pallor, no icterus, moist mucous membranes Neck: soft, supple CVS: tachy, regular, no murmur Resp: bilateral air entry, scattered rhales+, no wheeze/rhonchi, no acc muscle use Abdomen: soft, nontender, nondistended, bowel sounds present Ext: pulses+, warm, mild edema of hands/LE Skin: intact Neuro: awake, alert, oriented x3, tired, moves all ext Labs: Laboratory Results - last 24 hr 04/20/18 04/20/18 05:15 05:15 WBC 11.9 H RBC 2.76 L Hgb 7.9 L Hct 24 L MCV 86 MCH 29 MCHC 33 RDW 17 H Plt Count 387 MPV 7.8 Sodium 139 Potassium 4.8 Chloride 103 Carbon Dioxide 30 Anion Gap 6 BUN 19 Creatinine 0.51 L Est GFR ( Amer) 199.3 Est GFR (Non-Af Amer) 164.7 BUN/Creatinine Ratio 37.3 H Glucose 91 Calcium 8.1 L Imaging: cxr 04/17 - improving bilateral infitlrates, still present+ cxr 04/19 - ett above anish, mild scattered infiltrates+ cxr 04/20 - bilateral pulm infiltrates+ Assessment: 63y M pmhx of 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 Patient comes in for endoscopy for further eval for GIB source, develops respiratory distress after, eventually intubated 04/16. -Shock, unspecified; resolved -acute hypoxic respiratory failure/ARDS; extubated 04/19 -PCP pneumonia+, bilateral -hemophilus parainfluenza+ -DLBCL, stage IV, diffuse involvement; s/p chemo x1 -Anemia -PUD Plan: Neuro- weak overall. awake/alert. delirium prec. asp prec. CVS- no pressors. BP stable. mild tachycardia. making good urine, has distal edema in ext. start lasix 40mg IV daily. IV abx. hg 7-8s, stable, no transfusion. Resp- CXR 04/20 bilateral infiltrates+. Resp distress last night, better now. Maintain hiflow NC, cont weaning. Some component of pulm congestion. IV lasix daily. IV Bactrim q6h. cont solumedrol 40mg iv q12, will cut to daily tomorrow. Bronchodilators prn. Sputum+ for hemophilus parainf, BAL+ for PCP serology. ID- afebrile tmax 99. wbc 11. Sputum 8/10 hemophilus parainfluenza; BAL+ for PCP. Compelted 6 days zosyn. Cont Bactrim IV (day#01/23), swtich to PO if able to take po GI- cont PPI/SUcralfate for PUD. regular diet, encourage PO intake, needs to be fed. asp prec. dulcolax/colace for constipation. Renal- Cr okay. K 4.8. making urine. start lasix 40mg IV daily. ureña+. negative balance overnight. Heme- hg 8s. plt okay. dvt chemical proph. Endo- fingersticks as needed Musculsk- pressure ulcer prophylaxis. oob to chair as tolerated. Wounds- none Nutrition- regular diet DVT prophylaxis: lovenox sq daily GI prophylaxis: ppi/sucralfate Central Line: PICC 04/18 Arterial Line: no Ureña Cathetor: yes; can d/c later today Disposition: ICU Code Status: full code Total Critical Care time is 35 minutes, excluding procedures/teaching Samy Montemayor MD Strip Machine Tender (Electronically Signed)
[2018-04-20] MEDS ORDERED: Furosemide IV* 10 MG/ML 2 ML VIAL (20 MG) IV SLOW PU ONE (15:00)
[2018-04-20] MEDS: Enoxaparin(*) 40 MG/0.4 ML SYR SUBCUT SCH (17:14)
[2018-04-20] MEDS: Melatonin 3 MG TAB PO SCH (20:49)
[2018-04-21] MEDS: SULFAMETHOXAZOLE IVPB SCH ×4 (00:10→18:48)
[2018-04-21] MEDS: TRIMETH IVPB SCH ×4 (00:10→18:48)
[2018-04-21] MEDS: D5W IVPB SCH ×4 (00:10→18:48)
[2018-04-21] MEDS: Levalbuterol 1.25MG/0.5ML NEB INH SCH ×4 (01:01→19:12)
[2018-04-21 05:24] LABS: Hematocrit 26 % (42-52); Hemoglobin 8.4 g/dl (14.0-18.0); Mean Corpuscular HGB Conc 33 g/dl (31-36); Mean Corpuscular Hemoglobin 28 pg (27-31); Mean Corpuscular Volume 87 fL (80-94); Mean Platelet Volume 7.8 um3 (7.4-10.4); Platelet Count 356 10^3/ul (150-450); Red Blood Count 2.99 10^6/ul (4.00-5.40); Red Cell Distribution Width 17 % (10.5-15)
[2018-04-21 05:41] LABS: EGFR Non-African American 164.7 (>60)
[2018-04-21] MEDS: methylPREDNISolone SOD 40 MG* 1 ML VIAL IV SCH (06:13)
[2018-04-21] MEDS: Budesonide NEB* 0.5 MG/2 ML NEB.SOLN INH SCH ×2 (08:00→19:12)
[2018-04-21] MEDS: Pantoprazole IV* 40 MG IV SCH ×2 (08:44→21:20)
[2018-04-21] MEDS: Citalopram TAB* 20 MG PO SCH (08:44)
[2018-04-21] MEDS ORDERED: Furosemide IV* 10 MG/ML VIAL (40 MG) IV ONE (09:00)
[2018-04-21] MEDS: Sucralfate SUSP 1 GM/10 ml 10 ML UDC PO SCH ×4 (09:16→21:20)
--- NOTE | 2018-04-21 09:50 | PN ---
Progress Note - Progress Note Date of Service: 04/21/18 SOAP: Subjective: [Extubated 04/19/18, on high flow yesterday but required BiPAP overnight due to increased work of breathing. Transitioned back to high flow this am. Some dyspnea and productive cough. Afebrile. Attempted transfer to the recliner this am, he desaturated and had a near syncopal episode. Oral intake is poor.] Objective: [ Laboratory Results - last 24 hr 04/17/18 04/21/18 04/21/18 07:25 05:12 05:12 WBC 12.0 H RBC 2.99 L Hgb 8.4 L Hct 26 L MCV 87 MCH 28 MCHC 33 RDW 17 H Plt Count 356 MPV 7.8 Sodium 136 Potassium 4.9 Chloride 99 L Carbon Dioxide 29 Anion Gap 8 BUN 19 Creatinine 0.51 L Est GFR ( Amer) 199.3 Est GFR (Non-Af Amer) 164.7 BUN/Creatinine Ratio 37.3 H Glucose 92 Calcium 8.1 L Human MPV Source Nasopharyngeal swab Human Metapneumovir RNA Not detected Acetaminophen (Tylenol Adult Liq*) 650 mg NG TUBE Q4H PRN PRN Reason: FEVER/HEADACHE Last Admin: 04/16/18 06:36 Dose: 650 mg Bisacodyl (Dulcolax Supp*) 10 mg [place] DAILY PRN PRN Reason: CONSTIPATION Last Admin: 04/18/18 11:48 Dose: 10 mg Budesonide (Pulmicort Neb*) 0.5 mg INH RT.BID [facility] Last Admin: 04/21/18 08:00 Dose: 0.5 mg Citalopram Hydrobromide (Celexa Tab*) 20 mg PO DAILY [facility] Last Admin: 04/21/18 08:44 Dose: 20 mg Docusate Sodium (Colace Liq*) 100 mg PO BID PRN PRN Reason: CONSTIPATION Last Admin: 04/18/18 11:48 Dose: 100 mg Enoxaparin Sodium (Lovenox(*)) 40 mg SUBCUT Q24H [facility] Last Admin: 04/20/18 17:14 Dose: 40 mg Heparin Sodium (Porcine) (Heparin Flush Port (Ivad)) 5 ml FLUSH DAILY [facility]; Protocol Last Admin: 04/21/18 08:47 Dose: 5 ml Heparin Sodium (Porcine) (Heparin Flush Picc/Ml/Cvc(*)) 1 - 3 ml FLUSH 0600, 1800 [facility]; Protocol Last Admin: 04/21/18 05:37 Dose: Not Given Ferric Sodium Gluconate Complex 125 mg/ Sodium Chloride 110 mls @ 110 mls/hr IVPB DAILY [facility] Stop: 04/23/18 11:42 Last Admin: 04/20/18 08:48 Dose: 110 mls/hr Trimethoprim/Sulfamethoxazole (300 mg/ Dextrose) 518.75 mls @ 259.375 mls/hr IVPB Q6H [facility] Last Admin: 04/21/18 06:13 Dose: 259.375 mls/hr Levalbuterol HCl (Xopenex 1.25 Mg/0.5 Ml Neb.Julissa*) 1.25 mg INH [id number] AWAKE [facility] Last Admin: 04/21/18 08:01 Dose: 1.25 mg Melatonin (Melatonin) 3 mg PO BEDTIME [facility] Last Admin: 04/20/18 20:49 Dose: 3 mg Methylprednisolone Sodium Succinate (Solu-Medrol 40 Mg) 40 mg IV Q12H [facility] Last Admin: 04/21/18 06:13 Dose: 40 mg Multi-Ingredient Mouthwash/Gargle (Magic M W2 Todd/Maal/Nyst/Lido*) 5 ml SWISH SWAL [id number] AWAKE PRN PRN Reason: mouth pain/mucositis Last Admin: 04/13/18 19:37 Dose: 5 ml Pantoprazole Sodium (Protonix Iv*) 40 mg IV BID [facility] Last Admin: 04/21/18 08:44 Dose: 40 mg Sucralfate (Sucralfate Susp) 1 gm PO ACHS [facility] Last Admin: 04/21/18 09:16 Dose: 1 gm Throat Lozenges (Chloraseptic Ursula*) 1 ursula MT Q6H PRN PRN Reason: SORE THROAT Last Admin: 04/15/18 17:36 Dose: 1 ursula Vital Signs: Temp Pulse Resp BP Pulse Ox 98.6 F 115 30 146/88 98 04/21/18 09:00 04/21/18 09:00 04/21/18 09:00 04/21/18 09:00 04/21/18 09:00 Exam: Gen: Weak appearing, thin. Accompanied by his . Mildly uncomfortable appearing Resp: few crackles in posterior lung delacruz CV: RRR Ext: trace LE edema, improved Skin: No concerning rashes or lesions] Assessment: [63 yo male with DLBCL s/p C1 EPOCH complicated by GI bleed due to multiple stomach ulcerations likely due to leukemic infiltration who was readmitted with worsening cough and hypoxia with bilateral infiltrates on CT, who developed acute respiratory failure, now ventilated. Bronchoscopy completed 04/14 with nl path and PCP PCR +.] Plan: [1. Pneumocystitis PNA - improving, on high flow - required BiPAP overnight - BAL + PCP on PCR - cont IV Bactrim and corticosteroids 2. Acute respiratory failure - continued management per community health nursing director 3. H/o GI bleed - cont IV PPI - Hgb remains stable at this time 4. DLBCL - therapy has been held for >2 weeks, will need to resume treatment as soon as possible to prevent disease progression and further complication - once respiratory status appears to have stabilized will consider inpatient chemotherapy next week Dispo: continued ICU level care]
[2018-04-21] MEDS: Ferric Gluconate IV* 125 MG in NS 0.9% 100 ML* 100 ML IVPB SCH (09:52)
--- NOTE | 2018-04-21 13:30 | PN ---
Progress Note - Progress Note Date of Service: 04/21/18 Note: Progress Note Critical Care 24 hour events/significant events: -overnight went on NIV, unclear why -this morning desaturated, went on 100% 25lpm; now back to 55% and 25lpm, mild tachypnea in 20s but awake/alert -cough+, sputum+ -poor appetite, doesnt want to eat -afebrile, tmax 99 - at bedside Tele: sinus tachy Vitals: Vital Signs Temp 99.0 F 04/21/18 13:00 Pulse 117 04/21/18 13:00 Resp 22 04/21/18 13:00 BP 125/79 04/21/18 13:00 Pulse Ox 95 04/21/18 13:00 Intake & Output 04/20/18 04/21/18 04/21/18 18:59 06:59 18:59 Intake Total 1980 1307 100 Output Total 1800 1470 1885 Balance 180 -163 -1785 Weight 82.7 kg Intake: IV Fluids 110 928 BActrim 750 kvo 110 178 IVPB 1060 BActrim 1060 Medicated IV 279 Bactrim 279 Oral 360 100 100 Tube Feeding Flush Amount 450 Output: Ureña 1800 1470 1885 Other: Date of Last Bowel 04/18/2018 Movement O2/Vent: hiflow NC 55% 25 lpm Infusions: heplock Medications: Acetaminophen (Tylenol Adult Liq*) 650 mg NG TUBE Q4H PRN PRN Reason: FEVER/HEADACHE Last Admin: 04/16/18 06:36 Dose: 650 mg Bisacodyl (Dulcolax Supp*) 10 mg [place] DAILY PRN PRN Reason: CONSTIPATION Last Admin: 04/18/18 11:48 Dose: 10 mg Budesonide (Pulmicort Neb*) 0.5 mg INH RT.BID [facility] Last Admin: 04/21/18 08:00 Dose: 0.5 mg Citalopram Hydrobromide (Celexa Tab*) 20 mg PO DAILY [facility] Last Admin: 04/21/18 08:44 Dose: 20 mg Docusate Sodium (Colace Liq*) 100 mg PO BID PRN PRN Reason: CONSTIPATION Last Admin: 04/18/18 11:48 Dose: 100 mg Enoxaparin Sodium (Lovenox(*)) 40 mg SUBCUT Q24H [facility] Last Admin: 04/20/18 17:14 Dose: 40 mg Heparin Sodium (Porcine) (Heparin Flush Port (Ivad)) 5 ml FLUSH DAILY [facility]; Protocol Last Admin: 04/21/18 08:47 Dose: 5 ml Heparin Sodium (Porcine) (Heparin Flush Picc/Ml/Cvc(*)) 1 - 3 ml FLUSH 0600, 1800 [facility]; Protocol Last Admin: 04/21/18 05:37 Dose: Not Given Ferric Sodium Gluconate Complex 125 mg/ Sodium Chloride 110 mls @ 110 mls/hr IVPB DAILY [facility] Stop: 04/23/18 11:42 Last Admin: 04/21/18 09:52 Dose: 110 mls/hr Trimethoprim/Sulfamethoxazole (300 mg/ Dextrose) 518.75 mls @ 259.375 mls/hr IVPB Q6H [facility] Last Admin: 04/21/18 12:57 Dose: 259.375 mls/hr Levalbuterol HCl (Xopenex 1.25 Mg/0.5 Ml Neb.Julissa*) 1.25 mg INH [id number] AWAKE [facility] Last Admin: 04/21/18 12:26 Dose: 1.25 mg Melatonin (Melatonin) 3 mg PO BEDTIME [facility] Last Admin: 04/20/18 20:49 Dose: 3 mg Methylprednisolone Sodium Succinate (Solu-Medrol 40 Mg) 40 mg IV Q12H [facility] Last Admin: 04/21/18 06:13 Dose: 40 mg Multi-Ingredient Mouthwash/Gargle (Magic M W2 Todd/Maal/Nyst/Lido*) 5 ml SWISH SWAL [id number] AWAKE PRN PRN Reason: mouth pain/mucositis Last Admin: 04/13/18 19:37 Dose: 5 ml Pantoprazole Sodium (Protonix Iv*) 40 mg IV BID [facility] Last Admin: 04/21/18 08:44 Dose: 40 mg Sucralfate (Sucralfate Susp) 1 gm PO ACHS [facility] Last Admin: 04/21/18 12:57 Dose: 1 gm Throat Lozenges (Chloraseptic Ursula*) 1 ursula MT Q6H PRN PRN Reason: SORE THROAT Last Admin: 04/15/18 17:36 Dose: 1 ursula Physical Exam: General: awake, alert, no distress Head: normocephalic, atraumatic HEENT: no pallor, no icterus, moist mucous membranes Neck: soft, supple CVS: tachy, regular, no murmur Resp: bilateral air entry, scattered rhales+, no wheeze/rhonchi, no acc muscle use Abdomen: soft, nontender, nondistended, bowel sounds present Ext: pulses+, warm, mild edema of hands/LE Skin: intact Neuro: awake, alert, oriented x3, tired, moves all ext Labs: Laboratory Results - last 24 hr 04/17/18 04/21/18 04/21/18 07:25 05:12 05:12 WBC 12.0 H RBC 2.99 L Hgb 8.4 L Hct 26 L MCV 87 MCH 28 MCHC 33 RDW 17 H Plt Count 356 MPV 7.8 Sodium 136 Potassium 4.9 Chloride 99 L Carbon Dioxide 29 Anion Gap 8 BUN 19 Creatinine 0.51 L Est GFR ( Amer) 199.3 Est GFR (Non-Af Amer) 164.7 BUN/Creatinine Ratio 37.3 H Glucose 92 Calcium 8.1 L Human MPV Source Nasopharyngeal swab Human Metapneumovir RNA Not detected Imaging: cxr 04/17 - improving bilateral infitlrates, still present+ cxr 04/19 - ett above anish, mild scattered infiltrates+ cxr 04/20 - bilateral pulm infiltrates+ Assessment: 63y M pmhx of 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 Patient comes in for endoscopy for further eval for GIB source, develops respiratory distress after, eventually intubated 04/16. -Shock, unspecified; resolved -acute hypoxic respiratory failure/ARDS; extubated 04/19 -PCP pneumonia+, bilateral -hemophilus parainfluenza+ -DLBCL, stage IV, diffuse involvement; s/p chemo x1 -Anemia -PUD Plan: Neuro- weak overall. awake/alert. delirium prec. asp prec. CVS- no pressors. BP stable. mild tachycardia. making good urine, but IV abx are significant input. cont lasix 40mg IV daily AM, add 20mg IV lasix nightly. IV abx. hg 7-8s, stable Resp- CXR 04/20 bilateral infiltrates+. Resp distress last night, currently steady on hiflow now, down to 55% 25lpm. goal to try to wean to NC tomorrow. Maintain hiflow NC, cont weaning. Cont IV diuretics. IV Bactrim q6h. Decrease solumedrol 40mg iv daily. Bronchodilators q6h prn. trial metanebs today. Sputum + for hemophilus parainf, BAL+ for PCP serology. ID- afebrile tmax 99. wbc 11-12. Sputum 8/10 hemophilus parainfluenza; BAL+ for PCP. Compelted 6 days zosyn. Cont Bactrim IV (day#02/23), swtich to PO if able GI- cont PPI/Sucralfate for PUD. regular diet, encourage PO intake, add ensure cups/liquid. dulcolax/colace for constipation. Renal- Cr okay. K 4.0. making urine. Cont lasix 40mg IV AM, 20mg IV PM. input mostly from IV abx. can d/c ureña+. Heme- hg 8s. plt okay. dvt chemical proph. Endo- fingersticks as needed Musculsk- pressure ulcer prophylaxis. oob to chair as tolerated, pt/ot Wounds- none Nutrition- regular diet DVT prophylaxis: lovenox sq daily GI prophylaxis: ppi/sucralfate Central Line: PICC 04/18 Arterial Line: no Ureña Cathetor: yes; can d/c later today Disposition: ICU Code Status: full code Total Critical Care time is 35 minutes, excluding procedures/teaching Samy Montemayor MD Assistant Press Operator Offset (Electronically Signed)
[2018-04-21] MEDS ORDERED: Metoprolol Tartrate TAB* 25 MG PO ONE (14:19)
[2018-04-21] MEDS: Enoxaparin(*) 40 MG/0.4 ML SYR SUBCUT SCH (18:06)
[2018-04-21] MEDS: Furosemide IV* 10 MG/ML 2 ML VIAL (20 MG) IV SLOW PU SCH (18:06)
[2018-04-21] MEDS: Melatonin 3 MG TAB PO SCH (21:20)
[2018-04-22] MEDS: SULFAMETHOXAZOLE IVPB SCH ×4 (00:16→18:39)
[2018-04-22] MEDS: D5W IVPB SCH ×4 (00:16→18:39)
[2018-04-22] MEDS: TRIMETH IVPB SCH ×4 (00:16→18:39)
[2018-04-22] MEDS: Levalbuterol 1.25MG/0.5ML NEB INH SCH ×4 (00:37→19:17)
[2018-04-22] MEDS ORDERED: Senna TAB PO PRN (02:15)
[2018-04-22 06:10] LABS: Hematocrit 27 % (42-52); Hemoglobin 8.8 g/dl (14.0-18.0); Mean Corpuscular HGB Conc 33 g/dl (31-36); Mean Corpuscular Hemoglobin 29 pg (27-31); Mean Corpuscular Volume 87 fL (80-94); Mean Platelet Volume 7.8 um3 (7.4-10.4); Platelet Count 345 10^3/ul (150-450); Red Blood Count 3.06 10^6/ul (4.00-5.40); Red Cell Distribution Width 18 % (10.5-15); White Blood Count 10.5 10^3/ul (3.5-10.8)
[2018-04-22] MEDS: Citalopram TAB* 20 MG PO SCH (07:53)
[2018-04-22] MEDS: Sucralfate SUSP 1 GM/10 ml 10 ML UDC PO SCH ×4 (07:53→20:53)
[2018-04-22] MEDS: Budesonide NEB* 0.5 MG/2 ML NEB.SOLN INH SCH ×2 (08:42→19:17)
[2018-04-22] MEDS ORDERED: methylPREDNISolone SOD 40 MG* 1 ML VIAL IV SCH (09:00)
[2018-04-22] MEDS: Ferric Gluconate IV* 125 MG in NS 0.9% 100 ML* 100 ML IVPB SCH (09:30)
[2018-04-22] MEDS: Furosemide IV* 10 MG/ML 2 ML VIAL (20 MG) IV SLOW PU SCH ×2 (09:33→17:54)
[2018-04-22] MEDS: Pantoprazole IV* 40 MG IV SCH ×2 (09:34→20:54)
--- NOTE | 2018-04-22 10:01 | PN ---
Progress Note - Progress Note Date of Service: 04/22/18 Note: Progress Note Critical Care 24 hour events/significant events: -on hiflow overnight; in bed now, desats during eating, increased fio2 to 75%, was on 55% 25lpm overnight -in bed, no discomfort, awake/alert. -cough+, minimal/no sputum -HR improved with trial of BB yesterday Tele: sinus tachy Vitals: Vital Signs Temp 98.6 F 04/22/18 09:00 Pulse 119 04/22/18 09:00 Resp 31 04/22/18 09:00 BP 145/80 04/22/18 09:00 Pulse Ox 85 04/22/18 09:00 Intake & Output 04/21/18 04/22/18 04/22/18 18:59 06:59 18:59 Intake Total 1345 1513 100 Output Total 3215 1325 545 Balance -1870 188 -445 Weight 82.7 kg Intake: IV Fluids 80 134 NS (0.9%) 72 kvo 80 62 IVPB 750 1319 BActrim 750 1319 Medicated IV 115 ferric gluconate 115 Oral 400 60 100 Output: Urine 110 Ure[place] 3215 1215 545 Other: Date of Last Bowel 04/19/2018 Movement O2/Vent: hiflow NC 55% 25 lpm; now on 75% while eating Infusions: heplock Medications: Acetaminophen (Tylenol Adult Liq*) 650 mg NG TUBE Q4H PRN PRN Reason: FEVER/HEADACHE Last Admin: 04/16/18 06:36 Dose: 650 mg Bisacodyl (Dulcolax Supp*) 10 mg [place] DAILY PRN PRN Reason: CONSTIPATION Last Admin: 04/18/18 11:48 Dose: 10 mg Budesonide (Pulmicort Neb*) 0.5 mg INH RT.BID [facility] Last Admin: 04/22/18 08:42 Dose: 0.5 mg Citalopram Hydrobromide (Celexa Tab*) 20 mg PO DAILY [facility] Last Admin: 04/22/18 07:53 Dose: 20 mg Docusate Sodium (Colace Liq*) 100 mg PO BID PRN PRN Reason: CONSTIPATION Last Admin: 04/18/18 11:48 Dose: 100 mg Enoxaparin Sodium (Lovenox(*)) 40 mg SUBCUT Q24H [facility] Last Admin: 04/21/18 18:06 Dose: 40 mg Furosemide (Lasix Iv*) 20 mg IV SLOW PU QPM [facility] Last Admin: 04/21/18 18:06 Dose: 20 mg Furosemide (Lasix Iv*) 40 mg IV SLOW PU DAILY [facility] Last Admin: 04/22/18 09:33 Dose: 40 mg Heparin Sodium (Porcine) (Heparin Flush Port (Ivad)) 5 ml FLUSH DAILY [facility]; Protocol Last Admin: 04/22/18 09:33 Dose: 5 ml Heparin Sodium (Porcine) (Heparin Flush Picc/Ml/Cvc(*)) 1 - 3 ml FLUSH 0600, 1800 [facility]; Protocol Last Admin: 04/22/18 05:57 Dose: 2 ml Ferric Sodium Gluconate Complex 125 mg/ Sodium Chloride 110 mls @ 110 mls/hr IVPB DAILY [facility] Stop: 04/23/18 11:42 Last Admin: 04/22/18 09:30 Dose: 110 mls/hr Trimethoprim/Sulfamethoxazole (300 mg/ Dextrose) 518.75 mls @ 259.375 mls/hr IVPB Q6H [facility] Last Admin: 04/22/18 05:58 Dose: 259.375 mls/hr Levalbuterol HCl (Xopenex 1.25 Mg/0.5 Ml Neb.Julissa*) 1.25 mg INH [id number] AWAKE [facility] Last Admin: 04/22/18 08:41 Dose: 1.25 mg Melatonin (Melatonin) 3 mg PO BEDTIME [facility] Last Admin: 04/21/18 21:20 Dose: 3 mg Methylprednisolone Sodium Succinate (Solu-Medrol 40 Mg) 40 mg IV DAILY [facility] Last Admin: 04/22/18 09:33 Dose: 40 mg Metoprolol Tartrate (Lopressor Tab*) 25 mg PO BID [facility] Multi-Ingredient Mouthwash/Gargle (Magic M W2 Todd/Maal/Nyst/Lido*) 5 ml SWISH SWAL [id number] AWAKE PRN PRN Reason: mouth pain/mucositis Last Admin: 04/13/18 19:37 Dose: 5 ml Pantoprazole Sodium (Protonix Iv*) 40 mg IV BID [facility] Last Admin: 04/22/18 09:34 Dose: 40 mg Senna (Senokot Tab*) 2 tab PO DAILY PRN PRN Reason: CONSTIPATION Last Admin: 04/22/18 02:29 Dose: 1 tab Sucralfate (Sucralfate Susp) 1 gm PO ACHS [facility] Last Admin: 04/22/18 07:53 Dose: 1 gm Throat Lozenges (Chloraseptic Ursula*) 1 ursula MT Q6H PRN PRN Reason: SORE THROAT Last Admin: 04/15/18 17:36 Dose: 1 ursula Physical Exam: General: awake, alert, no distress Head: normocephalic, atraumatic HEENT: no pallor, no icterus, moist mucous membranes Neck: soft, supple CVS: tachy, regular, no murmur Resp: bilateral air entry, scattered rhales+, no wheeze/rhonchi, no acc muscle use Abdomen: soft, nontender, nondistended, bowel sounds present Ext: pulses+, warm, mild edema of hands/LE Skin: intact Neuro: awake, alert, oriented x3, tired, moves all ext Labs: Laboratory Results - last 24 hr 04/22/18 04/22/18 05:45 05:45 WBC 10.5 RBC 3.06 L Hgb 8.8 L Hct 27 L MCV 87 MCH 29 MCHC 33 RDW 18 H Plt Count 345 MPV 7.8 Sodium 133 L Potassium 4.4 Chloride 98 L Carbon Dioxide 29 Anion Gap 6 BUN 21 Creatinine 0.58 L Est GFR ( Amer) 171.8 Est GFR (Non-Af Amer) 142.0 BUN/Creatinine Ratio 36.2 H Glucose 90 Calcium 8.3 L Imaging: cxr 04/17 - improving bilateral infitlrates, still present+ cxr 04/19 - ett above anish, mild scattered infiltrates+ cxr 04/20 - bilateral pulm infiltrates+ Assessment: 63y M pmhx of 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 Patient comes in for endoscopy for further eval for GIB source, develops respiratory distress after, eventually intubated 04/16. -Shock, unspecified; resolved -acute hypoxic respiratory failure/ARDS; extubated 04/19 -PCP pneumonia+, bilateral -hemophilus parainfluenza+ -DLBCL, stage IV, diffuse involvement; s/p chemo x1 -Anemia -PUD Plan: Neuro- weak overall. awake/alert. delirium prec. asp prec. CVS- no pressors. BP stable. tachycardia+, start metoprolol 25mg po bid. good urien output; cont lasix 40mg AM, lasix 20mg PM IV. IV abx. hg 7-8s, stable Resp- CXR 04/20 bilateral infiltrates+. Check CXR tomororw. Cont to wean down hiflow. Bronchodilators PRN; metanebs started also. minimal sputum production. Cont IV diuretics. Cont solumedrol 40mg iv daily. Sputum+ for hemophilus parainf , BAL+ for PCP serology; cont IV Bactrim q6h. ID- afebrile tmax 98-99. wbc 10. Sputum 04/14 hemophilus parainfluenza; BAL+ for PCP. Compelted 6 days zosyn. Cont Bactrim IV (day#03/25), swtich to PO if able GI- cont PPI/Sucralfate for PUD. regular diet, encourage PO intake, add ensure cups/liquid. dulcolax/colace for constipation. Renal- Cr okay. K 4.0. Cont lasix 40mg IV AM, 20mg IV PM; while getting IV Bactrim (large amount of fluid intake from antibiotics). d/c ureña today. Heme- hg 8s. plt okay. dvt chemical proph. Endo- fingersticks as needed Musculsk- pressure ulcer prophylaxis. oob to chair as tolerated, pt/ot Wounds- none Nutrition- regular diet DVT prophylaxis: lovenox sq daily GI prophylaxis: ppi/sucralfate Central Line: PICC 04/18 Arterial Line: no Ureña Cathetor: yes; can d/c later today Disposition: ICU Code Status: full code Total Critical Care time is 35 minutes, excluding procedures/teaching Samy Montemayor MD Bead Builder (Electronically Signed)
[2018-04-22] MEDS: Metoprolol Tartrate TAB* 25 MG PO SCH ×2 (10:14→20:54)
--- NOTE | 2018-04-22 11:54 | PN ---
Progress Note - Progress Note Date of Service: 04/22/18 SOAP: Subjective: [Desaturating this am with minimal movement in bed with assoc CP. Stayed on high flow overnight. [place] like protein shake from yesterday just "sat in his stomach". No BM in 3 days.] Objective: [ Vital Signs: Temp Pulse Resp BP Pulse Ox 99.1 F 85 29 124/78 91 04/22/18 11:00 04/22/18 11:00 04/22/18 11:00 04/22/18 11:00 04/22/18 11:00 Acetaminophen (Tylenol Adult Liq*) 650 mg NG TUBE Q4H PRN PRN Reason: FEVER/HEADACHE Last Admin: 04/16/18 06:36 Dose: 650 mg Bisacodyl (Dulcolax Supp*) 10 mg [place] DAILY PRN PRN Reason: CONSTIPATION Last Admin: 04/18/18 11:48 Dose: 10 mg Budesonide (Pulmicort Neb*) 0.5 mg INH RT.BID [facility] Last Admin: 04/22/18 08:42 Dose: 0.5 mg Citalopram Hydrobromide (Celexa Tab*) 20 mg PO DAILY [facility] Last Admin: 04/22/18 07:53 Dose: 20 mg Docusate Sodium (Colace Liq*) 100 mg PO BID PRN PRN Reason: CONSTIPATION Last Admin: 04/18/18 11:48 Dose: 100 mg Enoxaparin Sodium (Lovenox(*)) 40 mg SUBCUT Q24H [facility] Last Admin: 04/21/18 18:06 Dose: 40 mg Furosemide (Lasix Iv*) 20 mg IV SLOW PU QPM [facility] Last Admin: 04/21/18 18:06 Dose: 20 mg Furosemide (Lasix Iv*) 40 mg IV SLOW PU DAILY [facility] Last Admin: 04/22/18 09:33 Dose: 40 mg Heparin Sodium (Porcine) (Heparin Flush Port (Ivad)) 5 ml FLUSH DAILY [facility]; Protocol Last Admin: 04/22/18 09:33 Dose: 5 ml Heparin Sodium (Porcine) (Heparin Flush Picc/Ml/Cvc(*)) 1 - 3 ml FLUSH 0600, 1800 [facility]; Protocol Last Admin: 04/22/18 05:57 Dose: 2 ml Ferric Sodium Gluconate Complex 125 mg/ Sodium Chloride 110 mls @ 110 mls/hr IVPB DAILY [facility] Stop: 04/23/18 11:42 Last Admin: 04/22/18 09:30 Dose: 110 mls/hr Trimethoprim/Sulfamethoxazole (300 mg/ Dextrose) 518.75 mls @ 259.375 mls/hr IVPB Q6H [facility] Last Admin: 04/22/18 05:58 Dose: 259.375 mls/hr Levalbuterol HCl (Xopenex 1.25 Mg/0.5 Ml Neb.Julissa*) 1.25 mg INH [id number] AWAKE [facility] Last Admin: 04/22/18 08:41 Dose: 1.25 mg Melatonin (Melatonin) 3 mg PO BEDTIME [facility] Last Admin: 04/21/18 21:20 Dose: 3 mg Methylprednisolone Sodium Succinate (Solu-Medrol 40 Mg) 40 mg IV DAILY [facility] Last Admin: 04/22/18 09:33 Dose: 40 mg Metoprolol Tartrate (Lopressor Tab*) 25 mg PO BID [facility] Last Admin: 04/22/18 10:14 Dose: 25 mg Multi-Ingredient Mouthwash/Gargle (Magic M W2 Todd/Maal/Nyst/Lido*) 5 ml SWISH SWAL [id number] AWAKE PRN PRN Reason: mouth pain/mucositis Last Admin: 04/13/18 19:37 Dose: 5 ml Pantoprazole Sodium (Protonix Iv*) 40 mg IV BID [facility] Last Admin: 04/22/18 09:34 Dose: 40 mg Senna (Senokot Tab*) 2 tab PO DAILY PRN PRN Reason: CONSTIPATION Last Admin: 04/22/18 02:29 Dose: 1 tab Sucralfate (Sucralfate Susp) 1 gm PO ACHS [facility] Last Admin: 04/22/18 07:53 Dose: 1 gm Throat Lozenges (Chloraseptic Ursula*) 1 ursula MT Q6H PRN PRN Reason: SORE THROAT Last Admin: 04/15/18 17:36 Dose: 1 ursula Laboratory Results - last 24 hr 04/22/18 04/22/18 05:45 05:45 WBC 10.5 RBC 3.06 L Hgb 8.8 L Hct 27 L MCV 87 MCH 29 MCHC 33 RDW 18 H Plt Count 345 MPV 7.8 Sodium 133 L Potassium 4.4 Chloride 98 L Carbon Dioxide 29 Anion Gap 6 BUN 21 Creatinine 0.58 L Est GFR ( Amer) 171.8 Est GFR (Non-Af Amer) 142.0 BUN/Creatinine Ratio 36.2 H Glucose 90 Calcium 8.3 L Exam: Gen: Weak appearing, thin. Accompanied by his . Mildly uncomfortable appearing Resp: few crackles in posterior lung delacruz CV: RRR Ext: trace LE edema, improved Skin: No concerning rashes or lesions] Assessment: [63 yo male with DLBCL s/p C1 EPOCH complicated by GI bleed due to multiple stomach ulcerations likely due to leukemic infiltration who was readmitted with worsening cough and hypoxia with bilateral infiltrates on CT, who developed acute respiratory failure, now ventilated. Bronchoscopy completed 04/14 with nl path and PCP PCR +.] Plan: [1. Pneumocystitis PNA - BAL + PCP on PCR - extubated, but desaturating with minimal activity - maintain high flow - increase steroids again - cont IV Bactrim (day 03/25) 2. Acute respiratory failure - continued management per career guidance technician 3. Constipation - cont laxatives - trial Reglan to improve gut motility 4. H/o GI bleed - cont IV PPI - Hgb remains stable at this time 5. DLBCL - therapy has been held for >2 weeks, will need to resume treatment as soon as possible to prevent disease progression and further complication - once respiratory status appears to have stabilized will consider inpatient chemotherapy next week Dispo: continued ICU level care]]
[2018-04-22] MEDS ORDERED: Metoclopramide TAB* 10 MG PO ONE (12:10)
[2018-04-22] MEDS ORDERED: ALPRAZolam TAB* 0.25 MG PO ONE (16:22)
[2018-04-22] MEDS ORDERED: ALPRAZolam TAB* 0.25 MG ONE (16:26)
[2018-04-22] MEDS: Enoxaparin(*) 40 MG/0.4 ML SYR SUBCUT SCH (16:30)
[2018-04-22] MEDS ORDERED: Levalbuterol 1.25MG/0.5ML NEB ONE (17:09)
[2018-04-22] MEDS ORDERED: Albuterol (2.5 MG) 0.5 % CONC 2.5 MG/0.5 ML NEB.SOLN (ICU and ED only) INH ONE (17:40)
[2018-04-22] MEDS ORDERED: Albuterol 0.5% CONC NEB.SOL* 5 MG/ML 20 ml BOT ONE (17:42)
[2018-04-22] MEDS ORDERED: Levalbuterol 1.25MG/0.5ML NEB INH PRN (18:00)
[2018-04-22] MEDS: methylPREDNISolone SOD 40 MG* 1 ML VIAL IV SCH (20:54)
[2018-04-22] MEDS: Melatonin 3 MG TAB PO SCH (20:54)
[2018-04-23] MEDS: SULFAMETHOXAZOLE IVPB SCH ×5 (00:05→23:55)
[2018-04-23] MEDS: D5W IVPB SCH ×5 (00:05→23:55)
[2018-04-23] MEDS: TRIMETH IVPB SCH ×5 (00:05→23:55)
[2018-04-23] MEDS: Levalbuterol 1.25MG/0.5ML NEB INH SCH ×4 (01:09→19:08)
[2018-04-23 05:14] LABS: Hematocrit 28 % (42-52); Hemoglobin 9.3 g/dl (14.0-18.0); Mean Corpuscular HGB Conc 33 g/dl (31-36); Mean Corpuscular Hemoglobin 29 pg (27-31); Mean Corpuscular Volume 88 fL (80-94); Mean Platelet Volume 7.8 um3 (7.4-10.4); Platelet Count 320 10^3/ul (150-450); Red Blood Count 3.19 10^6/ul (4.00-5.40); Red Cell Distribution Width 18 % (10.5-15)
[2018-04-23 05:24] LABS: EGFR Non-African American 144.8 (>60)
--- NOTE | 2018-04-23 07:48 | RAD ---
HISTORY: pneumonia COMPARISONS: April 20, 2018 VIEWS: 1: frontal portable view of the chest at 6:03 AM FINDINGS: LINES AND TUBES: A right-sided PICC line is noted with the tip overlying the superior vena cava. A right-sided chest port is noted with the tip overlying the right atrium. CARDIOMEDIASTINAL SILHOUETTE: The cardiomediastinal silhouette is normal for portable technique. PLEURA: The costophrenic angles are sharp. No pleural abnormalities are noted. LUNG PARENCHYMA: There is diffuse pattern of reticular opacification with more patchy alveolar opacification of the left lung base. This has improved when compared to the April 20, 2013 examination. ABDOMEN: The upper abdomen is clear. There is no subphrenic gas. BONES AND SOFT TISSUES: No bone or soft tissue abnormalities are noted. IMPRESSION: PERSISTENT BUT IMPROVING MIXED INTERSTITIAL AND AIRSPACE DISEASE MOST PRONOUNCED IN THE LEFT LOWER LUNG.
[2018-04-23] MEDS: Budesonide NEB* 0.5 MG/2 ML NEB.SOLN INH SCH ×2 (08:02→19:07)
[2018-04-23] MEDS: Pantoprazole IV* 40 MG IV SCH ×2 (08:45→20:26)
[2018-04-23] MEDS: Citalopram TAB* 20 MG PO SCH (08:46)
[2018-04-23] MEDS: Metoprolol Tartrate TAB* 25 MG PO SCH ×2 (08:46→20:25)
[2018-04-23] MEDS: Furosemide IV* 10 MG/ML 2 ML VIAL (20 MG) IV SLOW PU SCH (08:46)
[2018-04-23] MEDS: methylPREDNISolone SOD 40 MG* 1 ML VIAL IV SCH ×2 (08:47→20:26)
[2018-04-23] MEDS: Sucralfate SUSP 1 GM/10 ml 10 ML UDC PO SCH ×4 (08:59→20:26)
[2018-04-23] MEDS: Ferric Gluconate IV* 125 MG in NS 0.9% 100 ML* 100 ML IVPB SCH (09:05)
[2018-04-23] MEDS ORDERED: Iohexol 350* (CONTRAST) 500 ML MDV IV ONE (10:24)
--- NOTE | 2018-04-23 10:30 | PN ---
Progress Note - Progress Note Date of Service: 04/23/18 SOAP: Subjective: [Remains on max Vapotherm and desaturates with any minor movement in bed. Cough improved. No new fevers.] Objective: [ Laboratory Results - last 24 hr 04/22/18 04/22/18 04/23/18 17:35 17:35 04:57 WBC RBC Hgb Hct MCV MCH MCHC RDW Plt Count MPV Sodium 132 L Potassium 5.0 Chloride 98 L Carbon Dioxide 29 Anion Gap 5 BUN 20 Creatinine 0.57 L Est GFR ( Amer) 175.3 Est GFR (Non-Af Amer) 144.8 BUN/Creatinine Ratio 35.1 H Glucose 107 H Calcium 8.5 L Total Creatine Kinase 25 CK-MB (CK-2) 1.0 Troponin I 0.01 B-Natriuretic Peptide 85 04/23/18 04:57 WBC 9.0 RBC 3.19 L Hgb 9.3 L Hct 28 L MCV 88 MCH 29 MCHC 33 RDW 18 H Plt Count 320 MPV 7.8 Sodium Potassium Chloride Carbon Dioxide Anion Gap BUN Creatinine Est GFR ( Amer) Est GFR (Non-Af Amer) BUN/Creatinine Ratio Glucose Calcium Total Creatine Kinase CK-MB (CK-2) Troponin I B-Natriuretic Peptide Acetaminophen (Tylenol Adult Liq*) 650 mg NG TUBE Q4H PRN PRN Reason: FEVER/HEADACHE Last Admin: 04/16/18 06:36 Dose: 650 mg Bisacodyl (Dulcolax Supp*) 10 mg [place] DAILY PRN PRN Reason: CONSTIPATION Last Admin: 04/18/18 11:48 Dose: 10 mg Budesonide (Pulmicort Neb*) 0.5 mg INH RT.BID [facility] Last Admin: 04/23/18 08:02 Dose: 0.5 mg Citalopram Hydrobromide (Celexa Tab*) 20 mg PO DAILY [facility] Last Admin: 04/23/18 08:46 Dose: 20 mg Docusate Sodium (Colace Liq*) 100 mg PO BID PRN PRN Reason: CONSTIPATION Last Admin: 04/18/18 11:48 Dose: 100 mg Enoxaparin Sodium (Lovenox(*)) 40 mg SUBCUT Q24H [facility] Last Admin: 04/22/18 16:30 Dose: 40 mg Furosemide (Lasix Iv*) 20 mg IV SLOW PU QPM [facility] Last Admin: 04/22/18 17:54 Dose: 20 mg Furosemide (Lasix Iv*) 40 mg IV SLOW PU DAILY [facility] Last Admin: 04/23/18 08:46 Dose: 40 mg Heparin Sodium (Porcine) (Heparin Flush Port (Ivad)) 5 ml FLUSH DAILY [facility]; Protocol Last Admin: 04/23/18 09:00 Dose: 5 ml Heparin Sodium (Porcine) (Heparin Flush Picc/Ml/Cvc(*)) 1 - 3 ml FLUSH 0600, 1800 [facility]; Protocol Last Admin: 04/23/18 09:02 Dose: Not Given Ferric Sodium Gluconate Complex 125 mg/ Sodium Chloride 110 mls @ 110 mls/hr IVPB DAILY [facility] Stop: 04/23/18 11:42 Last Admin: 04/23/18 09:05 Dose: 110 mls/hr Trimethoprim/Sulfamethoxazole (300 mg/ Dextrose) 518.75 mls @ 259.375 mls/hr IVPB Q6H [facility] Last Admin: 04/23/18 05:34 Dose: 259.375 mls/hr Iohexol (Omnipaque 350 (Contrast)-) 73 ml IV ONCE ONE Stop: 04/23/18 10:25 Levalbuterol HCl (Xopenex 1.25 Mg/0.5 Ml Neb.Julissa*) 1.25 mg INH [id number] AWAKE [facility] Last Admin: 04/23/18 08:02 Dose: 1.25 mg Levalbuterol HCl (Xopenex 1.25 Mg/0.5 Ml Neb.Julissa*) 1.25 mg INH Q2HR PRN PRN Reason: SHORTNESS OF BREATH Melatonin (Melatonin) 3 mg PO BEDTIME [facility] Last Admin: 04/22/18 20:54 Dose: 3 mg Methylprednisolone Sodium Succinate (Solu-Medrol 40 Mg) 40 mg IV BID [facility] Last Admin: 04/23/18 08:47 Dose: 40 mg Metoprolol Tartrate (Lopressor Tab*) 25 mg PO BID [facility] Last Admin: 04/23/18 08:46 Dose: 25 mg Multi-Ingredient Mouthwash/Gargle (Magic M W2 Todd/Maal/Nyst/Lido*) 5 ml SWISH SWAL [id number] AWAKE PRN PRN Reason: mouth pain/mucositis Last Admin: 04/13/18 19:37 Dose: 5 ml Pantoprazole Sodium (Protonix Iv*) 40 mg IV BID [facility] Last Admin: 04/23/18 08:45 Dose: 40 mg Senna (Senokot Tab*) 2 tab PO DAILY PRN PRN Reason: CONSTIPATION Last Admin: 04/22/18 02:29 Dose: 1 tab Sucralfate (Sucralfate Susp) 1 gm PO ACHS [facility] Last Admin: 04/23/18 08:59 Dose: 1 gm Throat Lozenges (Chloraseptic Ursula*) 1 ursula MT Q6H PRN PRN Reason: SORE THROAT Last Admin: 04/15/18 17:36 Dose: 1 ursula Vital Signs: Temp Pulse Resp BP Pulse Ox 97.3 F 91 22 126/80 96 04/23/18 08:00 04/23/18 08:00 04/23/18 08:00 04/23/18 08:00 04/23/18 08:00 Exam: Gen: Weak appearing, thin. Accompanied by his . In NAD Resp: somewhat diminished breath sounds with a few crackles CV: RRR Ext: trace LE edema, improved Skin: No concerning rashes or lesions] Assessment: [63 yo male with DLBCL s/p C1 EPOCH complicated by GI bleed due to multiple stomach ulcerations likely due to leukemic infiltration who was readmitted with worsening cough and hypoxia with bilateral infiltrates on CT, who developed acute respiratory failure, now ventilated. Bronchoscopy completed 04/14 with nl path and PCP PCR +.] Plan: [1. Pneumocystitis PNA - BAL + PCP on PCR - extubated, but desaturating with minimal activity - corticosteroids increased again yesterday without positive effect - repeat CXR completed today shows some improvement - concern for possible PE given persistent hypoxia despite clinical improvement - CTA today - maintain high flow - cont IV corticosteroids and Bactrim (day 04/25) 2. Acute respiratory failure - continued management per buyer 3. Constipation - cont laxatives - trial Reglan to improve gut motility 4. H/o GI bleed - cont IV PPI - Hgb remains stable at this time 5. DLBCL - therapy has been held for >2 weeks, will need to resume treatment as soon as possible to prevent disease progression and further complication - once respiratory status appears to have stabilized will consider inpatient chemotherapy next week Dispo: continued ICU level care, CTA pending to eval for PE]
--- NOTE | 2018-04-23 11:14 | PN ---
Progress Note - Progress Note Date of Service: 04/23/18 Note: Progress Note Critical Care 24 hour events/significant events: --on hiflow 100% 40lpm -labile oxygenation on movement -afebrile, awake, alert -discussed with ; will obtain CTA chest for r/o PE Tele: sinus tachy Vitals: Vital Signs Temp 97.3 F 04/23/18 08:00 Pulse 91 04/23/18 08:00 Resp 22 04/23/18 08:00 BP 126/80 04/23/18 08:00 Pulse Ox 96 04/23/18 08:00 Intake & Output 04/22/18 04/23/18 04/23/18 18:59 06:59 18:59 Intake Total 1484 1386 0 Output Total 3290 1830 1700 Balance -1806 -444 -1700 Weight 82.7 kg 82.554 kg Intake: IV Fluids 1284 BActrim 1090 Iron 115 NS (0.9%) 79 IVPB 1266 BActrim 1175 NS (0.9%) 91 Oral 200 120 0 Output: Urine 170 Ureña 3120 1830 1700 Other: Date of Last Bowel 04/19/2018 04/19/2018 Movement O2/Vent: hiflow NC 100% 40lpm Infusions: heplock Medications: Acetaminophen (Tylenol Adult Liq*) 650 mg NG TUBE Q4H PRN PRN Reason: FEVER/HEADACHE Last Admin: 04/16/18 06:36 Dose: 650 mg Bisacodyl (Dulcolax Supp*) 10 mg [place] DAILY PRN PRN Reason: CONSTIPATION Last Admin: 04/18/18 11:48 Dose: 10 mg Budesonide (Pulmicort Neb*) 0.5 mg INH RT.BID [facility] Last Admin: 04/23/18 08:02 Dose: 0.5 mg Citalopram Hydrobromide (Celexa Tab*) 20 mg PO DAILY [facility] Last Admin: 04/23/18 08:46 Dose: 20 mg Docusate Sodium (Colace Liq*) 100 mg PO BID PRN PRN Reason: CONSTIPATION Last Admin: 04/18/18 11:48 Dose: 100 mg Enoxaparin Sodium (Lovenox(*)) 40 mg SUBCUT Q24H [facility] Last Admin: 04/22/18 16:30 Dose: 40 mg Furosemide (Lasix Iv*) 20 mg IV SLOW PU QPM [facility] Last Admin: 04/22/18 17:54 Dose: 20 mg Furosemide (Lasix Iv*) 40 mg IV SLOW PU DAILY [facility] Last Admin: 04/23/18 08:46 Dose: 40 mg Heparin Sodium (Porcine) (Heparin Flush Port (Ivad)) 5 ml FLUSH DAILY [facility]; Protocol Last Admin: 04/23/18 09:00 Dose: 5 ml Heparin Sodium (Porcine) (Heparin Flush Picc/Ml/Cvc(*)) 1 - 3 ml FLUSH 0600, 1800 [facility]; Protocol Last Admin: 04/23/18 09:02 Dose: Not Given Ferric Sodium Gluconate Complex 125 mg/ Sodium Chloride 110 mls @ 110 mls/hr IVPB DAILY [facility] Stop: 04/23/18 11:42 Last Admin: 04/23/18 09:05 Dose: 110 mls/hr Trimethoprim/Sulfamethoxazole (300 mg/ Dextrose) 518.75 mls @ 259.375 mls/hr IVPB Q6H [facility] Last Admin: 04/23/18 05:34 Dose: 259.375 mls/hr Levalbuterol HCl (Xopenex 1.25 Mg/0.5 Ml Neb.Julissa*) 1.25 mg INH [id number] AWAKE [facility] Last Admin: 04/23/18 08:02 Dose: 1.25 mg Levalbuterol HCl (Xopenex 1.25 Mg/0.5 Ml Neb.Julissa*) 1.25 mg INH Q2HR PRN PRN Reason: SHORTNESS OF BREATH Melatonin (Melatonin) 3 mg PO BEDTIME [facility] Last Admin: 04/22/18 20:54 Dose: 3 mg Methylprednisolone Sodium Succinate (Solu-Medrol 40 Mg) 40 mg IV BID [facility] Last Admin: 04/23/18 08:47 Dose: 40 mg Metoprolol Tartrate (Lopressor Tab*) 25 mg PO BID [facility] Last Admin: 04/23/18 08:46 Dose: 25 mg Multi-Ingredient Mouthwash/Gargle (Magic M W2 Todd/Maal/Nyst/Lido*) 5 ml SWISH SWAL [id number] AWAKE PRN PRN Reason: mouth pain/mucositis Last Admin: 04/13/18 19:37 Dose: 5 ml Pantoprazole Sodium (Protonix Iv*) 40 mg IV BID [facility] Last Admin: 04/23/18 08:45 Dose: 40 mg Senna (Senokot Tab*) 2 tab PO DAILY PRN PRN Reason: CONSTIPATION Last Admin: 04/22/18 02:29 Dose: 1 tab Sucralfate (Sucralfate Susp) 1 gm PO ACHS [facility] Last Admin: 04/23/18 08:59 Dose: 1 gm Throat Lozenges (Chloraseptic Ursula*) 1 ursula MT Q6H PRN PRN Reason: SORE THROAT Last Admin: 04/15/18 17:36 Dose: 1 ursula Physical Exam: General: awake, alert, no distress Head: normocephalic, atraumatic HEENT: no pallor, no icterus, moist mucous membranes Neck: soft, supple CVS: tachy, regular, no murmur Resp: bilateral air entry, no sig rhales, no wheeze/rhonchi, no acc muscle use Abdomen: soft, nontender, nondistended, bowel sounds present Ext: pulses+, warm, mild edema of hands/LE Skin: intact Neuro: awake, alert, oriented x3, tired, moves all ext Labs: Laboratory Results - last 24 hr 04/22/18 04/22/18 04/23/18 17:35 17:35 04:57 WBC RBC Hgb Hct MCV MCH MCHC RDW Plt Count MPV Sodium 132 L Potassium 5.0 Chloride 98 L Carbon Dioxide 29 Anion Gap 5 BUN 20 Creatinine 0.57 L Est GFR ( Amer) 175.3 Est GFR (Non-Af Amer) 144.8 BUN/Creatinine Ratio 35.1 H Glucose 107 H Calcium 8.5 L Total Creatine Kinase 25 CK-MB (CK-2) 1.0 Troponin I 0.01 B-Natriuretic Peptide 85 04/23/18 04:57 WBC 9.0 RBC 3.19 L Hgb 9.3 L Hct 28 L MCV 88 MCH 29 MCHC 33 RDW 18 H Plt Count 320 MPV 7.8 Sodium Potassium Chloride Carbon Dioxide Anion Gap BUN Creatinine Est GFR ( Amer) Est GFR (Non-Af Amer) BUN/Creatinine Ratio Glucose Calcium Total Creatine Kinase CK-MB (CK-2) Troponin I B-Natriuretic Peptide Imaging: cxr 04/17 - improving bilateral infitlrates, still present+ cxr 04/19 - ett above anish, mild scattered infiltrates+ cxr 04/20 - bilateral pulm infiltrates+ cxr 04/23 - improving infiltrates Assessment: 63y M pmhx of 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 Patient comes in for endoscopy for further eval for GIB source, develops respiratory distress after, eventually intubated 04/16. -Shock, unspecified; resolved -acute hypoxic respiratory failure/ARDS; extubated 04/19 -PCP pneumonia+, bilateral -hemophilus parainfluenza+ -DLBCL, stage IV, diffuse involvement; s/p chemo x1 -Anemia -PUD Plan: Neuro- weak overall. awake/alert. delirium prec. asp prec. CVS- no pressors. BP stable. tachycardia better, cont metoprolol 25mg po bid. good urien output; cont lasix 40mg daily. IV abx. hg stable Resp- CXR 04/23 improved infiltrates. still hypoxic, requriing 100% hiflow. will obtain CTA chest, possible PE. Bronchodilators PRN; metanebs started also. minimal sputum production. Cont IV diuretics. Cont solumedrol 40mg iv BID. Sputum+ for hemophilus parainf, BAL+ for PCP serology; cont IV Bactrim q6h. ID- afebrile tmax 98-99. wbc 9. Sputum /10 hemophilus parainfluenza; BAL+ for PCP. Compelted 6 days zosyn. Cont Bactrim IV (day#04/25), switch to PO if able today GI- cont PPI/Sucralfate for PUD. regular diet, encourage PO intake, add ensure cups/liquid. dulcolax/colace for constipation. Renal- Cr okay. K 4.0. Cont lasix 40mg IV daily. will try to d/c ureña today, less IV diuretics now. Heme- hg 8s. plt okay. dvt chemical proph. Endo- fingersticks as needed Musculsk- pressure ulcer prophylaxis. oob to chair as tolerated, pt/ot Wounds- none Nutrition- regular diet DVT prophylaxis: lovenox sq daily GI prophylaxis: ppi/sucralfate Central Line: PICC 04/18 Arterial Line: no Ureña Cathetor: yes Disposition: ICU Code Status: full code Total Critical Care time is 35 minutes, excluding procedures/teaching Samy Montemayor MD [employer] (Electronically Signed)
--- NOTE | 2018-04-23 12:44 | RAD ---
HISTORY: r/o PE; persistent hypoxia, recent PCP pneumonia COMPARISONS: April 13, 2018 TECHNIQUE: Multiple contiguous axial CT scans of the chest were obtained after the administration of nonionic intravenous contrast, timed to the pulmonary arterial phase of contrast enhancement.. Coronal and sagittal multiplanar reformations are also submitted for review. FINDINGS: NECK AND THYROID: There is a small right thyroid nodule. CHEST WALL: There is stable left axillary and supraclavicular lymphadenopathy. A left-sided chest port is noted HEART AND PERICARDIUM: The heart is unremarkable. AORTA AND PULMONARY VASCULATURE: There is no pulmonary arterial filling defect to suggest pulmonary embolism. There is no linear filling defect within the aorta to suggest aortic dissection. MEDIASTINUM: There is no mediastinal lymphadenopathy by size criteria. BETO: There is no hilar lymphadenopathy by size criteria. AIRWAY AND ESOPHAGUS: There is bibasilar bronchiectasis. LUNG PARENCHYMA: There is ground glass opacification with interlobular and nonseptal thickening and honeycombing with a peripheral and basal predominance. This has progressed from the previous examination. There is been improved aeration of the right lung apex. PLEURA: No pleural abnormalities are noted. UPPER ABDOMEN: The hypodense splenic lesion noted on the previous examination is not well-visualized on the current examination. BONES AND SOFT TISSUES: Degenerative changes are noted of the spine. OTHER: None. IMPRESSION: 1. NO PULMONARY ARTERIAL FILLING DEFECT TO SUGGEST PULMONARY EMBOLISM. 2. THERE HAS BEEN INTERVAL DEVELOPMENT OF A PATTERN OF INTERSTITIAL FIBROSIS MOST PRONOUNCED WITHIN THE LOWER LOBES BILATERALLY WITH A BASILAR PREDOMINANCE. GIVEN THE CHANGE FROM THE PREVIOUS EXAMINATION, THE DIFFERENTIAL INCLUDES ACUTE INTERSTITIAL PNEUMONIA.
[2018-04-23] MEDS: Enoxaparin(*) 40 MG/0.4 ML SYR SUBCUT SCH (17:07)
[2018-04-23] MEDS ORDERED: oxyCODONE/Acetamin 5/325 MG* TAB PO PRN (20:05)
[2018-04-23] MEDS: Melatonin 3 MG TAB PO SCH (20:25)
[2018-04-24] MEDS: Levalbuterol 1.25MG/0.5ML NEB INH SCH ×2 (04:06→07:56)
[2018-04-24] MEDS ORDERED: Furosemide IV* 10 MG/ML VIAL (40 MG) ONE (04:28)
[2018-04-24] MEDS ORDERED: Morphine INJ* 2 MG/ML 1 ML SYRINGE (TWO MG - NEW SYRINGE VERSION) ONE (04:29)
[2018-04-24] MEDS ORDERED: Furosemide IV* 10 MG/ML VIAL (40 MG) IV ONE (04:30)
[2018-04-24] MEDS: Morphine INJ* 2 MG/ML 1 ML SYRINGE (TWO MG - NEW SYRINGE VERSION) IV ONE ×2 (04:49→06:09)
[2018-04-24 05:01] LABS: Hematocrit 28 % (42-52); Hemoglobin 9.1 g/dl (14.0-18.0); Mean Corpuscular HGB Conc 33 g/dl (31-36); Mean Corpuscular Hemoglobin 29 pg (27-31); Mean Corpuscular Volume 89 fL (80-94); Mean Platelet Volume 7.7 um3 (7.4-10.4); Platelet Count 343 10^3/ul (150-450); Red Blood Count 3.15 10^6/ul (4.00-5.40); Red Cell Distribution Width 17 % (10.5-15); White Blood Count 11.5 10^3/ul (3.5-10.8)
[2018-04-24 05:16] LABS: EGFR Non-African American 144.8 (>60)
[2018-04-24] MEDS: TRIMETH IVPB SCH ×3 (06:05→18:36)
[2018-04-24] MEDS: SULFAMETHOXAZOLE IVPB SCH ×3 (06:05→18:36)
[2018-04-24] MEDS: D5W IVPB SCH ×3 (06:05→18:36)
--- NOTE | 2018-04-24 06:23 | PN ---
Progress Note - Progress Note Date of Service: 04/24/18 Note: Called by nursing reporting desaturation earlier. Lungs with fine crackles B bases. Given furosemide 40mg w/ return of 350cc urine over 1H with resolution of his fine crackles. However he again became hypoxic into the high 70s/low 80s , refused morphine 2nd not liking the way it makes him feel, did not tolerate BiPap, and advised nursing that he was not interested in being intubated. He confirmed that with me. However, he had been hypoxic for some time and admitted he felt strange. Nursing had contacted his who still wants everything done. ABG was done confirming significant hypoxia without hypercarbia. CXR was essentially unchanged. Further discussion with Mr Emelina yielded his acceptance of the morphine and resultant improvement in saO2 to the high 80s/ low 90s. He was advised of the need to consider his wishes regarding life sustaining measures and discuss them with his in order to come to a consensus. Dr Montemayor was apprised of the situation requested adding an oxymask over the high flow cannula as well as adding a bubble study to his ECHO scheduled for today to evaluate for an intracardiac shunt.
--- NOTE | 2018-04-24 07:33 | RAD ---
HISTORY: SOB COMPARISONS: April 23, 2018 VIEWS: 1: frontal portable view of the chest at 6:00 AM FINDINGS: LINES AND TUBES: A right-sided chest port is noted with the tip overlying the caval atrial junction a right-sided PICC line is noted with the tip overlying the cavoatrial junction. CARDIOMEDIASTINAL SILHOUETTE: The cardiomediastinal silhouette is normal for portable technique. PLEURA: The costophrenic angles are sharp. No pleural abnormalities are noted. LUNG PARENCHYMA: Again noted is a diffuse pattern of reticular opacification with more focal alveolar opacification within the left lung base. This has improved from the previous examination. ABDOMEN: The upper abdomen is clear. There is no subphrenic gas. BONES AND SOFT TISSUES: No bone or soft tissue abnormalities are noted. IMPRESSION: PERSISTENT BUT IMPROVED MIXED INTERSTITIAL AND AIRSPACE DISEASE MOST PRONOUNCED WITHIN THE LEFT LUNG BASE
[2018-04-24] MEDS: Budesonide NEB* 0.5 MG/2 ML NEB.SOLN INH SCH ×2 (07:56→19:39)
[2018-04-24] MEDS: Pantoprazole IV* 40 MG IV SCH (08:22)
[2018-04-24] MEDS: Morphine INJ* 2 MG/ML 1 ML SYRINGE (TWO MG - NEW SYRINGE VERSION) IV PRN ×5 (08:22→19:28)
[2018-04-24] MEDS: methylPREDNISolone SOD 40 MG* 1 ML VIAL IV SCH ×2 (08:22→20:35)
[2018-04-24] MEDS: Furosemide IV* 10 MG/ML 2 ML VIAL (20 MG) IV SLOW PU SCH (08:25)
--- NOTE | 2018-04-24 09:46 | PN ---
Progress Note - Progress Note Date of Service: 04/24/18 SOAP: Subjective: [Desaturated this am to mid 70s and pt refused BiPAP and/or intubation. Eventually improved with lasix and morphine. CTA from yesterday shows no PE, rather there is a bibasilar fibrotic process that is new when compared to imaging at admission. Prior diffuse infiltrative process that previously dominated the R lung field seems to have resolved.] Objective: [ Laboratory Results - last 24 hr 04/24/18 04/24/18 04/24/18 04:50 04:50 05:50 WBC 11.5 H RBC 3.15 L Hgb 9.1 L Hct 28 L MCV 89 MCH 29 MCHC 33 RDW 17 H Plt Count 343 MPV 7.7 Patient Temperature Not Reportable ABG pH 7.49 H ABG pH (Temp Correct) Not Reportable ABG pCO2 36 ABG pCO2 (Temp Corrct Not Reportable ABG pO2 38 L* ABG pO2 (Temp Correct Not Reportable ABG HCO3 27.5 ABG O2 Saturation 72.7 L ABG Base Excess 4.0 H Respiration Rate Not Reportable O2 Delivery Device vapo Ventilator Type Not Reportable Vent Mode Not Reportable FiO2 100 Inspiratory Time Not Reportable PEEP Not Reportable Pressure Support Not Reportable Pressure Control Not Reportable EPAP Not Reportable IPAP Not Reportable BiPAP Not Reportable Sodium 133 L Potassium 4.8 Chloride 100 L Carbon Dioxide 28 Anion Gap 5 BUN 22 Creatinine 0.57 L Est GFR ( Amer) 175.3 Est GFR (Non-Af Amer) 144.8 BUN/Creatinine Ratio 38.6 H Glucose 100 Calcium 8.3 L Acetaminophen (Tylenol Adult Liq*) 650 mg NG TUBE Q4H PRN PRN Reason: FEVER/HEADACHE Last Admin: 04/16/18 06:36 Dose: 650 mg Bisacodyl (Dulcolax Supp*) 10 mg [place] DAILY PRN PRN Reason: CONSTIPATION Last Admin: 04/18/18 11:48 Dose: 10 mg Budesonide (Pulmicort Neb*) 0.5 mg INH RT.BID [facility] Last Admin: 04/24/18 07:56 Dose: 0.5 mg Citalopram Hydrobromide (Celexa Tab*) 20 mg PO DAILY [facility] Last Admin: 04/23/18 08:46 Dose: 20 mg Docusate Sodium (Colace Liq*) 100 mg PO BID PRN PRN Reason: CONSTIPATION Last Admin: 04/18/18 11:48 Dose: 100 mg Enoxaparin Sodium (Lovenox(*)) 40 mg SUBCUT Q24H [facility] Last Admin: 04/23/18 17:07 Dose: 40 mg Furosemide (Lasix Iv*) 40 mg IV SLOW PU DAILY [facility] Last Admin: 04/24/18 08:25 Dose: 40 mg Heparin Sodium (Porcine) (Heparin Flush Port (Ivad)) 5 ml FLUSH DAILY [facility]; Protocol Last Admin: 04/23/18 17:12 Dose: 5 ml Heparin Sodium (Porcine) (Heparin Flush Picc/Ml/Cvc(*)) 1 - 3 ml FLUSH 0600, 1800 [facility]; Protocol Last Admin: 04/24/18 06:04 Dose: 2 ml Trimethoprim/Sulfamethoxazole (300 mg/ Dextrose) 518.75 mls @ 259.375 mls/hr IVPB Q6H [facility] Last Admin: 04/24/18 06:05 Dose: 259.375 mls/hr Levalbuterol HCl (Xopenex 1.25 Mg/0.5 Ml Neb.Julissa*) 1.25 mg INH [id number] AWAKE [facility] Last Admin: 04/24/18 07:56 Dose: 1.25 mg Levalbuterol HCl (Xopenex 1.25 Mg/0.5 Ml Neb.Julissa*) 1.25 mg INH Q2HR PRN PRN Reason: SHORTNESS OF BREATH Melatonin (Melatonin) 3 mg PO BEDTIME [facility] Last Admin: 04/23/18 20:25 Dose: 3 mg Methylprednisolone Sodium Succinate (Solu-Medrol 40 Mg) 40 mg IV BID [facility] Last Admin: 04/24/18 08:22 Dose: 40 mg Metoprolol Tartrate (Lopressor Tab*) 25 mg PO BID [facility] Last Admin: 04/23/18 20:25 Dose: 25 mg Morphine Sulfate (Morphine Inj ((Syringe))*) 2 mg IV Q2H PRN PRN Reason: WOB/PAIN Last Admin: 04/24/18 08:22 Dose: 2 mg Multi-Ingredient Mouthwash/Gargle (Magic M W2 Todd/Maal/Nyst/Lido*) 5 ml SWISH SWAL [id number] AWAKE PRN PRN Reason: mouth pain/mucositis Last Admin: 04/13/18 19:37 Dose: 5 ml Oxycodone/Acetaminophen (Percocet 5/325 Tab*) 1 tab PO Q6H PRN PRN Reason: PAIN Last Admin: 04/23/18 20:34 Dose: 1 tab Pantoprazole Sodium (Protonix Iv*) 40 mg IV BID [facility] Last Admin: 04/24/18 08:22 Dose: 40 mg Senna (Senokot Tab*) 2 tab PO DAILY PRN PRN Reason: CONSTIPATION Last Admin: 04/22/18 02:29 Dose: 1 tab Sucralfate (Sucralfate Susp) 1 gm PO ACHS [facility] Last Admin: 04/23/18 20:26 Dose: 1 gm Throat Lozenges (Chloraseptic Ursula*) 1 ursula MT Q6H PRN PRN Reason: SORE THROAT Last Admin: 04/15/18 17:36 Dose: 1 ursula Vital Signs: Temp Pulse Resp BP Pulse Ox 97.9 F 87 21 110/69 94 04/24/18 09:00 04/24/18 09:00 04/24/18 09:00 04/24/18 09:00 04/24/18 09:00 Exam: Gen: Weak appearing, thin. Accompanied by his . 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 Bronchoscopy completed 04/14 with nl path and PCP PCR +.] Plan: [1. Pneumocystitis PNA - BAL + PCP on PCR - extubated, but desaturating with minimal activity on max setting of Vapotherm - CTA yesterday shows no PE, bibasilar fibrotic process that appears new with resolution of prior R lung infiltration - guideman and pulmonology to re-evaluate - maintain high flow - cont IV corticosteroids and Bactrim (day 05/26) 2. Acute respiratory failure - continued management per guideman 3. Constipation - cont laxatives - trial Reglan to improve gut motility 4. H/o GI bleed - cont IV PPI - Hgb remains stable at this time 5. DLBCL - therapy has been held for >2 weeks, will need to resume treatment as soon as possible to prevent disease progression and further complication - once respiratory status appears to have stabilized will consider inpatient chemotherapy next week 6. Code status - pt is FULL code but refused intubation this am, spoke with patient and at length regarding code status this am - pt is very reluctant to consider reintubation if necessary, but his would like all interventions - his current disease process is likely reversible and his lymphoma appears to be responding well to treatment, recommended that he remain FULL code at this time - pt and his will have additional conversation today to clarify his code status further, he will remain FULL code at this time 30 min spent face to face, >50% spent in counseling Dispo: continued ICU level care
[2018-04-24] MEDS: Sucralfate SUSP 1 GM/10 ml 10 ML UDC PO SCH ×4 (09:58→20:35)
[2018-04-24] MEDS: Citalopram TAB* 20 MG PO SCH (09:58)
--- NOTE | 2018-04-24 10:58 | ECHO ---
Patient: RODNEY HAINES [facility] Rec#: [id number] : 1955 Date: 04/24/2018 Age: 63y Height: 180.34 cm / 71.0 in Weight: 82.55 kg / 181.9 lbs Sex: M BSA: 2.03 Room#: ICU-4 Admit Date#: 04/13/2018 Type: Inpatient Referring: Gonzalo Rowland MD Reading: Mayo Mitchell MD Stockroom Worker: Caitlin LylesSIENNA CC: Moy Panchal MD Transthoracic Echocardiogram Indication: Chest Pain BP: 146/91 HR: 90 Rhythm: NSR Findings History: Large B-cell lymphoma, HTN, HLD, former smoker. Technical Comments: The study was technically limited due to the patient's inability to lay in the left lateral decubitus position. Completed at 0900. Left Ventricle: The left ventricular chamber size is decreased. Moderate concentric left ventricular hypertrophy is observed. Global left ventricular wall motion and contractility are within normal limits. The left ventricle appears hyperdynamic. The estimated ejection fraction is greater than 65%. Abnormal left ventricular diastolic function is observed. Abnormal left ventricular diastolic filling is observed, consistent with impaired relaxation. Left Atrium: The left atrium is mildly dilated. Right Ventricle: The right ventricular cavity size is normal. The right ventricular global systolic function is low normal. Right Atrium: The right atrial cavity size is normal. Interatrial septum appears intact without evidence of shunting. The bubble study is negative. A patent foramen ovale is not demonstrated with color Doppler and agitated contrast. Aortic Valve: The aortic valve is trileaflet. The aortic valve leaflets are mildly thickened. There is aortic annular calcification. There is no evidence of aortic regurgitation. There is no evidence of aortic stenosis. Mitral Valve: The mitral valve leaflets are mildly thickened. There is a trace of mitral regurgitation. There is no evidence of mitral stenosis. Tricuspid Valve: The tricuspid valve leaflets are normal. There is trace to mild tricuspid regurgitation. The right ventricular systolic pressure is estimated at 26 mmHg. There is evidence that pulmonary hypertension may be underestimated. There is no tricuspid stenosis. Pulmonic Valve: The pulmonic valve appears normal. There is mild pulmonic regurgitation. There is no pulmonic stenosis. Pericardium: There is no significant pericardial effusion. A pericardial fat pad is visualized. Aorta: There is moderate dilatation of the ascending aorta.4.3 cm There is no dilatation of the aortic arch. There is mild dilatation of the aortic root. Pulmonary Artery: The main pulmonary artery is not well visualized. Venous: The inferior vena cava appears normal in size. There is a greater than 50% respiratory change in the inferior vena cava dimension. Contrast: Normal saline was used as contrast for the bubble study. Images 83 and 87. Intravenous contrast was used to help determine presence of intracardiac shunting. Conclusions Global left ventricular wall motion and contractility are within normal limits. The left ventricle appears hyperdynamic. The estimated ejection fraction is greater than 65%. Abnormal left ventricular diastolic filling is observed, consistent with impaired relaxation. The right ventricular global systolic function is low normal. A patent foramen ovale is not demonstrated with color Doppler and agitated contrast. There is no evidence of aortic stenosis. There is a trace of mitral regurgitation. There is trace to mild tricuspid regurgitation. There is no significant pericardial effusion. There is moderate dilatation of the ascending aorta.4.3 cm Compared to study of 03/14/18, there is little change. the asc aorta now measures 4.3 cm previosly it was 3.6 cm Measurements Name Value Normal Range RVIDd (AP) 2D 3.3 cm (0.9 - 2.6) RVDdMajor (2D) 4.1 cm (2.2 - 4.4) RAd ISD 4CH 4.8 cm (3.4 - 4.9) RA (A4C)W 4.3 cm (2.9 - 4.6) IVSd (2D) 1.4 cm (0.6 - 1) LVPWd (2D) 1.4 cm (0.6 - 1) LVIDd (2D) 3 cm (3.6 - 5.4) LVIDs (2D) 2.3 cm - LV FS (2D) 24 % (25 - 45) Aortic Annulus 1.9 cm (1.4 - 2.6) Ao root diameter (2D) 4 cm (2.1 - 3.5) Ascending Ao 4.3 cm (2.1 - 3.4) Aortic arch 2.6 cm (1.8 - 3.4) LA dimension (AP) 2D 2.5 cm (2.3 - 3.8) LAd ISD 4CH 4.9 cm (2.9 - 5.3) LA ISD 4CH W 4.8 cm (2.5 - 4.5) Name Value Normal Range LA ESV SP 4CH (A/L) 75 ml - LA ESV SP 2CH (A/L) 50 ml - LA ESV BP (A/L) 64 ml - LA ESV BP (A/L) index 31 ml/m2 - LA ESV SP 4CH (MOD) 61 ml - LA ESV SP 2CH (MOD) 46 ml - Name Value Normal Range MV E-wave Vmax 0.51 m/sec - MV deceleration time 334 msec - MV A-wave Vmax 0.7 m/sec - MV E:A ratio 0.7 ratio - LV septal e' Vmax 0.06 m/sec - LV lateral e' Vmax 0.09 m/sec - LV E:e' septal ratio 8.33 ratio - LV E:e' lateral ratio 5.56 ratio - Name Value Normal Range AV Vmax 1.4 m/sec - AV VTI 25.68 cm - AV peak gradient 7.55 mmHg - AV mean gradient 5.32 mmHg - LVOT Vmax 1.11 m/sec - LVOT VTI 15.94 cm - LVOT peak gradient 4.98 mmHg - LVOT mean gradient 2.97 mmHg - RADHA Vmax 1.1 m/sec - Name Value Normal Range TR Vmax 2.4 m/sec - TR peak gradient 23 mmHg - RAP 3 mmHg - RVSP 26 mmHg - IVC diameter 1.7 cm - Name Value Normal Range PV Vmax 0.95 m/sec - PV peak gradient 3.66 mmHg -
[2018-04-24] MEDS: Metoprolol Tartrate TAB* 25 MG PO SCH ×2 (11:15→20:35)
[2018-04-24] MEDS: Enoxaparin(*) 40 MG/0.4 ML SYR SUBCUT SCH (17:07)
--- NOTE | 2018-04-24 17:29 | PN ---
Progress Note - Progress Note Date of Service: 04/24/18 - Pulmonary f/u note Note: Pt seen and examined at bedside. Interim events noted. Pt continues to need high FiO2 post extuabtion. He has been desaturating with minimal movement. Deneis much cough. Active Medications Generic Name Dose Route Start Last Admin Trade Name Freq PRN Reason Stop Dose Admin Acetaminophen 650 mg 04/16/18 06:15 04/16/18 06:36 Tylenol Adult Liq* NG TUBE 650 mg Q4H PRN Administration FEVER/HEADACHE Bisacodyl 10 mg 04/18/18 10:48 04/18/18 11:48 Dulcolax Supp* ME 10 mg DAILY PRN Administration CONSTIPATION Budesonide 0.5 mg 04/15/18 21:00 04/24/18 07:56 Pulmicort Neb* INH 0.5 mg RT.BID FADUMO Administration Citalopram Hydrobromide 20 mg 04/14/18 09:00 04/24/18 09:58 Celexa Tab* PO 20 mg DAILY FADUMO Administration Docusate Sodium 100 mg 04/18/18 10:48 04/18/18 11:48 Colace Liq* PO 100 mg BID PRN Administration CONSTIPATION Enoxaparin Sodium 40 mg 04/19/18 17:00 04/23/18 17:07 Lovenox(*) SUBCUT 40 mg Q24H FADUMO Administration Furosemide 40 mg 04/24/18 09:00 04/24/18 08:25 Lasix Iv* IV SLOW PU 40 mg DAILY FADUMO Administration Heparin Sodium (Porcine) 5 ml 04/14/18 09:00 04/24/18 11:33 Heparin Flush Port (Ivad) FLUSH 5 ml DAILY FADUMO Administration Protocol Heparin Sodium (Porcine) 1 - 3 ml 04/18/18 18:00 04/24/18 06:04 Heparin Flush Picc/Ml/Cvc(*) FLUSH 2 ml 0600,1800 FADUMO Administration Protocol Trimethoprim/Sulfamethoxazole 518.75 mls @ 259.375 mls/hr 04/18/18 12:00 12:35 300 mg/ Dextrose IVPB 259.375 mls/hr Q6H FADUMO Administration Levalbuterol HCl 1.25 mg 04/22/18 18:00 Xopenex 1.25 Mg/0.5 Ml Neb.Julissa* INH Q2HR PRN SHORTNESS OF BREATH Melatonin 3 mg 04/19/18 23:00 04/23/18 20:25 Melatonin PO 3 mg BEDTIME FADUMO Administration Methylprednisolone Sodium Succinate 40 mg 04/22/18 21:00 04/24/18 08:22 Solu-Medrol 40 Mg IV 40 mg BID FADUMO Administration Metoprolol Tartrate 25 mg 04/22/18 10:00 04/24/18 11:15 Lopressor Tab* PO Not Given BID FAUDMO Morphine Sulfate 2 mg 04/24/18 06:25 04/24/18 14:03 Morphine Inj ((Syringe))* IV 2 mg Q2H PRN Administration WOB/PAIN Multi-Ingredient Mouthwash/Gargle 5 ml 04/13/18 17:04 04/13/18 19:37 Magic M W2 Todd/Maal/Nyst/Lido* SWISH SWAL 5 ml [id number] AWAKE PRN Administration mouth pain/mucositis Oxycodone/Acetaminophen 1 tab 04/23/18 20:05 04/23/18 20:34 Percocet 5/325 Tab* PO 1 tab Q6H PRN Administration PAIN Pantoprazole Sodium 40 mg 04/19/18 09:00 04/24/18 08:22 Protonix Iv* IV 40 mg BID FADUMO Administration Senna 2 tab 04/22/18 02:15 04/22/18 02:29 Senokot Tab* PO 1 tab DAILY PRN Administration CONSTIPATION Sucralfate 1 gm 04/13/18 21:00 04/24/18 12:27 Sucralfate Susp PO 1 gm ACHS FADUMO Administration Throat Lozenges 1 rubén 04/14/18 20:15 04/15/18 17:36 Chloraseptic Rubén* MT 1 rubén Q6H PRN Administration SORE THROAT Vital Signs Temp Pulse Resp BP Pulse Ox 98.1 F 85 11 124/70 99 04/24/18 16:00 04/24/18 16:00 04/24/18 16:00 04/24/18 16:00 04/24/18 16:00 O/E: Pt in NAD, alert, awake HEENT: PERRLA, no JVD Lungs: Crackles + b/l at bases CVS: S1, S2+, regular Abd: Soft, BS+ Ext: Normal ROM Neuro: No focal defecits Skin: NO rash or bruise Laboratory Results - last 24 hr 04/24/18 04/24/18 04/24/18 04:50 04:50 05:50 WBC 11.5 H RBC 3.15 L Hgb 9.1 L Hct 28 L MCV 89 MCH 29 MCHC 33 RDW 17 H Plt Count 343 MPV 7.7 Patient Temperature Not Reportable ABG pH 7.49 H ABG pH (Temp Correct) Not Reportable ABG pCO2 36 ABG pCO2 (Temp Corrct Not Reportable ABG pO2 38 L* ABG pO2 (Temp Correct Not Reportable ABG HCO3 27.5 ABG O2 Saturation 72.7 L ABG Base Excess 4.0 H Respiration Rate Not Reportable O2 Delivery Device vapo Ventilator Type Not Reportable Vent Mode Not Reportable FiO2 100 Inspiratory Time Not Reportable PEEP Not Reportable Pressure Support Not Reportable Pressure Control Not Reportable EPAP Not Reportable IPAP Not Reportable BiPAP Not Reportable Sodium 133 L Potassium 4.8 Chloride 100 L Carbon Dioxide 28 Anion Gap 5 BUN 22 Creatinine 0.57 L Est GFR ( Amer) 175.3 Est GFR (Non-Af Amer) 144.8 BUN/Creatinine Ratio 38.6 H Glucose 100 Calcium 8.3 L CTA: Evidence of fibrocystic changes at bases, interval improvement of dense consolidation and GGo opacities, pleural effusion was seen previously obscuring the bases. Lungs also appear to be stiff suggestive of underlying fibrosis ECHO with bubble study didnot show evidence of patent PFO I/R: 63 y o m with recently dx DLBCL s/p 1 round of chemo complicated with GI bleed, PCP found after bronchoscopy and BAL, tranbronchial biopsy negative for malignancy/lymphangetic spread Pt with progressively worsened O2 status, required intubation, was subsequently extubated, still requiring high FIO2 and high flow with no change in O2 status ABG concerning for severe hypoxic resp failure CTA with no evidence of PE however with evidence of cysts and fibrosis suggestive of possible severe infection with PCP resulting in fibrosis which also is associated with poor prognosis Other possible differentials given CT findings are 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 His however would like to try all options including intubation Pts also enquiring about any other options available at this time that are not being undertaken I tried to explain in great detail that we do have diagnosis and he is being adequately treated for this condition I have discussed with ID specialist Dr Hernandez regarding his input on changing PCP treatment It was agreed that Bactrim is primary treatment modality for PCP and secondary agents are less effective He will therefore c/w Bactrim and solumedrol , day#05/26 I have also discussed with manager maintenance Dr Chakraborty, who is in agreement with above , also suggested addition of acetylcysteine to loer concern with O2 toxicity Pts also considering second opinion consultation at [facility], I would leave that to primary team, Dr Panchal/Jhonatan NEURODIAGNOSTIC TECHNOLOGIST I have reached primary team so they could have that discussion with patient and his and arrange for the transfer if family insists even though I am not entirely sure if anything could be done differently
--- NOTE | 2018-04-24 19:02 | PN ---
Date of Service: 04/24/18 Critical Care Services: Patient is currently on vapotherm at 40 L/in. Has episodes of desaturation but recovers quickly. Cardiac ECHO shows no PFO and no LV systolic dysfunction ( does have diastolic dysfunction). CT chest consistent with Dx of PCP. Vital Signs: Temp Pulse Resp BP SpO2 FiO2 98.2 F 90 14 125/71 95 100 Physical Exam: Gen:Alert, oriented, and breathing comfortably Lungs:Only a few crackles. No wheezes. Abdomen:Not distended. Extremities:no cyanosis or edema Fluid Balance (Past 24 Hours): 04/24/18 06:59 Intake Total 2841 Output Total 4267 Balance -1426 Weight 182 lb Intake: IV Fluids 882 Bactrim Iron NS (0.9%) NS to Maintain IV Patency 72 ivm with ns 777 kvo 33 IVPB 1399 Bactrim 562 NS (0.9%) kvo 837 Medicated IV ferric gluconate Oral 560 Output: Urine Weinstein 4267 Other: Date of Last Bowel 04/23/2018 Movement # Bowel Movements 1 Estimated Stool Amount Large Labs: 04/24/18 04/24/18 04/24/18 04:50 04:50 05:50 WBC 11.5 H RBC 3.15 L Hgb 9.1 L Hct 28 L MCV 89 MCH 29 MCHC 33 RDW 17 H Plt Count 343 MPV 7.7 ABG pH 7.49 H ABG pCO2 36 ABG pO2 38 ABG HCO3 27.5 ABG O2 Saturation 72.7 L ABG Base Excess 4.0 H O2 Delivery Device vapo FiO2 100 Sodium 133 L Potassium 4.8 Chloride 100 L Carbon Dioxide 28 Anion Gap 5 BUN 22 Creatinine 0.57 L Est GFR ( Amer) 175.3 Est GFR (Non-Af Amer) 144.8 BUN/Creatinine Ratio 38.6 H Glucose 100 Calcium 8.3 L Studies: None Nutrition: Oral diet Impression: Still with major defect in pulmonary O2 exchange. Although this is consistent with PCP, I am also concerned about pulmonary O2 toxicity, given the time spent on high FIO2s. Prognosis is guarded in this case. Plan: I will add an antioxidant (acetylcysteine) ro protect against O2 toxicty. PCP Rx will continue for at least 2 weeks (total). I spoke with patient's , and Dr. Gore, about the current situation. Critical Care Time: 50 minutes.
[2018-04-24] MEDS: Acetylcysteine CAP (RENAL)* 600 MG PO SCH (20:35)
[2018-04-24] MEDS: Melatonin 3 MG TAB PO SCH (20:35)
[2018-04-25] MEDS: TRIMETH IVPB SCH ×4 (00:17→18:17)
[2018-04-25] MEDS: SULFAMETHOXAZOLE IVPB SCH ×4 (00:17→18:17)
[2018-04-25] MEDS: D5W IVPB SCH ×4 (00:17→18:17)
[2018-04-25] MEDS: Morphine INJ* 2 MG/ML 1 ML SYRINGE (TWO MG - NEW SYRINGE VERSION) IV PRN ×4 (05:03→21:42)
[2018-04-25] MEDS: Budesonide NEB* 0.5 MG/2 ML NEB.SOLN INH SCH ×2 (08:08→20:01)
[2018-04-25] MEDS: methylPREDNISolone SOD 40 MG* 1 ML VIAL IV SCH ×2 (08:47→21:33)
[2018-04-25] MEDS: Acetylcysteine CAP (RENAL)* 600 MG PO SCH ×2 (08:47→21:32)
[2018-04-25] MEDS: Sucralfate SUSP 1 GM/10 ml 10 ML UDC PO SCH ×4 (08:47→21:32)
[2018-04-25] MEDS: Citalopram TAB* 20 MG PO SCH (08:47)
[2018-04-25] MEDS ORDERED: Famotidine TAB* 20 MG PO SCH (09:00)
--- NOTE | 2018-04-25 11:08 | PN ---
Progress Note - Progress Note Date of Service: 04/25/18 SOAP: Subjective: [Met with Dr Gore yesterday, no changes to current treatment. Offered transfer to tertiary facility, patient and have discussed this at length and would like to continue current plan here and avoid transfer. They also discussed code status at length and agree on DNR/DNI. FiO2 down to 80%, still at 40L. Stable with this, but still desaturating with even minimal movements in bed.] Objective: [ Acetaminophen (Tylenol Adult Liq*) 650 mg NG TUBE Q4H PRN PRN Reason: FEVER/HEADACHE Last Admin: 04/16/18 06:36 Dose: 650 mg Acetylcysteine (Acetylcysteine Cap (Renal)*) 600 mg PO BID FADUMO Stop: 04/26/18 09:01 Last Admin: 04/25/18 08:47 Dose: 600 mg Budesonide (Pulmicort Neb*) 0.5 mg INH RT.BID FADUMO Last Admin: 04/25/18 08:08 Dose: 0.5 mg Citalopram Hydrobromide (Celexa Tab*) 20 mg PO DAILY FADUMO Last Admin: 04/25/18 08:47 Dose: 20 mg Enoxaparin Sodium (Lovenox(*)) 40 mg SUBCUT Q24H FADUMO Last Admin: 04/24/18 17:07 Dose: 40 mg Heparin Sodium (Porcine) (Heparin Flush Port (Ivad)) 5 ml FLUSH DAILY FADUMO; Protocol Last Admin: 04/25/18 08:47 Dose: 5 ml Heparin Sodium (Porcine) (Heparin Flush Picc/Ml/Cvc(*)) 1 - 3 ml FLUSH 0600, 1800 FADUMO; Protocol Last Admin: 04/25/18 06:00 Dose: 2 ml Trimethoprim/Sulfamethoxazole (300 mg/ Dextrose) 518.75 mls @ 259.375 mls/hr IVPB Q6H FADUMO Last Admin: 04/25/18 06:01 Dose: 259.375 mls/hr Levalbuterol HCl (Xopenex 1.25 Mg/0.5 Ml Neb.Julissa*) 1.25 mg INH Q2HR PRN PRN Reason: SHORTNESS OF BREATH Melatonin (Melatonin) 3 mg PO BEDTIME FADUMO Last Admin: 04/24/18 20:35 Dose: 3 mg Methylprednisolone Sodium Succinate (Solu-Medrol 40 Mg) 40 mg IV BID FADUMO Stop: 04/27/18 06:00 Last Admin: 04/25/18 08:47 Dose: 40 mg Morphine Sulfate (Morphine Inj ((Syringe))*) 2 mg IV Q2H PRN PRN Reason: WOB/PAIN Last Admin: 04/25/18 08:43 Dose: 2 mg Morphine Sulfate (Morphine Oral.Soln 10 Mg*) 10 mg PO Q4H [facility] Multi-Ingredient Mouthwash/Gargle (Magic M W2 Todd/Maal/Nyst/Lido*) 5 ml SWISH SWAL [id number] AWAKE PRN PRN Reason: mouth pain/mucositis Last Admin: 04/13/18 19:37 Dose: 5 ml Oxycodone/Acetaminophen (Percocet 5/325 Tab*) 1 tab PO Q6H PRN PRN Reason: PAIN Last Admin: 04/23/18 20:34 Dose: 1 tab Pantoprazole Sodium (Protonix Iv*) 40 mg IV DAILY [facility] Sucralfate (Sucralfate Susp) 1 gm PO ACHS [facility] Last Admin: 04/25/18 08:47 Dose: 1 gm Throat Lozenges (Chloraseptic Ursula*) 1 ursula MT Q6H PRN PRN Reason: SORE THROAT Last Admin: 04/15/18 17:36 Dose: 1 ursula Vital Signs: Temp Pulse Resp BP Pulse Ox 98.4 F 103 13 119/64 96 04/25/18 10:00 04/25/18 10:00 04/25/18 10:00 04/25/18 10:00 04/25/18 10:00 Exam: Gen: Weak appearing, thin. Accompanied by his . 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 Bronchoscopy completed 04/14 with nl path and PCP PCR +.] Plan: [1. Pneumocystitis PNA - BAL + PCP on PCR - extubated, but desaturating with minimal activity on max settings of Vapotherm - CTA yesterday shows no PE, bibasilar fibrotic process that appears new with resolution of prior R lung infiltration - greatly appreciated vaccine customer representative and pulmonology involvement, Ddx for new process is oxygen toxicity v. slow response of PCP - maintain high flow, titration per instensivist - cont IV corticosteroids and Bactrim (day 05/26) 2. Acute respiratory failure - continued management per vaccine customer representative - acetylcholine added for possible oxygen toxicity effect 3. Constipation - cont laxatives - trial Reglan to improve gut motility 4. H/o GI bleed - cont IV PPI and sucralfate - Hgb remains stable at this time 5. DLBCL - therapy has been held for >2 weeks, will need to resume treatment as soon as possible to prevent disease progression and further complication - once respiratory status appears to have stabilized will consider inpatient chemotherapy next week 6. Code status - after extensive discussion, now DNR/DNI Dispo: continued ICU level care]
[2018-04-25] MEDS: Furosemide IV* 10 MG/ML 2 ML VIAL (20 MG) IV SLOW PU SCH (11:52)
[2018-04-25] MEDS: Metoprolol Tartrate TAB* 25 MG PO SCH (11:52)
[2018-04-25] MEDS: Morphine ORAL.SOLN 10 mg* 2 MG/ML UDC 5 ml PO SCH ×4 (11:55→21:33)
[2018-04-25] MEDS: Pantoprazole IV* 40 MG IV SCH (11:56)
--- NOTE | 2018-04-25 15:23 | PN ---
Date of Service: 04/25/18 Critical Care Services: Continues on high-flow nasal O2 but FIO2 down to 80% with adequate oxygenation. Patient and decided to institute DNI/DNR orders, which was done today. Vital Signs: Temp Pulse Resp BP SpO2 FiO2 97.9 F 83 8 130/78 99 80 Physical Exam: Gen:Alert, oriented, breathing comfortably Lungs: Fine crackles both bases Cardiac: reg rhythm Extremities:No cyanosis or edema Fluid Balance (Past 24 Hours): 04/25/18 06:59 Intake Total 2320.9 Output Total 3110 Balance -789.1 Weight 182 lb Intake: IV Fluids 128.9 Bactrim 84 Iron NS (0.9%) NS to Maintain IV Patency 44.9 ivm with ns kvo IVPB 2092 Bactrim 2092 NS (0.9%) kvo Oral 100 Plasma Expanders Amount Output: Urine Weinstein 3110 Other: Date of Last Bowel 04/23/2018 Movement # Bowel Movements Estimated Stool Amount Labs: None today Studies: None today Nutrition: Oral diet Impression: Slight improvement in gas exchange Plan: Continue IV Bactrim and steroids for PCP. Reduce FIO2 to minimum level needed to keep SpO2 at 88-90%. Critical Care Time: 40 minutes.
[2018-04-25] MEDS: Enoxaparin(*) 40 MG/0.4 ML SYR SUBCUT SCH (17:32)
[2018-04-25] MEDS: Melatonin 3 MG TAB PO SCH (21:33)
[2018-04-26] MEDS: SULFAMETHOXAZOLE IVPB SCH ×5 (00:15→23:47)
[2018-04-26] MEDS: TRIMETH IVPB SCH ×5 (00:15→23:47)
[2018-04-26] MEDS: D5W IVPB SCH ×5 (00:15→23:47)
[2018-04-26] MEDS: Morphine ORAL.SOLN 10 mg* 2 MG/ML UDC 5 ml PO SCH ×5 (05:34→21:43)
[2018-04-26 05:55] LABS: Hematocrit 27 % (42-52); Mean Corpuscular HGB Conc 33 g/dl (31-36); Mean Corpuscular Hemoglobin 30 pg (27-31); Mean Corpuscular Volume 89 fL (80-94); Mean Platelet Volume 7.2 um3 (7.4-10.4); Platelet Count 350 10^3/ul (150-450); Red Blood Count 3.06 10^6/ul (4.00-5.40); Red Cell Distribution Width 19 % (10.5-15); White Blood Count 10.5 10^3/ul (3.5-10.8)
[2018-04-26 06:13] LABS: EGFR Non-African American 164.7 (>60)
[2018-04-26] MEDS: Sucralfate SUSP 1 GM/10 ml 10 ML UDC PO SCH ×4 (07:40→23:47)
[2018-04-26] MEDS: Budesonide NEB* 0.5 MG/2 ML NEB.SOLN INH SCH (07:42)
[2018-04-26] MEDS: Morphine INJ* 2 MG/ML 1 ML SYRINGE (TWO MG - NEW SYRINGE VERSION) IV PRN (08:14)
--- NOTE | 2018-04-26 10:17 | PN ---
Progress Note - Progress Note Date of Service: 04/26/18 SOAP: Subjective: [Doing relatively well. FiO2 down to 60%, still at 40L of flow. No new complaints. Roxanol seems to be effective in controlling his feelings of dyspnea and chest pain. Still desaturates with minimal movements in bed.] Objective: [ Laboratory Results - last 24 hr 04/26/18 04/26/18 05:43 05:43 WBC 10.5 RBC 3.06 L Hgb 9.0 L Hct 27 L MCV 89 MCH 30 MCHC 33 RDW 19 H Plt Count 350 MPV 7.2 L Sodium 132 L Potassium 4.9 Chloride 98 L Carbon Dioxide 29 Anion Gap 5 BUN 16 Creatinine 0.51 L Est GFR ( Amer) 199.3 Est GFR (Non-Af Amer) 164.7 BUN/Creatinine Ratio 31.4 H Glucose 100 Calcium 8.4 L Acetaminophen (Tylenol Adult Liq*) 650 mg NG TUBE Q4H PRN PRN Reason: FEVER/HEADACHE Last Admin: 04/16/18 06:36 Dose: 650 mg Budesonide (Pulmicort Neb*) 0.5 mg INH RT.BID [facility] Last Admin: 04/26/18 07:42 Dose: Not Given Citalopram Hydrobromide (Celexa Tab*) 20 mg PO DAILY [facility] Last Admin: 04/25/18 08:47 Dose: 20 mg Enoxaparin Sodium (Lovenox(*)) 40 mg SUBCUT Q24H [facility] Last Admin: 04/25/18 17:32 Dose: 40 mg Heparin Sodium (Porcine) (Heparin Flush Port (Ivad)) 5 ml FLUSH DAILY [facility]; Protocol Last Admin: 04/25/18 08:47 Dose: 5 ml Heparin Sodium (Porcine) (Heparin Flush Picc/Ml/Cvc(*)) 1 - 3 ml FLUSH 0600, 1800 [facility]; Protocol Last Admin: 04/26/18 05:32 Dose: 2 ml Trimethoprim/Sulfamethoxazole (300 mg/ Dextrose) 518.75 mls @ 259.375 mls/hr IVPB Q6H [facility]AD[facility]O Last Admin: 04/26/18 05:35 Dose: 259.375 mls/hr Levalbuterol HCl (Xopenex 1.25 Mg/0.5 Ml Neb.Julissa*) 1.25 mg INH Q2HR PRN PRN Reason: SHORTNESS OF BREATH Melatonin (Melatonin) 3 mg PO BEDTIME [facility] Last Admin: 04/25/18 21:33 Dose: Not Given Methylprednisolone Sodium Succinate (Solu-Medrol 40 Mg) 40 mg IV BID [facility] Stop: 04/27/18 06:00 Last Admin: 04/25/18 21:33 Dose: 40 mg Morphine Sulfate (Morphine Inj ((Syringe))*) 2 mg IV Q2H PRN PRN Reason: WOB/PAIN Last Admin: 04/26/18 08:14 Dose: 2 mg Morphine Sulfate (Morphine Oral.Soln 10 Mg*) 10 mg PO [id number] AWAKE [facility] Last Admin: 04/26/18 05:34 Dose: 10 mg Multi-Ingredient Mouthwash/Gargle (Magic M W2 Todd/Maal/Nyst/Lido*) 5 ml SWISH SWAL [id number] AWAKE PRN PRN Reason: mouth pain/mucositis Last Admin: 04/13/18 19:37 Dose: 5 ml Oxycodone/Acetaminophen (Percocet 5/325 Tab*) 1 tab PO Q6H PRN PRN Reason: PAIN Last Admin: 04/23/18 20:34 Dose: 1 tab Pantoprazole Sodium (Protonix Iv*) 40 mg IV DAILY [facility] Last Admin: 04/25/18 11:56 Dose: 40 mg Sucralfate (Sucralfate Susp) 1 gm PO ACHS [facility] Last Admin: 04/26/18 07:40 Dose: 1 gm Throat Lozenges (Chloraseptic Ursula*) 1 ursula MT Q6H PRN PRN Reason: SORE THROAT Last Admin: 04/15/18 17:36 Dose: 1 ursula Vital Signs: Temp Pulse Resp BP Pulse Ox 98.4 F 100 19 94/56 83 04/26/18 10:00 04/26/18 10:00 04/26/18 10:00 04/26/18 10:00 04/26/18 10:00 Exam: Gen: Weak appearing, thin. Accompanied by his . 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 Bronchoscopy completed 04/14 with nl path and PCP PCR +.] Plan: [1. Pneumocystitis PNA - BAL + PCP on PCR - extubated, but desaturating with minimal activity on max settings of Vapotherm , now weaned to 60% FiO2 with saturations in the high 80s - CTA shows no PE, bibasilar fibrotic process that appears new with resolution of prior R lung infiltration - greatly appreciated lead quality control technician and pulmonology involvement, Ddx for new process is oxygen toxicity v. slow response of PCP - maintain high flow, titration per instensivist - cont IV corticosteroids and Bactrim (day 07/26) 2. Acute respiratory failure - continued management per lead quality control technician - cont Roxanol for symptom relief - acetylcholine added for possible oxygen toxicity effect 3. Constipation - improved - cont laxatives 4. H/o GI bleed - cont IV PPI and sucralfate - Hgb remains stable at this time 5. DLBCL - therapy has been held for >2 weeks, will need to resume treatment as soon as possible to prevent disease progression and further complication - once respiratory status appears to have stabilized will consider inpatient chemotherapy 6. Code status - after extensive discussion, now DNR/DNI Dispo: continued ICU level care]
[2018-04-26] MEDS: Citalopram TAB* 20 MG PO SCH (10:44)
[2018-04-26] MEDS: Acetylcysteine CAP (RENAL)* 600 MG PO SCH (10:45)
[2018-04-26] MEDS: methylPREDNISolone SOD 40 MG* 1 ML VIAL IV SCH ×2 (10:45→21:43)
[2018-04-26] MEDS: Pantoprazole IV* 40 MG IV SCH (10:45)
--- NOTE | 2018-04-26 13:57 | PN ---
Date of Service: 04/26/18 Critical Care Services: Continues to improve - FIO2 down to 60% on the high-flow nasal O2 system. Complains of episodic chest discomfort (substernal burning) unrelated to position or meals. None now. Vital Signs: Temp Pulse Resp BP SpO2 FiO2 98.6 F 95 21 119/67 95 60 Physical Exam: Gen:Alert, oriented HEENT: no JVD Lungs: Fine crackles both bases posteriorly Extremities:No cyanosis or edema. Fluid Balance (Past 24 Hours): 04/25/18 04/26/18 06:59 06:59 Intake Total 2320.9 2843.4 Output Total 3110 2514 Balance -789.1 329.4 Weight 182 lb 182 lb Intake: IV Fluids 128.9 1577.4 Bactrim 84 1424 NS to Maintain IV Patency 44.9 153.4 ivm with ns kvo IVPB 2092 916 Bactrim 2092 916 kvo Oral 100 240 Plasma Expanders Amount 110 Output: Weinstein 3110 2514 Other: Date of Last Bowel 04/23/2018 04/23/2018 Movement # Bowel Movements Estimated Stool Amount Labs: 04/26/18 04/26/18 05:43 05:43 WBC 10.5 RBC 3.06 L Hgb 9.0 L Hct 27 L MCV 89 MCH 30 MCHC 33 RDW 19 H Plt Count 350 MPV 7.2 L Sodium 132 L Potassium 4.9 Chloride 98 L Carbon Dioxide 29 Anion Gap 5 BUN 16 Creatinine 0.51 L BUN/Creatinine Ratio 31.4 H Glucose 100 Calcium 8.4 L Studies: None Nutrition: Oral diet Impression: Improving gas exchange, indicates clinical improvement of the pneumonia. Plan: Continue to taper the FIO2, when less than 60%, we can begin to taper the high- flow nasal o2 system.
[2018-04-26] MEDS: Enoxaparin(*) 40 MG/0.4 ML SYR SUBCUT SCH (17:05)
[2018-04-26] MEDS: Melatonin 3 MG TAB PO SCH (21:44)
[2018-04-27] MEDS: Morphine INJ* 2 MG/ML 1 ML SYRINGE (TWO MG - NEW SYRINGE VERSION) IV PRN (00:19)
[2018-04-27] MEDS: TRIMETH IVPB SCH ×3 (06:13→18:34)
[2018-04-27] MEDS: SULFAMETHOXAZOLE IVPB SCH ×3 (06:13→18:34)
[2018-04-27] MEDS: D5W IVPB SCH ×3 (06:13→18:34)
[2018-04-27] MEDS: Morphine ORAL.SOLN 10 mg* 2 MG/ML UDC 5 ml PO SCH ×5 (06:13→21:47)
[2018-04-27 06:38] LABS: Hematocrit 27 % (42-52); Hemoglobin 9.2 g/dl (14.0-18.0); Mean Corpuscular HGB Conc 34 g/dl (31-36); Mean Corpuscular Hemoglobin 30 pg (27-31); Mean Corpuscular Volume 89 fL (80-94); Mean Platelet Volume 6.8 um3 (7.4-10.4); Platelet Count 336 10^3/ul (150-450); Red Blood Count 3.06 10^6/ul (4.00-5.40); Red Cell Distribution Width 20 % (10.5-15); White Blood Count 9.8 10^3/ul (3.5-10.8)
[2018-04-27] MEDS: Sucralfate SUSP 1 GM/10 ml 10 ML UDC PO SCH ×4 (07:06→21:46)
--- NOTE | 2018-04-27 07:35 | PN ---
Progress Note - Progress Note Date of Service: 04/27/18 SOAP: Subjective: feels weak but can tell that he is improving. having a hard time with any movement causing desaturations. but clearly improving as on 10L now. Objective: Vital Signs Temp Pulse Resp BP Pulse Ox 97.9 F 76 12 125/70 99 04/27/18 07:00 04/27/18 07:00 04/27/18 07:00 04/27/18 07:00 04/27/18 07:00 lying flat in nad perr eomi op dry crackles bases bilaterally, good air entry upper lobes s1 s2 nl soft nt +Bs no le edema 3 cm left axillary node Laboratory Results - last 24 hr 04/27/18 06:23 WBC 9.8 RBC 3.06 L Hgb 9.2 L Hct 27 L MCV 89 MCH 30 MCHC 34 RDW 20 H Plt Count 336 MPV 6.8 L Acetaminophen (Tylenol Adult Liq*) 650 mg NG TUBE Q4H PRN PRN Reason: FEVER/HEADACHE Last Admin: 04/16/18 06:36 Dose: 650 mg Citalopram Hydrobromide (Celexa Tab*) 20 mg PO DAILY [facility] Last Admin: 04/26/18 10:44 Dose: 20 mg Enoxaparin Sodium (Lovenox(*)) 40 mg SUBCUT Q24H [facility] Last Admin: 04/26/18 17:05 Dose: 40 mg Heparin Sodium (Porcine) (Heparin Flush Port (Ivad)) 5 ml FLUSH DAILY [facility]; Protocol Last Admin: 04/26/18 12:31 Dose: 5 ml Heparin Sodium (Porcine) (Heparin Flush Picc/Ml/Cvc(*)) 1 - 3 ml FLUSH 0600, 1800 [facility]; Protocol Last Admin: 04/27/18 05:23 Dose: Not Given Trimethoprim/Sulfamethoxazole (300 mg/ Dextrose) 518.75 mls @ 259.375 mls/hr IVPB Q6H [facility] Last Admin: 04/27/18 06:13 Dose: 259.375 mls/hr Levalbuterol HCl (Xopenex 1.25 Mg/0.5 Ml Neb.Julissa*) 1.25 mg INH Q2HR PRN PRN Reason: SHORTNESS OF BREATH Melatonin (Melatonin) 3 mg PO BEDTIME [facility] Last Admin: 04/26/18 21:44 Dose: Not Given Morphine Sulfate (Morphine Inj ((Syringe))*) 2 mg IV Q2H PRN PRN Reason: WOB/PAIN Last Admin: 04/27/18 00:19 Dose: 2 mg Morphine Sulfate (Morphine Oral.Soln 10 Mg*) 10 mg PO [id number] AWAKE [facility] Last Admin: 04/27/18 06:13 Dose: 10 mg Multi-Ingredient Mouthwash/Gargle (Magic M W2 Todd/Maal/Nyst/Lido*) 5 ml SWISH SWAL [id number] AWAKE PRN PRN Reason: mouth pain/mucositis Last Admin: 04/13/18 19:37 Dose: 5 ml Oxycodone/Acetaminophen (Percocet 5/325 Tab*) 1 tab PO Q6H PRN PRN Reason: PAIN Last Admin: 04/23/18 20:34 Dose: 1 tab Pantoprazole Sodium (Protonix Iv*) 40 mg IV DAILY [facility] Last Admin: 04/26/18 10:45 Dose: 40 mg Sucralfate (Sucralfate Susp) 1 gm PO ACHS [facility] Last Admin: 04/27/18 07:06 Dose: 1 gm Throat Lozenges (Chloraseptic Ursula*) 1 ursula MT Q6H PRN PRN Reason: SORE THROAT Last Admin: 04/15/18 17:36 Dose: 1 ursula Assessment: 63 yo M w DLBCL sp cycle 1 da R-EPOCH with course c/b GI bleed and now PCP PNA. clinically improving slowly. We discussed today that we will likely do cycle 2 R-CHOP tuesday in house if he continues to improve. Plan: -appreciate CCM involvement and respiratory management -cont bactrim, unclear why steroids stopped last night-will d/w Dr. Chakraborty -no changes from Heme/Onc today -cont to encourage OOB-->chair as tolerated DNR/DNI
[2018-04-27] MEDS: Pantoprazole IV* 40 MG IV SCH (09:10)
[2018-04-27] MEDS: Citalopram TAB* 20 MG PO SCH (09:10)
[2018-04-27] MEDS: predniSONE TAB* 20 MG PO SCH ×2 (11:12→13:42)
[2018-04-27] MEDS: methylPREDNISolone SOD 40 MG* 1 ML VIAL IV SCH (12:02)
--- NOTE | 2018-04-27 16:02 | PN ---
Date of Service: 04/27/18 Critical Care Services: Continues to improve. Now on nasal O2 at 10L/min with SpO2 > 95%. No complaints of chest pain or SOB. Vital Signs: Temp Pulse Resp BP SpO2 FiO2 98.2 F 82 22 133/72 97 60 Physical Exam: Gen:Alert, oriented, breathing comfortably Lungs: Fine end-expiratory crackles at both bases. Extremities:No cyanosis or edema. Fluid Balance (Past 24 Hours): 04/26/18 04/27/18 06:59 06:59 Intake Total 2843.4 2264.3 Output Total 2514 2475 Balance 329.4 -210.7 Weight 182 lb 182 lb Intake: IV Fluids 1577.4 943.3 Bactrim 1424 864 NS to Maintain IV Patency 153.4 79.3 IVPB 916 1121 Bactrim 916 1121 Oral 240 200 Plasma Expanders Amount 110 Output: Weinstein 2514 2225 Straight Cath 250 Other: Date of Last Bowel 04/23/2018 Movement Labs: 04/27/18 06:23 WBC 9.8 Hgb 9.2 L Hct 27 L Plt Count 336 Studies: None today Nutrition: Oral diet Impression: Doing well on Iv bactrim Plan: 1. Consider switching to PO bactrim soon. 2. Continue antioxidant Rx with acetylcysteine. 3. Will speak with oncology about transfer out of ICU tomorrow. Critical Care Time: 35 minutes
[2018-04-27] MEDS: Enoxaparin(*) 40 MG/0.4 ML SYR SUBCUT SCH (17:10)
[2018-04-28] MEDS: TRIMETH IVPB SCH ×5 (00:12→23:58)
[2018-04-28] MEDS: SULFAMETHOXAZOLE IVPB SCH ×5 (00:12→23:58)
[2018-04-28] MEDS: D5W IVPB SCH ×5 (00:12→23:58)
[2018-04-28] MEDS: Morphine ORAL.SOLN 10 mg* 2 MG/ML UDC 5 ml PO SCH ×5 (05:59→21:16)
[2018-04-28] MEDS: Pantoprazole IV* 40 MG IV SCH (09:14)
[2018-04-28] MEDS: methylPREDNISolone SOD 40 MG* 1 ML VIAL IV SCH (09:14)
[2018-04-28] MEDS: Sucralfate SUSP 1 GM/10 ml 10 ML UDC PO SCH ×4 (09:14→20:45)
[2018-04-28] MEDS: Citalopram TAB* 20 MG PO SCH (09:39)
--- NOTE | 2018-04-28 14:50 | PN ---
Date of Service: 04/28/18 Critical Care Services: Patient continues to improve - now on nasal O2 at 3-4 L/min - however, does desaturate with minimal exertion (i.e., SpO2 down into the 70s), although this is usually asymptomatic. No specific complaints this AM. Vital Signs: Temp Pulse Resp BP SpO2 FiO2 98.6 F 103 21 125/69 96 60 Physical Exam: Gen:Alert, oriented - breathing comfortably Lungs: Fine expiratory crackles both bases. Extremities: No cyanosis or edema. Fluid Balance (Past 24 Hours): 04/27/18 04/28/18 06:59 06:59 Intake Total 2264.3 2937.1 Output Total 2475 2 Balance -210.7 905.1 Weight 182 lb 182 lb Intake: IV Fluids 943.3 2092.1 Bactrim 864 1983 NS to Maintain IV Patency 79.3 109.1 IVPB 1121 Bactrim 1121 Oral 200 845 Plasma Expanders Amount Output: Weinstein 2224 2031 Straight Cath 250 Other: Date of Last Bowel Movement Labs: None today Studies: None today. Nutrition: Oral diet - intake satisfactory Impression: Marked improvement over past 5 days, but still has problems with desaturation on minimal exertion. Plan: 1. Continue to monitor SpO2 continuously. 2. Hold physical therapy until O2 desaturation with minimal exertion is no longer a problem. 3. Continue IV bactrim for now.
[2018-04-28] MEDS: Enoxaparin(*) 40 MG/0.4 ML SYR SUBCUT SCH (17:18)
[2018-04-28] MEDS: Morphine INJ* 2 MG/ML 1 ML SYRINGE (TWO MG - NEW SYRINGE VERSION) IV PRN (23:58)
[2018-04-29] MEDS: TRIMETH IVPB SCH ×4 (06:06→23:21)
[2018-04-29] MEDS: SULFAMETHOXAZOLE IVPB SCH ×4 (06:06→23:21)
[2018-04-29] MEDS: Morphine ORAL.SOLN 10 mg* 2 MG/ML UDC 5 ml PO SCH ×6 (06:06→21:31)
[2018-04-29] MEDS: D5W IVPB SCH ×4 (06:06→23:21)
[2018-04-29] MEDS: methylPREDNISolone SOD 40 MG* 1 ML VIAL IV SCH (08:32)
[2018-04-29] MEDS: Pantoprazole IV* 40 MG IV SCH (08:32)
[2018-04-29] MEDS: Sucralfate SUSP 1 GM/10 ml 10 ML UDC PO SCH ×4 (08:33→19:58)
[2018-04-29] MEDS: Citalopram TAB* 20 MG PO SCH (08:35)
--- NOTE | 2018-04-29 14:43 | PN ---
Date of Service: 04/29/18 Critical Care Services: Continues to do well. Less O2 desaturation with exertion. No specific complaints today. Vital Signs: Temp Pulse Resp BP SpO2 FiO2 98.2 F 94 14 115/66 97 60 Physical Exam: Gen:Alert, oriented, and appropriate Lungs:Fine crackles both bases Extremities:No cyanosis or edema Fluid Balance (Past 24 Hours): 04/29/18 04/30/18 06:59 06:59 Intake Total 3018 1564 Output Total 2460 1700 Balance 558 -136 Weight 182 lb 5.156 oz Intake: IV Fluids 827 1164 Bactrim NS to Maintain IV Patency 827 1164 IVPB 1321 Bactrim 1321 Oral 870 400 Output: Urine 1915 1700 Weinstein 545 [address] Cath Other: Date of Last Bowel 04/25/2018 Movement Labs: None today Studies: None today Nutrition: Regular oral diet Impression: Resolving pneumocystis pneumonia. Plan: Continue IV bactrim for now. Can switch to oral regimen soon. Will try to get up in chair today if O2 desaturation not severe. Discussed with Dr. Hernandez (oncology)
[2018-04-29] MEDS: Senna TAB PO PRN (16:20)
[2018-04-29] MEDS: Enoxaparin(*) 40 MG/0.4 ML SYR SUBCUT SCH (17:31)
[2018-04-29] MEDS ORDERED: D5W 500 ML BAG* 500 ML ONE (17:58)
[2018-04-30] MEDS: Morphine ORAL.SOLN 10 mg* 2 MG/ML UDC 5 ml PO SCH ×5 (05:44→22:04)
[2018-04-30] MEDS: D5W IVPB SCH ×4 (05:45→23:18)
[2018-04-30] MEDS: TRIMETH IVPB SCH ×4 (05:45→23:18)
[2018-04-30] MEDS: SULFAMETHOXAZOLE IVPB SCH ×4 (05:45→23:18)
[2018-04-30 06:07] LABS: Hematocrit 27 % (42-52); Hemoglobin 8.9 g/dl (14.0-18.0); Mean Corpuscular HGB Conc 33 g/dl (31-36); Mean Corpuscular Hemoglobin 30 pg (27-31); Mean Corpuscular Volume 90 fL (80-94); Mean Platelet Volume 6.5 um3 (7.4-10.4); Platelet Count 271 10^3/ul (150-450); Red Blood Count 2.96 10^6/ul (4.00-5.40); Red Cell Distribution Width 22 % (10.5-15); White Blood Count 8.3 10^3/ul (3.5-10.8)
[2018-04-30 06:35] LABS: EGFR Non-African American 176.6 (>60)
[2018-04-30] MEDS: Sucralfate SUSP 1 GM/10 ml 10 ML UDC PO SCH ×4 (07:39→22:03)
[2018-04-30] MEDS: Pantoprazole IV* 40 MG IV SCH (09:25)
[2018-04-30] MEDS: Citalopram TAB* 20 MG PO SCH (09:25)
[2018-04-30] MEDS: methylPREDNISolone SOD 40 MG* 1 ML VIAL IV SCH (09:25)
--- NOTE | 2018-04-30 14:12 | PN ---
Date of Service: 04/30/18 Critical Care Services: Continues to do well. Sitting on side of bed today with O2 sats dropping only into the high 80s. Otherwise, O2 sats in mid 90s on nasal O2 at 4-6 L/min. Vital Signs: Temp Pulse Resp BP SpO2 FiO2 98.0 F 93 17 116/69 96 60 Physical Exam: Gen:Alert, oriented Lungs:Fine expiratory crackles at both bases Extremities:No cyanosis or edema Fluid Balance (Past 24 Hours): 04/30/18 06:59 Intake Total 3479 Output Total 2930 Balance 549 Weight 182 lb Intake: IV Fluids 2419 Bactrim 1147 NS to Maintain IV Patency 1272 IVPB Bactrim Oral 1060 Output: Urine 2930 Weinstein Other: Date of Last Bowel 04/25/2018 Movement Labs: 04/30/18 04/30/18 05:56 05:56 WBC 8.3 Hgb 8.9 L Hct 27 L Plt Count 271 Sodium 135 Potassium 4.3 Chloride 99 L Carbon Dioxide 31 BUN 12 Creatinine 0.48 L Glucose 86 Calcium 8.6 Studies: None Nutrition: Oral diet - intake good. Impression: Resolving pneumocystis pneumonia Plan: Will transfer out of ICU today - scheduled for chemotherapy this week. Continues on IV Bactrim for now.
[2018-04-30] MEDS: Senna TAB PO PRN (16:08)
[2018-04-30] MEDS: Enoxaparin(*) 40 MG/0.4 ML SYR SUBCUT SCH (16:44)
[2018-05-01] MEDS: D5W IVPB SCH ×4 (06:00→22:54)
[2018-05-01] MEDS: SULFAMETHOXAZOLE IVPB SCH ×4 (06:00→22:54)
[2018-05-01] MEDS: TRIMETH IVPB SCH ×4 (06:00→22:54)
[2018-05-01] MEDS: Morphine ORAL.SOLN 10 mg* 2 MG/ML UDC 5 ml PO SCH ×6 (07:15→23:02)
[2018-05-01] MEDS: Sucralfate SUSP 1 GM/10 ml 10 ML UDC PO SCH ×4 (09:17→23:01)
[2018-05-01] MEDS: methylPREDNISolone SOD 40 MG* 1 ML VIAL IV SCH (09:17)
[2018-05-01] MEDS: Citalopram TAB* 20 MG PO SCH (09:17)
[2018-05-01] MEDS: Pantoprazole IV* 40 MG IV SCH (09:17)
--- NOTE | 2018-05-01 10:16 | PN ---
Progress Note - Progress Note Date of Service: 05/01/18 SOAP: Subjective: []He is doing well today. Breathing still very difficult. Ok laying still, any activity and needs Morphine. No fevers. Not in [place]. Has been bed bound, out of ICU yesterday. Citalopram Hydrobromide (Celexa Tab*) 20 mg PO DAILY [facility] Last Admin: 05/01/18 09:17 Dose: 20 mg Enoxaparin Sodium (Lovenox(*)) 40 mg SUBCUT Q24H [facility] Last Admin: 04/30/18 16:44 Dose: 40 mg Heparin Sodium (Porcine) (Heparin Flush Picc/Ml/Cvc(*)) 1 - 3 ml FLUSH 0600, 1800 [facility]; Protocol Last Admin: 05/01/18 09:12 Dose: 2 ml Heparin Sodium (Porcine) (Heparin Flush Port (Ivad)) 5 ml FLUSH DAILY [facility]; Protocol Last Admin: 05/01/18 09:09 Dose: 5 ml Trimethoprim/Sulfamethoxazole (300 mg/ Dextrose) 518.75 mls @ 259.375 mls/hr IVPB Q6H [facility] Last Admin: 05/01/18 06:00 Dose: 259.375 mls/hr Levalbuterol HCl (Xopenex 1.25 Mg/0.5 Ml Neb.Julissa*) 1.25 mg INH Q2HR PRN PRN Reason: SHORTNESS OF BREATH Methylprednisolone Sodium Succinate (Solu-Medrol 40 Mg) 40 mg IV DAILY [facility] Last Admin: 05/01/18 09:17 Dose: 40 mg Morphine Sulfate (Morphine Oral.Soln 10 Mg*) 10 mg PO [id number] AWAKE [facility] Last Admin: 05/01/18 09:18 Dose: 10 mg Multi-Ingredient Mouthwash/Gargle (Magic M W2 Todd/Maal/Nyst/Lido*) 5 ml SWISH SWAL [id number] AWAKE PRN PRN Reason: mouth pain/mucositis Last Admin: 04/13/18 19:37 Dose: 5 ml Pantoprazole Sodium (Protonix Iv*) 40 mg IV DAILY [facility] Last Admin: 05/01/18 09:17 Dose: 40 mg Senna (Senokot Tab*) 2 tab PO BID PRN PRN Reason: CONSTIPATION Last Admin: 04/30/18 16:08 Dose: 1 tab Sucralfate (Sucralfate Susp) 1 gm PO ACHS [facility] Last Admin: 05/01/18 09:17 Dose: 1 gm Objective: [] Vital Signs Temp Pulse Resp BP Pulse Ox 97.1 F 66 12 132/73 98 05/01/18 03:04 05/01/18 03:04 05/01/18 09:18 05/01/18 03:04 05/01/18 03:04 Exam: Gen: No acute distress HEENT: no thrush, no oral lesions. Resp: no crackles, reduced BS, no consolidation. 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 Now on day, 13 Trimethoprim/Sulfamethoxazole. Plan: [1. Pneumocystitis PNA - BAL + PCP on PCR - desaturating with minimal activity on 7 L O2 NC. - Bactrim (day ) 2. Adrenal compromise. Will go to Prednisone 100 mg/day x 5days for R-CHOP, then 40 mg Prednisone on day 6, then taper 10 mg q 4 days. 3. Constipation - No BM recently - cont laxatives - He would like suppository, ok for now but now when counts drop. 4. H/o GI bleed - cont IV PPI and sucralfate - Hgb remains stable at this time 5. DLBCL - R-CHOP today - Zometa 4 mg - Will need IT MTX but will hold for time being. 6. Code status, DNR/DNI 7. Anemia. Chemotherapy and chronic disease, follow.
[2018-05-01] MEDS ORDERED: Bisacodyl SUPP* 10 MG SUPP PR PRN (10:19)
[2018-05-01] MEDS ORDERED: Prochlorperazine TAB* 10 MG PO PRN (10:34)
[2018-05-01] MEDS ORDERED: Acetaminophen TAB* 325 MG PO ONE (11:00)
[2018-05-01] MEDS ORDERED: diPHENhydraMINE IV* 50 MG/ML 1 ml VIAL (BENADRYL) IV ONE ×2 (11:00)
[2018-05-01] MEDS ORDERED: Palonosetron* 0.25 MG in PREMIX* 0 ML IV ONE (11:00)
[2018-05-01] MEDS ORDERED: Palonosetron* 0.25 MG in PREMIX* 0 ML IVPB ONE (11:00)
[2018-05-01] MEDS ORDERED: RITUXIMAB IVPB ONE ×2 (11:30)
[2018-05-01] MEDS ORDERED: NS 0.9% IVPB ONE ×4 (11:30→15:00)
[2018-05-01] MEDS: predniSONE TAB* 50 MG PO SCH (11:35)
[2018-05-01] MEDS: Polyethylene Glycol 3350* 17 GM PACKET PO SCH ×2 (11:48→23:01)
[2018-05-01] MEDS ORDERED: VINCRISTINE IVPB ONE (15:00)
[2018-05-01] MEDS ORDERED: DOXORUBICIN ONE (15:00)
[2018-05-01] MEDS ORDERED: CYCLOPHOSPHAMIDE IVPB ONE (15:00)
[2018-05-01] MEDS: Enoxaparin(*) 40 MG/0.4 ML SYR SUBCUT SCH (17:32)
[2018-05-01] MEDS: Senna TAB PO PRN (17:51)
[2018-05-02] MEDS: Morphine ORAL.SOLN 10 mg* 2 MG/ML UDC 5 ml PO SCH ×4 (06:06→18:26)
[2018-05-02] MEDS: SULFAMETHOXAZOLE IVPB SCH ×3 (06:21→18:26)
[2018-05-02] MEDS: D5W IVPB SCH ×3 (06:21→18:26)
[2018-05-02] MEDS: TRIMETH IVPB SCH ×3 (06:21→18:26)
[2018-05-02 06:31] LABS: ABS Basophils 0 10^3/ul (0-0.2); ABS Eosinophils 0 10^3/ul (0-0.6); ABS Lymphocytes 0.3 10^3/ul (1.0-4.8); ABS Monocytes 0.2 10^3/ul (0-0.8); ABS Neutrophils 6.7 10^3/ul (1.5-7.7); ABS Nucleated RBC 0 10^3/ul; Eosinophil % 0.3 % (0-6); Hematocrit 25 % (42-52); Hemoglobin 8.4 g/dl (14.0-18.0); Lymphocyte % 4.1 % (25-47); Mean Corpuscular HGB Conc 33 g/dl (31-36); Mean Corpuscular Hemoglobin 31 pg (27-31); Mean Corpuscular Volume 92 fL (80-94); Mean Platelet Volume 6.3 um3 (7.4-10.4); Nucleated Red Blood Cells % 0; Platelet Count 177 10^3/ul (150-450); Red Blood Count 2.76 10^6/ul (4.00-5.40); Red Cell Distribution Width 23 % (10.5-15); White Blood Count 7.3 10^3/ul (3.5-10.8)
[2018-05-02 06:47] LABS: EGFR Non-African American 211.9 (>60)
[2018-05-02] MEDS: Sucralfate SUSP 1 GM/10 ml 10 ML UDC PO SCH ×4 (08:55→20:46)
[2018-05-02] MEDS ORDERED: Bisacodyl SUPP* 10 MG SUPP PR ONE (09:49)
[2018-05-02] MEDS ORDERED: Magnesium Sulf 4 GM/100 ML IV* 4,000 MG/100 ML BAG IVPB ONE (09:49)
--- NOTE | 2018-05-02 09:58 | PN ---
Progress Note - Progress Note Date of Service: 05/02/18 SOAP: Subjective: [Received RCHOP yesterday. Feeling well today. Comfortable at rest. Still dyspneic with minimal activity. Little to no cough. No new fevers.] Objective: [ Laboratory Results - last 24 hr 05/02/18 05/02/18 06:15 06:15 WBC 7.3 RBC 2.76 L Hgb 8.4 L Hct 25 L MCV 92 MCH 31 MCHC 33 RDW 23 H Plt Count 177 MPV 6.3 L Neut % (Auto) 92.4 H Lymph % (Auto) 4.1 L [place] % (Auto) 2.8 Eos % (Auto) 0.3 Baso % (Auto) 0.4 Absolute Neuts (auto) 6.7 Absolute Lymphs (auto) 0.3 L Absolute Monos (auto) 0.2 Absolute Eos (auto) 0 Absolute Basos (auto) 0 Absolute Nucleated RBC 0 Nucleated RBC % 0 Sodium 133 L Potassium 4.3 Chloride 99 L Carbon Dioxide 30 Anion Gap 4 BUN 13 Creatinine 0.41 L Est GFR ( Amer) 256.3 Est GFR (Non-Af Amer) 211.9 BUN/Creatinine Ratio 31.7 H Glucose 86 Calcium 8.1 L Magnesium 1.5 L Total Bilirubin 0.30 AST 25 ALT 34 Alkaline Phosphatase 118 H Total Protein 4.2 L Albumin 2.3 L Globulin 1.9 L Albumin/Globulin Ratio 1.2 Bisacodyl (Dulcolax Supp*) 10 mg [place] DAILY PRN PRN Reason: CONSTIPATION Bisacodyl (Dulcolax Supp*) 10 mg [place] ONCE ONE Stop: 05/02/18 09:50 Citalopram Hydrobromide (Celexa Tab*) 20 mg PO DAILY [facility] Last Admin: 05/01/18 09:17 Dose: 20 mg Enoxaparin Sodium (Lovenox(*)) 40 mg SUBCUT Q24H [facility] Last Admin: 05/01/18 17:32 Dose: 40 mg Filgrastim-Sndz (Zarxio*) 480 mcg SUBCUT DAILY [facility] Heparin Sodium (Porcine) (Heparin Flush Picc/Ml/Cvc(*)) 1 - 3 ml FLUSH 0600, 1800 [facility]; Protocol Last Admin: 05/02/18 06:07 Dose: 3 ml Heparin Sodium (Porcine) (Heparin Flush Port (Ivad)) 5 ml FLUSH DAILY [facility]; Protocol Last Admin: 05/02/18 06:07 Dose: 5 ml Trimethoprim/Sulfamethoxazole (300 mg/ Dextrose) 518.75 mls @ 259.375 mls/hr IVPB Q6H [facility] Last Admin: 05/02/18 06:21 Dose: 259.375 mls/hr Magnesium Sulfate (Magnesium Sulf 4 Gm/100 Ml Iv*) 4,000 mg in 100 mls @ 33.333 mls/hr IVPB ONCE ONE Stop: 05/02/18 12:48 Levalbuterol HCl (Xopenex 1.25 Mg/0.5 Ml Neb.Julissa*) 1.25 mg INH Q2HR PRN PRN Reason: SHORTNESS OF BREATH Melatonin (Melatonin) 6 mg PO BEDTIME PRN PRN Reason: INSOMNIA Morphine Sulfate (Morphine Oral.Soln 10 Mg*) 10 mg PO [id number] AWAKE [facility] Last Admin: 05/02/18 06:06 Dose: 10 mg Multi-Ingredient Mouthwash/Gargle (Magic M W2 Todd/Maal/Nyst/Lido*) 5 ml SWISH SWAL [id number] AWAKE PRN PRN Reason: mouth pain/mucositis Last Admin: 04/13/18 19:37 Dose: 5 ml Pantoprazole Sodium (Protonix Iv*) 40 mg IV DAILY [facility] Last Admin: 05/01/18 09:17 Dose: 40 mg Polyethylene Glycol/Electrolytes (Miralax*) 17 gm PO BID [facility] Last Admin: 05/01/18 23:01 Dose: 17 gm Prednisone (Deltasone Tab*) 100 mg PO DAILY [facility] Stop: 05/06/18 10:59 Last Admin: 05/01/18 11:35 Dose: 100 mg Prochlorperazine (Compazine Tab*) 10 mg PO Q8HR PRN PRN Reason: NAUSEA Senna (Senokot Tab*) 2 tab PO BID PRN PRN Reason: CONSTIPATION Last Admin: 05/01/18 17:51 Dose: 1 tab Sucralfate (Sucralfate Susp) 1 gm PO ACHS [facility] Last Admin: 05/02/18 08:55 Dose: 1 gm Vital Signs: Temp Pulse Resp BP Pulse Ox 97.5 F 84 12 108/59 93 05/02/18 05:55 08/28/18 05:55 05/02/18 06:06 05/02/18 05:55 05/02/18 05:55 Exam: Gen: Chronically ill, but relatively well appearing. 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 Now on day, 14 Trimethoprim/Sulfamethoxazole. Plan: [1. Pneumocystitis PNA - BAL + PCP on PCR - still desaturating with minimal activity on 7 L O2 NC. - Bactrim (day ) 2. Adrenal compromise. - Prednisone 100 mg/day x 5days for R-CHOP (day 2/5) - then 40 mg Prednisone on day 6, then taper 10 mg q 4 days. 3. Constipation - No BM recently - cont laxatives 4. H/o GI bleed - cont IV PPI and sucralfate - Hgb remains stable at this time 5. DLBCL - R-CHOP yesterday - Zometa 4 mg - Will need IT MTX with subsequent cycles 6. Anemia. Chemotherapy and chronic disease, follow. 7. Code status, DNR/DNI Dispo: cont inpatient stay, will require VIKA when respiratory status improves further]
[2018-05-02] MEDS: predniSONE TAB* 50 MG PO SCH (10:41)
[2018-05-02] MEDS: Pantoprazole IV* 40 MG IV SCH (10:41)
[2018-05-02] MEDS: Citalopram TAB* 20 MG PO SCH (10:41)
[2018-05-02] MEDS: Polyethylene Glycol 3350* 17 GM PACKET PO SCH ×2 (10:41→20:45)
[2018-05-02] MEDS: FILGRASTIM-SNDZ* 480 MCG/0.8 ML SYRINGE SUBCUT SCH (10:53)
[2018-05-02] MEDS: Enoxaparin(*) 40 MG/0.4 ML SYR SUBCUT SCH (16:38)
[2018-05-03] MEDS: TRIMETH IVPB SCH ×4 (00:45→17:59)
[2018-05-03] MEDS: SULFAMETHOXAZOLE IVPB SCH ×4 (00:45→17:59)
[2018-05-03] MEDS: D5W IVPB SCH ×4 (00:45→17:59)
[2018-05-03] MEDS: Morphine ORAL.SOLN 10 mg* 2 MG/ML UDC 5 ml PO SCH ×6 (01:28→22:05)
[2018-05-03 06:45] LABS: Hematocrit 26 % (42-52); Hemoglobin 8.3 g/dl (14.0-18.0); Mean Corpuscular HGB Conc 32 g/dl (31-36); Mean Corpuscular Hemoglobin 30 pg (27-31); Mean Corpuscular Volume 92 fL (80-94); Mean Platelet Volume 6.4 um3 (7.4-10.4); Platelet Count 144 10^3/ul (150-450); Red Blood Count 2.79 10^6/ul (4.00-5.40); Red Cell Distribution Width 23 % (10.5-15); White Blood Count 23.7 10^3/ul (3.5-10.8)
[2018-05-03 07:25] LABS: ABS Basophils 0.1 10^3/ul (0-0.2); ABS Eosinophils 0 10^3/ul (0-0.6); ABS Lymphocytes 0.3 10^3/ul (1.0-4.8); ABS Monocytes 0.4 10^3/ul (0-0.8); ABS Neutrophils 22.9 10^3/ul (1.5-7.7); ABS Nucleated RBC 0 10^3/ul; Eosinophil % 0 % (0-6); Lymphocyte % 1.4 % (25-47); Nucleated Red Blood Cells % 0
[2018-05-03] MEDS: Sucralfate SUSP 1 GM/10 ml 10 ML UDC PO SCH ×4 (07:52→22:03)
[2018-05-03] MEDS: Pantoprazole IV* 40 MG IV SCH (10:03)
[2018-05-03] MEDS: FILGRASTIM-SNDZ* 480 MCG/0.8 ML SYRINGE SUBCUT SCH (10:03)
[2018-05-03] MEDS: Polyethylene Glycol 3350* 17 GM PACKET PO SCH ×2 (10:04→21:58)
[2018-05-03] MEDS: Citalopram TAB* 20 MG PO SCH (10:04)
[2018-05-03] MEDS: predniSONE TAB* 50 MG PO SCH (10:04)
--- NOTE | 2018-05-03 10:51 | PN ---
Progress Note - Progress Note Date of Service: 05/03/18 SOAP: Subjective: [Doing well today. Still desaturating with sitting up. No cough or dyspnea at rest.] Objective: [ Laboratory Results - last 24 hr 05/03/18 05/03/18 06:30 06:30 WBC 23.7 H RBC 2.79 L Hgb 8.3 L Hct 26 L MCV 92 MCH 30 MCHC 32 RDW 23 H Plt Count 144 L MPV 6.4 L Neut % (Auto) 96.7 H Lymph % (Auto) 1.4 L [place] % (Auto) 1.6 Eos % (Auto) 0 Baso % (Auto) 0.3 Absolute Neuts (auto) 22.9 H Absolute Lymphs (auto) 0.3 L Absolute Monos (auto) 0.4 Absolute Eos (auto) 0 Absolute Basos (auto) 0.1 Absolute Nucleated RBC 0 Nucleated RBC % 0 Sodium 135 Potassium 4.3 Chloride 101 Carbon Dioxide 31 Anion Gap 3 BUN 9 Creatinine 0.40 L Est GFR ( Amer) 263.7 Est GFR (Non-Af Amer) 218.0 BUN/Creatinine Ratio 22.5 H Glucose 80 Calcium 8.3 L Magnesium 2.0 Total Bilirubin 0.30 AST 21 ALT 34 Alkaline Phosphatase 116 H Total Protein 4.1 L Albumin 2.3 L Globulin 1.8 L Albumin/Globulin Ratio 1.3 Bisacodyl (Dulcolax Supp*) 10 mg [place] DAILY PRN PRN Reason: CONSTIPATION Citalopram Hydrobromide (Celexa Tab*) 20 mg PO DAILY [facility] Last Admin: 05/03/18 10:04 Dose: 20 mg Enoxaparin Sodium (Lovenox(*)) 40 mg SUBCUT Q24H [facility] Last Admin: 05/02/18 16:38 Dose: 40 mg Filgrastim-Sndz (Zarxio*) 480 mcg SUBCUT DAILY [facility] Last Admin: 05/03/18 10:03 Dose: 480 mcg Heparin Sodium (Porcine) (Heparin Flush Picc/Ml/Cvc(*)) 1 - 3 ml FLUSH 0600, 1800 [facility]; Protocol Last Admin: 05/03/18 07:45 Dose: Not Given Heparin Sodium (Porcine) (Heparin Flush Port (Ivad)) 5 ml FLUSH DAILY [facility]; Protocol Last Admin: 05/03/18 10:13 Dose: 5 ml Trimethoprim/Sulfamethoxazole (300 mg/ Dextrose) 518.75 mls @ 259.375 mls/hr IVPB Q6H [facility] Last Admin: 05/03/18 06:25 Dose: 259.375 mls/hr Levalbuterol HCl (Xopenex 1.25 Mg/0.5 Ml Neb.Julissa*) 1.25 mg INH Q2HR PRN PRN Reason: SHORTNESS OF BREATH Melatonin (Melatonin) 6 mg PO BEDTIME PRN PRN Reason: INSOMNIA Morphine Sulfate (Morphine Oral.Soln 10 Mg*) 10 mg PO [id number] AWAKE [facility] Last Admin: 05/03/18 10:03 Dose: 10 mg Multi-Ingredient Mouthwash/Gargle (Magic M W2 Todd/Maal/Nyst/Lido*) 5 ml SWISH SWAL [id number] AWAKE PRN PRN Reason: mouth pain/mucositis Last Admin: 04/13/18 19:37 Dose: 5 ml Pantoprazole Sodium (Protonix Iv*) 40 mg IV DAILY [facility] Last Admin: 05/03/18 10:03 Dose: 40 mg Polyethylene Glycol/Electrolytes (Miralax*) 17 gm PO BID [facility] Last Admin: 05/03/18 10:04 Dose: 17 gm Prednisone (Deltasone Tab*) 100 mg PO DAILY [facility] Stop: 05/06/18 10:59 Last Admin: 05/03/18 10:04 Dose: 100 mg Prochlorperazine (Compazine Tab*) 10 mg PO Q8HR PRN PRN Reason: NAUSEA Senna (Senokot Tab*) 2 tab PO BID PRN PRN Reason: CONSTIPATION Last Admin: 05/01/18 17:51 Dose: 1 tab Sucralfate (Sucralfate Susp) 1 gm PO ACHS [facility] Last Admin: 05/03/18 07:52 Dose: 1 gm Vital Signs: Temp Pulse Resp BP Pulse Ox 97.7 F 87 18 116/61 98 05/03/18 07:41 05/03/18 07:41 05/03/18 10:03 05/03/18 07:41 05/03/18 07:41 Exam: Gen: Chronically ill, but relatively well appearing. 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 Now on day, 15 Trimethoprim/Sulfamethoxazole. Plan: [1. Pneumocystitis PNA - BAL + PCP on PCR - still desaturating with minimal activity on 7 L O2 NC. - Bactrim (day ) 2. Adrenal compromise. - Prednisone 100 mg/day x 5days for R-CHOP (day 3/5) - then 40 mg Prednisone on day 6, then taper 10 mg q 4 days. 3. Constipation - improved, cont laxative 4. H/o GI bleed - cont IV PPI and sucralfate - Hgb remains stable at this time 5. DLBCL - R-CHOP C2D3 - Zometa 4 mg - Will need IT MTX with subsequent cycles 6. Anemia. Chemotherapy and chronic disease, follow. 7. Code status, DNR/DNI Dispo: cont inpatient stay, will require VIKA when respiratory status improves further]
[2018-05-03] MEDS: Enoxaparin(*) 40 MG/0.4 ML SYR SUBCUT SCH (16:30)
[2018-05-04] MEDS: SULFAMETHOXAZOLE IVPB SCH ×4 (00:04→19:27)
[2018-05-04] MEDS: TRIMETH IVPB SCH ×4 (00:04→19:27)
[2018-05-04] MEDS: D5W IVPB SCH ×4 (00:04→19:27)
[2018-05-04] MEDS: Morphine ORAL.SOLN 10 mg* 2 MG/ML UDC 5 ml PO SCH ×7 (02:34→19:26)
[2018-05-04 06:45] LABS: EGFR Non-African American 211.9 (>60)
[2018-05-04 06:48] LABS: ABS Basophils 0 10^3/ul (0-0.2); ABS Eosinophils 0 10^3/ul (0-0.6); ABS Lymphocytes 0.3 10^3/ul (1.0-4.8); ABS Monocytes 0.2 10^3/ul (0-0.8); ABS Neutrophils 22.6 10^3/ul (1.5-7.7); ABS Nucleated RBC 0 10^3/ul; Eosinophil % 0.2 % (0-6); Hematocrit 26 % (42-52); Hemoglobin 8.3 g/dl (14.0-18.0); Lymphocyte % 1.4 % (25-47); Mean Corpuscular HGB Conc 32 g/dl (31-36); Mean Corpuscular Hemoglobin 30 pg (27-31); Mean Corpuscular Volume 92 fL (80-94); Mean Platelet Volume 6.5 um3 (7.4-10.4); Nucleated Red Blood Cells % 0; Platelet Count 110 10^3/ul (150-450); Red Blood Count 2.76 10^6/ul (4.00-5.40); Red Cell Distribution Width 23 % (10.5-15); White Blood Count 23.2 10^3/ul (3.5-10.8)
[2018-05-04] MEDS: Sucralfate SUSP 1 GM/10 ml 10 ML UDC PO SCH ×4 (07:47→19:27)
[2018-05-04] MEDS: predniSONE TAB* 50 MG PO SCH (08:44)
[2018-05-04] MEDS: Citalopram TAB* 20 MG PO SCH (08:45)
[2018-05-04] MEDS: Pantoprazole IV* 40 MG IV SCH (08:45)
[2018-05-04] MEDS: Polyethylene Glycol 3350* 17 GM PACKET PO SCH ×2 (08:51→20:17)
[2018-05-04] MEDS: FILGRASTIM-SNDZ* 480 MCG/0.8 ML SYRINGE SUBCUT SCH (09:12)
[2018-05-04] MEDS ORDERED: Saline NASAL SPRAY 0.65%* BTL BOTH NARES PRN (10:15)
--- NOTE | 2018-05-04 10:27 | PN ---
Progress Note - Progress Note Date of Service: 05/04/18 SOAP: Subjective: [Doing very well. Able to sit at the side of the bed for several minutes yesterday and desaturated to the mid 80s, but recovered quickly and maintained saturations in the high 80s with activity and no symptoms. Stood for a moment with PT and denied dyspnea or CP with that.] Objective: [ Laboratory Results - last 24 hr 05/04/18 05/04/18 06:00 06:00 WBC 23.2 H RBC 2.76 L Hgb 8.3 L Hct 26 L MCV 92 MCH 30 MCHC 32 RDW 23 H Plt Count 110 L MPV 6.5 L Neut % (Auto) 97.4 H Lymph % (Auto) 1.4 L [place] % (Auto) 0.9 Eos % (Auto) 0.2 Baso % (Auto) 0.1 Absolute Neuts (auto) 22.6 H Absolute Lymphs (auto) 0.3 L Absolute Monos (auto) 0.2 Absolute Eos (auto) 0 Absolute Basos (auto) 0 Absolute Nucleated RBC 0 Nucleated RBC % 0 Sodium 135 Potassium 4.4 Chloride 100 L Carbon Dioxide 31 Anion Gap 4 BUN 11 Creatinine 0.41 L Est GFR ( Amer) 256.3 Est GFR (Non-Af Amer) 211.9 BUN/Creatinine Ratio 26.8 H Glucose 82 Calcium 8.4 L Total Bilirubin 0.40 AST 14 ALT 30 Alkaline Phosphatase 110 H Total Protein 4.2 L Albumin 2.5 L Globulin 1.7 L Albumin/Globulin Ratio 1.5 Bisacodyl (Dulcolax Supp*) 10 mg [place] DAILY PRN PRN Reason: CONSTIPATION Citalopram Hydrobromide (Celexa Tab*) 20 mg PO DAILY [facility] Last Admin: 05/04/18 08:45 Dose: 20 mg Enoxaparin Sodium (Lovenox(*)) 40 mg SUBCUT Q24H [facility] Last Admin: 05/03/18 16:30 Dose: 40 mg Filgrastim-Sndz (Zarxio*) 480 mcg SUBCUT DAILY [facility] Last Admin: 05/04/18 09:12 Dose: 480 mcg Heparin Sodium (Porcine) (Heparin Flush Picc/Ml/Cvc(*)) 1 - 3 ml FLUSH 0600, 1800 [facility]; Protocol Last Admin: 05/04/18 04:24 Dose: Not Given Heparin Sodium (Porcine) (Heparin Flush Port (Ivad)) 5 ml FLUSH DAILY [facility]; Protocol Last Admin: 05/04/18 09:12 Dose: 5 ml Trimethoprim/Sulfamethoxazole (300 mg/ Dextrose) 518.75 mls @ 259.375 mls/hr IVPB Q6H [facility] Last Admin: 05/04/18 08:36 Dose: 259.375 mls/hr Levalbuterol HCl (Xopenex 1.25 Mg/0.5 Ml Neb.Julissa*) 1.25 mg INH Q2HR PRN PRN Reason: SHORTNESS OF BREATH Melatonin (Melatonin) 6 mg PO BEDTIME PRN PRN Reason: INSOMNIA Morphine Sulfate (Morphine Oral.Soln 10 Mg*) 10 mg PO [id number] AWAKE [facility] Last Admin: 05/04/18 10:10 Dose: 10 mg Multi-Ingredient Mouthwash/Gargle (Magic M W2 Todd/Maal/Nyst/Lido*) 5 ml SWISH SWAL [id number] AWAKE PRN PRN Reason: mouth pain/mucositis Last Admin: 04/13/18 19:37 Dose: 5 ml Pantoprazole Sodium (Protonix Iv*) 40 mg IV DAILY [facility] Last Admin: 05/04/18 08:45 Dose: 40 mg Polyethylene Glycol/Electrolytes (Miralax*) 17 gm PO BID [facility] Last Admin: 05/04/18 08:51 Dose: Not Given Prednisone (Deltasone Tab*) 100 mg PO DAILY [facility] Stop: 05/06/18 10:59 Last Admin: 05/04/18 08:44 Dose: 100 mg Prochlorperazine (Compazine Tab*) 10 mg PO Q8HR PRN PRN Reason: NAUSEA Senna (Senokot Tab*) 2 tab PO BID PRN PRN Reason: CONSTIPATION Last Admin: 05/01/18 17:51 Dose: 1 tab Sodium Chloride (Sodium Chloride 0.65% Nasal [place]*) 1 spray BOTH NARES Q4H PRN PRN Reason: dryness/bleeding Sucralfate (Sucralfate Susp) 1 gm PO ACHS [facility] Last Admin: 05/04/18 07:47 Dose: 1 gm Vital Signs Temp Pulse Resp BP Pulse Ox 97.9 F 81 18 108/61 94 05/04/18 03:29 08/30/18 07:32 05/04/18 10:10 05/04/18 07:32 05/04/18 07:32 Exam: Gen: Chronically ill, but relatively well appearing. 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 Now on day, Trimethoprim/Sulfamethoxazole. Plan: [1. Pneumocystitis PNA - BAL + PCP on PCR - respiratory status seems to be improving, able to tolerate some activity yesterday - spoke with respiratory therapy regarding weaning his O2 further, reduced to 6L during his exam today - Bactrim (day ) 2. Adrenal compromise. - Prednisone 100 mg/day x 5days for R-CHOP (day 4/5) - then 40 mg Prednisone on day 6, then taper 10 mg q 4 days. 3. Constipation - improved, cont laxative 4. H/o GI bleed - cont IV PPI and sucralfate - Hgb remains stable at this time 5. DLBCL - R-CHOP C2D4 - Zometa 4 mg - Will need IT MTX with subsequent cycles 6. Anemia. Chemotherapy and chronic disease, follow. 7. Code status, DNR/DNI Dispo: cont inpatient stay, will require [facility] when respiratory status improves further - tentatively this may be Tuesday]
[2018-05-04] MEDS: Enoxaparin(*) 40 MG/0.4 ML SYR SUBCUT SCH (17:30)
[2018-05-05] MEDS: SULFAMETHOXAZOLE IVPB SCH ×4 (00:22→18:24)
[2018-05-05] MEDS: TRIMETH IVPB SCH ×4 (00:22→18:24)
[2018-05-05] MEDS: D5W IVPB SCH ×4 (00:22→18:24)
[2018-05-05] MEDS: Morphine ORAL.SOLN 10 mg* 2 MG/ML UDC 5 ml PO SCH ×6 (00:32→21:45)
[2018-05-05 07:02] LABS: Hematocrit 25 % (42-52); Hemoglobin 8.2 g/dl (14.0-18.0); Mean Corpuscular HGB Conc 33 g/dl (31-36); Mean Corpuscular Hemoglobin 30 pg (27-31); Mean Corpuscular Volume 93 fL (80-94); Mean Platelet Volume 6.9 um3 (7.4-10.4); Platelet Count 75 10^3/ul (150-450); Red Cell Distribution Width 22 % (10.5-15); White Blood Count 14.8 10^3/ul (3.5-10.8)
[2018-05-05 07:17] LABS: ABS Basophils 0 10^3/ul (0-0.2); ABS Eosinophils 0 10^3/ul (0-0.6); ABS Lymphocytes 0.4 10^3/ul (1.0-4.8); ABS Monocytes 0.1 10^3/ul (0-0.8); ABS Neutrophils 14.2 10^3/ul (1.5-7.7); ABS Nucleated RBC 0 10^3/ul; Eosinophil % 0.3 % (0-6); Lymphocyte % 2.7 % (25-47); Nucleated Red Blood Cells % 0
[2018-05-05 07:22] LABS: EGFR Non-African American 185.5 (>60)
--- NOTE | 2018-05-05 08:14 | PN ---
Progress Note - Progress Note Date of Service: 05/05/18 - Pulm f/u note Note: Pt seen and examined at bedside this am. Interim events noted. Pt doing very well, FiO2 requirements are significantly decreased. Has intermittent cough. Fatigue is improved. Desaturating with quick movements but recovers quick Active Medications Generic Name Dose Route Start Last Admin Trade Name Freq PRN Reason Stop Dose Admin Bisacodyl 10 mg 05/01/18 10:19 Dulcolax Supp* IN DAILY PRN CONSTIPATION Citalopram Hydrobromide 20 mg 04/14/18 09:00 05/04/18 08:45 Celexa Tab* PO 20 mg DAILY [facility] Administration Enoxaparin Sodium 40 mg 04/19/18 17:00 05/04/18 17:30 Lovenox(*) SUBCUT 40 mg Q24H [facility] Administration Filgrastim-Sndz 480 mcg 05/02/18 09:00 05/04/18 09:12 Zarxio* SUBCUT 480 mcg DAILY [facility] Administration Heparin Sodium (Porcine) 1 - 3 ml 04/18/18 18:00 05/05/18 06:24 Heparin Flush Picc/Ml/Cvc(*) FLUSH 3 ml 0600,1800 [facility] Administration Protocol Heparin Sodium (Porcine) 5 ml 04/29/18 20:00 05/04/18 09:12 Heparin Flush Port (Ivad) FLUSH 5 ml DAILY [facility] Administration Protocol Trimethoprim/Sulfamethoxazole 518.75 mls @ 259.375 mls/hr 04/18/18 12:00 06:22 300 mg/ Dextrose IVPB 259.375 mls/hr Q6H [facility] Administration Levalbuterol HCl 1.25 mg 04/22/18 18:00 Xopenex 1.25 Mg/0.5 Ml Neb.Julissa* INH Q2HR PRN SHORTNESS OF BREATH Melatonin 6 mg 05/01/18 23:16 Melatonin PO BEDTIME PRN INSOMNIA Morphine Sulfate 10 mg 04/25/18 11:00 05/05/18 07:15 Morphine Oral.Soln 10 Mg* PO 10 mg [id number] AWAKE [facility] Administration Multi-Ingredient Mouthwash/Gargle 5 ml 04/13/18 17:04 04/13/18 19:37 Magic M W2 Todd/Maal/Nyst/Lido* SWISH SWAL 5 ml [id number] AWAKE PRN Administration mouth pain/mucositis Pantoprazole Sodium 40 mg 04/25/18 11:00 05/04/18 08:45 Protonix Iv* IV 40 mg DAILY [facility] Administration Polyethylene Glycol/Electrolytes 17 gm 05/01/18 11:00 05/04/18 20:17 Miralax* PO Not Given BID [facility] Prednisone 100 mg 05/01/18 11:00 05/04/18 08:44 Deltasone Tab* PO 05/06/18 10:59 100 mg DAILY [facility] Administration Prochlorperazine 10 mg 05/01/18 10:34 Compazine Tab* PO Q8HR PRN NAUSEA Senna 2 tab 04/29/18 15:19 05/01/18 17:51 Senokot Tab* PO 1 tab BID PRN Administration CONSTIPATION Sodium Chloride 1 spray 05/04/18 10:15 Sodium Chloride 0.65% Nasal [place]* BOTH NARES Q4H PRN dryness/bleeding Sucralfate 1 gm 04/13/18 21:00 05/04/18 19:27 Sucralfate Susp PO 1 gm ACHS [facility] Administration Vital Signs Temp Pulse Resp BP Pulse Ox 97.2 F 85 16 125/64 94 05/05/18 04:15 05/05/18 04:15 05/05/18 07:15 05/05/18 04:15 05/05/18 04:15 O/E: Pt in bed in NAD HEENT: PERRLA, no JVD Lungs: Crackles at bases b/l CVS: S1, S2+, regular Abd: Soft, BS+ Ext: Normal ROM Skin: no rash Neuro: No focal defecits Laboratory Results - last 24 hr 05/05/18 05/05/18 06:40 06:40 WBC 14.8 H RBC 2.70 L Hgb 8.2 L Hct 25 L MCV 93 MCH 30 MCHC 33 RDW 22 H Plt Count 75 L MPV 6.9 L Neut % (Auto) 96.2 H Lymph % (Auto) 2.7 L [place] % (Auto) 0.6 Eos % (Auto) 0.3 Baso % (Auto) 0.2 Absolute Neuts (auto) 14.2 H Absolute Lymphs (auto) 0.4 L Absolute Monos (auto) 0.1 Absolute Eos (auto) 0 Absolute Basos (auto) 0 Absolute Nucleated RBC 0 Nucleated RBC % 0 Sodium 136 Potassium 4.4 Chloride 100 L Carbon Dioxide 32 Anion Gap 4 BUN 12 Creatinine 0.46 L Est GFR ( Amer) 224.5 Est GFR (Non-Af Amer) 185.5 BUN/Creatinine Ratio 26.1 H Glucose 82 Calcium 8.6 Total Bilirubin 0.50 AST 12 L ALT 24 Alkaline Phosphatase 115 H Total Protein 4.2 L Albumin 2.5 L Globulin 1.7 L Albumin/Globulin Ratio 1.5 I/R: 63 y o m with DLBCL with PCP Pneumonia, hypoxic resp failure requiring intubation, high flow, with FiO2 requirements coming down, chemo restarted, tolerating well PCP pneumonia- On Bactrim day#17/21 along with high dose steroids FiO2 requirement down to 3L Clinically much improved Fibrotic changes on CT chest secondary to PCP Tolerating chemo well OOB to chair as tolerated Plan for rehab when stable
[2018-05-05] MEDS: Polyethylene Glycol 3350* 17 GM PACKET PO SCH ×2 (08:44→21:07)
[2018-05-05] MEDS: Citalopram TAB* 20 MG PO SCH (08:44)
[2018-05-05] MEDS: Sucralfate SUSP 1 GM/10 ml 10 ML UDC PO SCH ×4 (08:44→21:04)
[2018-05-05] MEDS: Pantoprazole IV* 40 MG IV SCH (08:44)
[2018-05-05] MEDS: predniSONE TAB* 50 MG PO SCH (08:45)
[2018-05-05] MEDS: FILGRASTIM-SNDZ* 480 MCG/0.8 ML SYRINGE SUBCUT SCH (08:55)
--- NOTE | 2018-05-05 15:47 | PN ---
Progress Note - Progress Note Date of Service: 05/05/18 SOAP: Subjective: []Doing well today, breathing if better but not 100%. Currently on 3L still lower saturation with activity. Was able stand at bedside. No pain. Tolerated chemotherapy to date. Bisacodyl (Dulcolax Supp*) 10 mg [place] DAILY PRN PRN Reason: CONSTIPATION Citalopram Hydrobromide (Celexa Tab*) 20 mg PO DAILY [facility] Last Admin: 05/05/18 08:44 Dose: 20 mg Enoxaparin Sodium (Lovenox(*)) 40 mg SUBCUT Q24H [facility] Last Admin: 05/04/18 17:30 Dose: 40 mg Filgrastim-Sndz (Zarxio*) 480 mcg SUBCUT DAILY [facility] Last Admin: 05/05/18 08:55 Dose: 480 mcg Heparin Sodium (Porcine) (Heparin Flush Picc/Ml/Cvc(*)) 1 - 3 ml FLUSH 0600, 1800 [facility]; Protocol Last Admin: 05/05/18 08:56 Dose: 1 ml Heparin Sodium (Porcine) (Heparin Flush Port (Ivad)) 5 ml FLUSH DAILY [facility]; Protocol Last Admin: 05/05/18 08:47 Dose: Not Given Trimethoprim/Sulfamethoxazole (300 mg/ Dextrose) 518.75 mls @ 259.375 mls/hr IVPB Q6H [facility] Last Admin: 05/05/18 13:40 Dose: 259.375 mls/hr Levalbuterol HCl (Xopenex 1.25 Mg/0.5 Ml Neb.Julissa*) 1.25 mg INH Q2HR PRN PRN Reason: SHORTNESS OF BREATH Melatonin (Melatonin) 6 mg PO BEDTIME PRN PRN Reason: INSOMNIA Morphine Sulfate (Morphine Oral.Soln 10 Mg*) 10 mg PO [id number] AWAKE [facility] Last Admin: 05/05/18 14:08 Dose: 10 mg Multi-Ingredient Mouthwash/Gargle (Magic M W2 Todd/Maal/Nyst/Lido*) 5 ml SWISH SWAL [id number] AWAKE PRN PRN Reason: mouth pain/mucositis Last Admin: 04/13/18 19:37 Dose: 5 ml Pantoprazole Sodium (Protonix Iv*) 40 mg IV DAILY [facility] Last Admin: 05/05/18 08:44 Dose: 40 mg Polyethylene Glycol/Electrolytes (Miralax*) 17 gm PO BID [facility] Last Admin: 05/05/18 08:44 Dose: Not Given Prednisone (Deltasone Tab*) 100 mg PO DAILY [facility] Stop: 05/06/18 10:59 Last Admin: 05/05/18 08:45 Dose: 100 mg Prochlorperazine (Compazine Tab*) 10 mg PO Q8HR PRN PRN Reason: NAUSEA Senna (Senokot Tab*) 2 tab PO BID PRN PRN Reason: CONSTIPATION Last Admin: 05/01/18 17:51 Dose: 1 tab Sodium Chloride (Sodium Chloride 0.65% Nasal [place]*) 1 spray BOTH NARES Q4H PRN PRN Reason: dryness/bleeding Sucralfate (Sucralfate Susp) 1 gm PO ACHS [facility] Last Admin: 05/05/18 12:03 Dose: 1 gm Objective: [] Vital Signs Temp Pulse Resp BP Pulse Ox 98.1 F 97 22 87/61 97 05/05/18 06:48 05/05/18 13:51 05/05/18 14:08 05/05/18 11:15 05/05/18 13:51 Gen: looks better HEENT: MMM, no thrush Lymph: mobile, firm LN L axilla, ~2cm in size no change CV: RRR, no m/r/g Resp: lungs CTA, no w/c/r Abd: soft, nonTTP Ext: no edema Assessment: [63 yo male with DLBCL s/p C1 EPOCH complicated by GI bleed due to 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 Now on day, 17 Trimethoprim/Sulfamethoxazole. Plan: [1. Pneumocystitis PNA - BAL + PCP on PCR - respiratory status seems to be improving, able to tolerate some activity yesterday - Continue 3 L nc and encouraged increased activity - Bactrim (day ), continue IV until discharge 2. Adrenal compromise. - Prednisone 100 mg/day x 5days for R-CHOP (day 55) - then 40 mg Prednisone on day 6, then taper 10 mg q 4 days. 3. Constipation - improved, cont laxative 4. H/o GI bleed - cont IV PPI and sucralfate - Hgb remains stable at this time 5. DLBCL - R-CHOP C2D5 - Zometa 4 mg - Will need IT MTX with subsequent cycles 6. Anemia. Chemotherapy and chronic disease, follow. 7. Code status, DNR/DNI
[2018-05-05] MEDS: Enoxaparin(*) 40 MG/0.4 ML SYR SUBCUT SCH (16:48)
[2018-05-06] MEDS: SULFAMETHOXAZOLE IVPB SCH ×4 (00:23→18:00)
[2018-05-06] MEDS: TRIMETH IVPB SCH ×4 (00:23→18:00)
[2018-05-06] MEDS: D5W IVPB SCH ×4 (00:23→18:00)
[2018-05-06] MEDS: Morphine ORAL.SOLN 10 mg* 2 MG/ML UDC 5 ml PO SCH ×6 (05:24→22:37)
[2018-05-06 06:21] LABS: EGFR Non-African American 139.2 (>60)
[2018-05-06 06:35] LABS: ABS Basophils 0 10^3/ul (0-0.2); ABS Eosinophils 0 10^3/ul (0-0.6); ABS Lymphocytes 0.3 10^3/ul (1.0-4.8); ABS Monocytes 0 10^3/ul (0-0.8); ABS Neutrophils 6.4 10^3/ul (1.5-7.7); ABS Nucleated RBC 0 10^3/ul; Eosinophil % 0.3 % (0-6); Hematocrit 24 % (42-52); Hemoglobin 7.9 g/dl (14.0-18.0); Mean Corpuscular HGB Conc 33 g/dl (31-36); Mean Corpuscular Hemoglobin 30 pg (27-31); Mean Corpuscular Volume 92 fL (80-94); Mean Platelet Volume 7.2 um3 (7.4-10.4); Nucleated Red Blood Cells % 0.1; Platelet Count 59 10^3/ul (150-450); Red Blood Count 2.61 10^6/ul (4.00-5.40); Red Cell Distribution Width 23 % (10.5-15); White Blood Count 6.8 10^3/ul (3.5-10.8)
[2018-05-06] MEDS: Sucralfate SUSP 1 GM/10 ml 10 ML UDC PO SCH ×4 (07:57→21:55)
[2018-05-06] MEDS: predniSONE TAB* 20 MG PO SCH (08:51)
[2018-05-06] MEDS: Citalopram TAB* 20 MG PO SCH (08:51)
[2018-05-06] MEDS: Pantoprazole IV* 40 MG IV SCH (08:52)
[2018-05-06] MEDS: FILGRASTIM-SNDZ* 480 MCG/0.8 ML SYRINGE SUBCUT SCH (08:52)
[2018-05-06] MEDS: Polyethylene Glycol 3350* 17 GM PACKET PO SCH ×2 (09:12→21:55)
[2018-05-06] MEDS: Enoxaparin(*) 40 MG/0.4 ML SYR SUBCUT SCH (17:00)
[2018-05-07] MEDS: TRIMETH IVPB SCH ×5 (00:10→23:55)
[2018-05-07] MEDS: D5W IVPB SCH ×5 (00:10→23:55)
[2018-05-07] MEDS: SULFAMETHOXAZOLE IVPB SCH ×5 (00:10→23:55)
[2018-05-07] MEDS: Morphine ORAL.SOLN 10 mg* 2 MG/ML UDC 5 ml PO SCH ×5 (05:26→23:57)
[2018-05-07] MEDS: Pantoprazole IV* 40 MG IV SCH (08:04)
[2018-05-07] MEDS: FILGRASTIM-SNDZ* 480 MCG/0.8 ML SYRINGE SUBCUT SCH (08:04)
[2018-05-07] MEDS: predniSONE TAB* 20 MG PO SCH (08:04)
[2018-05-07] MEDS: Sucralfate SUSP 1 GM/10 ml 10 ML UDC PO SCH ×4 (08:04→21:48)
[2018-05-07] MEDS: Citalopram TAB* 20 MG PO SCH (08:04)
[2018-05-07] MEDS: Polyethylene Glycol 3350* 17 GM PACKET PO SCH ×2 (08:05→21:47)
[2018-05-07] MEDS ORDERED: Magnesium Hydroxide LIQ* 30 ML UDC PO ONE (11:39)
[2018-05-07] MEDS: Senna TAB PO SCH ×2 (12:29→21:51)
[2018-05-07] MEDS: Enoxaparin(*) 40 MG/0.4 ML SYR SUBCUT SCH (16:28)
[2018-05-08] MEDS: Morphine ORAL.SOLN 10 mg* 2 MG/ML UDC 5 ml PO SCH ×6 (05:43→21:09)
[2018-05-08] MEDS: SULFAMETHOXAZOLE IVPB SCH ×4 (06:12→23:20)
[2018-05-08] MEDS: D5W IVPB SCH ×4 (06:12→23:20)
[2018-05-08] MEDS: TRIMETH IVPB SCH ×4 (06:12→23:20)
[2018-05-08 06:31] LABS: EGFR Non-African American 136.5 (>60)
[2018-05-08 06:47] LABS: Hematocrit 23 % (42-52); Hemoglobin 7.6 g/dl (14.0-18.0); Mean Corpuscular HGB Conc 33 g/dl (31-36); Mean Corpuscular Hemoglobin 30 pg (27-31); Mean Corpuscular Volume 92 fL (80-94); Red Blood Count 2.52 10^6/ul (4.00-5.40); Red Cell Distribution Width 22 % (10.5-15); White Blood Count 0.5 10^3/ul (3.5-10.8)
[2018-05-08] MEDS: Sucralfate SUSP 1 GM/10 ml 10 ML UDC PO SCH ×4 (07:41→21:09)
[2018-05-08 07:42] LABS: ABS Basophils 0 10^3/ul (0-0.2); ABS Eosinophils 0.1 10^3/ul (0-0.6); ABS Lymphocytes 0.3 10^3/ul (1.0-4.8); ABS Monocytes 0 10^3/ul (0-0.8); ABS Neutrophils 0 10^3/ul (1.5-7.7); ABS Nucleated RBC 0 10^3/ul; Eosinophil % 14.1 % (0-6); Mean Platelet Volume 7.6 um3 (7.4-10.4); Nucleated Red Blood Cells % 0; Platelet Count 25 10^3/ul (150-450)
[2018-05-08] MEDS: FILGRASTIM-SNDZ* 480 MCG/0.8 ML SYRINGE SUBCUT SCH (07:42)
[2018-05-08] MEDS: Polyethylene Glycol 3350* 17 GM PACKET PO SCH ×2 (07:43→19:58)
[2018-05-08] MEDS: Pantoprazole IV* 40 MG IV SCH (07:43)
[2018-05-08] MEDS: Senna TAB PO SCH ×2 (07:43→20:13)
[2018-05-08] MEDS: Citalopram TAB* 20 MG PO SCH (07:43)
[2018-05-08] MEDS: predniSONE TAB* 20 MG PO SCH (07:43)
[2018-05-08] MEDS ORDERED: Phenazopyridine TAB* 100 MG PO SCH (18:00)
[2018-05-08] MEDS: Phenazopyridine TAB* 100 MG PO PRN (18:57)
[2018-05-09] MEDS: Morphine ORAL.SOLN 10 mg* 2 MG/ML UDC 5 ml PO SCH (05:22)
[2018-05-09] MEDS: SULFAMETHOXAZOLE IVPB SCH ×4 (05:50→23:49)
[2018-05-09] MEDS: D5W IVPB SCH ×4 (05:50→23:49)
[2018-05-09] MEDS: TRIMETH IVPB SCH ×4 (05:50→23:49)
[2018-05-09 06:29] LABS: ABS Neutrophils 0.1 10^3/ul (1.5-7.7); Hematocrit 23 % (42-52); Hemoglobin 7.7 g/dl (14.0-18.0); Mean Corpuscular HGB Conc 33 g/dl (31-36); Mean Corpuscular Hemoglobin 31 pg (27-31); Mean Corpuscular Volume 92 fL (80-94); Mean Platelet Volume 8.3 um3 (7.4-10.4); Platelet Count 21 10^3/ul (150-450); Red Blood Count 2.52 10^6/ul (4.00-5.40); Red Cell Distribution Width 22 % (10.5-15); White Blood Count 0.6 10^3/ul (3.5-10.8)
[2018-05-09 08:06] LABS: ABS Basophils 0 10^3/ul (0-0.2); ABS Eosinophils 0.1 10^3/ul (0-0.6); ABS Lymphocytes 0.3 10^3/ul (1.0-4.8); ABS Monocytes 0 10^3/ul (0-0.8); ABS Nucleated RBC 0 10^3/ul; Eosinophil % 10.2 % (0-6); Lymphocyte % 56.8 % (25-47); Nucleated Red Blood Cells % 0
[2018-05-09] MEDS: Phenazopyridine TAB* 100 MG PO PRN (08:23)
[2018-05-09] MEDS: Sucralfate SUSP 1 GM/10 ml 10 ML UDC PO SCH ×4 (08:23→21:04)
[2018-05-09] MEDS: predniSONE TAB* 20 MG PO SCH (08:50)
[2018-05-09] MEDS: Polyethylene Glycol 3350* 17 GM PACKET PO SCH ×2 (08:50→19:38)
[2018-05-09] MEDS: Senna TAB PO SCH ×2 (08:50→20:07)
[2018-05-09] MEDS: Pantoprazole IV* 40 MG IV SCH (08:50)
[2018-05-09] MEDS: Citalopram TAB* 20 MG PO SCH (08:50)
[2018-05-09] MEDS: FILGRASTIM-SNDZ* 480 MCG/0.8 ML SYRINGE SUBCUT SCH (08:59)
[2018-05-09] MEDS ORDERED: Morphine ORAL.SOLN 10 mg* 2 MG/ML UDC 5 ml ONE (12:14)
[2018-05-09] MEDS: Morphine ORAL.SOLN 10 mg* 2 MG/ML UDC 5 ml PO PRN (12:20)
[2018-05-09] MEDS ORDERED: Morphine VIAL* 4 MG/ML VIAL (1 ml vial) IV PRN (15:36)
[2018-05-10] MEDS: D5W IVPB SCH ×2 (05:39→11:50)
[2018-05-10] MEDS: SULFAMETHOXAZOLE IVPB SCH ×2 (05:39→11:50)
[2018-05-10] MEDS: TRIMETH IVPB SCH ×2 (05:39→11:50)
[2018-05-10] MEDS: Polyethylene Glycol 3350* 17 GM PACKET PO SCH ×2 (08:45→19:33)
[2018-05-10] MEDS: Pantoprazole IV* 40 MG IV SCH (08:47)
[2018-05-10] MEDS: Citalopram TAB* 20 MG PO SCH (08:47)
[2018-05-10] MEDS: Senna TAB PO SCH ×2 (08:47→19:41)
[2018-05-10] MEDS: Sucralfate SUSP 1 GM/10 ml 10 ML UDC PO SCH ×4 (08:47→20:18)
[2018-05-10] MEDS: FILGRASTIM-SNDZ* 480 MCG/0.8 ML SYRINGE SUBCUT SCH (08:54)
[2018-05-10] MEDS ORDERED: predniSONE TAB* 10 MG PO ONE (09:00)
[2018-05-10] MEDS: Morphine ORAL.SOLN 10 mg* 2 MG/ML UDC 5 ml PO PRN ×3 (09:46→19:39)
[2018-05-10 11:45] LABS: Hematocrit 24 % (42-52); Hemoglobin 7.9 g/dl (14.0-18.0); Mean Corpuscular HGB Conc 33 g/dl (31-36); Mean Corpuscular Hemoglobin 30 pg (27-31); Mean Corpuscular Volume 93 fL (80-94); Mean Platelet Volume 8.7 um3 (7.4-10.4); Platelet Count 28 10^3/ul (150-450); Red Blood Count 2.62 10^6/ul (4.00-5.40); Red Cell Distribution Width 22 % (10.5-15)
[2018-05-10 12:03] LABS: EGFR Non-African American 114.3 (>60)
--- NOTE | 2018-05-10 12:18 | PN ---
Progress Note - Progress Note Date of Service: 05/10/18 SOAP: Subjective: []Doing ok. Weinstein in and urination is better. Pain with urination started yesterday and was sudden. Breathing getting better. Working with PT, has been standing but not much more then that. Activity limited by increased HR. No fevers. Eating well, constipation. Bisacodyl (Dulcolax Supp*) 10 mg [place] DAILY PRN PRN Reason: CONSTIPATION Last Admin: 05/09/18 12:22 Dose: 10 mg Citalopram Hydrobromide (Celexa Tab*) 20 mg PO DAILY [facility] Last Admin: 05/10/18 08:47 Dose: 20 mg Filgrastim-Sndz (Zarxio*) 480 mcg SUBCUT DAILY [facility] Last Admin: 05/10/18 08:54 Dose: 480 mcg Heparin Sodium (Porcine) (Heparin Flush Picc/Ml/Cvc(*)) 1 - 3 ml FLUSH 0600, 1800 [facility]; Protocol Last Admin: 05/10/18 05:40 Dose: 1 ml Trimethoprim/Sulfamethoxazole (300 mg/ Dextrose) 518.75 mls @ 259.375 mls/hr IVPB Q6H [facility] Last Admin: 05/10/18 05:39 Dose: 259.375 mls/hr Levalbuterol HCl (Xopenex 1.25 Mg/0.5 Ml Neb.Julissa*) 1.25 mg INH Q2HR PRN PRN Reason: SHORTNESS OF BREATH Melatonin (Melatonin) 6 mg PO BEDTIME PRN PRN Reason: INSOMNIA Morphine Sulfate (Morphine Oral.Soln 10 Mg*) 10 mg PO Q4H PRN PRN Reason: pain or dyspnea Last Admin: 05/10/18 09:46 Dose: 10 mg Morphine Sulfate (Morphine Vial*) 4 mg IV Q3H PRN PRN Reason: PAIN Last Admin: 05/09/18 16:26 Dose: 4 mg Multi-Ingredient Mouthwash/Gargle (Magic M W2 Todd/Maal/Nyst/Lido*) 5 ml SWISH SWAL [id number] AWAKE PRN PRN Reason: mouth pain/mucositis Last Admin: 04/13/18 19:37 Dose: 5 ml Pantoprazole Sodium (Protonix Iv*) 40 mg IV DAILY [facility] Last Admin: 05/10/18 08:47 Dose: 40 mg Phenazopyridine HCl (Pyridium Tab*) 100 mg PO TID PRN PRN Reason: BLADDER PAIN/SPASMS Last Admin: 05/09/18 08:23 Dose: 100 mg Polyethylene Glycol/Electrolytes (Miralax*) 17 gm PO BID [facility] Last Admin: 05/10/18 08:45 Dose: Not Given Prochlorperazine (Compazine Tab*) 10 mg PO Q8HR PRN PRN Reason: NAUSEA Senna (Senokot Tab*) 2 tab PO BID [facility] Last Admin: 05/10/18 08:47 Dose: 2 tab Sodium Chloride (Sodium Chloride 0.65% Nasal [place]*) 1 spray BOTH NARES Q4H PRN PRN Reason: dryness/bleeding Sucralfate (Sucralfate Susp) 1 gm PO ACHS [facility] Last Admin: 05/10/18 12:09 Dose: 1 gm Objective: [] Vital Signs Temp Pulse Resp BP Pulse Ox 98.5 F 97 18 105/64 95 05/10/18 11:33 05/10/18 11:33 05/10/18 12:08 05/10/18 11:33 05/10/18 11:33 Gen: looks good, no distress. 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 Has now completed cycle 2 of chemotherapy with R-CHOP and is completing Bactrim. Plan: [1. Pneumocystitis PNA - respiratory status seems to be improving, able to tolerate some activity yesterday - Continue 3 L nc and encouraged increased activity - Bactrim (day ), stop IV - Bactrim DS po TIW 2. Adrenal compromise. Off prednisone w/o adverse effects. 3. Constipation - improved, cont laxative 4. H/o GI bleed - cont IV PPI and sucralfate - Hgb remains stable at this time 5. DLBCL - R-CHOP C2 - Blood counts improved. - Will need IT MTX with subsequent cycles 6. Anemia. Chemotherapy and chronic disease, follow. 7. Continue PT, goal of walking. 8. Urinary retention. Weinstein in for now, evaluation by urology. 7. Code status, DNR/DNI
[2018-05-10 12:25] LABS: ABS Basophils 0 10^3/ul (0-0.2); ABS Neutrophils 2.2 10^3/ul (1.5-7.7); Monocytes % 3 % (0-7)
[2018-05-11 06:10] LABS: Hematocrit 23 % (42-52); Hemoglobin 7.5 g/dl (14.0-18.0); Mean Corpuscular HGB Conc 33 g/dl (31-36); Mean Corpuscular Hemoglobin 31 pg (27-31); Mean Corpuscular Volume 93 fL (80-94); Mean Platelet Volume 7.9 um3 (7.4-10.4); Platelet Count 27 10^3/ul (150-450); Red Blood Count 2.44 10^6/ul (4.00-5.40); Red Cell Distribution Width 22 % (10.5-15); White Blood Count 8.3 10^3/ul (3.5-10.8)
[2018-05-11 06:16] LABS: EGFR Non-African American 118.2 (>60)
[2018-05-11 06:34] LABS: ABS Neutrophils 7.1 10^3/ul (1.5-7.7)
[2018-05-11] MEDS: Morphine ORAL.SOLN 10 mg* 2 MG/ML UDC 5 ml PO PRN ×2 (07:05→11:53)
[2018-05-11] MEDS: Sucralfate SUSP 1 GM/10 ml 10 ML UDC PO SCH ×4 (07:26→20:47)
[2018-05-11] MEDS: Polyethylene Glycol 3350* 17 GM PACKET PO SCH ×2 (08:15→20:48)
[2018-05-11] MEDS: FILGRASTIM-SNDZ* 480 MCG/0.8 ML SYRINGE SUBCUT SCH (09:18)
[2018-05-11] MEDS: Citalopram TAB* 20 MG PO SCH (09:18)
[2018-05-11] MEDS: Pantoprazole IV* 40 MG IV SCH (09:18)
[2018-05-11] MEDS: Senna TAB PO SCH ×2 (09:18→20:47)
--- NOTE | 2018-05-11 20:05 | PN ---
Progress Note - Progress Note Date of Service: 05/11/18 SOAP: Subjective: [Reports that he is doing relatively well. Time in an upright position is increasing. No new complaints.] Objective: [ Laboratory Results - last 24 hr 05/10/18 05/11/18 05/11/18 10:15 05:40 05:40 WBC 8.3 RBC 2.44 L Hgb 7.5 L Hct 23 L MCV 93 MCH 31 MCHC 33 RDW 22 H Plt Count 27 L MPV 7.9 Neut % (Auto) Not Reportable Lymph % (Auto) Not Reportable [place] % (Auto) Not Reportable Eos % (Auto) Not Reportable Baso % (Auto) Not Reportable Absolute Neuts (auto) 7.1 Absolute Lymphs (auto) Not Reportable Absolute Monos (auto) Not Reportable Absolute Eos (auto) Not Reportable Absolute Basos (auto) Not Reportable Absolute Nucleated RBC Not Reportable Nucleated RBC % Not Reportable Hem Pathologist Commnt Sodium 135 Potassium 4.1 Chloride 100 L Carbon Dioxide 28 Anion Gap 7 BUN 10 Creatinine 0.68 Est GFR ( Amer) 143.0 Est GFR (Non-Af Amer) 118.2 BUN/Creatinine Ratio 14.7 Glucose 80 Calcium 8.4 L Total Bilirubin 0.40 AST 12 L ALT 22 Alkaline Phosphatase 94 Total Protein 4.2 L Albumin 2.7 L Globulin 1.5 L Albumin/Globulin Ratio 1.8 Blood Type Antibody Screen Crossmatch 05/11/18 05:40 WBC RBC Hgb Hct MCV MCH MCHC RDW Plt Count MPV Neut % (Auto) Lymph % (Auto) [place] % (Auto) Eos % (Auto) Baso % (Auto) Absolute Neuts (auto) Absolute Lymphs (auto) Absolute Monos (auto) Absolute Eos (auto) Absolute Basos (auto) Absolute Nucleated RBC Nucleated RBC % Hem Pathologist Commnt Sodium Potassium Chloride Carbon Dioxide Anion Gap BUN Creatinine Est GFR ( Amer) Est GFR (Non-Af Amer) BUN/Creatinine Ratio Glucose Calcium Total Bilirubin AST ALT Alkaline Phosphatase Total Protein Albumin Globulin Albumin/Globulin Ratio Blood Type O Positive Antibody Screen Negative Crossmatch See Detail Bisacodyl (Dulcolax Supp*) 10 mg [place] DAILY PRN PRN Reason: CONSTIPATION Last Admin: 05/09/18 12:22 Dose: 10 mg Citalopram Hydrobromide (Celexa Tab*) 20 mg PO DAILY [facility] Last Admin: 05/11/18 09:18 Dose: 20 mg Heparin Sodium (Porcine) (Heparin Flush Picc/Ml/Cvc(*)) 1 - 3 ml FLUSH 0600, 1800 [facility]; Protocol Last Admin: 05/11/18 16:39 Dose: 3 ml Levalbuterol HCl (Xopenex 1.25 Mg/0.5 Ml Neb.Julissa*) 1.25 mg INH Q2HR PRN PRN Reason: SHORTNESS OF BREATH Melatonin (Melatonin) 6 mg PO BEDTIME PRN PRN Reason: INSOMNIA Morphine Sulfate (Morphine Oral.Soln 10 Mg*) 10 mg PO Q4H PRN PRN Reason: pain or dyspnea Last Admin: 05/11/18 11:53 Dose: 10 mg Morphine Sulfate (Morphine Vial*) 4 mg IV Q3H PRN PRN Reason: PAIN Last Admin: 05/09/18 16:26 Dose: 4 mg Multi-Ingredient Mouthwash/Gargle (Magic M W2 [place]/Maal/Nyst/Lido*) 5 ml SWISH SWAL [id number] AWAKE PRN PRN Reason: mouth pain/mucositis Last Admin: 04/13/18 19:37 Dose: 5 ml Pantoprazole Sodium (Protonix Iv*) 40 mg IV DAILY [facility] Last Admin: 05/11/18 09:18 Dose: 40 mg Phenazopyridine HCl (Pyridium Tab*) 100 mg PO TID PRN PRN Reason: BLADDER PAIN/SPASMS Last Admin: 05/09/18 08:23 Dose: 100 mg Polyethylene Glycol/Electrolytes (Miralax*) 17 gm PO BID [facility] Last Admin: 05/11/18 08:15 Dose: Not Given Prochlorperazine (Compazine Tab*) 10 mg PO Q8HR PRN PRN Reason: NAUSEA Senna (Senokot Tab*) 2 tab PO BID [facility] Last Admin: 05/11/18 09:18 Dose: 2 tab Sodium Chloride (Sodium Chloride 0.65% Nasal [place]*) 1 spray BOTH NARES Q4H PRN PRN Reason: dryness/bleeding Sucralfate (Sucralfate Susp) 1 gm PO [facility] Last Admin: 05/11/18 16:39 Dose: 1 gm Tamsulosin HCl (Flomax Cap*) 0.4 mg PO BEDTIME [facility] Trimethoprim/Sulfamethoxazole (Bactrim Ds 800/160 Tab*) 1 tab PO MoWeFr@0900 [facility] Vital Signs: Temp Pulse Resp BP Pulse Ox 97.7 F 92 18 116/57 100 05/11/18 14:54 05/11/18 14:54 05/11/18 18:16 05/11/18 14:54 05/11/18 14:54 Gen: looks good, no distress. 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 Has now completed cycle 2 of chemotherapy with R-CHOP and has completed IV Bactrim. Plan: [1. Pneumocystitis PNA - respiratory status seems to be improving, activity tolerance is slowly improving - Continue 3 L nc and encouraged increased activity - Completed 21d of IV Bactrim - Bactrim DS po TIW for prophylaxis 2. Adrenal compromise. Off prednisone w/o adverse effects. 3. Constipation - improved, cont laxative 4. H/o GI bleed - cont IV PPI and sucralfate - Hgb remains stable at this time 5. DLBCL - R-CHOP C2 - Will need IT MTX with subsequent cycles 6. Anemia. Chemotherapy and chronic disease - transfuse 1U PRBCs today 7. Continue PT, goal of walking. 8. Urinary retention. - discussed today with Dr Metzger - recommended starting Flomax today, voiding trial Tuesday if still inpatient or outpatient follow up with Dr Metzger 7. Code status, DNR/DNI ] Dispo: dc to [facility] in next few days
[2018-05-11] MEDS: Tamsulosin CAP* 0.4 MG PO SCH (20:48)
[2018-05-12] MEDS: Pantoprazole IV* 40 MG IV SCH (07:44)
[2018-05-12] MEDS: Sucralfate SUSP 1 GM/10 ml 10 ML UDC PO SCH ×4 (07:44→20:25)
[2018-05-12] MEDS: Sulfamethox/Trimethoprim DS 800/160* TAB PO SCH (07:45)
[2018-05-12] MEDS: Senna TAB PO SCH ×2 (07:45→20:25)
[2018-05-12] MEDS: Morphine ORAL.SOLN 10 mg* 2 MG/ML UDC 5 ml PO PRN (07:45)
[2018-05-12] MEDS: Citalopram TAB* 20 MG PO SCH (07:45)
[2018-05-12] MEDS: Polyethylene Glycol 3350* 17 GM PACKET PO SCH ×2 (07:48→20:25)
[2018-05-12 08:28] LABS: Hematocrit 24 % (42-52); Hemoglobin 8.1 g/dl (14.0-18.0); Mean Corpuscular HGB Conc 34 g/dl (31-36); Mean Corpuscular Hemoglobin 31 pg (27-31); Mean Corpuscular Volume 92 fL (80-94); Mean Platelet Volume 8.4 um3 (7.4-10.4); Platelet Count 29 10^3/ul (150-450); Red Blood Count 2.62 10^6/ul (4.00-5.40); Red Cell Distribution Width 20 % (10.5-15); White Blood Count 15.4 10^3/ul (3.5-10.8)
[2018-05-12 08:42] LABS: EGFR Non-African American 139.2 (>60)
[2018-05-12 09:00] LABS: ABS Basophils 0 10^3/ul (0-0.2); ABS Neutrophils 13.1 10^3/ul (1.5-7.7); Monocytes % 6 % (0-7)
[2018-05-12] MEDS: Tamsulosin CAP* 0.4 MG PO SCH (20:25)
[2018-05-13] MEDS: Sucralfate SUSP 1 GM/10 ml 10 ML UDC PO SCH ×4 (05:56→20:04)
[2018-05-13 06:21] LABS: Hematocrit 23 % (42-52); Hemoglobin 7.8 g/dl (14.0-18.0); Mean Corpuscular HGB Conc 33 g/dl (31-36); Mean Corpuscular Hemoglobin 31 pg (27-31); Mean Corpuscular Volume 93 fL (80-94); Mean Platelet Volume 7.4 um3 (7.4-10.4); Platelet Count 30 10^3/ul (150-450); Red Cell Distribution Width 20 % (10.5-15); White Blood Count 9.7 10^3/ul (3.5-10.8)
[2018-05-13] MEDS: Morphine ORAL.SOLN 10 mg* 2 MG/ML UDC 5 ml PO PRN ×2 (06:31→14:00)
[2018-05-13 06:40] LABS: EGFR Non-African American 154.2 (>60)
[2018-05-13 06:58] LABS: ABS Basophils 0 10^3/ul (0-0.2); ABS Neutrophils 7.7 10^3/ul (1.5-7.7); ABS Neutrophils 9.2 10^3/ul (1.5-7.7); Monocytes % 3 % (0-7)
[2018-05-13] MEDS: Citalopram TAB* 20 MG PO SCH (09:11)
[2018-05-13] MEDS: Pantoprazole IV* 40 MG IV SCH (09:11)
[2018-05-13] MEDS: Polyethylene Glycol 3350* 17 GM PACKET PO SCH ×2 (09:14→20:04)
[2018-05-13] MEDS: Senna TAB PO SCH ×2 (09:14→20:05)
[2018-05-13] MEDS: Tamsulosin CAP* 0.4 MG PO SCH (20:04)
[2018-05-14 06:28] LABS: ABS Neutrophils 5.9 10^3/ul (1.5-7.7); Hematocrit 23 % (42-52); Hemoglobin 7.7 g/dl (14.0-18.0); Mean Corpuscular HGB Conc 34 g/dl (31-36); Mean Corpuscular Hemoglobin 32 pg (27-31); Mean Corpuscular Volume 94 fL (80-94); Mean Platelet Volume 7.7 um3 (7.4-10.4); Platelet Count 38 10^3/ul (150-450); Red Blood Count 2.42 10^6/ul (4.00-5.40); Red Cell Distribution Width 21 % (10.5-15); White Blood Count 6.4 10^3/ul (3.5-10.8)
[2018-05-14 07:18] LABS: ABS Basophils 0 10^3/ul (0-0.2); ABS Eosinophils 0.1 10^3/ul (0-0.6); ABS Lymphocytes 0.2 10^3/ul (1.0-4.8); ABS Monocytes 0.2 10^3/ul (0-0.8)
[2018-05-14 07:21] LABS: ABS Basophils 0.1 10^3/ul (0-0.2); ABS Neutrophils 4.7 10^3/ul (1.5-7.7); Monocytes % 8 % (0-7)
[2018-05-14] MEDS: Sucralfate SUSP 1 GM/10 ml 10 ML UDC PO SCH ×4 (08:47→21:06)
[2018-05-14] MEDS: Senna TAB PO SCH ×2 (08:47→19:36)
[2018-05-14] MEDS: Pantoprazole IV* 40 MG IV SCH (08:48)
[2018-05-14] MEDS: Citalopram TAB* 20 MG PO SCH (08:48)
[2018-05-14] MEDS: Polyethylene Glycol 3350* 17 GM PACKET PO SCH ×2 (08:48→19:37)
[2018-05-14] MEDS: Morphine ORAL.SOLN 10 mg* 2 MG/ML UDC 5 ml PO PRN (10:32)
--- NOTE | 2018-05-14 12:13 | PN ---
Progress Note - Progress Note Date of Service: 05/13/18 SOAP: Subjective: [Doing well today. Stood at bedside a few times. No new complaints. Noted urine is slightly dark, but no associated pain.] Objective: [Gen: looks good, no distress. 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 Has now completed cycle 2 of chemotherapy with R-CHOP and has completed IV Bactrim. Plan: [1. Pneumocystitis PNA - respiratory status seems to be improving, activity tolerance is slowly improving - Continue 3 L nc and encouraged increased activity - Completed 21d of IV Bactrim - Bactrim DS po TIW for prophylaxis 2. Adrenal compromise. Off prednisone w/o adverse effects. 3. Constipation - improved, cont laxative 4. H/o GI bleed - cont IV PPI and sucralfate - Hgb remains stable at this time 5. DLBCL - R-CHOP C2 - Will need IT MTX with subsequent cycles 6. Anemia/thrombocytopenia. Chemotherapy related - transfused 1U PRBCs - no significant bleeding events 7. Continue PT, goal of walking. 8. Urinary retention. - discussed with Dr Metzger - recommended starting Flomax, voiding trial Tuesday if still inpatient or outpatient follow up with Dr Metzger 7. Code status, DNR/DNI ] Dispo: dc to [facility] in next few days]
--- NOTE | 2018-05-14 12:17 | PN ---
Progress Note - Progress Note Date of Service: 05/14/18 SOAP: Subjective: [Doing great. Finally walked! Made it to the door of his room earlier today. No CP, dizziness or dyspnea. Now sitting up in a chair at bedside.] Objective: [ Laboratory Results - last 24 hr 05/14/18 05/14/18 06:03 06:03 WBC 6.4 RBC 2.42 L Hgb 7.7 L Hct 23 L MCV 94 MCH 32 H MCHC 34 RDW 21 H Plt Count 38 L MPV 7.7 Neut % (Auto) Not Reportable Lymph % (Auto) Not Reportable [place] % (Auto) Not Reportable Eos % (Auto) Not Reportable Baso % (Auto) Not Reportable Absolute Neuts (auto) 5.9 Absolute Lymphs (auto) 0.2 L Absolute Monos (auto) 0.2 Absolute Eos (auto) 0.1 Absolute Basos (auto) 0 Absolute Nucleated RBC Not Reportable Immature Gran % 12 H Neutrophils % 73 Band Neutrophils % 5 Lymphocytes % 6 L Monocytes % 8 H Eosinophils % 0 Basophils % 1 Metamyelocytes % 2 Myelocytes % 5 H Nucleated RBC % Not Reportable Abs Neuts (Manual) 4.7 Abs Lymphs (Manual) 0.4 L Abs Monocytes (Manual) 0.5 Absolute Eos (Manual) 0 Abs Basophils (Manual) 0.1 Normal RBC Morphology Not Reportable Polychromasia 1+ Hypochromasia 1+ Anisocytosis 2+ Sodium 137 Potassium 4.1 Chloride 104 Carbon Dioxide 29 Anion Gap 4 BUN 11 Creatinine 0.40 L Est GFR ( Amer) 263.7 Est GFR (Non-Af Amer) 218.0 BUN/Creatinine Ratio 27.5 H Glucose 103 H Calcium 8.2 L Total Bilirubin 0.30 AST 10 L ALT 13 Alkaline Phosphatase 100 Total Protein 4.3 L Albumin 2.5 L Globulin 1.8 L Albumin/Globulin Ratio 1.4 Bisacodyl (Dulcolax Supp*) 10 mg [place] DAILY PRN PRN Reason: CONSTIPATION Last Admin: 05/09/18 12:22 Dose: 10 mg Citalopram Hydrobromide (Celexa Tab*) 20 mg PO DAILY [facility] Last Admin: 05/14/18 08:48 Dose: 20 mg Heparin Sodium (Porcine) (Heparin Flush Picc/Ml/Cvc(*)) 1 - 3 ml FLUSH 0600, 1800 [facility]; Protocol Last Admin: 05/14/18 05:53 Dose: 3 ml Levalbuterol HCl (Xopenex 1.25 Mg/0.5 Ml Neb.Julissa*) 1.25 mg INH Q2HR PRN PRN Reason: SHORTNESS OF BREATH Melatonin (Melatonin) 6 mg PO BEDTIME PRN PRN Reason: INSOMNIA Morphine Sulfate (Morphine Oral.Soln 10 Mg*) 10 mg PO Q4H PRN PRN Reason: pain or dyspnea Last Admin: 05/14/18 10:32 Dose: 10 mg Morphine Sulfate (Morphine Vial*) 4 mg IV Q3H PRN PRN Reason: PAIN Last Admin: 05/09/18 16:26 Dose: 4 mg Multi-Ingredient Mouthwash/Gargle (Magic M W2 Todd/Maal/Nyst/Lido*) 5 ml SWISH SWAL [id number] AWAKE PRN PRN Reason: mouth pain/mucositis Last Admin: 04/13/18 19:37 Dose: 5 ml Pantoprazole Sodium (Protonix Iv*) 40 mg IV DAILY [facility] Last Admin: 05/14/18 08:48 Dose: 40 mg Phenazopyridine HCl (Pyridium Tab*) 100 mg PO TID PRN PRN Reason: BLADDER PAIN/SPASMS Last Admin: 05/09/18 08:23 Dose: 100 mg Polyethylene Glycol/Electrolytes (Miralax*) 17 gm PO BID [facility] Last Admin: 05/14/18 08:48 Dose: Not Given Prochlorperazine (Compazine Tab*) 10 mg PO Q8HR PRN PRN Reason: NAUSEA Senna (Senokot Tab*) 2 tab PO BID [facility] Last Admin: 05/14/18 08:47 Dose: 2 tab Sodium Chloride (Sodium Chloride 0.65% Nasal [place]*) 1 spray BOTH NARES Q4H PRN PRN Reason: dryness/bleeding Sucralfate (Sucralfate Susp) 1 gm PO ACHS [facility] Last Admin: 05/14/18 08:47 Dose: 1 gm Tamsulosin HCl (Flomax Cap*) 0.4 mg PO BEDTIME [facility] Last Admin: 05/13/18 20:04 Dose: 0.4 mg Trimethoprim/Sulfamethoxazole (Bactrim Ds 800/160 Tab*) 1 tab PO MoWeFr@0900 [facility] Last Admin: 05/12/18 07:45 Dose: 1 tab Vital Signs: Temp Pulse Resp BP Pulse Ox 98.5 F 79 20 115/57 98 05/14/18 07:18 05/14/18 07:18 05/14/18 10:32 05/14/18 07:18 05/14/18 07:18 [Gen: looks good, no distress. 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 Has now completed cycle 2 of chemotherapy with R-CHOP and has completed IV Bactrim. Plan: [1. Pneumocystitis PNA - respiratory status seems to be improving, activity tolerance is slowly improving - Continue 3 L nc and encouraged increased activity - Completed 21d of IV Bactrim - Bactrim DS po TIW for prophylaxis 2. Adrenal compromise. Off prednisone w/o adverse effects. 3. Constipation - improved, cont laxative 4. H/o GI bleed - cont IV PPI and sucralfate - Hgb remains stable at this time 5. DLBCL - R-CHOP C2 - Will need IT MTX with subsequent cycles 6. Anemia/thrombocytopenia. Chemotherapy related - transfused 1U PRBCs - no significant bleeding events 7. Continue PT, goal of walking. 8. Urinary retention. - discussed with Dr Metzger - recommended starting Flomax, voiding trial Tuesday (tomorrow) 7. Code status, DNR/DNI ] Dispo: appropriate for dc to [facility], case management/SW involved
[2018-05-14] MEDS: Tamsulosin CAP* 0.4 MG PO SCH (19:36)
[2018-05-15] MEDS: Sucralfate SUSP 1 GM/10 ml 10 ML UDC PO SCH ×4 (07:41→20:44)
[2018-05-15] MEDS: Senna TAB PO SCH ×3 (07:41→19:43)
[2018-05-15] MEDS: Sulfamethox/Trimethoprim DS 800/160* TAB PO SCH (07:42)
[2018-05-15] MEDS: Citalopram TAB* 20 MG PO SCH (07:42)
[2018-05-15] MEDS: Morphine ORAL.SOLN 10 mg* 2 MG/ML UDC 5 ml PO PRN ×2 (07:42→12:20)
[2018-05-15] MEDS: Pantoprazole IV* 40 MG IV SCH (07:43)
[2018-05-15] MEDS: Polyethylene Glycol 3350* 17 GM PACKET PO SCH ×2 (07:43→19:43)
--- NOTE | 2018-05-15 08:40 | PN ---
Progress Note - Progress Note Date of Service: 05/15/18 SOAP: Subjective: needed a little more O2 last night. feels good this am. ureña removed ~30 mins ago. no void yet. Objective: Vital Signs Temp Pulse Resp BP Pulse Ox 98.3 F 78 20 105/56 99 05/15/18 07:28 05/15/18 07:28 05/15/18 08:00 05/15/18 07:28 05/15/18 07:28 sitting up in nad perr eomi op moist crackles both bases s1 s2 nl soft nt +Bs no le edema l axilla 2 cm fixed node A+Ox3, nonfocal neurological exam Bisacodyl (Dulcolax Supp*) 10 mg [place] DAILY PRN PRN Reason: CONSTIPATION Last Admin: 05/09/18 12:22 Dose: 10 mg Citalopram Hydrobromide (Celexa Tab*) 20 mg PO DAILY [facility] Last Admin: 05/15/18 07:42 Dose: 20 mg Heparin Sodium (Porcine) (Heparin Flush Picc/Ml/Cvc(*)) 1 - 3 ml FLUSH 0600, 1800 [facility]; Protocol Last Admin: 05/15/18 05:41 Dose: 3 ml Levalbuterol HCl (Xopenex 1.25 Mg/0.5 Ml Neb.Julissa*) 1.25 mg INH Q2HR PRN PRN Reason: SHORTNESS OF BREATH Melatonin (Melatonin) 6 mg PO BEDTIME PRN PRN Reason: INSOMNIA Morphine Sulfate (Morphine Oral.Soln 10 Mg*) 10 mg PO Q4H PRN PRN Reason: pain or dyspnea Last Admin: 05/15/18 07:42 Dose: 10 mg Morphine Sulfate (Morphine Vial*) 4 mg IV Q3H PRN PRN Reason: PAIN Last Admin: 05/09/18 16:26 Dose: 4 mg Multi-Ingredient Mouthwash/Gargle (Magic M W2 Todd/Maal/Nyst/Lido*) 5 ml SWISH SWAL [id number] AWAKE PRN PRN Reason: mouth pain/mucositis Last Admin: 04/13/18 19:37 Dose: 5 ml Pantoprazole Sodium (Protonix Iv*) 40 mg IV DAILY [facility] Last Admin: 05/15/18 07:43 Dose: 40 mg Phenazopyridine HCl (Pyridium Tab*) 100 mg PO TID PRN PRN Reason: BLADDER PAIN/SPASMS Last Admin: 05/09/18 08:23 Dose: 100 mg Polyethylene Glycol/Electrolytes (Miralax*) 17 gm PO BID [facility] Last Admin: 05/15/18 07:43 Dose: Not Given Prochlorperazine (Compazine Tab*) 10 mg PO Q8HR PRN PRN Reason: NAUSEA Senna (Senokot Tab*) 2 tab PO BID [facility] Last Admin: 05/15/18 07:57 Dose: Not Given Sodium Chloride (Sodium Chloride 0.65% Nasal [place]*) 1 spray BOTH NARES Q4H PRN PRN Reason: dryness/bleeding Sucralfate (Sucralfate Susp) 1 gm PO ACHS [facility] Last Admin: 05/15/18 07:41 Dose: 1 gm Tamsulosin HCl (Flomax Cap*) 0.4 mg PO BEDTIME [facility] Last Admin: 05/14/18 19:36 Dose: 0.4 mg Trimethoprim/Sulfamethoxazole (Bactrim Ds 800/160 Tab*) 1 tab PO MoWeFr@0900 [facility] Last Admin: 05/15/18 07:42 Dose: 1 tab Assessment: 63 yo male with DLBCL s/p C1 EPOCH complicated by GI bleed due to 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 Has now completed cycle 2 of chemotherapy with R-CHOP and has completed IV Bactrim. Clinically improving. Plan: 1. Pneumocystitis PNA - respiratory status seems to be improving, activity tolerance is slowly improving - Continue 3 L nc and encouraged increased activity - Completed 21d of IV Bactrim - Bactrim DS po TIW for prophylaxis 2. Adrenal compromise. Off prednisone w/o adverse effects. 3. H/o GI bleed - cont IV PPI and sucralfate - Hgb remains stable at this time 4. DLBCL - R-CHOP C2, dy 15 - Will need IT MTX with subsequent cycles 5. Anemia/thrombocytopenia. Chemotherapy related -stable 6. Continue PT, goal of walking. 7. Urinary retention. - discussed with Dr Metzger - on Flomax, voiding trial this am 8. Code status, DNR/DNI Dispo: appropriate for dc to [facility], case management/SW involved. if no bed will swing
[2018-05-15] MEDS: Phenazopyridine TAB* 100 MG PO PRN (15:28)
[2018-05-15] MEDS: Tamsulosin CAP* 0.4 MG PO SCH (19:17)
[2018-05-16] MEDS: Sucralfate SUSP 1 GM/10 ml 10 ML UDC PO SCH ×4 (07:47→20:11)
[2018-05-16] MEDS: Pantoprazole IV* 40 MG IV SCH (07:48)
[2018-05-16] MEDS: Senna TAB PO SCH ×2 (07:48→20:11)
[2018-05-16] MEDS: Citalopram TAB* 20 MG PO SCH (07:48)
[2018-05-16] MEDS: Polyethylene Glycol 3350* 17 GM PACKET PO SCH (07:54)
[2018-05-16] MEDS: Morphine ORAL.SOLN 10 mg* 2 MG/ML UDC 5 ml PO PRN (09:16)
[2018-05-16] MEDS: Phenazopyridine TAB* 100 MG PO PRN ×3 (09:36→20:10)
[2018-05-16 11:17] LABS: Urine Appearance Clear; Urine Blood 3+ (Negative); Urine Color Yellow; Urine Ketones Negative (Negative); Urine Protein 2+(100 mg/dL) (Negative); Urine Red Blood Cell 3+(>10/hpf) (Absent); Urine Specific Gravity 1.009 (1.010-1.030); Urine Urobilinogen Negative (Negative); Urine White Blood Cell 3+(>20/hpf) (Absent)
--- NOTE | 2018-05-16 15:15 | PN ---
Progress Note - Progress Note Date of Service: 05/16/18 SOAP: Subjective: []Pt. seen and examined this AM. Feeling a lot better today, stronger and stronger. Was able to walk 50 feet with PT assisting with walker, fall precautions, and management of supplemental O2. Pace and ability to ambulate limited by tachycardia and cont.'d SOB, however has not been de-SATing. [facility] has accepted pt. and he is very excited about this, however unfortunately his insurance has deemed his need for acute rehab following his 33 day stay with only just starting to ambulate unnecessary. Medications: Bisacodyl (Dulcolax Supp*) 10 mg [place] DAILY PRN PRN Reason: CONSTIPATION Last Admin: 05/09/18 12:22 Dose: 10 mg Citalopram Hydrobromide (Celexa Tab*) 20 mg PO DAILY [facility] Last Admin: 05/16/18 07:48 Dose: 20 mg Heparin Sodium (Porcine) (Heparin Flush Picc/Ml/Cvc(*)) 1 - 3 ml FLUSH 0600, 1800 [facility]; Protocol Last Admin: 05/16/18 05:36 Dose: 3 ml Levalbuterol HCl (Xopenex 1.25 Mg/0.5 Ml Neb.Julissa*) 1.25 mg INH Q2HR PRN PRN Reason: SHORTNESS OF BREATH Melatonin (Melatonin) 6 mg PO BEDTIME PRN PRN Reason: INSOMNIA Morphine Sulfate (Morphine Vial*) 4 mg IV Q3H PRN PRN Reason: PAIN Last Admin: 05/09/18 16:26 Dose: 4 mg Multi-Ingredient Mouthwash/Gargle (Magic M W2 Todd/Maal/Nyst/Lido*) 5 ml SWISH SWAL [id number] AWAKE PRN PRN Reason: mouth pain/mucositis Last Admin: 04/13/18 19:37 Dose: 5 ml Pantoprazole Sodium (Protonix Iv*) 40 mg IV DAILY [facility] Last Admin: 05/16/18 07:48 Dose: 40 mg Phenazopyridine HCl (Pyridium Tab*) 100 mg PO TID PRN PRN Reason: BLADDER PAIN/SPASMS Last Admin: 05/16/18 09:36 Dose: 100 mg Prochlorperazine (Compazine Tab*) 10 mg PO Q8HR PRN PRN Reason: NAUSEA Senna (Senokot Tab*) 2 tab PO BID [facility] Last Admin: 05/16/18 07:48 Dose: 2 tab Sodium Chloride (Sodium Chloride 0.65% Nasal [place]*) 1 spray BOTH NARES Q4H PRN PRN Reason: dryness/bleeding Sucralfate (Sucralfate Susp) 1 gm PO ACHS [facility] Last Admin: 05/16/18 11:46 Dose: 1 gm Tamsulosin HCl (Flomax Cap*) 0.4 mg PO BEDTIME [facility] Last Admin: 05/15/18 19:17 Dose: 0.4 mg Trimethoprim/Sulfamethoxazole (Bactrim Ds 800/160 Tab*) 1 tab PO MoWeFr@0900 [facility] Last Admin: 05/15/18 07:42 Dose: 1 tab Objective: [] Vital Signs Temp Pulse Resp BP Pulse Ox 96.7 F 119 18 128/83 100 05/16/18 11:16 05/16/18 11:16 05/16/18 11:47 05/16/18 11:16 05/16/18 11:16 A&Ox3, EOMI, CN II-XII intact, BRUCE, notably weak and easily winded HRR, S1S2, tachy LS clear bilat. with even and non-labored resp. Laboratory Results - last 24 hr 05/16/18 11:00 Urine Color Yellow Urine Appearance Clear Urine pH 6.0 Ur Specific [place] 1.009 L Urine Protein 2+(100 mg/dl) A Urine Ketones Negative Urine Blood 3+ A Urine Nitrate Negative Urine Bilirubin Negative Urine Urobilinogen Negative Ur Leukocyte Esterase Negative Urine WBC (Auto) 3+(>20/hpf) A Urine RBC (Auto) 3+(>10/hpf) A Urine Bacteria Absent Urine Glucose Negative Assessment: []63 yo male recovering from resp. failure s/p intubation 2/2 PCP PNA. Plan: []Goal of PMRU tomorrow, appeal in place
[2018-05-16] MEDS: Tamsulosin CAP* 0.4 MG PO SCH (20:11)
[2018-05-17] MEDS: Sucralfate SUSP 1 GM/10 ml 10 ML UDC PO SCH ×4 (05:47→20:48)
[2018-05-17] MEDS: Sulfamethox/Trimethoprim DS 800/160* TAB PO SCH (09:34)
[2018-05-17] MEDS: Citalopram TAB* 20 MG PO SCH (09:35)
[2018-05-17] MEDS: Pantoprazole IV* 40 MG IV SCH (09:35)
[2018-05-17] MEDS: Senna TAB PO SCH ×2 (10:14→20:47)
--- NOTE | 2018-05-17 10:42 | PN ---
Progress Note - Progress Note Date of Service: 05/17/18 SOAP: Subjective: []Feeling well today. Has been up with PT and gets easily winded with tachycardia during exertion, but much better than last week. Currently awaiting insurance appeal for PMRU in order to get pt. home independently (with expectation that he should be able to get back to baseline). Asked several questions regarding admission as he doesn't recall exactly what happened that required intubation. Two good BMs yesterday and using senna appopriately. Medications: Citalopram Hydrobromide (Celexa Tab*) 20 mg PO DAILY [facility] Last Admin: 05/17/18 09:35 Dose: 20 mg Heparin Sodium (Porcine) (Heparin Flush Picc/Ml/Cvc(*)) 1 - 3 ml FLUSH 0600, 1800 [facility]; Protocol Last Admin: 05/17/18 05:46 Dose: 3 ml Levalbuterol HCl (Xopenex 1.25 Mg/0.5 Ml Neb.Julissa*) 1.25 mg INH Q2HR PRN PRN Reason: SHORTNESS OF BREATH Melatonin (Melatonin) 6 mg PO BEDTIME PRN PRN Reason: INSOMNIA Multi-Ingredient Mouthwash/Gargle (Magic M W2 Todd/Maal/Nyst/Lido*) 5 ml SWISH SWAL [id number] AWAKE PRN PRN Reason: mouth pain/mucositis Last Admin: 04/13/18 19:37 Dose: 5 ml Pantoprazole Sodium (Protonix Iv*) 40 mg IV DAILY [facility] Last Admin: 05/17/18 09:35 Dose: 40 mg Phenazopyridine HCl (Pyridium Tab*) 100 mg PO TID PRN PRN Reason: BLADDER PAIN/SPASMS Last Admin: 05/16/18 20:10 Dose: 100 mg Prochlorperazine (Compazine Tab*) 10 mg PO Q8HR PRN PRN Reason: NAUSEA Senna (Senokot Tab*) 2 tab PO BID [facility] Last Admin: 05/17/18 10:14 Dose: Not Given Sodium Chloride (Sodium Chloride 0.65% Nasal [place]*) 1 spray BOTH NARES Q4H PRN PRN Reason: dryness/bleeding Sucralfate (Sucralfate Susp) 1 gm PO ACHS [facility] Last Admin: 05/17/18 05:47 Dose: 1 gm Tamsulosin HCl (Flomax Cap*) 0.4 mg PO BEDTIME [facility] Last Admin: 05/16/18 20:11 Dose: 0.4 mg Trimethoprim/Sulfamethoxazole (Bactrim Ds 800/160 Tab*) 1 tab PO MoWeFr@0900 [facility] Last Admin: 05/17/18 09:34 Dose: 1 tab Objective: [] Vital Signs Temp Pulse Resp BP Pulse Ox 97.9 F 76 18 102/54 97 05/17/18 07:38 05/17/18 07:38 05/17/18 10:15 05/17/18 07:38 05/17/18 07:38 A&Ox3, EOMI, CN II-XII intact, BRUCE with good strength =bilat. MMM, no evidence for thrush or ulcerations HRR, S1S2, apical rate 80 at rest LS clear. bilat with even and non-labored resp. +BS, abd. soft and non-tender No edema noted Assessment: []63 yo male /c DLBCL s/p 2 cycles of chemotherapy recovering from resp. failure s/p intubation 2/2 PCP PNA. Plan: []Cont. PT, goal of PMRU in the next day however awaiting insurance Check CBC today, plan for C3 05/22 with IT mtx. 05/23
[2018-05-17] MEDS: Phenazopyridine TAB* 100 MG PO PRN ×2 (10:59→20:47)
[2018-05-17 11:34] LABS: Hematocrit 25 % (42-52); Hemoglobin 8.3 g/dl (14.0-18.0); Mean Corpuscular HGB Conc 33 g/dl (31-36); Mean Corpuscular Hemoglobin 31 pg (27-31); Mean Corpuscular Volume 95 fL (80-94); Mean Platelet Volume 7.3 um3 (7.4-10.4); Platelet Count 125 10^3/ul (150-450); Red Blood Count 2.65 10^6/ul (4.00-5.40); Red Cell Distribution Width 22 % (10.5-15); White Blood Count 5.7 10^3/ul (3.5-10.8)
[2018-05-17 12:20] LABS: ABS Basophils 0 10^3/ul (0-0.2); ABS Neutrophils 4.3 10^3/ul (1.5-7.7); ABS Neutrophils 5.2 10^3/ul (1.5-7.7); Monocytes % 6 % (0-7)
[2018-05-17] MEDS: Tamsulosin CAP* 0.4 MG PO SCH (20:47)
[2018-05-18] MEDS: Sucralfate SUSP 1 GM/10 ml 10 ML UDC PO SCH ×4 (05:59→21:07)
[2018-05-18] MEDS: Citalopram TAB* 20 MG PO SCH (09:36)
[2018-05-18] MEDS: Senna TAB PO SCH ×2 (09:36→19:44)
[2018-05-18] MEDS: Pantoprazole IV* 40 MG IV SCH (09:39)
[2018-05-18 13:21] LABS: EGFR Non-African American 224.4 (>60)
--- NOTE | 2018-05-18 13:26 | PN ---
Progress Note - Progress Note Date of Service: 05/18/18 SOAP: Subjective: []Seen and examined this AM. Feeling well, no new complaints to this screen writer. Feeling more confident with ambulating, however per PT notes he is not independent and cardiopulmonary response to exertion limit his ability. He has not done stairs and have >8 to get in the house. Medications: Citalopram Hydrobromide (Celexa Tab*) 20 mg PO DAILY [facility] Last Admin: 05/18/18 09:36 Dose: 20 mg Heparin Sodium (Porcine) (Heparin Flush Picc/Ml/Cvc(*)) 1 - 3 ml FLUSH 0600, 1800 [facility]; Protocol Last Admin: 05/18/18 12:30 Dose: 1 ml Levalbuterol HCl (Xopenex 1.25 Mg/0.5 Ml Neb.Julissa*) 1.25 mg INH Q2HR PRN PRN Reason: SHORTNESS OF BREATH Melatonin (Melatonin) 6 mg PO BEDTIME PRN PRN Reason: INSOMNIA Multi-Ingredient Mouthwash/Gargle (Magic M W2 Todd/Maal/Nyst/Lido*) 5 ml SWISH SWAL [id number] AWAKE PRN PRN Reason: mouth pain/mucositis Last Admin: 04/13/18 19:37 Dose: 5 ml Pantoprazole Sodium (Protonix Iv*) 40 mg IV DAILY [facility] Last Admin: 05/18/18 09:39 Dose: 40 mg Phenazopyridine HCl (Pyridium Tab*) 100 mg PO TID PRN PRN Reason: BLADDER PAIN/SPASMS Last Admin: 05/17/18 20:47 Dose: 100 mg Prochlorperazine (Compazine Tab*) 10 mg PO Q8HR PRN PRN Reason: NAUSEA Senna (Senokot Tab*) 2 tab PO BID [facility] Last Admin: 05/18/18 09:36 Dose: 2 tab Sodium Chloride (Sodium Chloride 0.65% Nasal [place]*) 1 spray BOTH NARES Q4H PRN PRN Reason: dryness/bleeding Sucralfate (Sucralfate Susp) 1 gm PO ACHS [facility] Last Admin: 05/18/18 11:55 Dose: 1 gm Tamsulosin HCl (Flomax Cap*) 0.4 mg PO BEDTIME [facility] Last Admin: 05/17/18 20:47 Dose: 0.4 mg Trimethoprim/Sulfamethoxazole (Bactrim Ds 800/160 Tab*) 1 tab PO MoWeFr@0900 [facility] Last Admin: 05/17/18 09:34 Dose: 1 tab Objective: [] Vital Signs Temp Pulse Resp BP Pulse Ox 97.6 F 110 18 147/86 97 05/18/18 11:02 05/18/18 11:29 05/18/18 10:00 05/18/18 11:29 05/18/18 11:02 A&Ox3, EOMI, BRUCE - see PT notes for full MS exam and current ambulatory abilities HRR, S1S2 LS clear bilat. Laboratory Results - last 24 hr 05/18/18 12:40 Sodium 140 Potassium 3.4 L Chloride 110 Carbon Dioxide 25 Anion Gap 5 BUN 9 Creatinine 0.39 L Est GFR ( Amer) 271.6 Est GFR (Non-Af Amer) 224.4 BUN/Creatinine Ratio 23.1 H Glucose 66 L Calcium 7.4 L Total Bilirubin 0.20 AST 7 L ALT 10 Alkaline Phosphatase 77 Total Protein 4.0 L Albumin 2.3 L Globulin 1.7 L Albumin/Globulin Ratio 1.4 Assessment: []63 yo male with DLBCL c/o by respiratory failure requiring intubation 2/2 PCP pneumonia now slowly recovering. He has been inpatient for >30 days and continues to struggle with independent activities related to his severe deconditioning. At this time his insurance has denied any rehab, however following discussion with case management and PT he is NOT safe for d/c home. I have requested we re-submit for authorization as I feel very strongly that he has the potential to return to baseline, however this will require intensive rehab. Plan: []Check CMP today Plan chemo C3 RCHOP 05/22, IT Mtx via LP 05/23 Will need PET after C3 as outpatient to assess response Continue intensive PT, goal remains home however he is unable to manage this at this time
[2018-05-18] MEDS: Potassium Chlor TAB* 20 MEQ TAB.ER PO SCH ×2 (19:43→19:53)
[2018-05-18] MEDS: Tamsulosin CAP* 0.4 MG PO SCH (19:53)
[2018-05-18] MEDS: Phenazopyridine TAB* 100 MG PO PRN (19:55)
[2018-05-19] MEDS: Potassium Chlor TAB* 20 MEQ TAB.ER PO SCH ×2 (07:34→19:11)
[2018-05-19] MEDS: Citalopram TAB* 20 MG PO SCH (07:34)
[2018-05-19] MEDS: Sucralfate SUSP 1 GM/10 ml 10 ML UDC PO SCH ×4 (07:34→20:24)
[2018-05-19] MEDS: Senna TAB PO SCH ×2 (07:35→19:11)
[2018-05-19] MEDS: Sulfamethox/Trimethoprim DS 800/160* TAB PO SCH (07:35)
[2018-05-19] MEDS: Pantoprazole IV* 40 MG IV SCH (08:19)
--- NOTE | 2018-05-19 19:09 | PN ---
Progress Note - Progress Note Date of Service: 05/19/18 SOAP: Subjective: []Better each day. Walked around floor today with PT and then with nurse. Frequent breaks and capacity is severely limited by deconditioning as well as hypoxia and tachycardia. No pain. Is eating well now, no abdominal pain. Citalopram Hydrobromide (Celexa Tab*) 20 mg PO DAILY [facility] Last Admin: 05/19/18 07:34 Dose: 20 mg Heparin Sodium (Porcine) (Heparin Flush [place] ([place])) 5 ml FLUSH DAILY [facility]; Protocol Last Admin: 05/19/18 15:24 Dose: 5 ml Levalbuterol HCl (Xopenex 1.25 Mg/0.5 Ml Neb.Julissa*) 1.25 mg INH Q2HR PRN PRN Reason: SHORTNESS OF BREATH Melatonin (Melatonin) 6 mg PO BEDTIME PRN PRN Reason: INSOMNIA Multi-Ingredient Mouthwash/Gargle (Magic M W2 Todd/Maal/Nyst/Lido*) 5 ml SWISH SWAL [id number] AWAKE PRN PRN Reason: mouth pain/mucositis Last Admin: 04/13/18 19:37 Dose: 5 ml Pantoprazole Sodium (Protonix Iv*) 40 mg IV DAILY [facility] Last Admin: 05/19/18 08:19 Dose: 40 mg Phenazopyridine HCl (Pyridium Tab*) 100 mg PO TID PRN PRN Reason: BLADDER PAIN/SPASMS Last Admin: 05/18/18 19:55 Dose: 100 mg Potassium Chloride (Klor Con Er Tab*) 20 meq PO BID [facility] Last Admin: 05/19/18 07:34 Dose: 20 meq Prochlorperazine (Compazine Tab*) 10 mg PO Q8HR PRN PRN Reason: NAUSEA Senna (Senokot Tab*) 2 tab PO BID [facility] Last Admin: 05/19/18 07:35 Dose: Not Given Sodium Chloride (Sodium Chloride 0.65% Nasal [place]*) 1 spray BOTH NARES Q4H PRN PRN Reason: dryness/bleeding Sucralfate (Sucralfate Susp) 1 gm PO ACHS [facility] Last Admin: 05/19/18 16:36 Dose: 1 gm Tamsulosin HCl (Flomax Cap*) 0.4 mg PO BEDTIME [facility] Last Admin: 05/18/18 19:53 Dose: 0.4 mg Trimethoprim/Sulfamethoxazole (Bactrim Ds 800/160 Tab*) 1 tab PO MoWeFr@0900 [facility] Last Admin: 05/19/18 07:35 Dose: 1 tab Objective: [] Vital Signs Temp Pulse Resp BP Pulse Ox 98.0 F 85 16 100/50 98 05/19/18 15:17 05/19/18 17:17 05/19/18 17:17 05/19/18 15:17 05/19/18 17:17 HEENT - mucosa moist, pale +[address], tender. Crackles both side, no wheezing RRR s1s2 +BS NT ND ext - no edema, decreased muscle tone. Assessment: []63 yo male with DLBCL c/o GIB, hypercalcemia, respiratory failure requiring intubation 2/2 PCP pneumonia now slowly recovering. He has been inpatient for > 30 days and continues to struggle with independent activities related to his severe deconditioning. Plan: []1. He will need acute rehab ideally, if not sub acute. Working with insurance on disposition. 2. DLBCL. Will proceed with R-CHOP followed by Jonathan on Tuesday. IT MTX on Tuesday. 3. PET once out patient, after cycle 3. If PET + will consider excision of left axillary LN. 4. Continue Bactrim DS TIW 5. Change Protonix to po
[2018-05-19] MEDS: Tamsulosin CAP* 0.4 MG PO SCH (19:10)
[2018-05-19] MEDS: Phenazopyridine TAB* 100 MG PO PRN (19:10)
[2018-05-19] MEDS: Melatonin 3 MG TAB PO PRN (20:24)
[2018-05-20] MEDS: Sucralfate SUSP 1 GM/10 ml 10 ML UDC PO SCH ×4 (06:05→22:09)
[2018-05-20 06:46] LABS: Hematocrit 22 % (42-52); Hemoglobin 7.4 g/dl (14.0-18.0); Mean Corpuscular HGB Conc 33 g/dl (31-36); Mean Corpuscular Hemoglobin 32 pg (27-31); Mean Corpuscular Volume 95 fL (80-94); Mean Platelet Volume 6.8 um3 (7.4-10.4); Platelet Count 190 10^3/ul (150-450); Red Blood Count 2.32 10^6/ul (4.00-5.40); Red Cell Distribution Width 22 % (10.5-15); White Blood Count 4.3 10^3/ul (3.5-10.8)
[2018-05-20 08:29] LABS: ABS Basophils 0 10^3/ul (0-0.2); ABS Eosinophils 0 10^3/ul (0-0.6); ABS Lymphocytes 0.2 10^3/ul (1.0-4.8); ABS Monocytes 0.3 10^3/ul (0-0.8); ABS Neutrophils 3.7 10^3/ul (1.5-7.7); ABS Nucleated RBC 0 10^3/ul; Eosinophil % 0.4 % (0-6); Lymphocyte % 5.4 % (25-47); Nucleated Red Blood Cells % 0.1; Tear Drop Cells 1+
--- NOTE | 2018-05-20 09:16 | PN ---
Progress Note - Progress Note Date of Service: 05/20/18 SOAP: Subjective: []Doing well. No pain. continues to work on walking. Breathing has been stable. Eating well Citalopram Hydrobromide (Celexa Tab*) 20 mg PO DAILY [facility] Last Admin: 05/19/18 07:34 Dose: 20 mg Heparin Sodium (Porcine) (Heparin Flush Port ([place])) 5 ml FLUSH DAILY [facility]; Protocol Last Admin: 05/19/18 15:24 Dose: 5 ml Levalbuterol HCl (Xopenex 1.25 Mg/0.5 Ml Neb.Julissa*) 1.25 mg INH Q2HR PRN PRN Reason: SHORTNESS OF BREATH Melatonin (Melatonin) 6 mg PO BEDTIME PRN PRN Reason: INSOMNIA Last Admin: 05/19/18 20:24 Dose: 6 mg Multi-Ingredient Mouthwash/Gargle (Magic M W2 [place]/Maal/Nyst/Lido*) 5 ml SWISH SWAL [id number] AWAKE PRN PRN Reason: mouth pain/mucositis Last Admin: 04/13/18 19:37 Dose: 5 ml Pantoprazole Sodium (Protonix Iv*) 40 mg IV DAILY [facility] Last Admin: 05/19/18 08:19 Dose: 40 mg Phenazopyridine HCl (Pyridium Tab*) 100 mg PO TID PRN PRN Reason: BLADDER PAIN/SPASMS Last Admin: 05/19/18 19:10 Dose: 100 mg Potassium Chloride (Klor Con Er Tab*) 20 meq PO BID [facility] Last Admin: 05/19/18 19:11 Dose: 20 meq Prochlorperazine (Compazine Tab*) 10 mg PO Q8HR PRN PRN Reason: NAUSEA Senna (Senokot Tab*) 2 tab PO BID [facility] Last Admin: 05/19/18 19:11 Dose: Not Given Sodium Chloride (Sodium Chloride 0.65% Nasal [place]*) 1 spray BOTH NARES Q4H PRN PRN Reason: dryness/bleeding Sucralfate (Sucralfate Susp) 1 gm PO ACHS [facility] Last Admin: 05/20/18 06:05 Dose: 1 gm Tamsulosin HCl (Flomax Cap*) 0.4 mg PO BEDTIME [facility] Last Admin: 05/19/18 19:10 Dose: 0.4 mg Trimethoprim/Sulfamethoxazole (Bactrim Ds 800/160 Tab*) 1 tab PO MoWeFr@0900 [facility] Last Admin: 05/19/18 07:35 Dose: 1 tab Objective: [] Vital Signs Temp Pulse Resp BP Pulse Ox 98.0 F 78 16 99/52 98 05/19/18 23:46 05/20/18 01:49 05/20/18 01:49 05/19/18 23:46 05/20/18 01:49 HEENT - mucosa moist, pale +[address], tender. Crackles both side, no wheezing RRR s1s2 +BS NT ND ext - no edema, decreased muscle tone. Assessment: []63 yo male with DLBCL c/o GIB, hypercalcemia, respiratory failure requiring intubation 2/2 PCP pneumonia now slowly recovering. He has been inpatient for > 30 days and continues to struggle with independent activities related to his severe deconditioning. Plan: []1. He will need acute rehab ideally, if not sub acute. Working with insurance on disposition. 2. DLBCL. Will proceed with R-CHOP followed by Jonathan on Tuesday. IT MTX on Tuesday. 3. PET once out patient, after cycle 3. If PET + will consider excision of left axillary LN. 4. Continue Bactrim DS TIW 5. Anemia. Tx 1 U PRBC today.
[2018-05-20] MEDS: Potassium Chlor TAB* 20 MEQ TAB.ER PO SCH ×2 (10:20→21:22)
[2018-05-20] MEDS: Senna TAB PO SCH ×2 (10:20→21:24)
[2018-05-20] MEDS: Citalopram TAB* 20 MG PO SCH (10:21)
[2018-05-20] MEDS: Pantoprazole IV* 40 MG IV SCH (19:17)
[2018-05-20] MEDS: Melatonin 3 MG TAB PO PRN (21:23)
[2018-05-20] MEDS: Tamsulosin CAP* 0.4 MG PO SCH (21:24)
[2018-05-21 06:02] LABS: Hematocrit 25 % (42-52); Hemoglobin 8.3 g/dl (14.0-18.0); Mean Corpuscular HGB Conc 33 g/dl (31-36); Mean Corpuscular Hemoglobin 30 pg (27-31); Mean Corpuscular Volume 91 fL (80-94); Mean Platelet Volume 6.6 um3 (7.4-10.4); Platelet Count 214 10^3/ul (150-450); Red Blood Count 2.74 10^6/ul (4.00-5.40); Red Cell Distribution Width 24 % (10.5-15); White Blood Count 5.2 10^3/ul (3.5-10.8)
[2018-05-21 06:27] LABS: ABS Basophils 0 10^3/ul (0-0.2); ABS Eosinophils 0 10^3/ul (0-0.6); ABS Lymphocytes 0.3 10^3/ul (1.0-4.8); ABS Monocytes 0.4 10^3/ul (0-0.8); ABS Neutrophils 4.5 10^3/ul (1.5-7.7); ABS Nucleated RBC 0 10^3/ul; Eosinophil % 0.7 % (0-6); Lymphocyte % 5.6 % (25-47); Nucleated Red Blood Cells % 0.1
[2018-05-21] MEDS: Sucralfate SUSP 1 GM/10 ml 10 ML UDC PO SCH ×5 (08:54→22:45)
[2018-05-21] MEDS: Potassium Chlor TAB* 20 MEQ TAB.ER PO SCH ×2 (09:01→20:57)
[2018-05-21] MEDS: Citalopram TAB* 20 MG PO SCH (09:01)
[2018-05-21] MEDS: Senna TAB PO SCH ×2 (09:01→21:01)
[2018-05-21] MEDS: CMC:Pantoprazole TAB (NF) 40 MG TAB PO SCH (09:01)
--- NOTE | 2018-05-21 09:28 | PN ---
Subjective Date of Service: 05/21/18 Interval History: Feels great today. Walked a lap around the hallway yesterday. Tries not to talk when he's walking; that way his breathing is manageable. No shortness of breath at rest. No cough or chest pain. Energy is good, appetite is good. No constipation, diarrhea, bleeding, fevers. Frustrated with the insurance hold up , but looking forward to getting to rehab soon. Family History: Unchanged from Admission Social History: Unchanged from Admission Past Medical History: Unchanged from Admission Objective Active Medications: Citalopram Hydrobromide (Celexa Tab*) 20 mg PO DAILY [facility] Last Admin: 05/21/18 09:01 Dose: 20 mg Heparin Sodium (Porcine) (Heparin Flush Port (Ivad)) 5 ml FLUSH DAILY [facility]; Protocol Last Admin: 05/21/18 05:56 Dose: 5 ml Levalbuterol HCl (Xopenex 1.25 Mg/0.5 Ml Neb.Julissa*) 1.25 mg INH Q2HR PRN PRN Reason: SHORTNESS OF BREATH Melatonin (Melatonin) 6 mg PO BEDTIME PRN PRN Reason: INSOMNIA Last Admin: 05/20/18 21:23 Dose: 6 mg Multi-Ingredient Mouthwash/Gargle (Magic M W2 Todd/Maal/Nyst/Lido*) 5 ml SWISH SWAL [id number] AWAKE PRN PRN Reason: mouth pain/mucositis Last Admin: 04/13/18 19:37 Dose: 5 ml Pantoprazole Sodium (Protonix Tab (Nf)) 40 mg PO DAILY [facility] Last Admin: 05/21/18 09:01 Dose: 40 mg Phenazopyridine HCl (Pyridium Tab*) 100 mg PO TID PRN PRN Reason: BLADDER PAIN/SPASMS Last Admin: 05/19/18 19:10 Dose: 100 mg Potassium Chloride (Klor Con Er Tab*) 20 meq PO BID [facility] Last Admin: 05/21/18 09:01 Dose: 20 meq Prochlorperazine (Compazine Tab*) 10 mg PO Q8HR PRN PRN Reason: NAUSEA Senna (Senokot Tab*) 2 tab PO BID [facility] Last Admin: 05/21/18 09:01 Dose: Not Given Sodium Chloride (Sodium Chloride 0.65% Nasal [place]*) 1 spray BOTH NARES Q4H PRN PRN Reason: dryness/bleeding Sucralfate (Sucralfate Susp) 1 gm PO ACHS [facility] Last Admin: 05/21/18 08:54 Dose: 1 gm Tamsulosin HCl (Flomax Cap*) 0.4 mg PO BEDTIME [facility] Last Admin: 05/20/18 21:24 Dose: Not Given Trimethoprim/Sulfamethoxazole (Bactrim Ds 800/160 Tab*) 1 tab PO MoWeFr@0900 [facility] Last Admin: 05/19/18 07:35 Dose: 1 tab Vital Signs - 8 hr 05/21/18 05:45 Temperature 98.2 F Pulse Rate 76 Respiratory 18 Rate Blood Pressure 107/58 (mmHg) O2 Sat by Pulse 97 Oximetry Oxygen Devices in Use Now: Nasal Cannula Appearance: alert, pale, comfortable Eyes: No Scleral Icterus Ears/Nose/Mouth/Throat: NL Teeth, Lips, Gums Neck: NL Appearance and Movements; NL JVP Respiratory: - - dry crackles at both bases and midway right lung Cardiovascular: NL Sounds; No Murmurs; No JVD, RRR, No Edema Abdominal: NL Sounds; No Tenderness; No Distention Lymphatic: - - left axillary lymph node 2cm Skin: No Rash or Ulcers Neurological: Alert and Oriented x 3 Result Diagrams: 05/21/18 05:50 05/21/18 05:50 Microbiology and Other Data: Microbiology 05/16/18 11:00 Urine Culture - Final Urine No Growth (<1,000 CFU/mL) 04/14/18 17:58 Fungal Culture - Final Respiratory - Bronchial No Growth Week 4 04/16/18 07:50 Aerobic Blood Culture - Final Blood Venous No Growth Day 5 Anaerobic Blood Culture - Final No Growth Day 5 Blood Fungal Culture - Final No Growth Week 4 05/08/18 13:20 Urine Culture - Final Urine No Growth (<1,000 CFU/mL) 04/19/18 10:04 Nasal Screen MRSA (PCR) - Final Nasal Mrsa Not Detected 04/14/18 00:30 Aerobic Blood Culture - Final Blood Venous No Growth Day 5 Anaerobic Blood Culture - Final No Growth Day 5 04/14/18 00:43 Aerobic Blood Culture - Final Blood Venous No Growth Day 5 Anaerobic Blood Culture - Final No Growth Day 5 04/14/18 00:19 Aerobic Blood Culture - Final Blood Venous No Growth Day 5 Anaerobic Blood Culture - Final No Growth Day 5 04/13/18 18:00 Aerobic Blood Culture - Final Blood Venous No Growth Day 5 Anaerobic Blood Culture - Final No Growth Day 5 04/16/18 10:10 Gram Stain - Final Sputum Sputum Culture - Final Normal Elisha 04/14/18 17:58 Gram Stain - Final Body Fluid - Right Upper Lobe Body Fluid Culture - Final No Growth Day 4 Acid Fast Bacilli Smear - Final 04/16/18 08:28 Urine Culture - Final Urine No Growth (<1,000 CFU/mL) 04/14/18 09:32 Gram Stain - Final Sputum Sputum Culture - Final Haemophilus Parainfluenzae Normal Elisha 04/13/18 18:10 Gram Stain - Final Sputum Expectorated 04/14/18 00:20 Legionella Urinary Antigen - Final Urine Negative Legionella Antigen Streptococcus pneumoniae Ag Screen - Final Negative S. pneumo Antigen Assess/Plan/Problems-Billing Assessment: Mr. Tarango is a 63 yo man with history of DLBCL who was admitted on 04/13/18 from the outpatient endoscopy suite for hypoxia. He developed vent-dependent respiratory failure and bilateral infilatrates. He underwent bronchoscopy, was extubated, re-intubated, and was found to have pneumocystis pna. His course has been complicated by ongoing hypoxia and deconditioning. - Patient Problems (1) Acute respiratory failure with hypoxia Current Visit: Yes Status: Acute Code(s): J96.01 - ACUTE RESPIRATORY FAILURE WITH HYPOXIA SNOMED Code(s): 81882902 Comment: Markedly improved; he underwent 21 days of PCP tx with DS TMP/SMX, now on ppx dose On 2L O2 now, still with fibrotic changes on pulmonary exam (2) Diffuse large B cell lymphoma Current Visit: Yes Status: Acute Code(s): C83.30 - DIFFUSE LARGE B-CELL LYMPHOMA, UNSPECIFIED SITE SNOMED Code(s): 502046668 Comment: plan for RCHOP tomorrow and intrathecal methotrexate Tuesday (3) PCP (pneumocystis jiroveci pneumonia) Current Visit: Yes Status: Acute Code(s): B59 - PNEUMOCYSTOSIS SNOMED Code (s): 796559616 Comment: resolved, now on bactrim ppx (4) GI bleed Current Visit: Yes Status: Acute Code(s): K92.2 - GASTROINTESTINAL HEMORRHAGE, UNSPECIFIED SNOMED Code(s): 27791862 Comment: likely also related to steroids; hgb stable s/p 1U PRBCs yesterday continue PPI
[2018-05-21] MEDS: Tamsulosin CAP* 0.4 MG PO SCH (21:01)
[2018-05-21] MEDS: Melatonin 3 MG TAB PO PRN (21:01)
[2018-05-22 06:22] LABS: ABS Neutrophils 4.4 10^3/ul (1.5-7.7); Hematocrit 25 % (42-52); Hemoglobin 8.6 g/dl (14.0-18.0); Mean Corpuscular HGB Conc 34 g/dl (31-36); Mean Corpuscular Hemoglobin 31 pg (27-31); Mean Corpuscular Volume 92 fL (80-94); Mean Platelet Volume 6.4 um3 (7.4-10.4); Platelet Count 225 10^3/ul (150-450); Red Blood Count 2.77 10^6/ul (4.00-5.40); Red Cell Distribution Width 23 % (10.5-15); White Blood Count 5.2 10^3/ul (3.5-10.8)
[2018-05-22 06:32] LABS: EGFR Non-African American 190.3 (>60)
[2018-05-22 06:43] LABS: ABS Basophils 0 10^3/ul (0-0.2); ABS Eosinophils 0.1 10^3/ul (0-0.6); ABS Lymphocytes 0.3 10^3/ul (1.0-4.8); ABS Monocytes 0.5 10^3/ul (0-0.8); ABS Nucleated RBC 0 10^3/ul; Eosinophil % 1.1 % (0-6); Lymphocyte % 5.1 % (25-47); Nucleated Red Blood Cells % 0
[2018-05-22] MEDS: Senna TAB PO SCH ×2 (08:15→20:03)
[2018-05-22] MEDS: Citalopram TAB* 20 MG PO SCH (08:16)
[2018-05-22] MEDS: CMC:Pantoprazole TAB (NF) 40 MG TAB PO SCH (08:16)
[2018-05-22] MEDS: Sulfamethox/Trimethoprim DS 800/160* TAB PO SCH (08:16)
[2018-05-22] MEDS: Potassium Chlor TAB* 20 MEQ TAB.ER PO SCH ×2 (08:16→20:11)
[2018-05-22] MEDS: Sucralfate SUSP 1 GM/10 ml 10 ML UDC PO SCH ×4 (08:17→22:06)
[2018-05-22] MEDS ORDERED: Acetaminophen TAB* 325 MG PO ONE (11:09)
--- NOTE | 2018-05-22 11:13 | PN ---
Progress Note - Progress Note Date of Service: 05/22/18 SOAP: Subjective: []Feeling really well and over weekend appeared to do well with ambulating up to 100' without desaturating or tachycardia. However today during attempt to work on stairs fell down d/t poor quad strength. Insurance has denied acute rehab stay despite cont.'d concerning regarding his de-conditioning and need for extended rehab. Medications: Acetaminophen (Tylenol Tab*) 650 mg PO ONCE ONE Stop: 05/22/18 11:10 Citalopram Hydrobromide (Celexa Tab*) 20 mg PO DAILY [facility] Last Admin: 05/22/18 08:16 Dose: 20 mg Heparin Sodium (Porcine) (Heparin Flush Port (Ivad)) 5 ml FLUSH DAILY [facility]; Protocol Last Admin: 05/22/18 08:18 Dose: Not Given Palonosetron 0.25 mg/ IV (Solution) 5 mls @ 150 mls/hr IVPB ONCE ONE Stop: 05/22/18 11:31 Diphenhydramine HCl 50 mg/ IV (Solution) 1 mls @ 30 mls/hr IVPB ONCE ONE Stop: 05/22/18 11:31 Rituximab 500 mg/ Rituximab (225 mg/ Sodium Chloride) 362.5 mls @ 0 mls/hr IVPB ONCE ONE Stop: 05/22/18 12:01 Vincristine Sulfate 2 mg/ (Sodium Chloride) 52 mls @ 208 mls/hr IVPB ONCE ONE Stop: 05/22/18 15:14 Doxorubicin HCl 97 mg/ IV (Solution) 48.5 mls @ 194 mls/hr IVPB ONCE ONE Stop: 05/22/18 15:14 Cyclophosphamide 1,450 mg/ (Sodium Chloride) 572.5 mls @ 1,145 mls/hr IVPB ONCE ONE Stop: 05/22/18 15:59 Levalbuterol HCl (Xopenex 1.25 Mg/0.5 Ml Neb.Julissa*) 1.25 mg INH Q2HR PRN PRN Reason: SHORTNESS OF BREATH Melatonin (Melatonin) 6 mg PO BEDTIME PRN PRN Reason: INSOMNIA Last Admin: 05/21/18 21:01 Dose: 6 mg Multi-Ingredient Mouthwash/Gargle (Magic M W2 Todd/Maal/Nyst/Lido*) 5 ml SWISH SWAL [id number] AWAKE PRN PRN Reason: mouth pain/mucositis Last Admin: 04/13/18 19:37 Dose: 5 ml Pantoprazole Sodium (Protonix Tab (Nf)) 40 mg PO DAILY [facility] Last Admin: 05/22/18 08:16 Dose: 40 mg Phenazopyridine HCl (Pyridium Tab*) 100 mg PO TID PRN PRN Reason: BLADDER PAIN/SPASMS Last Admin: 05/19/18 19:10 Dose: 100 mg Potassium Chloride (Klor Con Er Tab*) 20 meq PO BID [facility] Last Admin: 05/22/18 08:16 Dose: 20 meq Prednisone (Deltasone Tab*) 100 mg PO DAILY@1200 [facility] Stop: 05/26/18 12:01 Prochlorperazine (Compazine Tab*) 10 mg PO Q8HR PRN PRN Reason: NAUSEA Senna (Senokot Tab*) 2 tab PO BID [facility] Last Admin: 05/22/18 08:15 Dose: 2 tab Sodium Chloride (Sodium Chloride 0.65% Nasal [place]*) 1 spray BOTH NARES Q4H PRN PRN Reason: dryness/bleeding Sucralfate (Sucralfate Susp) 1 gm PO ACHS [facility] Last Admin: 05/22/18 08:17 Dose: 1 gm Tamsulosin HCl (Flomax Cap*) 0.4 mg PO BEDTIME [facility] Last Admin: 05/21/18 21:01 Dose: 0.4 mg Trimethoprim/Sulfamethoxazole (Bactrim Ds 800/160 Tab*) 1 tab PO MoWeFr@0900 [facility] Last Admin: 05/22/18 08:16 Dose: 1 tab Objective: [] Vital Signs Temp Pulse Resp BP Pulse Ox 98.3 F 62 18 110/60 98 05/22/18 03:13 05/22/18 03:13 05/22/18 03:13 05/22/18 03:13 05/22/18 03:13 A&Ox3, EOMI, BRUCE HRR, S1S2 Fine crackles bilat. bases with even and non-labored resp., no cough noted +BS, abd. soft and non-tender +PP=bilat., no edema noted Laboratory Results - last 24 hr 05/22/18 05/22/18 05:50 05:50 WBC 5.2 RBC 2.77 L Hgb 8.6 L Hct 25 L MCV 92 MCH 31 MCHC 34 RDW 23 H Plt Count 225 MPV 6.4 L Neut % (Auto) 84.5 H Lymph % (Auto) 5.1 L Turner % (Auto) 8.6 H Eos % (Auto) 1.1 Baso % (Auto) 0.7 Absolute Neuts (auto) 4.4 Absolute Lymphs (auto) 0.3 L Absolute Monos (auto) 0.5 Absolute Eos (auto) 0.1 Absolute Basos (auto) 0 Absolute Nucleated RBC 0 Nucleated RBC % 0 Sodium 139 Potassium 4.2 Chloride 105 Carbon Dioxide 29 Anion Gap 5 BUN 9 Creatinine 0.45 L Est GFR ( Amer) 230.2 Est GFR (Non-Af Amer) 190.3 BUN/Creatinine Ratio 20.0 Glucose 96 Calcium 8.5 L Assessment: []63 yo m with DLBCL admitted with respiratory failure requiring intubation 2/2 PCP now improving albeit very slowly and remains unsafe for d/c home. He has had a complicated course including hypercalcemia and GIB, however he has ultimately tolerated chemotherapy very well and is due for C3 today. Plan: []1. DLBCL: C3 [facility] today - plan IT mtx. tomorrow - Neupogen 480 mcg subq starting tomorrow until ANC >1K, likely 10 days 2. Resp. failure: resolved, O2 needs decreasing 3. Deconditioning: severe, cont. PT and OT and requires cont.'d intensive rehab Dispo: goal of rehab, working with insurance
[2018-05-22] MEDS ORDERED: Palonosetron* 0.25 MG in PREMIX* 0 ML IVPB ONE (11:30)
[2018-05-22] MEDS ORDERED: diPHENhydraMINE IV* 50 MG in PREMIX* 0 ML IVPB ONE (11:30)
[2018-05-22] MEDS: predniSONE TAB* 50 MG PO SCH ×2 (11:38→12:22)
[2018-05-22] MEDS ORDERED: Famotidine IV* 10 MG/ML 2 ML (20 mg) IV SLOW PU ONE (11:43)
[2018-05-22] MEDS ORDERED: RITUXIMAB IVPB ONE (12:00)
[2018-05-22] MEDS ORDERED: NS 0.9% IVPB ONE ×3 (12:00→15:30)
[2018-05-22] MEDS: LORazepam INJ* 2 MG/ML 1 ML VIAL IV PUSH PRN (12:08)
[2018-05-22] MEDS ORDERED: DOXORUBICIN IVPB ONE (15:00)
[2018-05-22] MEDS ORDERED: VINCRISTINE IVPB ONE (15:00)
[2018-05-22] MEDS ORDERED: CYCLOPHOSPHAMIDE IVPB ONE (15:30)
[2018-05-22] MEDS: Tamsulosin CAP* 0.4 MG PO SCH (20:11)
[2018-05-22] MEDS: Melatonin 3 MG TAB PO PRN (20:12)
[2018-05-23] MEDS: CMC:Pantoprazole TAB (NF) 40 MG TAB PO SCH (08:21)
[2018-05-23] MEDS: Citalopram TAB* 20 MG PO SCH (08:21)
[2018-05-23] MEDS: Potassium Chlor TAB* 20 MEQ TAB.ER PO SCH (08:21)
[2018-05-23] MEDS: Sucralfate SUSP 1 GM/10 ml 10 ML UDC PO SCH ×2 (08:21→11:36)
[2018-05-23] MEDS: Senna TAB PO SCH (08:25)
[2018-05-23 08:35] VITALS: BP 113/59
[2018-05-23] MEDS ORDERED: FILGRASTIM-SNDZ* 480 MCG/0.8 ML SYRINGE SUBCUT SCH (09:00)
--- NOTE | 2018-05-23 11:21 | DS ---
- Discharge Summary Admission Date: 04/13/2018 Discharge Date: 05/23/2019 Discharge Diagnosis: 1. Respiratory Failure secondary to PCP: resolved with improved saturation, remains on prophylactic Bactrim 2. Sepsis secondary to PCP: required pressors, now resolved 3. DLBCL: s/p C3 R-CHOP with IT mtx. Today, neupogen daily starting today (D2) as well 4. GI Bleed: resolved, no evidence on endoscopy 04/13, remains on protonix 5. Severe weakness: secondary to deconditioning with 40 day inpt. Stay, transfer to [facility] with cont.d PT and goal of home once safe for d/c Discharge Medications: Medication Instructions Recorded Confirmed Type Citalopram TAB* [Celexa TAB*] 20 mg PO DAILY #30 tab 04/03/18 04/13/18 Rx Pantoprazole TAB (NF) [Protonix 40 mg PO BID #60 tab 04/03/18 04/13/18 Rx TAB (NF)] Sucralfate SUSP 1 gm PO ACHS #120 g 04/03/18 04/13/18 Rx Filgrastim-Sndz* [Zarxio*] 480 mcg SUBCUT DAILY syringe 05/23/18 Rx LORazepam INJ* [Ativan INJ 2 0.5 mg IV PUSH Q4H PRN vial 05/23/18 Rx MG/ML*] Magic M W2 Todd/Maal/Nyst/Lido* 10 ml SWISH SWAL [id number] AWAKE 05/23/18 Rx PRN #500 ml Melatonin 6 mg PO BEDTIME PRN tab 05/23/18 Rx Ondansetron ODT TAB* [Zofran 4 MG 4 mg PO Q6H PRN tab 05/23/18 Rx Odt TAB*] Phenazopyridine TAB* [Pyridium 100 100 mg PO TID PRN tab 05/23/18 Rx mg TAB*] Potassium Chlor TAB* [Potassium 20 meq PO BID tab.er 05/23/18 Rx Chlor TAB 20 MEQ*] Prochlorperazine TAB* [Compazine 10 mg PO Q8HR PRN tab 05/23/18 Rx Tab*] Saline NASAL SPRAY 0.65%* [Sodium 1 spray BOTH NARES Q4H PRN btl 05/23/18 Rx Chloride 0.65% Nasal [place]*] Senna TAB* [Senokot TAB*] 2 tab PO BID PRN tab 05/23/18 Rx Sulfamethox/Trimethoprim DS* 1 tab PO MoWeFr@0900 tab 05/23/18 Rx [Bactrim DS 800/160 TAB*] Tamsulosin CAP* [Flomax CAP*] 0.4 mg PO BEDTIME cap 05/23/18 Rx predniSONE TAB* [Deltasone TAB*] 100 mg PO DAILY@1200 tab 05/23/18 Rx Hospital Course: Please see admission not for full H&P. However, briefly, Mr. Tarango is known to our service due to his unfortunate diagnosis of DLBCL presenting initially with marked hypercalcemia and complicated by GI bleed following C1 EPOCH (given due to concern for double hit which has now been ruled out) on 03/20/18. He presented to the office on 04/13/18 following endoscopy where he was found to be hypoxic in recovery. A CTA of the chest revealed extensive infiltrate concerning for possible disease infiltrate versus infectious process including potential PCP with no evidence for PE. On presentation he was not febrile and had a normal neutrophil count. Overnight however he developed a fever and IV Zosyn was started. Consultation with pulmonology occurred the following day, , with bronchoscopy that evening. Infectious disease also saw the patient that day and IV Azithromycin was added. Following bronchoscopy Mr. Tarango required high flow FiO2 and he was monitored in the ICU. Unfortunately he required intubation in the morning of 04/16 due to cont.d hypoxia. Subsequently overnight he developed hypotension and was started on pressors. Sputum from 04/14 revealed H.Influenza. That AM his antibiotic coverage was broadened to include PCP coverage and anti-fungals. Due to recent GI bleed steroids had initially been avoided, however with respiratory failure and sepsis IV solumedrol was also initiated. By 04/18 bronchial washings confirmed diagnosis of PCP. He was transitioned to CPAP on 04/19 and that afternoon was successfully extubated. That evening he had a recurrent episode of hypoxia and was placed on high flow FiO2 and received IV Lasix with improvement. Mr. Tarango however cont.d to experience significant hypoxia with minimal movement , including sitting upright and eating, and a repeat CTA of the chest was obtained on 04/23 revealing fibrotic changes and no PE. Overnight he again developed hypoxia, however he refused BiPAP and intubation. An echocardiogram that evening ruled out a cardiac shunt and his LVEF was 55%. After extensive discussion over the next two days he ultimately signed a DNR/DNI on 04/25. Fortunately he continued to slowly improve with supportive measures and he was transferred out of the ICU on 04/30. While he continued to experience desaturation with minimal movement/exertion his chemotherapy had been held for approximately 3 weeks and decision was made to pursue cycle 2 while inpatient. He received C2 with R-CHOP on 05/01 without obvious complications. He was given Neupogen daily starting 05/02 through 05/11. Mr. Tarango has continued to make steady improvement and as of 05/19 he is no longer experiencing severe hypoxia with tachycardia during ambulation. He has been unable to complete the required 12 steps for entrance into his home, and unfortunately yesterday experienced a controlled fall during attempts. Plan for transition to acute rehab has been unsuccessful due to insurance denial and he will now transition to swing status as he remains unsafe for discharge home. To note he received C3 R-CHOP yesterday without obvious complications, as well as IT mtx. Via LP today. He will start Neupogen daily and we will monitor labs with plan for discontinuing once neutrophils recovered. To note throughout his admission he has had negative blood cultures. >40 min spent with >50% face to face counseling
[2018-05-23] MEDS: LORazepam INJ* 2 MG/ML 1 ML VIAL IV PUSH PRN ×2 (11:53→12:34)
[2018-05-23] MEDS ORDERED: NS 0.9% INTRATHEC ONE (12:00)
[2018-05-23] MEDS ORDERED: METHOTREXATE INTRATHEC ONE (12:00)
[2018-05-23] MEDS: predniSONE TAB* 50 MG PO SCH (12:41)
[2018-05-24] MEDS ORDERED: Ondansetron ODT TAB* 4 MG PO PRN (09:00)
== END 2018-05-23 12:55 | disposition swing bed (61) | DRG 137 ==
LOC: MED 17:27 → ICU 04-14 19:40 → MED 04-30 19:23
PROVIDERS: ADMIT Internal Medicine Hematology & Oncology; ATTEND Internal Medicine Hematology & Oncology
PROC: 5A09357 Assistance with Respiratory Ventilation, Less than 24 Consecutive Hours, Continuous Positive Airway Pressure (ICD-10-PCS; 2018-04-10)
PROC: 0B9C8ZX Drainage of Right Upper Lung Lobe, Via Natural or Artificial Opening Endoscopic, Diagnostic (ICD-10-PCS; 2018-04-14)
PROC: 0BD48ZX Extraction of Right Upper Lobe Bronchus, Via Natural or Artificial Opening Endoscopic, Diagnostic (ICD-10-PCS; 2018-04-14)
PROC: 0B9F8ZX Drainage of Right Lower Lung Lobe, Via Natural or Artificial Opening Endoscopic, Diagnostic (ICD-10-PCS; 2018-04-14)
PROC: 3E0333Z Introduction of Anti-inflammatory into Peripheral Vein, Percutaneous Approach (ICD-10-PCS; 2018-04-14)
PROC: 5A1945Z Respiratory Ventilation, 24-96 Consecutive Hours (ICD-10-PCS; 2018-04-16)
PROC: 0BH17EZ Insertion of Endotracheal Airway into Trachea, Via Natural or Artificial Opening (ICD-10-PCS; 2018-04-16)
PROC: 3E033XZ Introduction of Vasopressor into Peripheral Vein, Percutaneous Approach (ICD-10-PCS; 2018-04-16)
PROC: 0BP1XDZ Removal of Intraluminal Device from Trachea, External Approach (ICD-10-PCS; 2018-04-19)
PROC: 3E03305 Introduction of Other Antineoplastic into Peripheral Vein, Percutaneous Approach (ICD-10-PCS; 2018-05-01)
PROC: 3E0330M Introduction of Antineoplastic, Monoclonal Antibody, into Peripheral Vein, Percutaneous Approach (ICD-10-PCS; 2018-05-01)
PROC: 0T9B70Z Drainage of Bladder with Drainage Device, Via Natural or Artificial Opening (ICD-10-PCS; 2018-05-10)
PROC: 02HV33Z Insertion of Infusion Device into Superior Vena Cava, Percutaneous Approach (ICD-10-PCS; 2018-05-10)
PROC: 30233N1 Transfusion of Nonautologous Red Blood Cells into Peripheral Vein, Percutaneous Approach (ICD-10-PCS; principal; 2018-05-11)
DX: B59 Pneumocystosis (principal); J96.01 Acute respiratory failure with hypoxia; A41.9 Sepsis, unspecified organism; K25.4 Chronic or unspecified gastric ulcer with hemorrhage; R65.20 Severe sepsis without septic shock; C83.33 Diffuse large B-cell lymphoma, intra-abdominal lymph nodes; C79.52 Secondary malignant neoplasm of bone marrow; J90 Pleural effusion, not elsewhere classified; D62 Acute posthemorrhagic anemia; E27.40 Unspecified adrenocortical insufficiency; J02.9 Acute pharyngitis, unspecified; I10 Essential (primary) hypertension; K21.9 Gastro-esophageal reflux disease without esophagitis; I71.4 Abdominal aortic aneurysm, without rupture; R63.4 Abnormal weight loss; M54.9 Dorsalgia, unspecified; G89.29 Other chronic pain; F32.9 Major depressive disorder, single episode, unspecified; I95.9 Hypotension, unspecified; B96.3 Hemophilus influenzae [H. influenzae] as the cause of diseases classified elsewhere; Z66 Do not resuscitate; R33.9 Retention of urine, unspecified; E87.6 Hypokalemia; K59.00 Constipation, unspecified; D63.8 Anemia in other chronic diseases classified elsewhere; D64.81 Anemia due to antineoplastic chemotherapy; D69.59 Other secondary thrombocytopenia; T50.905A Adverse effect of unspecified drugs, medicaments and biological substances, initial encounter; Z99.81 Dependence on supplemental oxygen; Z88.1 Allergy status to other antibiotic agents; Z87.891 Personal history of nicotine dependence; Z68.22 Body mass index [BMI] 22.0-22.9, adult; Z92.21 Personal history of antineoplastic chemotherapy; Z79.52 Long term (current) use of systemic steroids
CPT/HCPCS: 36415; 36600; 71045; 71046; 71275; 76000; 80048; 80053; 81003; 81015; 82270; 82550; 82553; 82728; 82803; 83540; 83550; 83605; 83615; 83735; 83880; 84145; 84484; 85014; 85018; 85025; 85027; 85045; 85060; 85379; 85610; 86140; 86141; 86850; 86900; 86901; 86922; 87040; 87070; 87077; 87086; 87102; 87103; 87116; 87205; 87206; 87252; 87254; 87497; 87641; 87798; 87899; 88112; 88305; 88312; 93005; 93306; 94002; 94003; 94640; 94660; 94667; 94668; 97530; 99156; 99157; 99215; 99217; 99220; 99222; 99231; 99232; 99233; 99239; A9270-GY; C1751; G0463; J0330; J0456; J1200; J1450; J1642; J1650; J1940; J2060; J2250; J2270; J2469; J2543; J2704; J2916; J2920; J3010; J3475; J3480; J7512; J7611; J9000; J9070; J9260; J9310; J9370; P9040; Q0164; Q5101; Q9967

== ENCOUNTER 2018-05-23 12:55 | Inpatient (IN) | payer BC ==
[2018-05-23] MEDS ORDERED: Magic M W2 Ben/Maal/Nyst/Lido* 240 ML MOUTHWASH (alt formulation) SWISH SWAL PRN (13:22)
[2018-05-23] MEDS ORDERED: Ondansetron ODT TAB* 4 MG PO PRN (13:22)
[2018-05-23] MEDS ORDERED: Senna TAB PO PRN (13:22)
[2018-05-23] MEDS ORDERED: LORazepam INJ* 2 MG/ML 1 ML VIAL IV PUSH PRN (13:22)
[2018-05-23] MEDS ORDERED: Phenazopyridine TAB* 100 MG PO PRN (13:22)
[2018-05-23] MEDS ORDERED: Prochlorperazine TAB* 10 MG PO PRN (13:22)
[2018-05-23] MEDS ORDERED: Saline NASAL SPRAY 0.65%* BTL BOTH NARES PRN (13:22)
[2018-05-23] MEDS: Sucralfate SUSP 1 GM/10 ml 10 ML UDC PO SCH ×2 (17:38→22:42)
[2018-05-23] MEDS: Potassium Chlor TAB* 20 MEQ TAB.ER PO SCH (21:52)
[2018-05-23] MEDS: Tamsulosin CAP* 0.4 MG PO SCH (21:52)
[2018-05-23] MEDS: Melatonin 3 MG TAB PO PRN (21:53)
[2018-05-23] MEDS: CMC:Pantoprazole TAB (NF) 40 MG TAB PO SCH (21:53)
--- NOTE | 2018-05-24 02:57 | PM ---
CC: Dr. Sorensen * [facility] NOTE: DATE OF VISIT: 05/23/18 DIAGNOSIS: B-cell lymphoma. HISTORY: The patient is a 63-year-old male who was an inpatient in the hospital being treated for B-cell lymphoma. The patient is scheduled today to undergo intrathecal methotrexate injection. I was asked by the hematology/ oncology service to provide a lumbar puncture for the instillation of the methotrexate. I had a chance to meet with the patient and review his chart and laboratory analysis. There are no contraindications to the procedure. I explained to him the lumbar puncture, the risk of a headache, possible bleeding , infection, and nerve injection. After going over the risks, benefits, and alternatives, informed consent was obtained. PROCEDURE NOTE: The patient was placed in the sitting position. His back was prepped and draped in the usual sterile fashion. 2 cc of 1% lidocaine was used for local anesthesia at the L3-4 interspace. A 22-gauge spinal needle was advanced at the L3-4 interspace until I accessed the subarachnoid space. There was free flow of clear cerebrospinal fluid without blood or paresthesias. I proceeded to withdraw 10 cc of CSF and then the Hematology/Oncology PA instilled 10 mL of methotrexate per their protocol. When that was complete, I removed the needle intact. The patient tolerated the procedure well. [id number]/[facility] #: [id number] [facility]
[2018-05-24] MEDS: Potassium Chlor TAB* 20 MEQ TAB.ER PO SCH ×2 (08:23→19:27)
[2018-05-24] MEDS: Sulfamethox/Trimethoprim DS 800/160* TAB PO SCH (08:23)
[2018-05-24] MEDS: CMC:Pantoprazole TAB (NF) 40 MG TAB PO SCH ×2 (08:24→19:28)
[2018-05-24] MEDS: Sucralfate SUSP 1 GM/10 ml 10 ML UDC PO SCH ×4 (08:24→20:46)
[2018-05-24] MEDS: Citalopram TAB* 20 MG PO SCH (08:24)
[2018-05-24] MEDS: FILGRASTIM-SNDZ* 480 MCG/0.8 ML SYRINGE SUBCUT SCH (08:25)
[2018-05-24] MEDS: predniSONE TAB* 50 MG PO SCH (12:51)
[2018-05-24] MEDS: Tamsulosin CAP* 0.4 MG PO SCH (19:27)
[2018-05-24] MEDS: Melatonin 3 MG TAB PO PRN (19:30)
[2018-05-25] MEDS: Sucralfate SUSP 1 GM/10 ml 10 ML UDC PO SCH ×4 (08:18→20:54)
[2018-05-25] MEDS: FILGRASTIM-SNDZ* 480 MCG/0.8 ML SYRINGE SUBCUT SCH (08:49)
[2018-05-25] MEDS: Potassium Chlor TAB* 20 MEQ TAB.ER PO SCH ×2 (08:50→19:18)
[2018-05-25] MEDS: CMC:Pantoprazole TAB (NF) 40 MG TAB PO SCH ×2 (08:50→19:19)
[2018-05-25] MEDS: Citalopram TAB* 20 MG PO SCH (08:50)
[2018-05-25] MEDS: predniSONE TAB* 50 MG PO SCH (16:05)
[2018-05-25] MEDS: Tamsulosin CAP* 0.4 MG PO SCH (19:19)
[2018-05-25] MEDS: Melatonin 3 MG TAB PO PRN (19:19)
[2018-05-26 07:02] LABS: Hematocrit 24 % (42-52); Hemoglobin 7.9 g/dl (14.0-18.0); Mean Corpuscular HGB Conc 34 g/dl (31-36); Mean Corpuscular Hemoglobin 31 pg (27-31); Mean Corpuscular Volume 93 fL (80-94); Mean Platelet Volume 6.7 um3 (7.4-10.4); Platelet Count 170 10^3/ul (150-450); Red Blood Count 2.57 10^6/ul (4.00-5.40); Red Cell Distribution Width 22 % (10.5-15); White Blood Count 9.8 10^3/ul (3.5-10.8)
[2018-05-26 08:36] LABS: ABS Basophils 0 10^3/ul (0-0.2); ABS Neutrophils 9.1 10^3/ul (1.5-7.7); ABS Neutrophils 9.5 10^3/ul (1.5-7.7); Monocytes % 1 % (0-7)
[2018-05-26] MEDS: FILGRASTIM-SNDZ* 480 MCG/0.8 ML SYRINGE SUBCUT SCH (08:58)
[2018-05-26] MEDS: Citalopram TAB* 20 MG PO SCH (09:00)
[2018-05-26] MEDS: Sulfamethox/Trimethoprim DS 800/160* TAB PO SCH (09:00)
[2018-05-26] MEDS: Potassium Chlor TAB* 20 MEQ TAB.ER PO SCH ×2 (09:00→22:02)
[2018-05-26] MEDS: Sucralfate SUSP 1 GM/10 ml 10 ML UDC PO SCH ×4 (09:26→22:02)
[2018-05-26] MEDS: CMC:Pantoprazole TAB (NF) 40 MG TAB PO SCH ×2 (09:31→22:02)
[2018-05-26] MEDS: predniSONE TAB* 50 MG PO SCH (12:18)
[2018-05-26] MEDS: Tamsulosin CAP* 0.4 MG PO SCH (22:02)
[2018-05-26] MEDS: Melatonin 3 MG TAB PO PRN (23:00)
[2018-05-27] MEDS: Sucralfate SUSP 1 GM/10 ml 10 ML UDC PO SCH ×4 (07:58→20:53)
[2018-05-27] MEDS: Citalopram TAB* 20 MG PO SCH (08:20)
[2018-05-27] MEDS: FILGRASTIM-SNDZ* 480 MCG/0.8 ML SYRINGE SUBCUT SCH (08:20)
[2018-05-27] MEDS: CMC:Pantoprazole TAB (NF) 40 MG TAB PO SCH ×2 (08:20→19:19)
[2018-05-27] MEDS: Potassium Chlor TAB* 20 MEQ TAB.ER PO SCH ×2 (08:20→19:20)
[2018-05-27] MEDS: predniSONE TAB* 50 MG PO SCH (12:57)
[2018-05-27] MEDS: Melatonin 3 MG TAB PO PRN (19:19)
[2018-05-27] MEDS: Tamsulosin CAP* 0.4 MG PO SCH (19:19)
[2018-05-28] MEDS: Sucralfate SUSP 1 GM/10 ml 10 ML UDC PO SCH ×4 (08:15→20:53)
[2018-05-28] MEDS: Citalopram TAB* 20 MG PO SCH (09:07)
[2018-05-28] MEDS: CMC:Pantoprazole TAB (NF) 40 MG TAB PO SCH ×2 (09:07→19:16)
[2018-05-28] MEDS: Potassium Chlor TAB* 20 MEQ TAB.ER PO SCH ×2 (09:07→19:15)
[2018-05-28] MEDS: FILGRASTIM-SNDZ* 480 MCG/0.8 ML SYRINGE SUBCUT SCH (09:08)
[2018-05-28] MEDS: predniSONE TAB* 50 MG PO SCH (11:50)
[2018-05-28] MEDS: Tamsulosin CAP* 0.4 MG PO SCH (19:15)
[2018-05-28] MEDS: Melatonin 3 MG TAB PO PRN (19:16)
[2018-05-29] MEDS: Sucralfate SUSP 1 GM/10 ml 10 ML UDC PO SCH ×4 (07:38→20:09)
[2018-05-29] MEDS: Potassium Chlor TAB* 20 MEQ TAB.ER PO SCH ×2 (07:38→20:09)
[2018-05-29] MEDS: Sulfamethox/Trimethoprim DS 800/160* TAB PO SCH (07:39)
[2018-05-29] MEDS: CMC:Pantoprazole TAB (NF) 40 MG TAB PO SCH ×2 (07:39→20:09)
[2018-05-29] MEDS: Citalopram TAB* 20 MG PO SCH (07:39)
[2018-05-29] MEDS: FILGRASTIM-SNDZ* 480 MCG/0.8 ML SYRINGE SUBCUT SCH (07:39)
[2018-05-29] MEDS: predniSONE TAB* 50 MG PO SCH (10:36)
[2018-05-29 13:32] LABS: EGFR Non-African American 157.5 (>60)
[2018-05-29 14:19] LABS: Hematocrit 25 % (42-52); Hemoglobin 8.3 g/dl (14.0-18.0); Mean Corpuscular HGB Conc 33 g/dl (31-36); Mean Corpuscular Hemoglobin 30 pg (27-31); Mean Corpuscular Volume 91 fL (80-94); Mean Platelet Volume 7.7 um3 (7.4-10.4); Platelet Count 83 10^3/ul (150-450); Red Blood Count 2.76 10^6/ul (4.00-5.40); Red Cell Distribution Width 21 % (10.5-15); White Blood Count 0.1 10^3/ul (3.5-10.8)
[2018-05-29 15:12] LABS: ABS Basophils 0 10^3/ul (0-0.2); ABS Neutrophils 0 10^3/ul (1.5-7.7); Monocytes % 26 % (0-7)
[2018-05-29 15:13] LABS: ABS Neutrophils 0 10^3/ul (1.5-7.7)
--- NOTE | 2018-05-29 15:48 | PN ---
Progress Note - Progress Note Date of Service: 05/29/18 SOAP: Subjective: []Doing better. Walking around floor. Breathing still short but improved. Sat 92 % RA resting and on 1-2L walking. PT report is positive but still need break and rest during session. Eating well and gaining weight. No pain, no fevers. Citalopram Hydrobromide (Celexa Tab*) 20 mg PO DAILY [facility] Last Admin: 05/29/18 07:39 Dose: 20 mg Filgrastim-Sndz (Zarxio*) 480 mcg SUBCUT DAILY [facility] Last Admin: 05/29/18 07:39 Dose: 480 mcg Heparin Sodium (Porcine) (Heparin Flush Port (Ivad)) 5 ml FLUSH DAILY [facility]; Protocol Last Admin: 05/29/18 12:47 Dose: 5 ml Lorazepam (Ativan Inj*) 0.5 mg IV PUSH Q4H PRN PRN Reason: Anxiety/nausea Last Admin: 05/24/18 20:52 Dose: 0.5 mg Melatonin (Melatonin) 6 mg PO BEDTIME PRN; Protocol PRN Reason: INSOMNIA Last Admin: 05/28/18 19:16 Dose: 6 mg Multi-Ingredient Mouthwash/Gargle (Magic M W2 Todd/Maal/Nyst/Lido*) 10 ml SWISH SWAL [id number] AWAKE PRN PRN Reason: mouth pain/mucositis Ondansetron HCl (Zofran Odt Tab*) 4 mg PO Q6H PRN PRN Reason: NAUSEA Pantoprazole Sodium (Protonix Tab (Nf)) 40 mg PO BID [facility] Last Admin: 05/29/18 07:39 Dose: 40 mg Phenazopyridine HCl (Pyridium Tab*) 100 mg PO TID PRN PRN Reason: BLADDER PAIN/SPASMS Potassium Chloride (Klor Con Er Tab*) 20 meq PO BID [facility] Last Admin: 05/29/18 07:38 Dose: 20 meq Prednisone (Deltasone Tab*) 100 mg PO DAILY@1200 [facility] Last Admin: 05/29/18 10:36 Dose: 100 mg Prochlorperazine (Compazine Tab*) 10 mg PO Q8HR PRN PRN Reason: NAUSEA Senna (Senokot Tab*) 2 tab PO BID PRN PRN Reason: CONSTIPATION Last Admin: 05/25/18 08:53 Dose: 2 tab Sodium Chloride (Sodium Chloride 0.65% Nasal [place]*) 1 spray BOTH NARES Q4H PRN PRN Reason: dryness/bleeding Sucralfate (Sucralfate Susp) 1 gm PO ACHS [facility] Last Admin: 05/29/18 16:17 Dose: 1 gm Tamsulosin HCl (Flomax Cap*) 0.4 mg PO BEDTIME [facility] Last Admin: 05/28/18 19:15 Dose: 0.4 mg Trimethoprim/Sulfamethoxazole (Bactrim Ds 800/160 Tab*) 1 tab PO MoWeFr@0900 [facility] Last Admin: 05/29/18 07:39 Dose: 1 tab Objective: [] Vital Signs Temp Pulse Resp BP Pulse Ox 97.9 F 82 18 111/76 90 05/29/18 07:25 05/29/18 07:25 05/29/18 07:45 05/29/18 07:25 05/29/18 11:11 HEENT: OM moist, no lesions. pale CTA RRR S1S2 +BS NT ND still node in left axilla No COLIN WBC 05/26/18 05/29/18 06:00 12:47 WBC 9.8 10^3/ul 10^3/ul 0.1 10^3/ul L 10^3/ul (3.5-10.8) (3.5-10.8) Assessment: []63 year old day 8, cycle 3 of R-CHOP. Course complicated by PCP pnemonia. He has continued to improve over past week. Family meeting with patient and his and we feel his is ready for discharge home. Plan: []1. Plan discharge tomorrow. 2. Will continue GCSF x 4 days, they have x 7 days at home. 3. O2 on discharge 4. Will need to call for fevers, change in symptoms. 5. Follow up Tuesday in clinic with CBC
[2018-05-29] MEDS: Tamsulosin CAP* 0.4 MG PO SCH (20:09)
[2018-05-29] MEDS: Melatonin 3 MG TAB PO PRN (21:42)
[2018-05-30 05:55] LABS: ABS Neutrophils 0.2 10^3/ul (1.5-7.7); Hematocrit 23 % (42-52); Hemoglobin 7.6 g/dl (14.0-18.0); Mean Corpuscular HGB Conc 33 g/dl (31-36); Mean Corpuscular Hemoglobin 30 pg (27-31); Mean Corpuscular Volume 91 fL (80-94); Red Blood Count 2.53 10^6/ul (4.00-5.40); Red Cell Distribution Width 21 % (10.5-15); White Blood Count 0.7 10^3/ul (3.5-10.8)
[2018-05-30 06:41] LABS: ABS Basophils 0 10^3/ul (0-0.2); ABS Eosinophils 0 10^3/ul (0-0.6); ABS Lymphocytes 0.3 10^3/ul (1.0-4.8); ABS Monocytes 0.1 10^3/ul (0-0.8); ABS Nucleated RBC 0 10^3/ul; Eosinophil % 1.2 % (0-6); Lymphocyte % 46.6 % (25-47); Mean Platelet Volume 7.3 um3 (7.4-10.4); Nucleated Red Blood Cells % 0; Platelet Count 58 10^3/ul (150-450)
[2018-05-30] MEDS: Sucralfate SUSP 1 GM/10 ml 10 ML UDC PO SCH ×2 (08:20→11:45)
[2018-05-30 08:29] VITALS: BP 138/76
[2018-05-30] MEDS: FILGRASTIM-SNDZ* 480 MCG/0.8 ML SYRINGE SUBCUT SCH (09:47)
[2018-05-30] MEDS: CMC:Pantoprazole TAB (NF) 40 MG TAB PO SCH (09:48)
[2018-05-30] MEDS: Citalopram TAB* 20 MG PO SCH (09:48)
[2018-05-30] MEDS: Potassium Chlor TAB* 20 MEQ TAB.ER PO SCH (09:48)
[2018-05-30] MEDS: predniSONE TAB* 50 MG PO SCH (11:45)
--- NOTE | 2018-05-30 13:15 | DS ---
- Discharge Summary Admission Date: 05/23/18 Discharge Date: 05/30/18 Discharge Diagnosis: 1. PCP Pneumonia: resolved, remains on prophylactic 2. Pancytopenia: secondary to chemotherapy, cont. neupogen 3. Hypoxia and tachycardia: stable to improved 4. Weakness: improving with PT 5. DLBCL: s/p C3 RCHOP Discharge Medications: Medication Instructions Recorded Confirmed Type Citalopram TAB* [Celexa TAB*] 20 mg PO DAILY #30 tab 04/03/18 05/23/18 Rx Melatonin 6 mg PO BEDTIME PRN tab 05/23/18 05/23/18 Rx Ondansetron ODT TAB* [Zofran 4 MG 4 mg PO Q6H PRN tab 05/23/18 05/23/18 Rx Odt TAB*] Prochlorperazine TAB* [Compazine 10 mg PO Q8HR PRN tab 05/23/18 05/23/18 Rx Tab*] Saline NASAL SPRAY 0.65%* [Sodium 1 spray BOTH NARES Q4H PRN btl 05/23/1805/23 Rx Chloride 0.65% Nasal [place]*] Senna TAB* [Senokot TAB*] 2 tab PO BID PRN tab 05/23/18 05/23/18 Rx Filgrastim-Sndz* [Zarxio*] 480 mcg SUBCUT DAILY 4 Days #0 05/30/18 05/23/18 Rx syringe Magic M W2 Todd/Maal/Nyst/Lido* 10 ml SWISH SWAL [id number] AWAKE 05/30/18 Rx PRN #500 ml Pantoprazole TAB (NF) [Protonix 40 mg PO BID #60 tab 05/30/18 Rx TAB (NF)] Phenazopyridine TAB* [Pyridium 100 100 mg PO TID PRN #90 tab 05/30/18 Rx mg TAB*] Potassium Chlor TAB* [Potassium 20 meq PO BID #60 tab.er 05/30/18 Rx Chlor TAB 20 MEQ*] Sucralfate SUSP 1 gm PO ACHS #120 g 05/30/18 Rx Sulfamethox/Trimethoprim DS* 1 tab PO MoWeFr@0900 #90 tab 05/30/18 Rx [Bactrim DS 800/160 TAB*] Tamsulosin CAP* [Flomax CAP*] 0.4 mg PO BEDTIME #30 cap 05/30/18 Rx Hospital Course: Please see discharge summary from 05/23 for most recent history as well as admission note for full H&P. Briefly, Mr. Tarango was admitted to [facility] status on 05/23 following a lengthy hospital stay r/t respiratory failure from PCP Pneumonia requiring intubation and complicated by significant deconditioning. He has marked improvement over the last 2 weeks and continues to improve. Today he is day 9 of cycle 3 and has pancytopenia though is only minimally symptomatic and has no fevers. We discussed giving one unit of PRBCs prior to discharge and was very much in agreement with this. He will continue his neupogen at home and will monitor closely for any signs or symptoms of infection, call with any concerns and fevers >/= 100.4F. He will have his labs checked on 06/02 and will follow-up with Dr. Panchal on 06/06. Mr. Tarango denied questions and is very happy to be returning home.
== END 2018-05-30 17:00 | disposition home or self-care (01) | DRG 139 ==
LOC: MED 12:55
PROVIDERS: ADMIT Internal Medicine Hematology & Oncology; ATTEND Internal Medicine Hematology & Oncology
DX: J18.9 Pneumonia, unspecified organism (principal); D61.810 Antineoplastic chemotherapy induced pancytopenia; C83.30 Diffuse large B-cell lymphoma, unspecified site; R09.02 Hypoxemia; R53.1 Weakness; R52 Pain, unspecified; K21.9 Gastro-esophageal reflux disease without esophagitis; I10 Essential (primary) hypertension; Z79.899 Other long term (current) drug therapy; Z88.1 Allergy status to other antibiotic agents
CPT/HCPCS: 36415; 80053; 85025; 85060; 86850; 86900; 86901; 86922; 97530; 99232; 99239; A9270-GY; J1642; J2060; J7512; P9040; Q5101

== ENCOUNTER 2018-09-21 07:30 | Day surgery (SDC) | payer BC ==
[~2018-09-21 07:30] MED LIST: Buffered Lidocaine 1% SYRIN* 1 ML/SYRINGE INTRADERM ONE; Famotidine IV* 10 MG/ML 2 ML (20 mg) IV ONE; Lactated Ringers 1000 ML Bag* 1,000 ML IV SCH
[2018-09-21] MEDS ORDERED: Clindamycin 900 MG/D5W BAG(*) 900 MG/50 ML BAG IVPB ONE (07:49)
[2018-09-21] MEDS ORDERED: Famotidine IV* 10 MG/ML 2 ML (20 mg) ONE (07:49)
[2018-09-21] MEDS ORDERED: fentaNYL* 50 MCG/ML 2 ML VIAL (100 MCG VIAL) ONE (08:02)
[2018-09-21] MEDS ORDERED: Midazolam* 1 MG/ML 5 ML VIAL (5 MG) ONE (08:02)
[2018-09-21] MEDS ORDERED: DiMENhydriNATE IV* 50 MG/ML VIAL ONE (09:30)
[2018-09-21] MEDS ORDERED: Propofol* 10 MG/ML 20 ML BTL ONE (09:30)
[2018-09-21] MEDS ORDERED: Lidocaine 2% PF * 5 ML VIAL ONE (09:30)
[2018-09-21] MEDS ORDERED: Dexamethasone IV* 4 MG/ML 1 ML (4 MG) ONE (09:30)
[2018-09-21] MEDS ORDERED: Ondansetron INJ* 2 MG/ML VIAL ONE (09:30)
[2018-09-21] MEDS ORDERED: Ketorolac INJ* 30 MG/ML 1 ML VIAL ONE (09:30)
[2018-09-21] MEDS ORDERED: oxyCODONE TAB* 5 MG TAB PO PRN (09:31)
[2018-09-21] MEDS ORDERED: Naloxone* 0.4 MG/ML 1 ML VIAL IV PRN (09:31)
[2018-09-21] MEDS ORDERED: DiMENhydriNATE IV* 50 MG/ML VIAL IV PUSH PRN (09:31)
[2018-09-21] MEDS ORDERED: Acetaminophen TAB* 325 MG PO PRN (09:31)
--- NOTE | 2018-09-21 09:42 | OP ---
Operative Report - Blank - Operative Report Date of Operation: 09/21/18 Note: Brief Operative Note Preop Dx: Lymphoma with Left axillary lymphadenopathy Postop Dx: same Procedure: Excision Left axillary lymphadenopathy Anesthesia: Gen (LMA) Surgeon: [employer] Crewmember: ALISA Davila PA-S Fluids: 250 ml EBL: < 10 ml Specimen: Left axillary lymphadenopathy Drains: none Findings: dictated
[2018-09-21 10:39] VITALS: BP 109/66
--- NOTE | 2018-09-21 20:51 | OP ---
CC: Dr. Panchal; Dr. Sheth * DATE OF OPERATION: 09/21/18 - [facility] DATE OF : 57 SURGEON: Ehsan Alvarez MD STEAM HAND: VALERIY Byrd ANESTHESIOLOGIST: Dr. Payton. ANESTHESIA: General anesthetic, local infiltration. PRE-OP DIAGNOSIS: Left axillary adenopathy and lymphoma. POST-OP DIAGNOSIS: Left axillary adenopathy and lymphoma. OPERATIVE PROCEDURE: Excision of left axillary lymph nodes. DESCRIPTION OF PROCEDURE: The patient was supine on the operating room table. After adequate general anesthetic, compression stockings, Reanna Hugger warmer, and intravenous antibiotics, the left axilla was prepped with antiseptic and draped in a sterile fashion. Local infiltrative anesthesia was administered and approximately 3 cm incision was created in the left axilla. Dissection was carried down to the large palpable node, which was kind of soft and squishy. This was dissected free. There were 2 other nodes deep to this that probably corresponded to the area that was hot on the PET scan. Both of these nodes were firm and enlarged and discolored as well. These were each removed and sent fresh to Pathology. There were no other abnormal nodes identified. The operative field was nicely hemostatic. Closure was accomplished using 3-0 and 5 -0 Vicryl followed by Steri-Strips. He tolerated the procedure well, was awakened, and brought to Recovery in good condition. No complications. No drains. Pathologic specimen as above. Sponge and instrument counts correct. Estimated blood loss was 10 to 20 mL. [id number]/[facility] #: [id number] [facility]
== END 2018-09-21 10:47 | disposition home or self-care (01) ==
LOC: OR 07:30
PROVIDERS: ATTEND Surgery
DX: C83.30 Diffuse large B-cell lymphoma, unspecified site (principal); R59.1 Generalized enlarged lymph nodes; I10 Essential (primary) hypertension; K21.9 Gastro-esophageal reflux disease without esophagitis; Z87.891 Personal history of nicotine dependence
CPT/HCPCS: 88184; 88187; 88188; 88189; 88305; 88333; 88341; 88342; J1100; J1240; J1642; J1885; J2250; J2405; J2704; J3010